=== PATIENT | female | born 1965 | race Caucasian/White ===

== ENCOUNTER → 2020-12-07 12:47 | Outpatient (CLI) | payer MEDICARE, SELFPAY ==
--- NOTE | ~2020-12-07 | MM_ITS ---
EXAMINATION: MM screening [facility] BI w keyonna HISTORY: Screening mammogram TECHNIQUE: Craniocaudal and mediolateral oblique 3-D tomosynthesis images were obtained and synthetic 2-D images were generated. CAD analysis was submitted and interpreted. COMPARISON: 08/14/2014 bilateral digital screening mammogram BREAST PARENCHYMAL COMPOSITION: There are scattered areas of fibroglandular density. FINDINGS: Occasional bilateral benign calcifications. There is no evidence of suspicious mass, calcif ication, or architectural distortion to suggest malignancy in either breast. There has been no suspic ious interval change. IMPRESSION: 1. No mammographic evidence of malignancy. 2. Recommend routine screening mammography in one year. BI-RADS Category 2: Benign finding(s). Reviewed, dictated and finalized at location A.
== END ==
PROVIDERS: PCP Nurse Practitioner Adult Health; Visit Provider Nurse Practitioner Adult Health
DX: Z12.31 Encounter for screening mammogram for malignant neoplasm of breast (principal)
CPT/HCPCS: 77063; 77067

== ENCOUNTER 2023-01-11 12:41 | Outpatient (CLI) | payer MEDICARE, SELFPAY ==
--- NOTE | ~2023-01-11 | MM_ITS ---
EXAMINATION: MM screening [facility] BI w keyonna HISTORY: Screening mammogram TECHNIQUE: Craniocaudal and mediolateral oblique 3-D tomosynthesis images were obtained and synthetic 2-D images were generated. CAD analysis was submitted and interpreted. COMPARISON: 12/07/2020, 08/14/2014 BREAST PARENCHYMAL COMPOSITION: There are scattered areas of fibroglandular density. FINDINGS: Scattered benign-appearing calcifications are present. No suspicious mass, calcification, o r architectural distortion are identified in either breast to suggest malignancy. There has been no s uspicious interval change. IMPRESSION: 1. No mammographic evidence of malignancy. 2. Recommend routine screening mammography in one year. BI-RADS Category 2: Benign finding(s). Reviewed, dictated and finalized at location A.
== END 2023-01-11 12:42 | disposition home or self-care (01) ==
LOC: CHSIMG 12:43
PROVIDERS: PCP Family Medicine; Visit Provider Family Medicine
DX: Z12.31 Encounter for screening mammogram for malignant neoplasm of breast (principal)
CPT/HCPCS: 77063; 77067

== ENCOUNTER 2023-01-29 13:19 | Outpatient (CLI) | payer MEDICARE, SELFPAY ==
--- NOTE | ~2023-01-29 | DEXA_ITS ---
Bone Density Report Name: JORDAN GARCIA Age: 57 Sex: Female Ethnicity: White Date of : 1965 Indication: postmenopausal; screening for osteoporosis; height loss; Referring Provider: DAPHNIE, DANE Nelson Study: Bone densitometry was performed. Exam Date: January 29, 2023 Accession number: [id number] Bone Density: Region BMD T-score Z-score Classification AP Spine(L1, L2, L3) 1.053 0.3 1.6 Normal Femoral Neck (Left) 0.804 -0.4 0.8 Normal Total Hip (Left) 0.882 -0.5 0.4 Normal Femoral Neck (Right) 0.786 -0.6 0.6 Normal Total Hip (Right) 0.857 -0.7 0.2 Normal Femoral Neck Mean 0.795 -0.5 0.7 Normal Total Hip Mean 0.870 -0.6 0.3 Normal World Health Organization criteria for BMD impression classify patients as: Normal (T-score at or above -1.0), Osteopenia (T-score between -1.0 and -2.5), or Osteoporosis (T-score at or below -2.5). 10-year Fracture Risk: FRAX not reported because: All T-scores for Spine Total, Hip Total, Femoral Neck at or above -1.0 Clinical Information Provided by Patient: Patient maximum height was 67 Menopause Age: 54 No regular weight bearing exercise Drinks caffeinated beverages Onset of menses at age 12 Number of children 0 Impression: The patient has normal bone mass. Discussion: BONE DENSITY IS ABOVE THE MINIMUM DESIRABLE LEVEL AT ALL SKELETAL SITES TESTED. This patient?s bone mineral density is above the minimum desirable level (T-score -1.0 or better) at all sites measured. The patient should follow a healthful lifestyle (good nutrition with adequate calcium and vitamin D, and appropriate weight-bearing exercise). Follow-Up: Consider repeating this study in 5 years or sooner if there is some new clinical indication. Reported by: Dr. Jey Fletcher on 01/29/2023 1:49:00 PM. Reviewed, dictated and finalized at location AAntony SERRANO
== END 2023-01-29 13:20 | disposition home or self-care (01) ==
LOC: CHSIMG 13:20
PROVIDERS: PCP Family Medicine; Visit Provider Family Medicine
DX: Z78.0 Asymptomatic menopausal state (principal)
CPT/HCPCS: 77080

== ENCOUNTER 2023-03-12 11:23 | Outpatient (CLI) | payer MEDICARE, SELFPAY ==
--- NOTE | 2023-03-12 11:30 | NEURO_ITS ---
Impression: # Complains of numbness and weakness. History of gastric bypass surgery. # Bilateral ulnar neuropathy around the elbows. # No Carpal Tunnel Syndrome. # Normal needle/EMG. Nerve Conduction Studies Anti Sensory Summary Table Stim Site NR Peak (ms) P-T Amp (?V) Site1 Site2 Delta-P (ms) Dist (cm) Faheem (m/s) Left Median Anti Sensory (2-3nd Digit) Wrist 4.2 26.8 Wrist 2-3nd Digit 4.2 14.0 33 Wrist 4.5 36.8 Wrist 2-3nd Digit 4.2 14.0 33 Right Median Anti Sensory (2-3nd Digit) Wrist 3.1 46.9 Wrist 2-3nd Digit 3.1 14.0 45 Wrist 3.1 47.3 Wrist 2-3nd Digit 3.1 14.0 45 Left Radial Anti Sensory (Base 1st Digit) Wrist 2.0 31.4 Wrist Base 1st Digit 2.0 0.0 Right Radial Anti Sensory (Base 1st Digit) Wrist 2.5 17.2 Wrist Base 1st Digit 2.5 0.0 Left Ulnar Anti Sensory (5th Digit) Wrist 2.8 44.7 Wrist 5th Digit 2.8 14.0 50 Right Ulnar Anti Sensory (5th Digit) Wrist 2.8 28.8 Wrist 5th Digit 2.8 14.0 50 Motor Summary Table Stim Site NR Onset (ms) O-P Amp (mV) Site1 Site2 Delta-0 (ms) Dist (cm) Faheem (m/s) Left Median Motor (Abd Poll Brev) Wrist 3.8 4.7 Elbow Wrist 5.5 29.0 53 Elbow 9.3 3.7 Right Median Motor (Abd Poll Brev) Wrist 3.7 3.2 Elbow Wrist 5.1 32.0 63 Elbow 8.8 5.8 Left Ulnar Motor (Abd Dig Minimi) Wrist 2.8 8.6 A Elbow Wrist 6.3 31.0 49 A Elbow 9.1 8.0 B Elbow Wrist 3.6 21.0 58 B Elbow 6.4 7.1 Right Ulnar Motor (Abd Dig Minimi) Wrist 2.9 4.7 A Elbow Wrist 6.3 30.0 48 A Elbow 9.2 5.4 B Elbow Wrist 4.4 21.0 48 B Elbow 7.3 2.4 F Wave Studies NR F-Lat (ms) L-R F-Lat (ms) Left Median (Mrkrs) (Abd Poll Brev) 30.26 1.27 Right Median (Mrkrs) (Abd Poll Brev) 28.99 1.27 Left Ulnar (Mrkrs) (Abd Dig Min) 28.39 1.66 Right Ulnar (Mrkrs) (Abd Dig Min) 26.73 1.66 EMG Side Muscle Nerve Root Ins Act Fibs Amp Dur Recrt Comment Right 1stDorInt Ulnar C8-T1 Nml Nml Nml Nml Nml Right Ext Indicis Radial (Post Int) C7-8 Nml Nml Nml Nml Nml Right Ext Digitorum Radial (Post Int) C7-8 Nml Nml Nml Nml Nml Right BrachioRad Radial C5-6 Nml Nml Nml Nml Nml Right PronatorTeres Median C6-7 Nml Nml Nml Nml Nml Right Abd Poll Brev Median C8-T1 Nml Nml Nml Nml Nml Left 1stDorInt Ulnar C8-T1 Nml Nml Nml Nml Nml Left Ext Indicis Radial (Post Int) C7-8 Nml Nml Nml Nml Nml Left Ext Digitorum Radial (Post Int) C7-8 Nml Nml Nml Nml Nml Left BrachioRad Radial C5-6 Nml Nml Nml Nml Nml Left PronatorTeres Median C6-7 Nml Nml Nml Nml Nml Left Abd Poll Brev Median C8-T1 Nml Nml Nml Nml Nml MTDD
== END 2023-03-12 11:24 | disposition home or self-care (01) ==
LOC: ANHNEURO 11:24
PROVIDERS: PCP Family Medicine; Visit Provider Physician Assistant Surgical
DX: G56.23 Lesion of ulnar nerve, bilateral upper limbs (principal)
CPT/HCPCS: 95886; 95911

== ENCOUNTER 2023-04-08 15:20 | Outpatient (CLI) | payer MEDICARE, SELFPAY ==
--- NOTE | ~2023-04-08 | XR_ITS ---
EXAMINATION: XR lumbar spine 2-3V DATE: 04/08/2023 15:41 INDICATION: Low back pain. TECHNIQUE: 3 views of lumbar spine were obtained. COMPARISON: Chest 2 views 09/15/2012. FINDINGS: There is 13 degrees dextroscoliosis of lumbar spine. There is a compression fracture of T12 with 1/5 loss of height. There is severely decreased disc height at L2-L3, mildly decreased disc hei ght at L3-L4, severely decreased disc height at L4-L5, and mildly decreased disc height at L5-S1. George gical clips in the right upper quadrant are likely from cholecystectomy. IMPRESSION: 1. Age-indeterminate compression fracture of T12, new from 09/15/2012. 2. Severe lumbar spondylosis. 3. Lumbar dextroscoliosis. Reviewed, dictated and finalized at location E.
--- NOTE | ~2023-04-08 | XR_ITS ---
EXAMINATION: XR thoracic spine 3V DATE: 04/08/2023 15:41 INDICATION: Thoracic back pain. TECHNIQUE: 3 views of thoracic spine were obtained. COMPARISON: Chest 2 views 09/15/2012 FINDINGS: There is 10 degrees levoscoliosis of thoracic spine. There is a compression fracture of T12 with 1/5 loss of height. There is mild chronic anterior wedging of T8-T11. There is mildly decreased disc height at multiple levels in mid and lower thoracic spine. There are endplate osteophytes at mo st levels. Surgical clips in the right upper quadrant are likely from cholecystectomy. IMPRESSION: 1. Age-indeterminate T12 compression fracture, new from 09/15/2012. 2. Mild thoracic spondylosis. 3. Thoracic levoscoliosis. Reviewed, dictated and finalized at location E.
== END 2023-04-08 15:21 | disposition home or self-care (01) ==
PROVIDERS: PCP Family Medicine; Visit Provider Family Medicine
DX: M47.894 Other spondylosis, thoracic region (principal); M47.896 Other spondylosis, lumbar region
CPT/HCPCS: 72072; 72100

== ENCOUNTER 2023-08-27 15:04 | Outpatient (CLI) | payer MEDICARE, SELFPAY ==
[2023-08-27 16:04] LABS: Hematocrit 38.7 % (37.0-47.0); Hemoglobin 12.2 g/dL (12.0-15.0)
== END 2023-08-27 15:05 | disposition home or self-care (01) ==
PROVIDERS: Anesthesiology; PCP Family Medicine; Visit Provider Plastic Surgery
DX: D64.9 Anemia, unspecified (principal); Z01.818 Encounter for other preprocedural examination
CPT/HCPCS: 36415; 85014; 85018

== ENCOUNTER 2023-08-28 03:17 | Day surgery (SDC) | payer MEDICARE, SELFPAY ==
[2023-08-21 11:32] VITALS: BMI 30.7
--- NOTE | 2023-08-21 11:41 | PC.NURSE ---
Report to the Outpatient Waiting Room, entrance under the green pavilion located off [facility], at time 8:45 on date 08/28/23. Planned Procedure Time: 10:45. Time changes happen often and if your time is changed the preop area will call you the afternoon before. - You and your visitor will be asked to self-screen and do not enter if you have any COVID symptoms. - A mask is optional within the hospital at this time. Patients may have clear liquids (water, carbonated beverages, clear teas, apple juice) until 8 hours prior to surgery with a maximum of 20 ounces. - No food from midnight until time of surgery Take the following medications with a SIP of water the morning of surgery: PAXIL, THYROID, TRAMADOL IF NEEDED DO NOT STOP ANY OF YOUR OTHER PRESCRIPTION MEDICATIONS PRIOR TO SURGERY ?EXCEPT THE FOLLOWING Medications to discontinue per physician: VITAMINS/SUPPLEMENTS Date to take last dose: 08/24/[address] COSTELLO REGARDING ASPIRIN AND CELEBREX Please no make-up, nail uzbek, hairspray, perfume, deodorant, or body powder the day of surgery. No jewelry (including any body piercings) or valuables the day of surgery, leave them at home. Please take a shower or bath the night before, or the morning of, surgery with an antibacterial soap. Wear comfortable, loose fitting clothing. - Jewelry must be removed prior to entering the operating room. Rings and piercings that are not removed may be cut off. - The hospital will not accept responsibility for valuables. - Please leave all valuables, including medications, at home the day of surgery. If you are going home after surgery, a licensed port cdl a driver must drive you home. - NO public transportation without another adult if you receive anesthesia. - We recommend that an adult stay with you for 24 hours following discharge. - We also recommend that you do not drive, make important decision, drink alcoholic beverages, or take any drugs that were not prescribed by your health care provider for at least 24 hours after your discharge time. Follow any additional instructions given to you from your surgeon. If you or anyone in your household have experienced Covid symptoms in the past week, please notify your surgeon or the nurse liaison at the phone number below for possible testing. Telephone instructions given to PT - JORDAN RADHA and asked if any additional questions and then verbalized understanding. Patient advised to call surgeon office or pre surgery nurse liaison [phone] if any additional questions.
--- NOTE | 2023-08-28 07:25 | WPDHPUPDATE1 ---
History and Physical Update Update Date/Time: 08/28/23 07:25 Patient seen and examined in pre-operative holding area. No interval change in medical history or symptoms. Patient recalls previous discussion of benefits and alternatives to procedure. Continues to desire to proceed with left cubital tunnel release. Reviewed procedure, post-op expectations and risks including but not limited to bleeding, infection, injury to tendon/nerve/vessel, decreased hand function, stiffness, RSD, no change or worsening of symptoms. I discussed the possible use of assistants and their participation in the case. Patient stated understanding and signed the consent form wishing to proceed.
--- NOTE | 2023-08-28 07:26 | P.OP_ITS ---
Procedure Note - Detailed Date of Procedure 08/28/23 Pre-op Diagnosis ulnar neuropathy at left elbow Post-op Diagnosis Same Procedure Performed left CuTR Surgeon Carly Guerrero MD [employer] Tatyana Leon PA-C Anesthesia MAC Description of Procedure INFORMED CONSENT:The patient was seen and examined and marked in the pre-op area.? The patient signed the consent form. PROCEDURE IN DETAIL: The patient taken back to OR on the stretcher in supine position. Time out performed with anesthesia, surgeon and staff agreeing on patient's name site and surgery to be performed SCDs were placed on the lower extremities and inflated A tourniquet was placed on {left} upper extremity and antibiotics given IV After anesthesia administered sedation I injected {10}cc 1%lido with epi and 0.5% marcaine plain at the operative site The?{left upper extremity}?was prepped and draped in sterile fashion the??{left upper extremity} was??exsanguinated with Esmarch bandage and tourniquet inflated to 250mmHg I next proceeded with making a longitudinal incision between two heads for flexor carpi ulnaris at end of {left} cubital tunnel with 15 blade scalpel.? Littler scissors were used to spread down to FCU fascia.? An incision was made in FCU fascia and ulnar nerve identified exiting cubital tunnel.? I proceeded with complete retrograde release of the cubital tunnel including 7cm proximal for the intermuscular septum.? The nerve appeared healthy with visible vaso nervorum.? There was no subluxation on full elbow range of motion. ? I irrigated with normal saline and closure with 4-0 monocryl for dermis and subcuticular. The incision was covered with Dermabond then 4x4s, vijaya, and a posterior elbow splint for patient safety, security and comfort and secured with dennis bandages after the tourniquet was let down noting the hand was warm and well perfused.? Patient awaken from anesthesia and transferred to recovery in stable condition Complications - none EBL- 1cc Disposition - home in stable conditions Tatyana Leon PA-C was essential for postiioning, retraction, closure and dressi ng placement [facility] Billing Surgery - Charge Forward: Surgery Billing ([id number] for tatyana)
--- NOTE | 2023-08-28 08:35 | WPDANESEPPF ---
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 Patient Data Age: 57 Gender: F Height: 1.65 m Weight: 83.9 kg Allergies Allergy/AdvReac Type Severity Reaction Status Date / Time canagliflozin [From Invokana] Allergy Mild Dizziness Verified 08/28/23 09:10 diclofenac [From Voltaren] Allergy Mild Nausea Verified 08/28/23 09:10 fosinopril [From Monopril] Allergy Mild Cough Verified 08/28/23 09:10 levofloxacin [From Levaquin] Allergy Mild Nausea Verified 08/28/23 09:10 montelukast [From Singulair] Allergy Mild Muscle Pain Verified 08/28/23 09:10 sertraline [From Zoloft] Allergy Mild Seizure Verified 08/28/23 09:10 vancomycin Allergy Mild Hives Verified 08/28/23 09:10 cortisone AdvReac Mild Other Verified 08/28/23 09:10 ketorolac AdvReac Mild SEVERE Verified 08/28/23 09:10 NAUSEA AND VOMITING turkey Allergy Mild Unknown Uncoded 08/28/23 09:10 Home Medications Medication Instructions Recorded Confirmed Type aspirin 81 mg tablet,delayed 81 mg PO DAILY 01/31/23 08/21/23 History release (Adult Low Dose Aspirin) olmesartan 5 mg tablet 5 mg PO DAILY 01/31/23 08/21/23 History omeprazole 10 mg capsule,delayed 10 mg PO DAILY 01/31/23 08/21/23 History release Bariatric vitamins 1 tablet PO DAILY 05/06/23 08/21/23 History ascorbic acid 125 mg-collagen, 1 cap PO DAILY 05/06/23 08/21/23 History hydrolyzed 740 mg capsule (Collagen Plus Vitamin C) celecoxib 200 mg capsule 200 mg PO DAILY 05/06/23 08/28/23 History cholecalciferol (vitamin D3) 125 125 mcg PO DAILY 05/06/23 08/21/23 History mcg (5,000 unit) tablet cyclobenzaprine 5 mg tablet 5 mg PO TID PRN Muscle Spasm 05/06/23 08/28/23 History docusate sodium 100 mg capsule 200 mg PO DAILY 05/06/23 08/21/23 History (Colace) fluconazole 150 mg tablet 150 mg PO DAILY PRN FUNGAL 05/06/23 08/21/23 History INFECTION ketoconazole 2 % shampoo 1 applic topical 3XW 05/06/23 08/21/23 History magnesium oxide 400 mg (241.3 mg 400 mg PO DAILY 05/06/23 08/21/23 History magnesium) tablet omega 7-wwt-jzj-fish oil 1,200 mg 1 cap PO DAILY 05/06/23 08/21/23 History (144 mg-216 mg) capsule (Fish Oil) paroxetine HCl 30 mg tablet 60 mg PO DAILY 05/06/23 08/28/23 History sennosides 8.6 mg tablet (senna) 68.8 mg PO DAILY 05/06/23 08/21/23 History tramadol 50 mg tablet 50 mg PO Q6H PRN Pain 05/06/23 08/28/23 History triamcinolone acetonide 0.147 1 spray topical DAILY 05/06/23 08/21/23 History mg/gram topical aerosol Tirosint-Mili 112 mcg/mL oral 112 mcg PO DAILY 90 days #90 mL 05/14/23 08/21/23 Rx solution (levothyroxine) ferrous sulfate 325 mg (65 mg 325 mg PO DAILY 08/21/23 08/21/23 History iron) tablet (Iron (ferrous sulfate)) Patient hx anesthesia problems: post op nausea/vomiting Family hx anesthesia problems: none Results Review: All pre-operative results and documents have been reviewed as part of the pre-operative evaluation. [facility] Past Medical History Medical History (Updated 08/28/23 @ 08:36 by Zeb Mccray DO) Chronic pain tramadol Hyperlipidemia Hypertriglyceridemia CASSIA (obstructive sleep apnea) PONV (postoperative nausea and vomiting) Type 2 diabetes mellitus Vitamin D deficiency Surgical History Surgical History (Updated 05/06/23 @ 13:43 by Alice Posadas CMA) H/O colonoscopy 2006 H/O esophagogastroduodenoscopy H/O gastric bypass 07/04/21 H/O left breast biopsy Hx of cholecystectomy Family History Family History (Updated 01/31/23 @ 14:03 by Jeanine Llamas MA) Father Alcoholism Diabetes mellitus Cancer Mother Alcoholism Hypertension Depression Thyroid disorder Cancer Sibling Alcoholism Asthma Cancer Diabetes mellitus Hypertension Depression Heart dise
[2023-08-28 09:13] VITALS: BP 101/71; PULSE 69; TEMP 36.7; O2SAT 99
[2023-08-28 09:30] LABS: Glucose Point of Care 80 mg/dl (65-105)
[2023-08-28] MEDS: LACTATED RINGERS 1,000 ML 30 ML IV CONT (09:30)
[2023-08-28] MEDS: ceFAZolin 2 GM/D5W 50 ML 2 GM/50 ML BAG IVPB (10:15)
[2023-08-28] MEDS: LIDO 1%/EPINEPHRINE 1:100,000 50 ML VIAL 10 ML INFILTRATE (10:18)
[2023-08-28 10:37] VITALS: BP 110/53; PULSE 61; RESP 16; O2SAT 99
[2023-08-28 11:00] VITALS: BP 121/56; PULSE 60; RESP 16
[2023-08-28 11:17] VITALS: BP 110/51; PULSE 57; RESP 16
== END 2023-08-28 11:19 | disposition home or self-care (01) ==
PROVIDERS: PCP Family Medicine; Visit Provider Plastic Surgery
PROC: (CPT 64718; principal; 2023-08-28 10:45)
DX: G56.22 Lesion of ulnar nerve, left upper limb (principal); E78.5 Hyperlipidemia, unspecified; E11.9 Type 2 diabetes mellitus without complications; G47.33 Obstructive sleep apnea (adult) (pediatric); G89.29 Other chronic pain; E55.9 Vitamin D deficiency, unspecified; Z79.891 Long term (current) use of opiate analgesic; Z98.84 Bariatric surgery status; E66.9 Obesity, unspecified; Z68.30 Body mass index [BMI] 30.0-30.9, adult; Z79.82 Long term (current) use of aspirin
CPT/HCPCS: 64718; 36415; 82948; 85014; 85018; J0690; J2405; J2704; J3010; J7120

== ENCOUNTER 2023-10-03 08:07 | Day surgery (SDC) | payer MEDICARE, SELFPAY ==
[2023-09-20 08:37] VITALS: BMI 30.8
--- NOTE | 2023-10-03 07:13 | WPDHPUPDATE1 ---
History and Physical Update Update Date/Time: 10/03/23 07:13 Patient seen and examined in pre-operative holding area. No interval change in medical history or symptoms. Patient recalls previous discussion of benefits and alternatives to procedure. Continues to desire to proceed with right cubital tunnel release. Reviewed procedure, post-op expectations and risks including but not limited to bleeding, infection, injury to tendon/nerve/vessel, decreased hand function, stiffness, RSD, no change or worsening of symptoms. I discussed the possible use of assistants and their participation in the case. Patient stated understanding and signed the consent form wishing to proceed.
--- NOTE | 2023-10-03 07:14 | P.OP_ITS ---
Procedure Note - Detailed Date of Procedure 10/03/23 Pre-op Diagnosis right cubital tunnel syndrome Post-op Diagnosis Same Procedure Performed right CuTR Surgeon Carly Guerrero MD Security Systems Administrator Tatyana Leon PA-C Anesthesia MAC Description of Procedure INFORMED CONSENT:The patient was seen and examined and marked in the pre-op area.? The patient signed the consent form. PROCEDURE IN DETAIL: The patient taken back to OR on the stretcher in supine position. Time out performed with anesthesia, surgeon and staff agreeing on patient's name site and surgery to be performed SCDs were placed on the lower extremities and inflated A tourniquet was placed on {right} upper extremity and antibiotics given IV After anesthesia administered sedation I injected 8cc 1%lido with epi and 0.5% marcaine plain at the operative site The?{right upper extremity}?was prepped and draped in sterile fashion the??{right upper extremity} was??exsanguinated with Esmarch bandage and tourniquet inflated to 250mmHg I next proceeded with making a longitudinal incision between two heads for flexor carpi ulnaris at end of {right} cubital tunnel with 15 blade scalpel.? Littler scissors were used to spread down to FCU fascia.? An incision was made in FCU fascia and ulnar nerve identified exiting cubital tunnel.? I proceeded with complete retrograde release of the cubital tunnel including 7cm proximal for the intermuscular septum.? The nerve appeared mildly sclerotic with scant visible vaso nervorum and no clear change after epineurolysis.? There was no subluxation on full elbow range of motion. ? I irrigated with normal saline and closure with 4-0 monocryl for dermis and subcuticular. The incision was covered with Dermabond then 4x4s, vijaya, and a posterior elbow splint for patient safety, security and comfort and secured with dennis bandages after the tourniquet was let down noting the hand was warm and well perfused.? Patient awaken from anesthesia and transferred to recovery in stable condition Complications - none EBL- 1cc Disposition - home in stable conditions Tatyana Leon PA-C was essential for positioning, retraction, closure and dressing placement [facility] Billing Surgery - Charge Forward: Surgery Billing ([id number] for tatyana )
[2023-10-03 09:33] VITALS: BP 119/76; PULSE 55; RESP 16; TEMP 37; O2SAT 100
--- NOTE | 2023-10-03 09:36 | WPDANESEPPF ---
Anes - Initial Pre Proc Eval Procedure: Operation Date: 10/03/23 10:15 Proposed Procedures p Right Cubital Tunnel Release - Carly Guerrero MD Date/Time: 10/03/23 09:36 Surgeon: Carly Guerrero MD Pre Op Diagnosis: Lesion of Ulnar Nerve Right Upper Limb Patient Data Age: 58 Gender: F Height: 1.65 m Weight: 87.25 kg Last Vital Signs Temp 37.0 C 10/03/23 09:33 Pulse 55 L 10/03/23 09:33 Resp 16 10/03/23 09:33 BP 119/76 10/03/23 09:33 Pulse Ox 100 10/03/23 09:33 O2 Del Method Room Air 10/03/23 09:33 Allergies Allergy/AdvReac Type Severity Reaction Status Date / Time canagliflozin [From Invokana] Allergy Mild Dizziness Verified 10/03/23 09:29 diclofenac [From Voltaren] Allergy Mild Nausea Verified 10/03/23 09:29 fosinopril [From Monopril] Allergy Mild Cough Verified 10/03/23 09:29 levofloxacin [From Levaquin] Allergy Mild Nausea Verified 10/03/23 09:29 montelukast [From Singulair] Allergy Mild Muscle Pain Verified 10/03/23 09:29 sertraline [From Zoloft] Allergy Mild Seizure Verified 10/03/23 09:29 vancomycin Allergy Mild Hives Verified 10/03/23 09:29 cortisone AdvReac Mild Other Verified 10/03/23 09:29 ketorolac AdvReac Mild SEVERE Verified 10/03/23 09:29 NAUSEA AND VOMITING turkey Allergy Mild Unknown Uncoded 10/03/23 09:29 Home Medications Medication Instructions Recorded Confirmed Type aspirin 81 mg tablet,delayed 81 mg PO DAILY 01/31/23 10/03/23 History release (Adult Low Dose Aspirin) olmesartan 5 mg tablet 5 mg PO DAILY 01/31/23 10/03/23 History omeprazole 10 mg capsule,delayed 10 mg PO DAILY 01/31/23 10/03/23 History release Bariatric vitamins 1 tablet PO DAILY 05/06/23 10/03/23 History ascorbic acid 125 mg-collagen, 1 cap PO DAILY 05/06/23 10/03/23 History hydrolyzed 740 mg capsule (Collagen Plus Vitamin C) celecoxib 200 mg capsule 200 mg PO DAILY 05/06/23 10/03/23 History cholecalciferol (vitamin D3) 125 125 mcg PO DAILY 05/06/23 10/03/23 History mcg (5,000 unit) tablet docusate sodium 100 mg capsule 200 mg PO DAILY 05/06/23 10/03/23 History (Colace) ketoconazole 2 % shampoo 1 applic topical 3XW 05/06/23 10/03/23 History magnesium oxide 400 mg (241.3 mg 400 mg PO DAILY 05/06/23 10/03/23 History magnesium) tablet omega 5-vpt-sfh-fish oil 1,200 mg 1 cap PO DAILY 05/06/23 10/03/23 History (144 mg-216 mg) capsule (Fish Oil) paroxetine HCl 30 mg tablet 60 mg PO DAILY 05/06/23 10/03/23 History sennosides 8.6 mg tablet (senna) 68.8 mg PO DAILY 05/06/23 10/03/23 History tramadol 50 mg tablet 50 mg PO Q6H PRN Pain 05/06/23 10/03/23 History triamcinolone acetonide 0.147 1 spray topical DAILY 05/06/23 10/03/23 History mg/gram topical aerosol Tirosint-Mili 112 mcg/mL oral 112 mcg PO DAILY 90 days #90 mL 05/14/23 10/03/23 Rx solution (levothyroxine) ferrous sulfate 325 mg (65 mg 325 mg PO DAILY 08/21/23 10/03/23 History iron) tablet (Iron (ferrous sulfate)) Patient hx anesthesia problems: post op nausea/vomiting Family hx anesthesia problems: none Results Review: All pre-operative results and documents have been reviewed as part of the pre-operative evaluation. [facility] Past Medical History Medical History Chronic pain tramadol Hyperlipidemia Hypertriglyceridemia CASSIA (obstructive sleep apnea) PONV (postoperative nausea and vomiting) Type 2 diabetes mellitus Vitamin D deficiency Surgical History Surgical History H/O colonoscopy 2006 H/O esophagogastroduodenoscopy H/O gastric bypass 07/04/21 H/O left breast biopsy Hx of cholecystectomy Family History Family History Father Alcoholism Diabetes mellitus Cancer Mother Alcoholism Hypertension Depression Thyroid disorder Cancer Sibling Alcoholism Asthma Cancer Diabetes shukri
[2023-10-03] MEDS: LACTATED RINGERS 1,000 ML 30 ML IV CONT (09:45)
[2023-10-03] MEDS: ceFAZolin SODIUM 2 GM/20 ML SW SYRINGE IV PUSH (09:48)
[2023-10-03] MEDS: LIDOCAINE HCL 1% LOCAL INJ 20 ML VIAL 4 ML INFILTRATE (09:52)
[2023-10-03] MEDS: BUPivacaine HCL 0.5% 10 ML AMP 4 ML INFILTRATE (09:52)
[2023-10-03 10:18] VITALS: BP 95/58; PULSE 60; RESP 16; O2SAT 99
--- NOTE | 2023-10-03 10:19 | WPDANESPN ---
Anes - Prog Note Post-Op Date/Time: 10/03/23 10:19 Cardiovascular status: normal Respiratory status: normal Airway patency: baseline Mental status: baseline Post-Op hydration status: normal Vital Signs: Last Vital Signs Temp 37.0 C 10/03/23 09:33 Pulse 55 L 10/03/23 09:33 Resp 16 10/03/23 09:33 BP 119/76 10/03/23 09:33 Pulse Ox 100 10/03/23 09:33 O2 Del Method Room Air 10/03/23 09:33 Pain Score (VAS): 0 Patient Feedback: Patient satisfied with anesthetic care.
[2023-10-03 10:28] VITALS: BP 105/66; PULSE 58; RESP 16; O2SAT 100
[2023-10-03 10:38] VITALS: BP 110/60; PULSE 59; RESP 14; O2SAT 100
[2023-10-03 10:48] VITALS: BP 115/55; PULSE 58; RESP 14; O2SAT 100
== END 2023-10-03 11:04 | disposition home or self-care (01) ==
PROVIDERS: PCP Family Medicine; Visit Provider Plastic Surgery
PROC: (CPT 64718; principal; 2023-10-03 10:15)
DX: G56.21 Lesion of ulnar nerve, right upper limb (principal)
CPT/HCPCS: 64718

== ENCOUNTER 2023-11-07 05:51 | Day surgery (SDC) | payer MEDICARE, SELFPAY ==
[2023-10-24 13:30] VITALS: BMI 30.4
--- NOTE | 2023-11-06 14:45 | WPDANESEPPF ---
Anes - Initial Pre Proc Eval Procedure: Operation Date: 11/07/23 07:30 Proposed Procedures p Bilateral Breast Mastopexy - Carly Guerrero MD s Torsoplasty - Carly Guerrero MD s Bilateral Brachioplasty - Carly Guerrero MD Date/Time: 11/06/23 14:45 Surgeon: Carly Guerrero MD Pre Op Diagnosis: [id number] Excessive&Redundant Skin and Sub-Q Tissue Patient Data Age: 58 Gender: F Height: 1.68 m Weight: 85.7 kg Allergies Allergy/AdvReac Type Severity Reaction Status Date / Time canagliflozin [From Invokana] Allergy Mild Dizziness Verified 11/07/23 06:21 diclofenac [From Voltaren] Allergy Mild Nausea Verified 11/07/23 06:21 fosinopril [From Monopril] Allergy Mild Cough Verified 11/07/23 06:21 levofloxacin [From Levaquin] Allergy Mild Nausea Verified 11/07/23 06:21 montelukast [From Singulair] Allergy Mild Muscle Pain Verified 11/07/23 06:21 sertraline [From Zoloft] Allergy Mild Seizure Verified 11/07/23 06:21 vancomycin Allergy Mild Hives Verified 11/07/23 06:21 cortisone AdvReac Mild Other Verified 11/07/23 06:21 ketorolac AdvReac Mild SEVERE Verified 11/07/23 06:21 NAUSEA AND VOMITING turkey Allergy Mild Unknown Uncoded 11/04/23 13:24 Home Medications Medication Instructions Recorded Confirmed Type aspirin 81 mg tablet,delayed 81 mg PO DAILY 01/31/23 11/07/23 History release (Adult Low Dose Aspirin) olmesartan 5 mg tablet 5 mg PO DAILY 01/31/23 11/07/23 History omeprazole 10 mg capsule,delayed 10 mg PO DAILY 01/31/23 11/07/23 History release Bariatric vitamins 1 tablet PO DAILY 05/06/23 11/07/23 History ascorbic acid 125 mg-collagen, 1 cap PO DAILY 05/06/23 11/07/23 History hydrolyzed 740 mg capsule (Collagen Plus Vitamin C) celecoxib 200 mg capsule 200 mg PO DAILY 05/06/23 11/07/23 History cholecalciferol (vitamin D3) 125 125 mcg PO DAILY 05/06/23 11/07/23 History mcg (5,000 unit) tablet docusate sodium 100 mg capsule 200 mg PO DAILY 05/06/23 11/07/23 History (Colace) magnesium oxide 400 mg (241.3 mg 400 mg PO DAILY 05/06/23 11/07/23 History magnesium) tablet omega 8-gpf-wtb-fish oil 1,200 mg 1 cap PO DAILY 05/06/23 11/07/23 History (144 mg-216 mg) capsule (Fish Oil) paroxetine HCl 30 mg tablet 60 mg PO DAILY 05/06/23 11/07/23 History sennosides 8.6 mg tablet (senna) 68.8 mg PO DAILY 05/06/23 11/07/23 History tramadol 50 mg tablet 50 mg PO Q6H PRN Pain 05/06/23 11/07/23 History Tirosint-Mili 112 mcg/mL oral 112 mcg PO DAILY 90 days #90 mL 05/14/23 11/07/23 Rx solution (levothyroxine) ferrous sulfate 325 mg (65 mg 325 mg PO DAILY 08/21/23 11/07/23 History iron) tablet (Iron (ferrous sulfate)) semaglutide 0.25 mg or 0.5 mg (2 0.5 mg subcut WEEKLY 10/21/23 11/07/23 History mg/3 mL) subcutaneous pen injector (Ozempic) cephalexin 500 mg capsule 500 mg PO Q12H #20 caps 11/07/23 Rx oxycodone-acetaminophen 5 mg-325 1 tablet PO Q6H PRN pain #16 tabs 11/07/23 Rx mg tablet Patient hx anesthesia problems: none Family hx anesthesia problems: none Results Review: All pre-operative results and documents have been reviewed as part of the pre-operative evaluation. [facility] Past Medical History Medical History Chronic pain tramadol History of postoperative nausea and vomiting History of stress test (~2021) Hyperlipidemia Hypertriglyceridemia CASSIA (obstructive sleep apnea) PONV (postoperative nausea and vomiting) Type 2 diabetes mellitus Vitamin D deficiency Surgical History Surgical History H/O colonoscopy 2006 H/O esophagogastroduodenoscopy H/O gastric bypass 07/04/21 H/O left breast biopsy History of tooth extraction Hx of cholecystectomy Family History Family History Father Alcoholism Diabetes mellitus Cancer Mother Alcoholism Hypertension Depression Thyroid d
[2023-11-07] VITALS (8 sets, daily range): BP systolic 106–130; BP diastolic 63–94; PULSE 65–84; RESP 12–18; TEMP 36.3–36.6; O2SAT 94–100; BMI 30.2
--- NOTE | 2023-11-07 06:57 | P.HPUP_ITS ---
History and Physical Update Update Date/Time: 11/07/23 06:57 Patient seen and examined in pre-operative holding area. No interval change in medical history or symptoms. Patient remembers previous discussion of benefits and alternatives to procedure. Continues to desire to proceed with bilateral mastopexy, torsoplasty and brachioplasty . I reviewed the risks including but not limited to bleeding ,infection, asymmetry, undesireable cosmetic appearance, partial/total skin/nipple loss, no change or worsening of symptoms, change in sensation. I discussed the possible use of assistants and their level of participation in the case. Patient stated understanding and signed the co nsent form wishing to proceed
--- NOTE | 2023-11-07 07:00 | W.PM.PROC2 ---
Procedure Note - Detailed Date of Procedure 11/07/23 Pre-op Diagnosis Excessive&Redundant Skin and Sub-Q Tissue Post-op Diagnosis Same Procedure Performed bilateral mastopexy, torsoplasty and brachioplasty Surgeon Carly Guerrero MD Comic Illustrator tatyana lazo pa-c Anesthesia General Description of Procedure Patient was seen in the preoperative holding area where the consent form was signed and breast were marked for an inferior pedicle Millan pattern reduction J-style vertical torso plasty and brachioplasty. Patient was taken back to the operating room and placed on the table in the supine position. Time-out was performed with anaesthesia surgeon and staff agreeing on patient's name, site, and surgery to be performed. The arms breasts and torso were prepped in the usual sterile fashion after general anesthesia was administered. I took my attention 1st to the right breast raised a saline moistened lap pad and Davina clamp to create a breast tourniquet. I used the 38 mm nipple Sizer to circumscribe the nipple-areolar complex. I proceeded with de epithelializing a 7 cm wide inferior pedicle. I made my other skin incisions. I elevated the superior breast flaps and Dandre's plane down to the chest wall exposing the breast tissue. Plicated the breast with 2-0 Vicryl suture. 2-0 Prolene was used to secure the T-junction after irrigation hemostasis. 3-0 Vicryl was used for dermis. The nipple was brought out 5 cm above the inframammary fold the most prominent portion of the breast the breast midline and secured with 3-0 Vicryl suture. An hour extended my inframammary fold incision superior in the anterior axillary line up to the dome of the axilla. This was then carried out laterally onto the midline of the arm just to the medial epicondyle. This was done through skin and dermis with a 10 blade scalpel. Bovie cautery was used to elevate torso and arm in the subcutaneous plane just above fascia. Penetrating towel clamps were used to help measure the area of resection which was marked with a marking pen with reasonable tension. Irrigated with normal saline hemostasis with Bovie cautery. I used a 10 blade scalpel to make my posterior arm and torso incisions. Bovie cautery was used to complete the resection of this excess skin and tissue. I irrigated with normal saline hemostasis with Bovie cautery. Initially I provisionally tacked the skin with penetrating towel clamps and torrey. Trimming as appropriate. Proceed with closure with 3-0 Vicryl for deep and dermal suture 4-0 Monocryl for subcuticular closure. I next took my attention to the left side where the similar procedure was performed. Using a saline moistened lap pad and Davina clamps to create a breast tourniquet. Use of 38 mm nipple Sizer to circumscribe the nipple areolar complex. I elevated skin flaps and compress plane to expose the breast tissue. I plicated the pedicle with 2-0 Vicryl suture. to 0 Prolene was used to secure the T-junction after irrigation and hemostasis. 3-0 Vicryl was used for dermis. The nipple was brought out 5 cm above the inframammary fold at the most prominent portion of the breast at the breast midline and secured with 3-0 Vicryl suture. 4-0 Monocryl was used for subcuticular closure. I carried my inframammary fold incision superiorly toward the dome of the axilla in the anterior axillary line and then carrying it down the midline of the arm to the medial condyle. Using Bovie cautery I elevated the skin flaps just in the subcutaneous and prefascial plane. Until I was able to achieve reasonable tissue mobility. I marked the tissue flap for resection to be similar to the right side. The incisions on the posterior aspect of the torso and arm were made with 10 blade scalpel. And this excess skin and tissue was resected with Bovie cautery. A gated with normal saline. Provisionally placed towel clamps and torrey to adjust the flap as needed. And proceede
--- NOTE | 2023-11-07 07:26 | SUR.PREOP ---
FEMALE STAFF IN ROOM WHILE DR COSTELLO MARKED PT. PT'S SISTER IN ROOM ALSO
[2023-11-07] MEDS: LACTATED RINGERS 1,000 ML 30 ML IV CONT ×2 (07:28→11:40)
[2023-11-07] MEDS: ceFAZolin SODIUM 2 GM/20 ML SW SYRINGE IV PUSH (07:35)
[2023-11-07] MEDS: SCOPOLAMINE 1 MG PATCH 1.5 PATCH TRANSDERM (07:38)
[2023-11-07] MEDS: LIDO 1%/EPINEPHRINE 1:100,000 50 ML VIAL 15 ML INFILTRATE (10:45)
--- NOTE | 2023-11-07 12:11 | SUR.PHASEI ---
LATE NOTE, 1150; HOB AT 30 DEGREES
--- NOTE | 2023-11-07 12:18 | SUR.PHASEI ---
PT AWAKE, FLACC SCORE -0. PT DENIES PAIN OR NAUSEA AT THIS TIME. STATES I'M DOING PRETTY GOOD
[2023-11-07] MEDS: ONDANSETRON INJ 4 MG/2 ML VIAL IV PUSH (12:48)
--- NOTE | 2023-11-07 12:49 | SUR.PHASEII ---
PT C/O SLIGHT NAUSEA. ZOFRAN GIVEN IV. PT ASKING WHEN SHE CAN GO HOME
--- NOTE | 2023-11-07 14:08 | WPDANESPN ---
Anes - Prog Note Post-Op Date/Time: 11/07/23 14:08 Cardiovascular status: normal Respiratory status: normal Airway patency: baseline Mental status: baseline Post-Op hydration status: normal Vital Signs: Last Vital Signs Temp 36.3 C L 11/07/23 11:40 Pulse 82 11/07/23 12:25 Resp 16 11/07/23 12:25 BP 120/70 11/07/23 12:25 Pulse Ox 94 11/07/23 12:25 O2 Del Method Room Air 11/07/23 12:25 O2 Flow Rate 6 11/07/23 11:55 Pain Score (VAS): 2 I/O: Intake & Output 11/06/23 11/07/23 11/07/23 23:59 07:59 15:59 Intake Total 100 Balance 100 Post-procedural complaints: none Patient Feedback: Patient satisfied with anesthetic care. Other Findings: Patient vital signs back to baseline. Patient denies nausea and vomiting. Patient's pain under control. Patient OK for discharge.
--- NOTE | 2023-11-07 14:25 | SUR.PHASEII ---
1320; PT HAS MODERATE AMT SEROSANG DRAINAGE TO LEFT UNDERARM SITE. SURGIBRA IS WET WHERE PT WAS LAYING ON DEPENDENT BACK. PT STATES RELIEF OF NAUSEA. STATES STARTING TO HAVE SOME MILD DISCOMFORT. PT ASKING TO GO HOME. 1325; DR ISSA AT BEDSIDE. HE AND I CHANGED THE DRESSING TO THE LEFT SIDE AREA. NEW SURGIBRA APPLIED. DR COSTELLO TOLD PT AND PT'S SISTER TO USE AN ICE PACK OFF AND ON AT HOME TO THE LEFT SIDE AREA. SISTER VERBALIZED UNDERSTANDING.
--- NOTE | 2023-11-07 14:32 | SUR.PHASEII ---
1340; PT GIVEN EXTRA DRESSING SUPPLIES TO REINFORCE DRESSINGS IF NEEDED PER DR COSTELLO.
== END 2023-11-07 13:45 | disposition home or self-care (01) ==
PROVIDERS: PCP Nurse Practitioner Family; Visit Provider Plastic Surgery
PROC: (CPT 19316; principal; 2023-11-07 07:30)
PROC: (CPT 19316; 2023-11-07 07:30)
PROC: (CPT 15836; 2023-11-07 07:30)
DX: L98.7 Excessive and redundant skin and subcutaneous tissue (principal)
CPT/HCPCS: 19316; 15836; 15839

== ENCOUNTER 2024-01-06 15:07 | Outpatient (CLI) | payer MEDICARE, SELFPAY ==
--- NOTE | ~2024-01-06 | US_ITS ---
EXAMINATION: US pelvic complete w TV DATE: 01/06/2024 15:44 INDICATION: Leiomyoma with the uterus TECHNIQUE: Multiple transabdominal and endovaginal sonographic images of the pelvis were obtained. COMPARISON: None. FINDINGS: The uterus measures 5.8 x 3.6 x 4.1 cm. The endometrial complex measures 6 mm in thickness. 2.1 x 2. 0 x 1.9 cm heterogeneously hypoechoic mass consistent with uterine fibroid at the left side of the ut erine fundus. There is a second smaller more hypoechoic likely fibroid measuring 1.3 x 1.0 x 0.9 cm a t the right side of the uterine body. The right ovary is not visualized. The left ovary measures 3.0 x 1.3 x 2.3 cm. 1.3 cm cyst/follicle in the left ovary. Vascular flow identified in the left ovary on color Doppler. There is no free fluid in the pelvis. IMPRESSION: 1. A couple uterine fibroids the largest measuring 2.1 cm. Reviewed, dictated and finalized at location A.
== END 2024-01-06 15:08 ==
DX: D25.9 Leiomyoma of uterus, unspecified (principal)
CPT/HCPCS: 76830; 76856

== ENCOUNTER 2024-02-13 05:59 | Day surgery (SDC) | payer MEDICARE, SELFPAY ==
[2024-01-29 09:00] VITALS: BMI 27.5
[2024-02-13] VITALS (11 sets, daily range): BP systolic 120–147; BP diastolic 64–83; PULSE 63–82; RESP 16–20; TEMP 36.1–37.1; O2SAT 96–100; BMI 28.1
--- NOTE | 2024-02-13 07:03 | WPDHPUPDATE1 ---
History and Physical Update Update Date/Time: 02/13/24 07:03 Patient seen and examined in pre-operative holding area. No interval change in medical history or symptoms. Patient remembers previous discussion of benefits and alternatives to procedure. Continues to desire to proceed with revision [id number] abdominoplasty and excision excess skin and tissue from hips. I reviewed the risks including but not limited to bleeding ,infection, seroma, asymmetry, undesireable cosmetic appearance, partial/total skin loss, no change or worsening of symptoms, change in sensation. I discussed the possible use of assistants and their level of participation in the case. Patient stated understanding and signed the consent form wishing to proceed
--- NOTE | 2024-02-13 07:04 | P.OP_ITS ---
Procedure Note - Detailed Date of Procedure 02/13/24 Pre-op Diagnosis Excessive and Redunant Skin and Sub-Q Tissue Post-op Diagnosis Same Procedure Performed revision [id number] abdominoplasty and excision excess skin and subq tissue fl anks/hips Surgeon Carly Guerrero MD Lagging Machine Operator Kristen Leon PA-C Anesthesia General Description of Procedure Patient was seen in the preoperative holding area where the consent form was signed. Planned incision markings were determined encompassing her previous aygez-gf-zks style incisions. she was taken back to the operating room and placed on the table in the supine position. Time-out was performed with Anesthesia, surgeon, and staff agreeing on patient's name, site, and surgery to be performed. SCDs were placed on the lower extremities and inflated. Antibiotics were given IV. After general anesthesia was administered the abdome n flanks and thighs where he was prepped in the usual sterile fashion. Using a 10 blade scalpel I proceeded with making my inferior incision just below her previous scar starting 7 cm above the vaginal introitus on upward stretch and then extending laterally and superiorly past the anterior superior iliac spines to the lateral flanks and hip area. This was done through skin and dermis. I also proceeded with making my initial expected superior incisions around her pannus horizontally and estimated resection markings vertically encompassing her vertical scar stying just below the xiphoid process with 10 blade scalpel through skin and dermis. Bovie cautery was then used to resect this tissue just above rectus fascia. [place] clamps were provisionally placed to secure the flaps. The bed was flexed to 15-20 degrees. Areas of persistent lax and redundant skin were trimmed and tailored with scalpel and bovie cautery extending well past the anterior superior iliac spines to the flanks and addressing laxity of tissue on upper lateral hips/thighs. There was reasonable symmetry between both sides and laxity of lateral thigh skin and hips appeared adequately addressed and more symmetrical in appearance. The rectus did not demonstrate diastasis or require plication. I irrigated with normal saline and hemostasis with bovie cautery. Two 10 [place] CELESTINE drains were placed and secrued with 3-0 nylon. Closure was done with zero and 2-0 vicryl for scarpal's fascia and dermis followed by 4-0 monocryl for subcuticular closure. next I injected 40 cc of 1% lidocaine with epinephrine and 0.5% Marcaine plain along the incision lines. The skin flaps appeared viable with good cap refill. the drains were hooked to bulb suction. A dressing of Mastisol, Steri-Strips, 4 x 4, ABDs and an abdominal binder were then applied. The patient was then awakened from anesthesia and transferred to the recovery room in stable condition. Complications: None estimated blood loss: 40 cc disposition: Patient tolerated the procedure well and will be going home later today Kristen Leon PA-C was essential for positioning, retraction, closure and dressing placement [facility] Billing Surgery - Charge Forward: Surgery Billing ([id number] same for kristen dupont )
[2024-02-13] MEDS: LACTATED RINGERS 1,000 ML 30 ML IV CONT ×2 (07:13→10:04)
--- NOTE | 2024-02-13 07:18 | WPDANESEPPF ---
Anes - Initial Pre Proc Eval Procedure: Operation Date: 02/13/24 07:30 Proposed Procedures p Revision Abdominoplasty - Carly Guerrero MD s Excision Excess Skin Bilateral Hip - Carly Guerrero MD Date/Time: 02/13/24 07:18 Surgeon: Carly Guerrero MD Pre Op Diagnosis: Excessive and Redunant Skin and Sub-Q Tissue Patient Data Age: 58 Gender: F Height: 1.68 m Weight: 79.2 kg Last Vital Signs Temp 36.7 C 02/13/24 07:04 Pulse 63 02/13/24 07:04 Resp 20 02/13/24 07:04 BP 127/81 02/13/24 07:04 Pulse Ox 100 02/13/24 07:04 O2 Del Method Room Air 02/13/24 07:04 Allergies Allergy/AdvReac Type Severity Reaction Status Date / Time canagliflozin [From Invokana] Allergy Mild Dizziness Verified 02/13/24 06:39 diclofenac [From Voltaren] Allergy Mild Nausea Verified 02/13/24 06:39 fosinopril [From Monopril] Allergy Mild Cough Verified 02/13/24 06:39 levofloxacin [From Levaquin] Allergy Mild Nausea Verified 02/13/24 06:39 montelukast [From Singulair] Allergy Mild Muscle Pain Verified 02/13/24 06:39 sertraline [From Zoloft] Allergy Mild Seizure Verified 02/13/24 06:39 vancomycin Allergy Mild Hives Verified 02/13/24 06:39 cephalexin AdvReac Intermediate Itching Verified 02/13/24 06:39 cortisone AdvReac Mild Other Verified 02/13/24 06:39 ketorolac AdvReac Mild SEVERE Verified 02/13/24 06:39 NAUSEA AND VOMITING turkey Allergy Mild Unknown Uncoded 02/10/24 14:27 Home Medications Medication Instructions Recorded Confirmed Type aspirin 81 mg tablet,delayed 81 mg PO DAILY 01/31/23 02/13/24 History release (Adult Low Dose Aspirin) Bariatric vitamins 1 tablet PO DAILY 05/06/23 02/13/24 History celecoxib 200 mg capsule 200 mg PO DAILY 05/06/23 02/13/24 History cholecalciferol (vitamin D3) 125 125 mcg PO DAILY 05/06/23 02/13/24 History mcg (5,000 unit) tablet docusate sodium 100 mg capsule 200 mg PO DAILY 05/06/23 02/13/24 History (Colace) magnesium oxide 400 mg (241.3 mg 400 mg PO DAILY 05/06/23 02/13/24 History magnesium) tablet omega 1-qim-had-fish oil 1,200 mg 1 cap PO DAILY 05/06/23 02/13/24 History (144 mg-216 mg) capsule (Fish Oil) paroxetine HCl 30 mg tablet 60 mg PO DAILY 05/06/23 02/13/24 History sennosides 8.6 mg tablet (senna) 68.8 mg PO DAILY 05/06/23 02/13/24 History tramadol 50 mg tablet 50 mg PO Q6H PRN Pain 05/06/23 02/13/24 History ferrous sulfate 325 mg (65 mg 325 mg PO DAILY 08/21/23 02/13/24 History iron) tablet (Iron (ferrous sulfate)) semaglutide 0.25 mg or 0.5 mg (2 0.5 mg subcut WEEKLY 10/21/23 02/13/24 History mg/3 mL) subcutaneous pen injector (Ozempic) elastic bandage 6 X 1.8 yard #1 ea 11/20/23 02/10/24 Rx non-adherent bandage 8 X 10 #1 ea 11/20/23 02/10/24 Rx (Curity Abdominal Pad) olmesartan 5 mg tablet 2.5 mg PO DAILY 12/25/23 02/13/24 History levothyroxine 125 mcg capsule 125 mcg PO DAILY 01/21/24 02/13/24 History (Tirosint) dicyclomine 10 mg capsule 10 mg PO QID 02/10/24 02/10/24 History omeprazole 40 mg capsule,delayed 40 mg PO DAILY 02/10/24 02/13/24 History release sodium,potassium,mag sulfates 17.5 See Rx Instructions PO .COMPLEX 02/12/24 02/13/24 Rx gram-3.13 gram-1.6 gram oral soln #354 mL (Suprep Bowel Prep Kit) Patient hx anesthesia problems: none Family hx anesthesia problems: none Results Review: All pre-operative results and documents have been reviewed as part of the pre-operative evaluation. [facility] Past Medical History Medical History Abdominal bloating Alternating constipation and diarrhea Chronic pain tramadol GERD (gastroesophageal reflux disease) History of postoperative nausea and vomiting History of stress test (~2021) Hyperlipidemia Hypertriglyceridemia Nausea and vomiting CASSIA (obstructive sleep apnea) PONV (postoperative nausea and vomiting) Type 2 diabetes mellitus Vitamin D deficiency Surgical History George
[2024-02-13 07:29] LABS: Glucose Point of Care 89 mg/dl (65-105)
[2024-02-13] MEDS: ceFAZolin SODIUM 2 GM/20 ML SW SYRINGE IV PUSH (07:39)
[2024-02-13] MEDS: LIDO 1%/EPINEPHRINE 1:100,000 10 ML VIAL 20 ML INFILTRATE (09:48)
[2024-02-13] MEDS: BUPivacaine HCL 0.5% 10 ML AMP 20 ML INFILTRATE (09:48)
[2024-02-13] MEDS: fentaNYL CITRATE INJ (*CRX) 100 MCG/2 ML VIAL 25 MCG IV PUSH ×4 (10:30→11:05)
--- NOTE | 2024-02-13 11:39 | WPDANESPN ---
Anes - Prog Note Post-Op Date/Time: 02/13/24 11:39 Cardiovascular status: normal Respiratory status: normal Airway patency: baseline Mental status: baseline Post-Op hydration status: normal Vital Signs: Last Vital Signs Temp 37.1 C 02/13/24 11:20 Pulse 78 02/13/24 11:20 Resp 18 02/13/24 11:20 BP 129/73 02/13/24 11:20 Pulse Ox 100 02/13/24 11:20 O2 Del Method Room Air 02/13/24 11:20 O2 Flow Rate 8 02/13/24 10:15 Pain Score (VAS): 3/10 I/O: Intake & Output 02/12/24 02/13/24 02/13/24 23:59 07:59 15:59 Intake Total 1000 Balance 1000 02/13/24 07:26 POC Capillary Glucose 89 Patient Feedback: Patient satisfied with anesthetic care.
[2024-02-13] MEDS: oxyCODONE HCL (*CRX) 5 MG TAB IR PO (11:49)
--- NOTE | 2024-02-13 12:38 | SUR.PHASEII ---
1130 Pt c/o it feeling like she had an eyelash in her right eye. Checked eye for anything in it, nothing noticed, eye flushed with saline, eye slightly red. Dr Delgado aware.
== END 2024-02-13 12:15 | disposition home or self-care (01) ==
PROVIDERS: PCP Nurse Practitioner Family; Visit Provider Plastic Surgery
PROC: (CPT 15830; principal; 2024-02-13 07:30)
PROC: (CPT 15832; 2024-02-13 07:30)
DX: L98.7 Excessive and redundant skin and subcutaneous tissue (principal)
CPT/HCPCS: 15830; 15847; 15834 ×2

== ENCOUNTER 2024-03-10 08:10 | Outpatient (CLI) | payer MEDICARE, SELFPAY ==
--- NOTE | ~2024-03-10 | XR_ITS ---
EXAMINATION: XR UGI w small bowel DATE: 03/10/2024 10:41 INDICATION: Abdominal distention (gaseous). TECHNIQUE: The patient drank thick barium, gas-producing crystals, and thin barium. Fluoroscopy of th e esophagus, stomach, and small bowel was performed. Fluoroscopy exposure time was 0.8 minutes. Radio graphs of the abdomen were obtained. The total number of images was 288. COMPARISON: None. FINDINGS: UPPER GASTROINTESTINAL SERIES: There is no mass or stricture of the esophagus. The esophagus is patulous. Esophageal motility is nor mal. There is a small sliding hiatal hernia. There was spontaneous gastroesophageal reflux. There are changes of gastric bypass procedure. SMALL BOWEL SERIES: The small bowel shows a normal folding pattern. Specifically, the terminal ileum is normal. Transit t donny to the colon was 1 hour and 30 minutes. IMPRESSION: 1. Gastric bypass procedure. 2. Small sliding hiatal hernia. 3. Spontaneous gastroesophageal reflux. 4. Normal small bowel series. Reviewed, dictated and finalized at location A.
== END 2024-03-10 08:11 | disposition home or self-care (01) ==
LOC: ANHIMG 08:13
PROVIDERS: PCP Nurse Practitioner Family; Visit Provider Nurse Practitioner Family
DX: R14.0 Abdominal distension (gaseous) (principal); Z98.84 Bariatric surgery status; K44.9 Diaphragmatic hernia without obstruction or gangrene; K21.9 Gastro-esophageal reflux disease without esophagitis
CPT/HCPCS: 74240; 74248

== ENCOUNTER 2024-04-03 00:01 | Day surgery (SDC) | payer MEDICARE, SELFPAY ==
--- NOTE | 2024-03-23 16:22 | SUR.PREOP ---
Report to the Outpatient Waiting Room, entrance under the green pavilion located off [facility], at time 0600 on date 04/03/24. Planned Procedure Time: 0730.? Time changes happen often and if your time is changed the preop area will call you the afternoon before. - You and your visitor will be asked to self-screen and do not enter if you have any COVID symptoms. Please call surgeon if you need to reschedule. - A mask is optional within the hospital at this time. Patients may have clear liquids (water, carbonated beverages, clear teas, apple juice) until 3 hours prior to surgery with a maximum of 20 ounces. - No food from midnight until time of surgery and no smoking - Infants may have breast milk until 4 hours before surgery, formula 6 hours prior to surgery. - Children will be allowed to drink immediately following surgery.? If applicable, please bring a bottle or sippy cup to assist with drinking. Juice, water, soda, and popsicles are readily available.? For infants on formula, please bring formula the day of surgery.? Pacifiers are allowed. Take only the following medications with a SIP of water on the morning of surgery: TIROSINT-ERIC, TRAMADOL, CELEBREX DO NOT STOP ANY OF YOUR OTHER PRESCRIPTION MEDICATIONS PRIOR TO SURGERY EXCEPT THE FOLLOWING Medications to discontinue per physician PATIENT STATES SHE HAS ALREADY STOPPED HER OZEMPIC 03/24/24. INSTRUCTED TO STOP VITAMINS & SUPPLEMENTS 03/31/24, INSTRUCTED TO ASK DR HOFFMAN ABOUT HOLDING OR CONTINUING ASPIRIN Date to take last dose Please no make-up, nail luxembourger, hairspray, perfume, deodorant, or body powder the day of surgery.? No jewelry (including any body piercings) or valuables the day of surgery, leave them at home.? Please take a shower or bath the night before, or the morning of, surgery with an antibacterial soap.? Wear comfortable, loose fitting clothing.? Children are encouraged to wear pajamas. - Jewelry must be removed prior to entering the operating room.? Rings and piercings that are not removed may be cut off. - The hospital will not accept responsibility for valuables.? - Please leave all valuables, including medications, at home the day of surgery. If you are going home after surgery, a licensed commercial relief driver must drive you home.? - NO public transportation without another adult if you receive anesthesia. - We recommend that an adult stay with you for 24 hours following discharge. - We also recommend that you do not drive, make important decision, drink alcoholic beverages, or take any drugs that were not prescribed by your health care provider for at least 24 hours after your discharge time. For Pediatric surgeries, we recommend two adults accompany the child home. Follow any additional instructions given to you from your surgeon. Telephone instructions given to AMY STOVER and asked if any additional questions and then verbalized understanding. Patient advised to call surgeon office or pre surgery nurse liaison [phone] if any additional questions.
[2024-03-23 16:42] VITALS: BMI 26.1
--- NOTE | 2024-04-02 16:53 | WPDANESEPP ---
Anes - Eval Pre Procedure Procedure: Operation Date: 04/03/24 07:30 Proposed Procedures p Hysteroscopy Dilation and Curettage with Possible Removal of Endometrial Lesions if Necessary - Ovidio Dove MD Date/Time: 04/02/24 16:53 Pre Op Diagnosis: post menopausal bleeding Patient Data Age: 58 Gender: F Height: 1.68 m Weight: 73.5 kg Allergies Allergy/AdvReac Type Severity Reaction Status Date / Time canagliflozin [From Invokana] Allergy Mild Dizziness Verified 03/26/24 10:34 diclofenac [From Voltaren] Allergy Mild Nausea Verified 03/26/24 10:34 fosinopril [From Monopril] Allergy Mild Cough Verified 03/26/24 10:34 levofloxacin [From Levaquin] Allergy Mild Nausea Verified 03/26/24 10:34 montelukast [From Singulair] Allergy Mild Muscle Pain Verified 03/26/24 10:34 sertraline [From Zoloft] Allergy Mild Seizure Verified 03/26/24 10:34 vancomycin Allergy Mild Hives Verified 03/26/24 10:34 cephalexin AdvReac Intermediate Itching Verified 03/26/24 10:34 cortisone AdvReac Mild Other Verified 03/26/24 10:34 ketorolac AdvReac Mild SEVERE Verified 03/26/24 10:34 NAUSEA AND VOMITING turkey Allergy Mild Unknown Uncoded 03/26/24 10:34 Home Medications Medication Instructions Recorded Confirmed Type aspirin 81 mg tablet,delayed 81 mg PO DAILY 01/31/23 03/23/24 History release (Adult Low Dose Aspirin) Bariatric vitamins 1 tablet PO DAILY 05/06/23 03/23/24 History celecoxib 200 mg capsule 200 mg PO DAILY 05/06/23 03/23/24 History cholecalciferol (vitamin D3) 125 125 mcg PO DAILY 05/06/23 03/23/24 History mcg (5,000 unit) tablet magnesium oxide 400 mg (241.3 mg 400 mg PO DAILY 05/06/23 03/23/24 History magnesium) tablet omega 1-xxc-rml-fish oil 1,200 mg 1 cap PO DAILY 05/06/23 03/23/24 History (144 mg-216 mg) capsule (Fish Oil) paroxetine HCl 30 mg tablet 60 mg PO DAILY 05/06/23 03/23/24 History tramadol 50 mg tablet 50 mg PO Q6H PRN Pain 05/06/23 03/23/24 History ferrous sulfate 325 mg (65 mg 325 mg PO DAILY 08/21/23 03/23/24 History iron) tablet (Iron (ferrous sulfate)) semaglutide 0.25 mg or 0.5 mg (2 0.5 mg subcut WEEKLY 10/21/23 03/23/24 History mg/3 mL) subcutaneous pen injector (Ozempic) elastic bandage 6 X 1.8 yard #1 ea 11/20/23 03/17/24 Rx non-adherent bandage 8 X 10 #1 ea 11/20/23 03/17/24 Rx (Curity Abdominal Pad) olmesartan 5 mg tablet 2.5 mg PO DAILY 12/25/23 03/23/24 History omeprazole 40 mg capsule,delayed 40 mg PO DAILY 02/10/24 03/23/24 History release sodium,potassium,mag sulfates 17.5 See Rx Instructions PO .COMPLEX 02/12/24 03/23/24 Rx gram-3.13 gram-1.6 gram oral soln #354 mL (Suprep Bowel Prep Kit) levothyroxine 112 mcg/mL oral 112 mcg PO DAILY 03/23/24 03/23/24 History solution (Tirosint-Mili) uzxjzb-olewhgmm-dxuycnk 2 cap PO QID 03/23/24 03/23/24 History 36,000-114,000-180,000 unit capsule,delay rel (Creon) lwvylc-vutocigj-erknoer 1 cap PO TID 03/26/24 History 36,000-114,000-180,000 unit capsule,delay rel (Creon) Patient hx anesthesia problems: none Family hx anesthesia problems: none Results Review: All pre-operative results and documents have been reviewed as part of the pre-operative evaluation. [facility] Past Medical History Medical History (Updated 04/02/24 @ 16:54 by Alex Bingham Jr., PROPERTY CLAIMS ADJUSTER) Abdominal bloating Alternating constipation and diarrhea Chronic pain tramadol Depression Diabetes GERD (gastroesophageal reflux disease) History of postoperative nausea and vomiting History of stress test (~2021) Hyperlipidemia Hypertension Hypertriglyceridemia Hypothyroidism (acquired) Nausea and vomiting CASSIA (obstructive sleep apnea) PONV (postoperative nausea and vomiting) Thyroid disorder Type 2 diabetes mellitus Vitamin D deficiency Surgical History Surgical History H/O colonoscopy 2006 H/O esophagogastroduodenoscopy H/O gastric bypass 07/04/21 H
[2024-04-03 06:30] VITALS: BP 117/74; PULSE 65; RESP 16; TEMP 36.5; O2SAT 100
--- NOTE | 2024-04-03 06:38 | WPDANESEPPF ---
Anes - Initial Pre Proc Eval Procedure: Operation Date: 04/03/24 07:30 Proposed Procedures p Hysteroscopy Dilation and Curettage with Possible Removal of Endometrial Lesions if Necessary - Ovidio Dove MD Date/Time: 04/03/24 06:38 Surgeon: Ovidio Dove MD Pre Op Diagnosis: post menopausal bleeding Patient Data Age: 58 Gender: F Height: 1.68 m Weight: 73.5 kg Allergies Allergy/AdvReac Type Severity Reaction Status Date / Time canagliflozin [From Invokana] Allergy Mild Dizziness Verified 03/26/24 10:34 diclofenac [From Voltaren] Allergy Mild Nausea Verified 03/26/24 10:34 fosinopril [From Monopril] Allergy Mild Cough Verified 03/26/24 10:34 levofloxacin [From Levaquin] Allergy Mild Nausea Verified 03/26/24 10:34 montelukast [From Singulair] Allergy Mild Muscle Pain Verified 03/26/24 10:34 sertraline [From Zoloft] Allergy Mild Seizure Verified 03/26/24 10:34 vancomycin Allergy Mild Hives Verified 03/26/24 10:34 cephalexin AdvReac Intermediate Itching Verified 03/26/24 10:34 cortisone AdvReac Mild Other Verified 03/26/24 10:34 ketorolac AdvReac Mild SEVERE Verified 03/26/24 10:34 NAUSEA AND VOMITING turkey Allergy Mild Unknown Uncoded 03/26/24 10:34 Home Medications Medication Instructions Recorded Confirmed Type aspirin 81 mg tablet,delayed 81 mg PO DAILY 01/31/23 03/23/24 History release (Adult Low Dose Aspirin) Bariatric vitamins 1 tablet PO DAILY 05/06/23 03/23/24 History celecoxib 200 mg capsule 200 mg PO DAILY 05/06/23 03/23/24 History cholecalciferol (vitamin D3) 125 125 mcg PO DAILY 05/06/23 03/23/24 History mcg (5,000 unit) tablet magnesium oxide 400 mg (241.3 mg 400 mg PO DAILY 05/06/23 03/23/24 History magnesium) tablet omega 2-lro-nlf-fish oil 1,200 mg 1 cap PO DAILY 05/06/23 03/23/24 History (144 mg-216 mg) capsule (Fish Oil) paroxetine HCl 30 mg tablet 60 mg PO DAILY 05/06/23 03/23/24 History tramadol 50 mg tablet 50 mg PO Q6H PRN Pain 05/06/23 03/23/24 History ferrous sulfate 325 mg (65 mg 325 mg PO DAILY 08/21/23 03/23/24 History iron) tablet (Iron (ferrous sulfate)) semaglutide 0.25 mg or 0.5 mg (2 0.5 mg subcut WEEKLY 10/21/23 03/23/24 History mg/3 mL) subcutaneous pen injector (Ozempic) elastic bandage 6 X 1.8 yard #1 ea 11/20/23 03/17/24 Rx non-adherent bandage 8 X 10 #1 ea 11/20/23 03/17/24 Rx (Curity Abdominal Pad) olmesartan 5 mg tablet 2.5 mg PO DAILY 12/25/23 03/23/24 History omeprazole 40 mg capsule,delayed 40 mg PO DAILY 02/10/24 03/23/24 History release sodium,potassium,mag sulfates 17.5 See Rx Instructions PO .COMPLEX 02/12/24 03/23/24 Rx gram-3.13 gram-1.6 gram oral soln #354 mL (Suprep Bowel Prep Kit) levothyroxine 112 mcg/mL oral 112 mcg PO DAILY 03/23/24 03/23/24 History solution (Tirosint-Mili) vkwxto-ixaskzwg-qwdpmbf 2 cap PO QID 03/23/24 03/23/24 History 36,000-114,000-180,000 unit capsule,delay rel (Creon) zcbpla-sjikhiyj-xyexaqd 1 cap PO TID 03/26/24 History 36,000-114,000-180,000 unit capsule,delay rel (Creon) Patient hx anesthesia problems: none Family hx anesthesia problems: none Results Review: All pre-operative results and documents have been reviewed as part of the pre-operative evaluation. [facility] Past Medical History Medical History Abdominal bloating Alternating constipation and diarrhea Chronic pain tramadol Depression Diabetes GERD (gastroesophageal reflux disease) History of postoperative nausea and vomiting History of stress test (~2021) Hyperlipidemia Hypertension Hypertriglyceridemia Hypothyroidism (acquired) Nausea and vomiting CASSIA (obstructive sleep apnea) PONV (postoperative nausea and vomiting) Thyroid disorder Type 2 diabetes mellitus Vitamin D deficiency Surgical History Surgical History H/O colonoscopy 2006 H/O esophagogastroduodenoscopy
[2024-04-03] MEDS: ACETAMINOPHEN 500 MG TABLET 1000 MG PO (06:45)
--- NOTE | 2024-04-03 07:15 | WPDHPUPDATE1 ---
History and Physical Update Update Date/Time: 04/03/24 07:15 History and Physical has been reviewed, including an updated exam of the patient. There are NO changes in the patient's condition. Risks, benefits, and alternatives have been discussed and questions answered. Patient agrees to proceed with procedure.
[2024-04-03 07:28] LABS: Glucose Point of Care 81 mg/dl (65-105)
[2024-04-03] MEDS: LACTATED RINGERS 1,000 ML 30 ML IV CONT (07:28)
[2024-04-03] MEDS: ceFAZolin 2 GM/D5W 50 ML 2 GM/50 ML BAG IVPB (07:30)
[2024-04-03] MEDS: LIDOCAINE HCL 1% LOCAL INJ 10 ML VIAL INFILTRATE (07:44)
--- NOTE | 2024-04-03 07:55 | W.PM.PROC2 ---
Procedure Note - Detailed Date of Procedure 04/03/24 Pre-op Diagnosis Endometrial polyp, abnormal ultrasound finding Post-op Diagnosis Same Procedure Performed diagnostic hysteroscopy and dilation and curettage Surgeon Ovidio Dove MD Anesthesia MAC and Local Indications thickened endometrial stripe on ultrasound and endometrial polyp on endometrial biopsy performed in the office Findings uterine cavity scarred mostly on her right side the rest of the cavity was very atrophic Description of Procedure After informed consent was obtained patient was taken to the operating room and adequate IV sedation was administered. Attention was turned to the vagina. Speculum was inserted. Single-tooth tenaculum placed on the anterior lip of the cervix. 1% lidocaine was injected at the cervical vaginal interface at the 2, 5, 8, and 10 position. The cervix was dilated to a 4Pratt dilator. The hysteroscope was inserted under hydrodilation into the cavity. The findings were scarred uterine cavity mostly on the right. The rest of the cavity was atrophic. The hysteroscope was removed. The hysteroscope was removed and a curettage was performed with minimal scant tissue obtained. The single-tooth tenaculum was removed hemostasis was noted at the tenaculum site. Sponge count correct. The patient taken to recovery in stable condition. Estimated Blood Loss 5 Drains No Packing No Pathology Yes ( Scant endometrial curettings) Complications No immediate complications Condition Stable Disposition Same day [facility] Billing Surgery - Charge Forward: Surgery Billing
[2024-04-03 07:56] VITALS: BP 121/64; PULSE 55; RESP 14; O2SAT 100
[2024-04-03 08:25] VITALS: BP 134/69; PULSE 61
[2024-04-03 08:35] VITALS: BMI 27.4
== END 2024-04-03 08:47 | disposition home or self-care (01) ==
PROVIDERS: PCP Nurse Practitioner Family; Visit Provider Obstetrics & Gynecology
PROC: 0U5B8ZZ Destruction of Endometrium, Via Natural or Artificial Opening Endoscopic (ICD-10-PCS; CPT 58563; principal; 2024-04-03 07:30)
DX: R93.89 Abnormal findings on diagnostic imaging of other specified body structures (principal); N85.8 Other specified noninflammatory disorders of uterus; I10 Essential (primary) hypertension; E78.5 Hyperlipidemia, unspecified; K21.9 Gastro-esophageal reflux disease without esophagitis; G89.29 Other chronic pain; E78.1 Pure hyperglyceridemia; G47.33 Obstructive sleep apnea (adult) (pediatric); E11.9 Type 2 diabetes mellitus without complications; E03.9 Hypothyroidism, unspecified; E07.9 Disorder of thyroid, unspecified; E55.9 Vitamin D deficiency, unspecified; F32.A Depression, unspecified; Z79.82 Long term (current) use of aspirin; Z79.891 Long term (current) use of opiate analgesic; Z79.85 Long-term (current) use of injectable non-insulin antidiabetic drugs; Z98.890 Other specified postprocedural states; Z98.84 Bariatric surgery status; Z90.49 Acquired absence of other specified parts of digestive tract; Z80.9 Family history of malignant neoplasm, unspecified; Z82.49 Family history of ischemic heart disease and other diseases of the circulatory system
CPT/HCPCS: 58555; 82948; 88305; A9270; J0690; J2003; J2250; J2590; J2704; J3010; J7030; J7120

== ENCOUNTER 2024-04-08 05:52 | Day surgery (SDC) | payer MEDICARE, SELFPAY ==
[2024-02-12 11:23] VITALS: BMI 28.0
--- NOTE | 2024-04-08 06:48 | WPDANESEPPF ---
Anes - Initial Pre Proc Eval Procedure: Operation Date: 04/08/24 07:30 Proposed Procedures p Esophagogastroduodenoscopy - Neto Velasquez MD s Diagnostic Colonoscopy - Neto Velasquez MD Date/Time: 04/08/24 06:48 Surgeon: Neto Velasquez MD Pre Op Diagnosis: ABD Distension, Nausea, Vomitting,constipation Patient Data Age: 58 Gender: F Height: 1.68 m Weight: 74.9 kg Allergies Allergy/AdvReac Type Severity Reaction Status Date / Time canagliflozin [From Invokana] Allergy Mild Dizziness Verified 04/08/24 06:29 diclofenac [From Voltaren] Allergy Mild Nausea Verified 04/08/24 06:29 fosinopril [From Monopril] Allergy Mild Cough Verified 04/08/24 06:29 levofloxacin [From Levaquin] Allergy Mild Nausea Verified 04/08/24 06:29 montelukast [From Singulair] Allergy Mild Muscle Pain Verified 04/08/24 06:29 sertraline [From Zoloft] Allergy Mild Seizure Verified 04/08/24 06:29 vancomycin Allergy Mild Hives Verified 04/08/24 06:29 cephalexin AdvReac Intermediate Itching Verified 04/08/24 06:29 cortisone AdvReac Mild Other Verified 04/08/24 06:29 ketorolac AdvReac Mild SEVERE Verified 04/08/24 06:29 NAUSEA AND VOMITING turkey Allergy Mild Unknown Uncoded 04/08/24 06:29 Home Medications Medication Instructions Recorded Confirmed Type aspirin 81 mg tablet,delayed 81 mg PO DAILY 01/31/23 03/23/24 History release (Adult Low Dose Aspirin) Bariatric vitamins 1 tablet PO DAILY 05/06/23 03/23/24 History celecoxib 200 mg capsule 200 mg PO DAILY 05/06/23 03/23/24 History cholecalciferol (vitamin D3) 125 125 mcg PO DAILY 05/06/23 03/23/24 History mcg (5,000 unit) tablet magnesium oxide 400 mg (241.3 mg 400 mg PO DAILY 05/06/23 03/23/24 History magnesium) tablet omega 5-kik-lps-fish oil 1,200 mg 1 cap PO DAILY 05/06/23 03/23/24 History (144 mg-216 mg) capsule (Fish Oil) paroxetine HCl 30 mg tablet 60 mg PO DAILY 05/06/23 03/23/24 History tramadol 50 mg tablet 50 mg PO Q6H PRN Pain 05/06/23 03/23/24 History ferrous sulfate 325 mg (65 mg 325 mg PO DAILY 08/21/23 03/23/24 History iron) tablet (Iron (ferrous sulfate)) semaglutide 0.25 mg or 0.5 mg (2 0.5 mg subcut WEEKLY 10/21/23 03/23/24 History mg/3 mL) subcutaneous pen injector (Ozempic) elastic bandage 6 X 1.8 yard #1 ea 11/20/23 03/17/24 Rx non-adherent bandage 8 X 10 #1 ea 11/20/23 03/17/24 Rx (Curity Abdominal Pad) olmesartan 5 mg tablet 2.5 mg PO DAILY 12/25/23 03/23/24 History omeprazole 40 mg capsule,delayed 40 mg PO DAILY 02/10/24 03/23/24 History release sodium,potassium,mag sulfates 17.5 See Rx Instructions PO .COMPLEX 02/12/24 03/23/24 Rx gram-3.13 gram-1.6 gram oral soln #354 mL (Suprep Bowel Prep Kit) levothyroxine 112 mcg/mL oral 112 mcg PO DAILY 03/23/24 04/08/24 History solution (Tirosint-Mili) jzghvd-ujrmogjt-rooavpj 2 cap PO QID 03/23/24 04/08/24 History 36,000-114,000-180,000 unit capsule,delay rel (Creon) yumxjh-gwzgeonu-etpgviz 1 cap PO TID 03/26/24 04/08/24 History 36,000-114,000-180,000 unit capsule,delay rel (Creon) Patient hx anesthesia problems: none Family hx anesthesia problems: none Results Review: All pre-operative results and documents have been reviewed as part of the pre-operative evaluation. [facility] Past Medical History Medical History Abdominal bloating Alternating constipation and diarrhea Chronic pain tramadol Depression Diabetes GERD (gastroesophageal reflux disease) History of postoperative nausea and vomiting History of stress test (~2021) Hyperlipidemia Hypertension Hypertriglyceridemia Hypothyroidism (acquired) Nausea and vomiting CASSIA (obstructive sleep apnea) PONV (postoperative nausea and vomiting) Thyroid disorder Type 2 diabetes mellitus Vitamin D deficiency Surgical History Surgical History H/O colonoscopy 2006 H/O esophagogastroduodenosc
[2024-04-08 06:49] LABS: Glucose Point of Care 75 mg/dl (65-105)
[2024-04-08 06:50] VITALS: BP 110/76; PULSE 56; RESP 18; TEMP 36.3; O2SAT 100
[2024-04-08] MEDS: LACTATED RINGERS 1,000 ML 150 ML IV CONT (06:51)
--- NOTE | 2024-04-08 07:18 | PM.HPGS ---
History of Present Illness History of Present Illness Consent: Risks, benefits, and alternatives have been discussed and questions answered. Patient agrees to proceed with procedure. Chief complaint: ABD Distension, Nausea, Vomitting,constipation Narrative: Hanna Melendez is a 58 year old female referred for both colonoscopy and EGD. Patient has a history of type gastric bypass surgery in 2020. She has ongoing difficulty with abdominal bloating constipation and occasional nausea with regurgitation. Patient apparently has lost over 400lb. She has had several follow-up surgeries including repair of a ventral hernia. She has had a partial colon resection subsequently as well. Recently followed by the GI office. Referred for endoscopy to evaluate ongoing symptoms. Review of Systems Review of Systems: All systems reviewed & are unremarkable except as noted in HPI and below PMFSH Past Medical History Medical History Abdominal bloating Alternating constipation and diarrhea Chronic pain tramadol Depression Diabetes GERD (gastroesophageal reflux disease) History of postoperative nausea and vomiting History of stress test (~2021) Hyperlipidemia Hypertension Hypertriglyceridemia Hypothyroidism (acquired) Nausea and vomiting CASSIA (obstructive sleep apnea) PONV (postoperative nausea and vomiting) Thyroid disorder Type 2 diabetes mellitus Vitamin D deficiency Surgical History Surgical History H/O colonoscopy 2006 H/O esophagogastroduodenoscopy H/O gastric bypass 07/04/21 H/O left breast biopsy History of tooth extraction Hx of cholecystectomy Family History Family History Father Alcoholism Diabetes mellitus Cancer Mother Alcoholism Hypertension Depression Thyroid disorder Cancer Sibling Alcoholism Asthma Cancer Diabetes mellitus Hypertension Depression Heart disease Thyroid disorder Grandparent Cancer Diabetes mellitus Grandparent Cerebrovascular accident Social History Social History Smoking status: Never smoker Second hand tobacco smoke exposure: Yes Alcohol intake: never Substance use: never Substance use type: does not use Do You Feel Safe in your Home?: Yes Lack of Transportation: No Lack of Food: Sometimes True Current Housing: I Have Housing Concerned About Future Housing: No Difficulty Paying Gas/Electric Bills: No Difficulty Paying for Meds: YES Currently Unemployed: No Education: Associate Degree Difficulty w/ Childcare or Family Care: No Living arrangements: with family 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 Gender identity (if verbalized by the patient): Female Spiritual care concerns: No Meds Home Medications and Allergies Home Medications Medication Instructions Recorded Confirmed Type aspirin 81 mg tablet,delayed 81 mg PO DAILY 01/31/23 03/23/24 History release (Adult Low Dose Aspirin) Bariatric vitamins 1 tablet PO DAILY 05/06/23 03/23/24 History celecoxib 200 mg capsule 200 mg PO DAILY 05/06/23 03/23/24 History cholecalciferol (vitamin D3) 125 125 mcg PO DAILY 05/06/23 03/23/24 History mcg (5,000 unit) tablet magnesium oxide 400 mg (241.3 mg 400 mg PO DAILY 05/06/23 03/23/24 History magnesium) tablet omega 3-bnm-lfi-fish oil 1,200 mg 1 cap PO DAILY 05/06/23 03/23/24 History (144 mg-216 mg) capsule (Fish Oil) paroxetine HCl 30 mg tablet 60 mg PO DAILY 05/06/23 03/23/24 History tramadol 50 mg tablet 50 mg PO Q6H PRN Pain 05/06/23 03/23/24 History ferrous sulfate 325 mg (65 mg 325 mg PO DAILY 08/21/23 03/23/24 History iron) tablet (Iron (ferrous sulfate)) semaglutide 0.25 mg or 0.5 mg (2 0.5 mg subcut WEEKLY 10/21/23 03/23/24 History mg/3 mL) subcutaneous pen inj
[2024-04-08] MEDS: SIMETHICONE ORAL SUSPENSION 20 MG/0.3 ML 30 ML BOTTLE 0.6 ML IRRIGATION (07:33)
[2024-04-08 07:58] VITALS: BP 100/61; PULSE 66; RESP 18; O2SAT 100
[2024-04-08 08:08] VITALS: BP 97/58; PULSE 60; RESP 18; O2SAT 100
[2024-04-08 08:18] VITALS: BP 110/68; PULSE 57; RESP 18; O2SAT 100
--- NOTE | 2024-04-08 12:00 | WPDANESPN ---
Anes - Prog Note Post-Op Date/Time: 04/08/24 12:00 Cardiovascular status: normal Respiratory status: normal Airway patency: baseline Mental status: baseline Post-Op hydration status: normal Vital Signs: Last Vital Signs Temp 36.3 C L 04/08/24 06:50 Pulse 57 L 04/08/24 08:18 Resp 18 04/08/24 08:18 BP 110/68 04/08/24 08:18 Pulse Ox 100 04/08/24 08:18 O2 Del Method Room Air 04/08/24 08:18 Pain Score (VAS): 0 I/O: Intake & Output 04/07/24 04/08/24 04/08/24 23:59 07:59 15:59 Intake Total 600 100 Balance 600 100 04/08/24 06:42 POC Capillary Glucose 75 Post-procedural complaints: none Patient Feedback: Patient satisfied with anesthetic care. Other Findings: Patient vital signs back to baseline. Patient denies nausea and vomiting. Patient's pain under control. Patient OK for discharge.
== END 2024-04-08 08:28 | disposition home or self-care (01) ==
PROVIDERS: PCP Nurse Practitioner Family; Visit Provider Internal Medicine Gastroenterology
PROC: 0DJ08ZZ Inspection of Upper Intestinal Tract, Via Natural or Artificial Opening Endoscopic (ICD-10-PCS; CPT 43235; principal; 2024-04-08 07:30)
PROC: 0DJD8ZZ Inspection of Lower Intestinal Tract, Via Natural or Artificial Opening Endoscopic (ICD-10-PCS; CPT 45378; 2024-04-08 07:30)
DX: R14.0 Abdominal distension (gaseous) (principal); R11.0 Nausea; K31.89 Other diseases of stomach and duodenum; Z12.11 Encounter for screening for malignant neoplasm of colon; K59.00 Constipation, unspecified
CPT/HCPCS: 45378; 43235

== ENCOUNTER 2024-04-29 14:29 | Outpatient (CLI) | payer MEDICARE, SELFPAY ==
--- NOTE | 2024-04-29 16:04 | ECG_ITS ---
Test Date: 2024-04-29 16:20:38 Measurements Intervals [place] Rate: 63 P: 60 VA: 198 QRS: -3 QRSD: 87 T: 24 QT: 402 QTc: 414 Interpretive Statements SINUS RHYTHM LOW QRS VOLTAGE IN PRECORDIAL LEADS CONSIDER INFERIOR INFARCT, AGE INDETERMINATE ABNORMAL ECG No previous ECG available for comparison Electronically Signed On 04-29-2024 18:26:08 DIKE SUPERVISOR by Blake Casillas D.O.
== END 2024-04-29 14:30 | disposition home or self-care (01) ==
LOC: ANHCARD 14:31
PROVIDERS: PCP Nurse Practitioner Family; Visit Provider Anesthesiology
DX: Z01.818 Encounter for other preprocedural examination (principal)
CPT/HCPCS: 93005

== ENCOUNTER 2024-05-12 05:54 | Day surgery (SDC) | payer MEDICARE, SELFPAY ==
[2024-04-28 11:31] VITALS: BMI 27.7
[2024-05-12] VITALS (12 sets, daily range): BP systolic 112–140; BP diastolic 61–93; PULSE 68–87; RESP 13–20; TEMP 36.3–36.5; O2SAT 96–100; BMI 28.6
--- NOTE | 2024-05-12 06:53 | P.PNAN_ITS ---
Anes - Initial Pre Proc Eval Procedure: Operation Date: 05/12/24 07:30 Proposed Procedures p Thighplasty - Carly Guerrero MD Date/Time: 05/12/24 06:53 Surgeon: Carly Guerrero MD Pre Op Diagnosis: Excessive and Redunant Skin and Sub-Q Tissue Patient Data Age: 58 Gender: F Height: 1.68 m Weight: 80.6 kg Last Vital Signs Temp 36.3 C L 05/12/24 06:33 Pulse 68 05/12/24 06:33 Resp 16 05/12/24 06:33 BP 113/77 05/12/24 06:33 Pulse Ox 100 05/12/24 06:33 O2 Del Method Room Air 05/12/24 06:33 Allergies Allergy/AdvReac Type Severity Reaction Status Date / Time sertraline [From Zoloft] Allergy Mild Seizure Verified 05/12/24 06:28 vancomycin Allergy Mild Hives Verified 05/12/24 06:28 ketorolac AdvReac Severe SEVERE Verified 05/12/24 06:28 NAUSEA AND VOMITING cephalexin AdvReac Intermediate Itching Verified 05/12/24 06:28 canagliflozin [From Invokana] AdvReac Mild Dizziness Verified 05/12/24 06:28 cortisone AdvReac Mild Other Verified 05/12/24 06:28 diclofenac [From Voltaren] AdvReac Mild Nausea Verified 05/12/24 06:28 fosinopril [From Monopril] AdvReac Mild Cough Verified 05/12/24 06:28 levofloxacin [From Levaquin] AdvReac Mild Nausea Verified 05/12/24 06:28 montelukast [From Singulair] AdvReac Mild Muscle Pain Verified 05/12/24 06:28 turkey Allergy Severe Swelling Uncoded 05/12/24 06:28 of Lip/Tongue/Throat Home Medications Medication Instructions Recorded Confirmed Type aspirin 81 mg tablet,delayed 81 mg PO DAILY 01/31/23 05/12/24 History release (Adult Low Dose Aspirin) Bariatric vitamins 1 tablet PO DAILY 05/06/23 05/12/24 History celecoxib 200 mg capsule 200 mg PO DAILY 05/06/23 05/12/24 History cholecalciferol (vitamin D3) 125 125 mcg PO DAILY 05/06/23 05/12/24 History mcg (5,000 unit) tablet magnesium oxide 400 mg (241.3 mg 400 mg PO DAILY 05/06/23 05/12/24 History magnesium) tablet omega 8-fdb-lqk-fish oil 1,200 mg 1 cap PO DAILY 05/06/23 05/12/24 History (144 mg-216 mg) capsule (Fish Oil) paroxetine HCl 30 mg tablet 60 mg PO DAILY 05/06/23 05/12/24 History tramadol 50 mg tablet 50 mg PO Q6H PRN Pain 05/06/23 05/12/24 History ferrous sulfate 325 mg (65 mg 325 mg PO DAILY 08/21/23 05/12/24 History iron) tablet (Iron (ferrous sulfate)) olmesartan 5 mg tablet 2.5 mg PO DAILY 12/25/23 05/12/24 History levothyroxine 112 mcg/mL oral 112 mcg PO DAILY 03/23/24 05/12/24 History solution (Tirosint-Mili) qqatxe-tykkdghm-rgjzmaj 2 cap PO QID 03/23/24 05/12/24 History 36,000-114,000-180,000 unit capsule,delay rel (Creon) lansoprazole 30 mg capsule,delayed 30 mg PO DAILY #90 caps 04/29/24 05/12/24 Rx release cnhuwg-newogkey-fnrnrsc 36,000-114,000- 180,000 unit 05/01/24 05/12/24 Sample 36,000-114,000-180,000 unit Capsule,Delayed Release(Dr/Ec)#2 capsule,delay rel (Creon) Samples tywmbi-qpobgxxr-vtttysn 2 cap PO .AC and snacks #300 caps 05/05/24 05/12/24 Rx 36,000-114,000-180,000 unit capsule,delay rel (Creon) Patient hx anesthesia problems: post op nausea/vomiting Family hx anesthesia problems: none Results Review: All pre-operative results and documents have been reviewed as part of the pre- operative evaluation. COUNTS INCLUDE 234 BEDS AT THE [facility] Past Medical History Medical History Abdominal bloating Alternating constipation and diarrhea Chronic pain tramadol Depression Diabetes GERD (gastroesophageal reflux disease) History of postoperative nausea and vomiting History of stress test (~2021) Hyperlipidemia Hypertension Hypertriglyceridemia Hypothyroidism (acquired) Nausea and vomiting CASSIA (obstructive sleep apnea) PONV (postoperative nausea and vomiting) Thyroid disorder Type 2 diabetes mellitus Vitamin D deficiency Surgical History Surgical History H/O colonoscopy 2006 H/O esophagogastroduodenoscopy H/O gastric bypass 07/04/21 H/O left breast biopsy History of tooth extraction Hx of cholecystectomy S/P dilation and curettage 04.03.24 KATHY Family History Family History Father Alcoholism Diabetes mellitus Cancer Mother Alcoholism Hypertension Depression Thyroid disorder Cancer Sibling Alcoholism Asthma Cancer Diabetes mellitus Hypertension Depression Heart disease Thyroid disorder Grandparent Cancer Diabetes mellitus Grandparent Cerebrovascular accident Social History Social History Smoking status: Never smoker Second hand tobacco smoke exposure: Yes Alcohol intake: never Substance use: never Substance use type: does not use Do You Feel Safe in your Home?: Yes Lack of Transportation: No Lack of Food: Sometimes True Current Housing: I Have Housing Concerned About Future Housing: No Difficulty Paying Gas/Electric Bills: No Difficulty Paying for Meds: YES Currently Unemployed: No Education: Associate Degree Difficulty w/ Childcare or Family Care: No Living arrangements: with family 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 Informed Consent: The patient's anesthetic plan and its attendant risks and benefits were discussed with the patient/family/POA. Questions were solicited and answers provided to the satisfaction of the patient/family/POA.
--- NOTE | 2024-05-12 06:53 | WPDHPUPDATE1 ---
History and Physical Update Update Date/Time: 05/12/24 06:53 Patient seen and examined in pre-operative holding area. No interval change in medical history or symptoms. Patient remembers previous discussion of benefits and alternatives to procedure. Continues to desire to proceed with bilateral thighplasty . I reviewed the risks including but not limited to bleeding ,infection, asymmetry, undesireable cosmetic appearance, seroma, partial/total skin loss, no change or worsening of symptoms, change in sensation, edema, lymphedema. I discussed the possible use of assistants and their level of participation in the case. Patient stated understanding and signed the consent form wishing to proceed also note patient's previous history of left inguinal lymph node dissection and medial thigh numbness existing. discussed this may limit some dissection ability given skin retraction and scarring. pt stated understanding discussed DVT prophylaxis and planned use of pre-op heparin and post-op lovenox
--- NOTE | 2024-05-12 06:54 | W.PM.PROC2 ---
Procedure Note - Detailed Date of Procedure 05/12/24 Pre-op Diagnosis Excessive and Redunant Skin and Sub-Q Tissue thighs Post-op Diagnosis Same Procedure Performed excision excess skin and subcutaneous tissue bilateral thigh and leg Surgeon Carly Guerrero MD Type Rolling Machine Operator tatyana lazo pa-c Anesthesia General Description of Procedure Patient was seen in the preoperative holding area where the consent form was signed and bilateral thighs were marked with the patient in the standing position for a J-style thighplasty. These markings extended below her knee joint to address the lax, excess skin and sagging tissue going on to her her leg. Patient was taken back to the operating room and placed on the table in the supine position. Time-out was performed with Anesthesia, surgeon, and staff agreeing on patient's name, site, and surgery to be performed. 5000 units of heparin was given subq for DVT prophylaxis as SCDs were unable to be applied because they would be in the sterilr surgical field. Antibiotics were given IV. After general anesthesia was administered the lower body was prepped and draped sterile fashion. I proceeded with injecting 30 cc of 1% lidocaine with epinephrine 0.5% Marcaine plain along the incision lines of each thigh. I took my attention 1st to the right thigh where I proceeded with making an incision from the inguinal crease extending inferiorly in the anterior line of my resection markings. This was done through skin and dermis with 10 blade scalpel. Bovie cautery was then used to elevate in the subcutaneous plane above the lesser saphenous vein to help spare lymphatics and venous structures in a posterior direction. [place] clamps were utilized to verify the extent of flap elevation and marking to ensure adequate closure and reasonable amount of resected tissue. The amount of resection was marked and then proceeded with making this incision with 10 blade scalpel through skin and dermis. Bovie cautery was then used to resect the remainder of the flap. this resulted in 990 g amount of tissue resection. Irrigated with normal saline. Hemostasis with Bovie cautery. [place] clamps were used to provisionally tack the skin there is good approximation of the tissue with improvement and vertical and horizontal laxity. Dog ears were excised as needed to improve closure. Deep and dermal 2-0 Vicryl and 3-0 Vicryl sutures were then utilized followed by 3-0 and 4-0 Monocryl for subcuticular closure. A 10 Irish CELESTINE was placed prior to closure coming out near the inguinal crease. This was sutured with 3-0 silk suture. Next I took my attention to the left lower extremity where a similar procedure was performed. I made my anterior incision with 10 blade scalpel through skin and dermis extending below the knee onto the calf. Bovie cautery was used to elevate skin flap the subcutaneous plane. It should be noted that this incision did not extend as anterior along the inguinal crease due to the patient's previous history of surgery of lymph node dissection and scar tissue. The lesser sapehnous vein was identified and appeared notably sclerotic but protected throughout the procedure and the resection was superficial to this system. After majority of the skin flap was elevated [place] clamps again were used to approximate the tissues and marked the flap for skin resection. The skin flap was excised with 10 blade scalpel Bovie cautery. I Irrigated with normal saline and hemostasis with Bovie cautery. [place] clamps were used to provisionally tack this together there appeared to be reasonable symmetry to the right thigh. Dog ears were excised as [id number] g of tissue were resected from this left thigh and leg. I proceeded with closure using 2-0 and 3-0 Vicryl for dermis followed by 3-0 and 4-0 Monocryl for subcuticular closure. A drain again was placed prior to closure and sutured with 3-0 silk suture. next I injected 10 cc of 1% lidocaine with epinephrine and 0.5% Marcaine plain along the incision line of each thigh. The drains were hooked to bulb suction. A dressing of Mastisol, Steri-Strips, 4 x 4, ABDs and Alex bandages were applied from the dorsum of the foot up to the thigh and around the waist. Patient was awakened from anesthesia and transferred to the recovery room in stable condition. Complications: None estimated blood loss: 40 cc disposition: Patient tolerated the procedure well and will be going home later today Tatyana Lazo PA-C was essential for positioning, retraction, closure and dressing placement. [facility] [place] Billing Surgery - Charge Forward: Surgery Billing ([id number] same for tatyana dupont )
[2024-05-12] MEDS: LACTATED RINGERS 1,000 ML 30 ML IV CONT ×2 (06:55→10:22)
[2024-05-12] MEDS: SCOPOLAMINE 1 MG PATCH 1 PATCH TRANSDERM (06:55)
--- NOTE | 2024-05-12 07:10 | SUR.PREOP ---
Addendum entered by Stephany Washington RN 05/12/24 07:19: ERROR. DR COSTELLO MARKING PT. Original Note: DR KUMAR MARKING PT. SISTER AT BEDSIDE.
[2024-05-12] MEDS: ceFAZolin SODIUM 2 GM/20 ML SW SYRINGE IV PUSH (07:26)
[2024-05-12] MEDS: BUPivacaine HCL 0.5% PF 30 ML VIAL 40 ML INFILTRATE (07:48)
[2024-05-12] MEDS: LIDO 1%/EPINEPHRINE 1:100,000 10 ML VIAL 40 ML INFILTRATE (07:48)
[2024-05-12] MEDS: BUPivacaine HCL 0.5% PF 30 ML VIAL INFILTRATE (10:14)
[2024-05-12] MEDS: LIDO 1%/EPINEPHRINE 1:100,000 10 ML VIAL INFILTRATE (10:14)
[2024-05-12] MEDS: fentaNYL CITRATE INJ (*CRX) 100 MCG/2 ML VIAL 25 MCG IV PUSH (10:47)
--- NOTE | 2024-05-12 11:22 | SUR.PHASEI ---
pt sleeping comfortably, no grimacing or fidgeting. When arousing pt, she states pain is an 8/10 and falls back to sleep. FLACC of 0. VSS. Will continue to monitor pt.
[2024-05-12] MEDS: oxyCODONE HCL (*CRX) 5 MG TAB IR PO (11:59)
--- NOTE | 2024-05-12 13:25 | WPDANESPN ---
Anes - Prog Note Post-Op Date/Time: 05/12/24 13:25 Cardiovascular status: normal Respiratory status: normal Airway patency: baseline Mental status: baseline Post-Op hydration status: normal Vital Signs: Last Vital Signs Temp 36.5 C 05/12/24 10:22 Pulse 87 05/12/24 12:01 Resp 14 05/12/24 12:01 BP 120/66 05/12/24 12:01 Pulse Ox 100 05/12/24 12:01 O2 Del Method Room Air 05/12/24 12:01 O2 Flow Rate 10 05/12/24 10:32 Pain Score (VAS): 3 I/O: Intake & Output 05/11/24 05/12/24 05/12/24 23:59 07:59 15:59 Intake Total 1800 Balance 1800 Post-procedural complaints: none Patient Feedback: Patient satisfied with anesthetic care. Other Findings: Patient vital signs back to baseline. Patient denies nausea and vomiting. Patient's pain under control. Patient OK for discharge.
--- NOTE | 2024-05-12 13:51 | SUR.PHASEII ---
Late note 04/1202: Pt states pain is an 8/10. FLACC score of 0. Pt calm and resting comfortably in bed. Pt given PO pain medication, see AUG. VSS, pt states she is ready for discharge.
== END 2024-05-12 12:30 | disposition home or self-care (01) ==
PROVIDERS: PCP Nurse Practitioner Family; Visit Provider Plastic Surgery
PROC: (CPT 15832; principal; 2024-05-12 07:30)
DX: L98.7 Excessive and redundant skin and subcutaneous tissue (principal)
CPT/HCPCS: 15832 ×2; 15833 ×2

== ENCOUNTER 2024-07-04 09:31 | Outpatient (CLI) | payer MEDICARE, SELFPAY ==
--- NOTE | ~2024-07-04 | US_ITS ---
EXAMINATION: US abdomen limited DATE: 07/04/2024 10:57 INDICATION: elevated LFTs. TECHNIQUE: Multiple grayscale and Doppler ultrasound images of limited portions of the abdomen were o btained. COMPARISON: CT 07/19/2011. FINDINGS: Pancreas poorly visualized. The liver is diffusely echogenic. No surface nodularity. Normal hepatopetal flow in the main portal vein. Gallbladder surgically absent. The common bile duct measur es 8 mm. IMPRESSION: Echogenic liver, most commonly due to steatosis but also can be seen with hepatitis and fibrosis. Status post cholecystectomy. 8 mm common bile duct, no definite obstructing stone or mass detected, may be secondary to cholecyste ctomy. If biliary labs are abnormal, consider MRCP for further evaluation. Reviewed, dictated and finalized at location K. LABORER IMPRESSION: Echogenic liver, most commonly due to steatosis but also can be seen with hepat itis and fibrosis. Status post cholecystectomy. 8 mm common bile duct, no definite obstructing stone or mass detected, may be s econdary to cholecystectomy. If biliary labs are abnormal, consider MRCP for fu rther evaluation.
--- OUTSIDE RECORDS SUMMARY | 2024-07-09 08:45 | XMS_ITS | Referral Summary ---
Author Organization [facility] Address [address] [place] [address] Care Team Providers Care Cosmetology Instructor Name Role Phone Emily Herrera MD Primary Care Provider + Allergies Active Allergy Reactions Criticality Noted Date Comments Canagliflozin Dizziness Low 12/30/2020 Cortisone Redness Low 12/30/2020 Diclofenac Nausea only,Nausea A nd Vomiting Low 12/30/2020 Food Extracts Anaphylaxis High 08/02/2011 Anaphylaxis when digests turkey Fosinopril Cough Low 12/30/2020 Gabapentin Dizziness,Headache Low 11/13/2022 Ketorolac Nausea And Vomiting,Vomiting Medium 08/02/2011 Levofloxacin Nausea only,Nausea A nd Vomiting Low 12/30/2020 Montelukast Nausea & Vomiting,Ot her (See comments) Low 12/30/2020 Sertraline Shortness of breath,Swelling,Seizures High 09/17/2015 [place] Anaphylaxis High 12/30/2020 Vancomycin Hives,Itching,Rash,S hortn ess of breath,Swelling,Urticaria High 08/03/2011 Medications celecoxib (CeleBREX) 200 mg capsuleIndications :Arthritis Take 1 capsule (200 mg total) by mouth every morning Active ergocalciferol (VITAMIN D) 50,000 unit capsuleIndications :Vitamin D Deficiency Take 1 capsule (50,000 Units total) by mouth once a week Takes on Mondays09/19/19 Active fluconazole (DIFLUCAN) 200 mg tabletIndications: Prophylaxis, Medical Take 1 tablet (200 mg total) by mouth once a week Takes on Mondays Active ketoconazole (NIZORAL) 2 % shampoo Apply 1 Application topically 2 (two) times a week Active magnesium oxide (MAG-OX) 400 mg (241.3 mg elemental magnesium) tabletIndications: hypomagnesemia Take 1 tablet (400 mg total) by mouth every morning Active olmesartan (BENICAR) 20 mg tabletIndications: hypertension Take 1 tablet (20 mg total) by mouth every morning Active omeprazole (PriLOSEC) 20 mg capsule Take 1 capsule (20 mg total) by mouth 2 (two) times a day Active PARoxetine (PAXIL) 30 mg tabletIndications: depression Take 2 tablets (60 mg total) by mouth every morning 09/22/19 16 Active triamcinolone (KENALOG) 0.147 mg/gram topical sprayIndications:S kin Inflammation Apply 1 Application topically every other day Active traMADoL (ULTRAM) 50 mg tabletIndications: Pain Take 1 tablet (50 mg total) by mouth 2 (two) times a day 08/13/19 23 Active simethicone (MYLICON) 125 mg chewable tabletIndications: Flatulence Take 1 tablet (125 mg total) by mouth 4 (four) times a day 08/25/19 23 Active senna (SENOKOT) 8.6 mg tabletIndications: constipation Take 3 tablets by mouth 2 (two) times a day Active bisacodyL 5 mg tabletIndications: constipation Take 5 mg by mouth 2 (two) times a day Active docusate sodium (DOK) 100 mg tabletIndications: constipation Take 3 tablets (300 mg total) by mouth 2 (two) times a day Active acetaminophen ER (TYLENOL) 650 mg 8 hr tabletIndications: Arthritic Pain Take 1 tablet (650 mg total) by mouth nightly Active whxdnodbnqqz-kos-g deysi-FA-vit K (Bariatric Multivitamins) 45 mg iron- 800 mcg-120 mcg capsuleIndications :Vitamin Deficiency Prevention Take 1 tablet by mouth every morning Active oxyCODONE (ROXICODONE) 5 mg immediate release tabletIndications: Pain Take 1 tablet (5 mg total) by mouth every 4 (four) hours as needed for pain 18 tablet 11/16/19 23 Active cyclobenzaprine (FLEXERIL) 5 mg tablet Take 1 tablet (5 mg total) by mouth 3 (three) times a day as needed for muscle spasms 30 tablet 11/16/19 23 Active senna (SENOKOT) 8.6 mg tablet Take 1 tablet by mouth daily 30 tablet 11/16/19 23 Active oxyCODONE (ROXICODONE) 5 mg immediate release tabletIndications: Pain Take 1 tablet (5 mg total) by mouth every 4 (four) hours as needed for pain for up to 10 doses 10 tablet 11/22/19 23 Active pregabalin (LYRICA) 75 mg capsule Take 1 capsule (75 mg total) by mouth 2 (two) times a day 60 capsule 5 11/22/19 23 Active magnesium hydroxide (MILK OF MAGNESIA) suspension 400 mg/5 mL Take 30 mL (2,400 mg total) by mouth daily for 10 days 300 mL 11/22/19 23 Active levothyroxine (SYNTHROID) 75 mcg tablet Take 1 tablet (75 mcg total) by mouth daily 11/27/19 23 Active enoxaparin (LOVENOX) 40 mg/0.4 mL syringe enoxaparin 40 mg/0.4 mL subcutaneous syringe Active ondansetron ODT (ZOFRAN-ODT) 4 mg disintegrating tablet Take 1 tablet (4 mg total) by mouth every 8 (eight) hours as needed for nausea or vomiting 20 tablet 12/12/19 23 Active Active Problems Problem Noted Date Diagnosed Date Excess skin of arm 01/14/2023 Obesity with body mass index greater than 30 06/2022 Osteoarthritis of both knees 10/18/2022 Paresthesia of both hands 10/01/20222022 Arthralgia of right knee 07/19/2022 Abdominal pain 07/19/2022 Acute sinusitis 07/19/2022 Anemia 07/19/2022 Anxiety state 07/19/2022 Chronic pain 07/19/2022 Deficiency of lateral collateral ligament of kne e 07/19/2022 Edema 07/19/2022 Foot callus 07/19/2022 Gastroenteritis 07/19/2022 Gastroesophageal reflux disease 07/19/2022 Hypertriglyceridemia 07/19/2022 Influenza 07/19/2022 Injury of knee 07/19/2022 Malaise and fatigue 07/19/2022 Osteoarthritis 07/19/2022 Pernicious anemia 07/19/2022 Seborrheic dermatitis 07/19/2022 Upper respiratory infection 07/19/2022 Vitamin D deficiency 07/19/2022 Wheezing 07/19/2022 Excess skin 07/18/2022 Nausea and vomiting 01/27/2022 Overview (07/19/2022): IMO 2021 Update Migraine with aura 12/06/2021 Nonalcoholic steatohepatitis 09/27/2021 H/O gastric bypass 08/30/2021 Obesity 07/03/2021 Fatigue 04/17/2021 Obstructive sleep apnea syndrome 01/09/2021 Uncontrolled type 2 diabetes mellitus 10/31/2020 Leukocytosis 09/18/2015 Severe recurrent major depre ssion without psychotic features 09/18/2015 Cellulitis 03/16/2009 Type 2 diabetes mellitus without complication (C MS/HCC) 03/14/2009 Depression 03/14/2009 Lymphedema 03/14/2009 HTN (hypertension) 03/14/2009 Thyroid dysfunction 03/14/2009 Social History Tobacco Use Types Packs/Day Years Used Date Smoking Tobacco: Never Passive Smoke Exposure: Past Smokeless Tobacco: Never AUDIT-C Answer Date Recorded Q1: How often do you have a drink containing alcohol? Never 11/15/2022 Q2: How many drinks containi ng alcohol do you have on a typical day when you are drinking? Patient does not drink Q3: How often do you have si x or more drinks on one occasion? Never 11/15/2022 Personal Safety Answer Date Recorded Have you ever been in or are you currently in a harmful physical or emotional relationship or is someone making you feel afraid or unsafe? 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 Gender Identity Not on file Sexual Orientation Not on file Last Filed Vital Signs Vital Sign Reading Time Taken Comments Blood Pressure 110/61 11/18/2022 8:06 AM CDT Pulse 61 11/18/2022 8:06 AM CDT Temperature 36.3 ??C (97.3 ??F) 11/18/2022 8:06 AM CD T Respiratory Rate 19 11/18/2022 8:06 AM CDT Oxygen Saturation 97% 11/18/2022 8:06 AM CDT Inhaled Oxygen Concentration - - Weight 93.6 kg (206 lb 5.6 oz) 11/15/2022 6:43 P M CDT Height 169 cm (5' 6.54 ) 11/15/2022 6:43 PM CDT Body Mass Index 32.77 11/15/2022 6:43 PM CDT Plan of Treatment Not on file Procedures Procedure Name Priority Date/Time Associated Diagnosis Comments EGFR Routine 11/13/2022 12:21 PM CDT Preop testing POCT HEMOGLOBIN A1C Routine 11/13/2022 1 1:16 AM CDT from Last 3 Months or Most Recently Relevant to Health Maintenance Results * (ABNORMAL) eGFR (11/13/2022 12:21 PM CDT) eGFR 63(L) 90 - 130 mL/min/1. 73 m2 [facility] Comment: Interpretive Data Reference Interval Normal ?>/= 90 mL/min/1.73m2 Mildly decreased* ? 60 - 89 mL/min/1.73m2 Mildly to moderately decreased ?45 - 59 mL/min/1.73m2 Moderately to severely decreased ??30 - 44 mL/min/1.73m2 Severely decreased ?15 - 29 mL/min/1.73m2 Kidney Failure ?< 15 ??mL/min/1.73m2 *Relative to young adult level Estimated glomerular filtration rate is determined by the 2020 CKD-EPI equation recommended by the National Kidney Foundation (A Unifying Approach to GFR Estimation: Recommendations of the NKF-ASK Task Force on Reassessing the Inclusion of Race in Diagnosing Kidney Disease, JASN 2020). The CKD-EPI equation should not be used for patients with unstable renal function and has not been validated in children and those over 70. Current interpretive data was last reviewed 2021. Blood 11/13/2022 12:2 1 PM CDT 11/13/2022 12:51 PM CDT Nithya Oconnor NP LAB BLOOD ORDERABLES Judy irina Result Performing Organization Address [facility] de Phone Number [facility] Department [place] [address] * POCT hemoglobin A1c (11/13/2022 11:16 AM CDT) Hgb A1C, POC 4.9 4.0 - 5.6 % [facility] Est Average Gluc POC 94 mg/dL [facility] Comment: The ADA recommends reporting an estimated Average Glucose (eAG) with all Hemoglobin A1c results using the equation derived from a study of 507 normal and diabetic adults. ??Minority populations were underrepresented and children were not included. ?? (Diabetes Care 31:3369-5635, 2008). ??The eAG is not equivalent to a fasting glucose. Blood 11/13/2022 11:1 6 AM CDT 11/13/2022 11:16 AM CDT us Ree Greene MD POINT OF CARE TEST OR DERABLES Final Result Performing Organization Address [facility] de Phone Number [facility] Department [place] [address] from Last 3 Months or Most Recently Relevant to Health Maintenance Insurance AETNA MEDICARE GOLD [facility] MDCR HMO REF AETNA MEDICARE GOLD AETNA MEDICARE GOLD Advance Directives For more information, please contact: [phone] * Full Code (Latest Code Status on File) Date Activated Date Inactivated Comments 11/15/2022 6:20 PM 11/18/2022 6:51 PM Care Teams Cosmetology Instructor Relationship Specialty Start Date End Date Emily Herrera MD [address] [place] [address] [place] [address] PCP - General Family Medicine 07/10/22
--- OUTSIDE RECORDS SUMMARY | 2024-07-09 08:45 | XMS_ITS | Encounter Summary ---
Author Organization [facility] Address [address] [place] [address] Care Team Providers Care Woods Rider Name Role Phone Regina Ovalles MD Primary Care Provider +1- [phone] Encounter Details Date Type Department Care Team (Late st Contact Info) Description 02/28/2004 Outpatient Historical [facility] Internal Medicine 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
--- OUTSIDE RECORDS SUMMARY | 2024-07-09 08:45 | XMS_ITS | Encounter Summary ---
Author Organization [facility] Address [address] [place] [address] Care Team Providers Care Fastener Technologist Name Role Phone Regina Ovalles MD Primary Care Provider +1- [phone] Encounter Details Date Type Department Care Team (Late st Contact Info) Description 02/01/2003 Outpatient Historical [facility] Internal Medicine 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
--- OUTSIDE RECORDS SUMMARY | 2024-07-09 08:45 | XMS_ITS | Encounter Summary ---
Author Organization [facility] Address [address] [place] [address] Care Team Providers Care Regional Vice President Surgical Sales Name Role Phone Regina Ovalles MD Primary Care Provider +1- [phone] Encounter Details Date Type Department Care Team (Late st Contact Info) Description 02/01/2003 Outpatient Historical [facility] Internal Medicine [address] [place] [address] Grady Galvez MD [address] 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
--- OUTSIDE RECORDS SUMMARY | 2024-07-09 08:45 | XMS_ITS | Encounter Summary ---
Author Organization [facility] Address [address] [place] [address] Care Team Providers Care Hose Maker Name Role Phone Regina Ovalles MD Primary Care Provider +1- [phone] Encounter Details Date Type Department Care Team (Late st Contact Info) Description 10/02/[address] [facility] Internal Medicine 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
--- OUTSIDE RECORDS SUMMARY | 2024-07-09 08:45 | XMS_ITS | Encounter Summary ---
Author Organization [facility] Address [address] [place] [address] Care Team Providers Care Project Specialist Name Role Phone Regina Ovalles MD Primary Care Provider +1- [phone] Encounter Details Date Type Department Care Team (Late st Contact Info) Description 08/03/2002 Outpatient Historical [facility] Internal Medicine 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
--- OUTSIDE RECORDS SUMMARY | 2024-07-09 08:45 | XMS_ITS | Encounter Summary ---
Author Organization [employer] Address [address] [place] [address] Care Team Providers Care Medication Reconciliation Technician Name Role Phone Regina Ovalles MD Primary Care Provider +1- [phone] Encounter Details Date Type Department Care Team (Late st Contact Info) Description 02/01/2003 Outpatient Historical [facility] Internal Medicine 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
--- OUTSIDE RECORDS SUMMARY | 2024-07-09 08:45 | XMS_ITS | Clinical Summary ---
Author Organization [facility] Address [address] [place] [address] Phone Care Team Providers Care Relationship Executive Name Role Phone Regina Ovalles MD Primary Care Provider +1- [phone] Allergies Active Allergy Reactions Criticality Noted Date Comments Food Extracts Anaphylaxis High 08/02/2011 Anaphylaxis when digests turkey Ketorolac Tromethamine Nausea and Vomiting Medium 07/18 Sertraline Seizure High 09/17/2015 Vancomycin Itching Medium 08/03/2011 Medications olmesartan (BENICAR) 20 mg Oral tabletIndicatio ns:htn Take 20 mg by mouth daily . Active metFORMIN (GLUCOPHAGE) 1,000 mg Oral tabletIndicatio ns:dm2 Take 2,000 mg by mouth 2 times daily with meals . Active aspirin (OTONIEL) 81 mg Oral TabIndications: heart health Take 81 mg by mouth 2 times daily . Active levothyroxine (SYNTHROID) 125 mcg Oral tablet Take 1 Tab by mouth daily window glass cutter off. 30 Tab 0 2 Active Additional Information Patient taking differently: 200 mcgOralDAILY, Indications: thyroid disease, Reported on 09/17/2015 meloxicam (MOBIC) 15 mg tabletIndicatio ns:inflamation Take 15 mg by mouth daily . Active ALPRAZolam (XANAX) 0.25 mg tabletIndicatio ns:anxiety Take 0.25 mg by mouth 2 times daily as needed for Anxiety . Active ergocalciferol (VITAMIN D2) 50,000 unit capsuleIndicati ons:suppliment Take 50,000 Units by mouth every 7 days. 6 Active zolpidem (AMBIEN) 5 mg tablet Take 1 Tablet (5 mg) by mouth nightly as needed for Insomnia. 30 Tablet 0 6 Active PARoxetine HCl (PAXIL) 30 mg tabletIndicatio ns:depression Take 2 Tablet (60 mg) by mouth daily. 60 Tablet 0 6 Active Active Problems Problem Noted Date Diagnosed Date Severe recurrent major depre ssion without psychotic features 09/18/2015 Leukocytosis 09/18/2015 Cellulitis 08/23/2011 DM (diabetes mellitus) HTN (hypertension) Hypothyroidism Obesity Depression Cellulitis Immunizations Immunization Administration Dates Next Due (ADACEL/BOOSTRIX)(10 YR UP) TDAP VACCINE, 0.5ML, IM 08/03/2011 Influenza Seasonal Unspecified Formulation IM Pneumococcal conjugate, unspecified formulation 03/17/2010 Family History Medical History Relation Name Comments Cancer Brother Lung Cancer Brother Cancer Father Stroke Maternal Grandmother Relation Name Status Comments Brother Father Maternal Grandmother Social History Tobacco Use Types Packs/Day Years Used Date Smoking Tobacco: Never Alcohol Use Standard Drinks/Week Comments No 0 (1 standard drink = 0.6 oz pur e alcohol) Comments No Sex and Gender Information Value Date Recorded Sex Assigned at Not on file 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 Gender Identity Not on file Sexual Orientation Not on file Last Filed Vital Signs Vital Sign Reading Time Taken Comments Blood Pressure 160/88 09/22/2015 6:48 AM CDT Pulse 64 09/21/2015 6:39 AM CDT Temperature 36.6 ??C (97.9 ??F) 09/22/2015 6:48 AM CD T Respiratory Rate 17 09/22/2015 6:48 AM CDT Oxygen Saturation 98% 09/17/2015 5:49 PM CDT Inhaled Oxygen Concentration - - Weight 173.3 kg (382 lb) 09/17/2015 6:49 PM CDT Height 167.6 cm (5' 6 ) 09/17/2015 6:49 PM CDT Body Mass Index 61.66 09/17/2015 6:49 PM CDT Plan of Treatment Health Maintenance Due Date Last Done Comments DIABETES ANNUAL FOOT EXAM 1982 DIABETES ANNUAL RETINAL EXAM 1982 DIABETES HBA1C Q 6 MONTHS 1982 DIABETES MICROALBUMIN ANNUAL SCREEN 1982 LDL CHOLESTEROL ANNUAL 1982 HEPATITIS B VACCINES (1 of 3 - 19+ 3-dose series) 09/15 CERVICAL CANCER SCREENING 1994 BREAST CANCER SCREENING 2004 COLORECTAL SCREENING 2009 Colorectal Cancer Screening 2009 FIT-DNA Q 3 years 2009 FIT/FOBT Q 1 year 2009 Flex Sig/CT Colonography Q 5 years 2009 ZOSTER VACCINE (1 of 2) 2014 DTAP/TDAP/TD VACCINES (2 - Td or Tdap) 08/03/2021 INFLUENZA VACCINE (#1) 2024 04/17/2011 Insurance * Guarantor: Hanna Melendez Account Type Relation to Patient Date of Phone Billing Address Personal/Family Self 1965 [phone] (Work) [facility] [employer] [address] [place] [address] [employer] PPO [id number] * Guarantor: Hanna Melendez Account Type Relation to Patient Date of Phone Billing Address [facility] Self 1965 [phone] (Work) [address] [place] [address] [employer] PPO [id number] * Guarantor: Hanna Melendez Account Type Relation to Patient Date of Phone Billing Address Personal/Family Self 1965 [phone] (Work) [address] [facility] [address] [place] [address] Advance Directives For more information, please contact: [phone] * Full Code (Latest Code Status on File) Date Activated Date Inactivated Comments 09/17/2015 8:59 PM 09/22/2015 3:10 PM * Full Code Date Activated Date Inactivated Comments 08/02/2011 1:14 PM 08/08/2011 2:44 PM Care Teams Relationship Executive Relationship Specialty Start Date End Date Regina Ovalles MD [address] [address] PCP - General 06/03/15
--- OUTSIDE RECORDS SUMMARY | 2024-07-09 08:45 | XMS_ITS | Clinical Summary ---
Author Organization [facility] Address [address] [place] [address]. 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 Gender Identity Not on file Sexual Orientation Not on file Plan of Treatment Health Maintenance Due Date Last Done Comments Cervical Cancer Screening Pap Smear (Age 30 to 64) Every 3 Years 1964 Colorectal Cancer Screening Colonoscopy (10 Years) 1964 Annual Physical 10/02/1967 Hepatitis C 1982 Cervical Cancer Screening Pap with HPV Testing (Age 30 to 64) Every 5 Years 1994 Cervical Cancer Screening with HPV 1994 Mammogram Screening 2004 Zoster Vaccines (1 of 2) 2014 COVID-19 Vaccine ( season) 2024 03/24/2021, 08/06/2020, 07/16/2020 Influenza Adult (#1) 2024 03/28/2022, 03/08/2021, 04/11/2020, Additional history exists DTaP, Tdap and Td Vaccines (5 - Td or Tdap) 11/05/2032 11/05/2022, 01/27/2018, 01/22/2018, Additional history exists Pneumococcal Vaccine: Pediatrics (0 to 5 Years) and At-Risk Patients (6 to 64 Years) Aged Out 03/17/2010, 06/17/2008 No longer eligibl e based on patient's age to complete this topic Meningococcal Vaccine Aged Out No abraham hemant eligible based on patient's age to complete this topic RSV Immunizations Under 20 Months Aged Out No longer eligible based on patient's age to complete this topic Insurance AETNA Care Teams Badger Distiller Operator Relationship Specialty Start Date End Date Juanita Lemons FNP [address] [place] [address] [address] [place] [id number] PCP - General NURSE PRACTITIONER 01/22/24
--- OUTSIDE RECORDS SUMMARY | 2024-07-09 08:45 | XMS_ITS | Encounter Summary ---
Author Organization [facility] Address [address] [place] [address] Care Team Providers Care Consumer Lender Name Role Phone Regina Ovalles MD Primary Care Provider [phone] Encounter Details Date Type Department Care Team (Late st Contact Info) Description 10/02/2002 Outpatient Historical [facility] Internal Medicine 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
--- OUTSIDE RECORDS SUMMARY | 2024-07-09 08:45 | XMS_ITS | Referral Summary ---
Author Organization [facility] Address [address] [facility] [place] [address] Care Team Providers Care Sewer Line Repairer Name Role Phone Denise Cope PRISCILA-APPLICATIONS SUPPORT LEAD Primary Care Provider + Source Comments [facility],non-owned Affiliates and Associated Physician Practices is amultiple site organization consisting of ambulatory clinics and hospital sitesin [place], [place], [place] and [place]. This disclosure is being madepursuant to the Care Everywhere program and may not contain all information available regarding this patient. Last updated 18.[facility] Kids Calendar Allergies Active Allergy Reactions Criticality Noted Date Comments Canagliflozin Dizziness 12/30/2020 Cephalexin Urticaria Medium 12/17/2023 Cortisone Other 12/30/2020 Diclofenac Epolamine Nausea and/or Vomiting Fosinopril Cough 12/30/2020 Ketorolac Tromethamine Nausea and/or Vomiting Medium 0 08/02/2011 Levofloxacin Nausea and/or Vomiting 12/30/2020 Montelukast Other 12/30/2020 Sertraline Other,Seizures High 09/17/2015 Ketorolac Vomiting 12/30/2020 [place] Anaphylaxis High 12/30/2020 Vancomycin Urticaria,Itching,Ra sh,Shortne ss of Breath,Swelling High 08/03/2011 Medications * Be aware that medications may not be up to date on this document. Alwaysverify current medications with the patient. Medication Sig Dispensed Refills Start Date End Date Status valACYclovir (VALTREX) 1 GM tablet Take 1 (one) tablet by mouth as needed (For herpes outbreak on chin) Active triamcinolone acetonide, top, (KENALOG) 0.147 MG/GM spray Apply 1 spray to affected area Twice Daily, Three Times a Week To scalp Active PARoxetine (PAXIL) 30 MG tablet Take 2 (two) tablets by mouth once daily Active olmesartan (BENICAR) 20 MG tablet Take 5 mg by mouth once daily Active ergocalciferol (DRISDOL) 1.25 MG (16710 UT) capsule Take 1 (one) capsule by mouth every 7 days On mondays Active ketoconazole (NIZORAL) 2 % shampoo Apply 1 Each to affected area Two times a week Active acetaminophen (TYLENOL) 160 MG/5ML solution Take 31.25 mL by mouth every 8 hours 07/04/2021 Active senna-docusate (SENOKOT-S) 8.6-50 MG tablet Take 1 (one) tablet by mouth 2 times daily as needed for Constipation 07/04/2021 Active Docusate Sodium (COLACE PO) Take by mouth as needed Active Bismuth Subgallate (DEVROM) 200 MG CAPS Take 1 capsule by mouth every 6 hours as needed 120 capsule 5 12/29/2021 Active famotidine (PEPCID) 20 MG tablet Take 1 (one) tablet by mouth at bedtime 90 tablet 3 12/29/2021 Active Additional Information Patient not taking.Reported on 08/24/2022 levothyroxine (Synthroid) 150 MCG tablet levothyroxine 150 mcg tablet TAKE 1 TABLET BY MOUTH ONCE DAILY FOR 30 DAYS Active Nystop 365895 UNIT/GM powder APPLY POWDER TOPICALLY TO AFFECTED AREA TWICE DAILY 09/06/2021 Active fluconazole (Diflucan) 150 MG tablet TAKE 1 TABLET BY MOUTH ONCE A WEEK 12/06/2021 Active OneTouch Ultra test strip USE 1 STRIP TO CHECK GLUCOSE THREE TIMES DAILY 08/10/2021 Active Accu-Chek FastClix Lancets USE 1 TO CHECK GLUCOSE THREE TIMES DAILY 08/01/2021 Active FIBER ADULT GUMMIES PO Active ondansetron, disintegrating, (Zofran ODT) 4 MG tablet Take 1 (one) tablet by mouth every 6 hours as needed for Nausea/Vomiting Allow tablet to dissolve on the tongue 20 tablet 01/24/2022 Active Additional Information Patient not taking.Reported on 08/24/2022 senna-docusate (Senokot-S) 8.6-50 MG tablet Take 1 (one) tablet by mouth 2 times daily as needed for Constipation 01/24/2022 Active cyclobenzaprine (Flexeril) 10 MG tablet Take 1 (one) tablet by mouth 3 times daily as needed for Muscle Spasms 30 tablet 01/26/2022 Active Additional Information Patient not taking.Reported on 08/24/2022 acetaminophen (Tylenol) 160 MG/5ML solution Take 15.625 mL by mouth once daily as needed 01/26/2022 Active pantoprazole EC (Protonix) 40 MG tablet Take 1 (one) tablet by mouth once daily 30 tablet 5 01/27/2022 Active Additional Information Patient not taking.Reported on 08/24/2022 senna-docusate (Senokot-S) 8.6-50 MG tablet Take 1 (one) tablet by mouth 2 times daily as needed for Constipation 01/29/2022 Active sucralfate (Carafate) 1 GM/10ML suspensionIndicatio ns:Epigastric burning sensation,Nausea and vomiting, intractability of vomiting not specified, unspecified vomiting type Take 10 mL by mouth 4 times daily 1200 mL 1 02/07/2022 Active Additional Information Patient not taking.Reported on 08/24/2022 traMADol (Ultram) 50 MG tablet Take 1 (one) tablet by mouth 4 times daily For pain. 08/13/2022 Active levothyroxine (Synthroid) 100 MCG tablet Take 1 (one) tablet by mouth once daily 08/13/2022 Active celecoxib (CeleBREX) 200 MG capsule 07/12/2022 Active Magnesium Oxide 400 (240 Mg) MG Take 1 (one) tablet by mouth once daily 07/13/2022 Active omeprazole (PriLOSEC) 20 MG capsule 2 (two) capsules Active Simethicone (Phazyme) 125 MG chew tablet Take 1 (one) tablet by mouth 4 times daily after meals 360 tablet 3 08/24/2022 Active Collagen-Vitamin C-Biotin (COLLAGEN 1500/C PO) Active EQ Gas Relief 125 MG capsule TAKE 1 SOFTGEL BY MOUTH 4 TIMES DAILY 11/13/2022 Active levothyroxine (Tirosint) 112 MCG capsule Take 1 (one) capsule by mouth daily before breakfast Active Cholecalciferol (Vitamin D) 125 MCG (5000 UT) CAPS Active ondansetron, disintegrating, (Zofran ODT) 4 MG tablet Take 1 (one) tablet by mouth every 6 hours as needed for Nausea/Vomiting Allow tablet to dissolve on the tongue 30 tablet 2 12/17/2023 Active omeprazole (PriLOSEC) 40 MG capsule Take 1 (one) capsule by mouth daily before breakfast 30 capsule 5 12/17/2023 Active Semaglutide(0.25 or 0.5MG/DOS) 2 MG/3ML Solution Pen-injector (Ozempic (0.25 or 0.5 MG/DOSE)) Inject 0.5 mg subcutaneously Active dicyclomine (Bentyl) 10 MG capsule Take 1 capsule by mouth 4 times daily 120 capsule 3 01/14/2024 Active Active Problems Problem Noted Date Diagnosed Date Nausea and vomiting, intract ability of vomiting not specified, unspecified vomiting type 01/27/2022 Overview (03/17/2022): IMO 2021 Update Morbid obesity due to excess calories 07/03/2021 Immunizations Name Administration Dates Next Due INFLUENZA VACCINE, TRIV. (AF LURIA, FLUZONE TRIVALENT; 6MO+) (IIV3) 03/22/2016,03/28/2015,03/19/2014,2011,04/17/2011 Covid [employer] primary monoval ent 12+ yr 0.3mL Purple cap 03/24/2021,08/06/2020,07/16/2020 FLU VACCINE QUAD IIV4 SPLIT 0.25 ML IM 04/11/2020 FLU VACCINE TRI IIV3 SPLIT P F IM (FLUVIRIN) 05/01/2013 HEP B VACCINE, ADULT 3 DOSE 08/26/2006, 7 INFLUENZA VACCINE, QUADR. (F LUZONE; FLULAVAL; FLUARIX; AFLURIA QUADRIVALENT; 6MO+), 0.5 ML (IIV4) 03/08/2021 PNEUMOCOCCAL PCV VACCINE 03/17/2010 PNEUMOCOCCAL PPSV23 06/17/2008 TD VACCINE 08/14/2004 TDAP (7yrs+) 01/27/2018,01/22/2018,08/03/2011 Social History Tobacco Use Types Packs/Day Years Used Date Smoking Tobacco: Never Smokeless Tobacco: Never Tobacco Cessation:Counseling Given: Not Answered Alcohol Use Standard Drinks/Week Comments Never 0 (1 standard drink = 0.6 oz pur e alcohol) AUDIT-C Answer Date Recorded Q1: How often do you have a drink containing alc ohol? Never 07/03/2021 Average Number of Drinks Not on file 022 Q3: How often do you have si x or more drinks on one occasion? Never 07/03/2021 Hunger Vital Sign Answer Date Recorded Within the past 12 months, y ou worried that your food would run out before you got the money to buy more. Never true 01/30/20 22 Within the past 12 months, t he food you bought just didn't last and you didn't have money to get more. Never true 01/29/2022 Sex and Gender Information Value Date Recorded Sex Assigned at Female 01/19/2021 8:46 AM CDT Gender Identity Female 01/19/2021 8:46 AM CDT Sexual Orientation Not on file Last Filed Vital Signs Vital Sign Reading Time Taken Comments Blood Pressure 102/70 12/17/2023 12:56 PM CDT Pulse 72 12/17/2023 12:56 PM CDT Temperature 36.4 ??C (97.6 ??F) 12/17/2023 12:56 PM C DT Respiratory Rate 20 02/16/2022 1:40 PM CDT Oxygen Saturation 98% 12/17/2023 12:56 PM CDT Inhaled Oxygen Concentration - - Weight 78.9 kg (174 lb) 12/17/2023 12:56 PM CDT Height 165.1 cm (5' 5 ) 08/24/2022 11:15 AM MEDICAL 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 No 01/24/2022 Is person blind or have serious difficulty seein g? No 01/24/2022 Does person have serious dif ficulty walking/climbing stairs? No 01/24/2022 Does person have difficulty dressing/bathing? No 01/24/2022 Does person have difficulty doing errands alone? No 01/24/2022 Cognitive Status Response Date of Assessm ent Does person have difficulty concentrating/remembering/making decisions? No 01/24/2022 Plan of Treatment Upcoming Encounters Date Type Department Care Team (Late st Contact Info) Description 11/11/2024 2:00 PM CDT Office Visit [facility] - GI [address] [facility] [place] [id number] Mary Strong MD [address] [facility] [address] [place] [address] Advance Directives * Full Code (Latest Code Status on File) Date Activated Date Inactivated Comments 01/24/2022 8:11 PM 01/26/2022 1:18 PM * Full Code Date Activated Date Inactivated Comments 07/03/2021 11:58 AM 07/04/2021 5:41 PM Care Teams Sewer Line Repairer Relationship Specialty Start Date End Date Denise Cope APRN-JUDAH [address] [place] [address] [address] [place] [address] PCP - General Nurse Practitioner 12/23/20
--- OUTSIDE RECORDS SUMMARY | 2024-07-09 08:45 | XMS_ITS | Encounter Summary ---
Author Organization [facility] Address [address] [place] [address] Care Team Providers Care Manager Freelance Name Role Phone Regina Ovalles MD Primary Care Provider [phone] Encounter Details Date Type Department Care Team (Late st Contact Info) Description 08/03/2002 Outpatient Historical [facility] Internal Medicine 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
--- OUTSIDE RECORDS SUMMARY | 2024-07-09 08:45 | XMS_ITS | Patient Health Summary ---
Author Organization [facility] Address [address] [place] [address] Care Team Providers Care Construction Rep Name Role Phone Nacholay Denise PRISCILA-PRESS OPERATOR AUTOMATIC Primary Care Provider + Note from [facility],non-owned Affiliates and Associated Physician Practices is amultiple site organization consisting of ambulatory clinics and hospital sitesin [place], [place], [place] and [place]. This disclosure is being madepursuant to the Care Everywhere program and may not contain all information available regarding this patient. Last updated 18.[facility] Allergies * Canagliflozin(Dizziness) * Cephalexin(Urticaria) -Medium Criticality * Cortisone(Other) * Diclofenac Epolamine(Nausea and/or Vomiting) * Fosinopril(Cough) * Ketorolac Tromethamine(Nausea and/or Vomiting) -Medium Criticality * Levofloxacin(Nausea and/or Vomiting) * Montelukast(Other) * Sertraline(Other,Seizures) -High Criticality * Ketorolac(Vomiting) * [place]chise(Anaphylaxis) -High Criticality * Vancomycin(Urticaria,Itching,Rash,Shortness of Breath,Swelling) -High Criticality * Food(Anaphylaxis) -High Criticality,Inactive Medications * Be aware that medications may not be up to date on this document. Alwaysverify current medications with the patient. * valACYclovir (VALTREX) 1 GM tablet Take 1 (one) tablet by mouth as needed (For herpes outbreak on chin) * triamcinolone acetonide, top, (KENALOG) 0.147 MG/GM spray Apply 1 spray to affected area Twice Daily, Three Times a Week To scalp * PARoxetine (PAXIL) 30 MG tablet Take 2 (two) tablets by mouth once daily * olmesartan (BENICAR) 20 MG tablet Take 5 mg by mouth once daily * ergocalciferol (DRISDOL) 1.25 MG (34008 UT) capsule Take 1 (one) capsule by mouth every 7 days On mondays * ketoconazole (NIZORAL) 2 % shampoo Apply 1 Each to affected area Two times a week * acetaminophen (TYLENOL) 160 MG/5ML solution(Started 07/04/2021) Take 31.25 mL by mouth every 8 hours * senna-docusate (SENOKOT-S) 8.6-50 MG tablet(Started 07/04/2021) Take 1 (one) tablet by mouth 2 times daily as needed for Constipation * Docusate Sodium (COLACE PO) Take by mouth as needed * Bismuth Subgallate (DEVROM) 200 MG CAPS(Started 12/29/2021) Take 1 capsule by mouth every 6 hours as needed 5 refills by 12/29/2022 * famotidine (PEPCID) 20 MG tablet(Started 12/29/2021) Take 1 (one) tablet by mouth at bedtime 3 refills by 12/29/2022 * levothyroxine (Synthroid) 150 MCG tablet levothyroxine 150 mcg tablet TAKE 1 TABLET BY MOUTH ONCE DAILY FOR 30 DAYS * Nystop [id number] UNIT/GM powder(Started 09/06/2021) APPLY POWDER TOPICALLY TO AFFECTED AREA TWICE DAILY * fluconazole (Diflucan) 150 MG tablet(Started 12/06/2021) TAKE 1 TABLET BY MOUTH ONCE A WEEK * OneTouch Ultra test strip(Started 08/10/2021) USE 1 STRIP TO CHECK GLUCOSE THREE TIMES DAILY * Accu-Chek FastClix Lancets(Started 08/01/2021) USE 1 TO CHECK GLUCOSE THREE TIMES DAILY * FIBER ADULT GUMMIES PO * ondansetron, disintegrating, (Zofran ODT) 4 MG tablet(Started 01/24/2022) Take 1 (one) tablet by mouth every 6 hours as needed for Nausea/Vomiting Allow tablet to dissolve on the tongue * senna-docusate (Senokot-S) 8.6-50 MG tablet(Started 01/24/2022) Take 1 (one) tablet by mouth 2 times daily as needed for Constipation * cyclobenzaprine (Flexeril) 10 MG tablet(Started 01/26/2022) Take 1 (one) tablet by mouth 3 times daily as needed for Muscle Spasms * acetaminophen (Tylenol) 160 MG/5ML solution(Started 01/26/2022) Take 15.625 mL by mouth once daily as needed * pantoprazole EC (Protonix) 40 MG tablet(Started 01/27/2022) Take 1 (one) tablet by mouth once daily 5 refills by 01/26/2023 * senna-docusate (Senokot-S) 8.6-50 MG tablet(Started 01/29/2022) Take 1 (one) tablet by mouth 2 times daily as needed for Constipation * sucralfate (Carafate) 1 GM/10ML suspension(Started 02/07/2022) Take 10 mL by mouth 4 times daily 1 refill by 02/07/2023 * traMADol (Ultram) 50 MG tablet(Started 08/13/2022) Take 1 (one) tablet by mouth 4 times daily For pain. * levothyroxine (Synthroid) 100 MCG tablet(Started 08/13/2022) Take 1 (one) tablet by mouth once daily * celecoxib (CeleBREX) 200 MG capsule(Started 07/12/2022) * Magnesium Oxide 400 (240 Mg) MG(Started 07/13/2022) Take 1 (one) tablet by mouth once daily * omeprazole (PriLOSEC) 20 MG capsule 2 (two) capsules * Simethicone (Phazyme) 125 MG chew tablet(Started 08/24/2022) Take 1 (one) tablet by mouth 4 times daily after meals 3 refills by 08/24/2023 * Collagen-Vitamin C-Biotin (COLLAGEN 1500/C PO) * EQ Gas Relief 125 MG capsule(Started 11/13/2022) TAKE 1 SOFTGEL BY MOUTH 4 TIMES DAILY * levothyroxine (Tirosint) 112 MCG capsule Take 1 (one) capsule by mouth daily before breakfast * Cholecalciferol (Vitamin D) 125 MCG (5000 UT) CAPS * ondansetron, disintegrating, (Zofran ODT) 4 MG tablet(Started 12/17/2023) Take 1 (one) tablet by mouth every 6 hours as needed for Nausea/Vomiting Allow tablet to dissolve on the tongue 2 refills by 12/16/2024 * omeprazole (PriLOSEC) 40 MG capsule(Started 12/17/2023) Take 1 (one) capsule by mouth daily before breakfast 5 refills by 12/16/2024 * Semaglutide(0.25 or 0.5MG/DOS) 2 MG/3ML Solution Pen-injector (Ozempic (0.25 or 0.5 MG/DOSE)) Inject 0.5 mg subcutaneously * dicyclomine (Bentyl) 10 MG capsule(Started 01/14/2024) Take 1 capsule by mouth 4 times daily 3 refills by 01/13/2025 Active Problems Problem Noted Date Diagnosed Date Nausea and vomiting, intract ability of vomiting not specified, unspecified vomiting type 01/27/2022 Morbid obesity due to excess calories 07/03/2021 Immunizations * INFLUENZA VACCINE, TRIV. (AFLURIA, FLUZONE TRIVALENT; 6MO+) (IIV3)(Given 03/22/2016, 03/28/2015, 03/19/2014, 03/10/2012, 04/17/2011) * Covid Circadence primary monovalent 12+ yr 0.3mL Purple cap(Given 03/24/2021, 08/06/2020, 07/16/2020) * FLU VACCINE QUAD IIV4 SPLIT 0.25 ML IM(Given 04/11/2020) * FLU VACCINE TRI IIV3 SPLIT PF IM (FLUVIRIN)(Given 05/01/2013) * HEP B VACCINE, ADULT 3 DOSE(Given 08/26/2006, 06/26/2006) * INFLUENZA VACCINE, QUADR. (FLUZONE; FLULAVAL; FLUARIX; AFLURIA QUADRIVALENT; 6MO+), 0.5 ML (IIV4)(Given 03/08/2021) * PNEUMOCOCCAL PCV VACCINE(Given 03/17/2010) * PNEUMOCOCCAL PPSV23(Given 06/17/2008) * TD VACCINE(Given 08/14/2004) * TDAP (7yrs+)(Given 01/27/2018, 01/22/2018, 08/03/2011) Social History Tobacco Use Types Packs/Day Years [...] cm (5' 5 ) 08/24/2022 11:15 AM HIGH PRESSURE CLEANER Body Mass Index 28.96 08/24/2022 11:15 AM HIGH PRESSURE CLEANER Procedures * VITAMIN E(Performed 01/28/2024) * VITAMIN A(Performed 01/28/2024) * PREALBUMIN(Performed 01/28/2024) * VITAMIN K1(Performed 01/28/2024) * ZINC BLOOD(Performed 01/28/2024) * COPPER BLOOD(Performed 01/28/2024) * VITAMIN B1(Performed 01/28/2024) * VITAMIN D 25-HYDROXY(Performed 01/28/2024) * PTH INTACT(Performed 01/28/2024) * VITAMIN B12(Performed 01/28/2024) * FOLATE RBC(Performed 01/28/2024) * FERRITIN(Performed 01/28/2024) * CBC W/O DIFFERENTIAL(Performed 01/28/2024) * COMPREHENSIVE METABOLIC PANEL(Performed 01/28/2024) * MAGNESIUM BLOOD(Performed 01/28/2024) * IRON + TIBC PANEL(Performed 01/28/2024) * CT ABDOMEN PELVIS W CONTRAST(Performed 01/01/2024) Performed for Bariatric surgery status, Epigastric burning sensation, Generalized abdominal pain * FL UGI SERIES(Performed 01/28/2022) Performed for Nausea and vomiting, intractability of vomiting not specified, unspecified vomiting type, Morbid obesity due to excess calories (HCC) * COMPREHENSIVE METABOLIC PANEL(Performed 01/27/2022) Performed for Nausea and vomiting, intractability of vomiting not specified, unspecified vomiting type * CBC W AUTO DIFFERENTIAL(Performed 01/27/2022) Performed for Nausea and vomiting, intractability of vomiting not specified, unspecified vomiting type * GLUCOSE - POINT OF CARE(Performed 01/26/2022) * CBC W AUTO DIFFERENTIAL(Performed 01/26/2022) * BASIC METABOLIC PANEL (CALCIUM TOTAL)(Performed 01/26/2022) * GLUCOSE - POINT OF CARE(Performed 01/25/2022) * GLUCOSE - POINT OF CARE(Performed 01/25/2022) * GLUCOSE - POINT OF CARE(Performed 01/25/2022) * BASIC METABOLIC PANEL (CALCIUM TOTAL)(Performed 01/25/2022) * CBC W/O DIFFERENTIAL(Performed 01/25/2022) * GLUCOSE - POINT OF CARE(Performed 01/25/2022) * FL UGI SERIES(Performed 01/25/2022) Performed for Morbid obesity due to excess calories (HCC) * GLUCOSE - POINT OF CARE(Performed 01/25/2022) * HEMOGLOBIN A1C(Performed 01/25/2022) * VITAMIN D 25-HYDROXY(Performed 01/25/2022) * CBC W AUTO DIFFERENTIAL(Performed 01/25/2022) * BASIC METABOLIC PANEL (CALCIUM TOTAL)(Performed 01/25/2022) * GLUCOSE - POINT OF CARE(Performed 01/24/2022) * ENDOTRACHEAL TUBE NOTE(Performed 01/24/2022) * TN LAP,DIAGNOSTIC ABDOMEN(Performed 01/24/2022) * EKG 12-LEAD(Performed 01/24/2022) Performed for Preop examination * ZINC WHOLE BLOOD(Performed 01/19/2022) * COPPER WHOLE BLOOD(Performed 01/19/2022) * IRON + TIBC PANEL(Performed 01/19/2022) Performed for Morbid obesity (HCC), Bariatric surgery status, Vitamin deficiency, Vitamin D deficiency, Vitamin B deficiency, Mineral deficiency, Intestinal malabsorption, unspecified type (HCC) * VITAMIN A(Performed 01/19/2022) Performed for Morbid obesity (HCC), Bariatric surgery status, Vitamin deficiency, Vitamin D deficiency, Vitamin B deficiency, Mineral deficiency, Intestinal malabsorption, unspecified type (HCC) * VITAMIN B1(Performed 01/19/2022) Performed for Morbid obesity (HCC), Bariatric surgery status, Vitamin deficiency, Vitamin D deficiency, Vitamin B deficiency, Mineral deficiency, Intestinal malabsorption, unspecified type (HCC) * VITAMIN D 25-HYDROXY(Performed 01/19/2022) Performed for Morbid obesity (HCC), Bariatric surgery status, Vitamin deficiency, Vitamin D deficiency, Vitamin B deficiency, Mineral deficiency, Intestinal malabsorption, unspecified type (HCC) * VITAMIN B12(Performed 01/19/2022) Performed for Morbid obesity (HCC), Bariatric surgery status, Vitamin deficiency, Vitamin D deficiency, Vitamin B deficiency, Mineral deficiency, Intestinal malabsorption, unspecified type (HCC) * VITAMIN E(Performed 01/19/2022) Performed for Morbid obesity (HCC), Bariatric surgery status, Vitamin deficiency, Vitamin D deficiency, Vitamin B deficiency, Mineral deficiency, Intestinal malabsorption, unspecified type (HCC) * VITAMIN K1(Performed 01/19/2022) Performed for Morbid obesity (HCC), Bariatric surgery status, Vitamin deficiency, Vitamin D deficiency, Vitamin B deficiency, Mineral deficiency, Intestinal malabsorption, unspecified type (HCC) * PTH INTACT(Performed 01/19/2022) Performed for Morbid obesity (HCC), Bariatric surgery status, Vitamin deficiency, Vitamin D deficiency, Vitamin B deficiency, Mineral deficiency, Intestinal malabsorption, unspecified type (HCC) * PREALBUMIN(Performed 01/19/2022) Performed for Morbid obesity (HCC), Bariatric surgery status, Vitamin deficiency, Vitamin D deficiency, Vitamin B deficiency, Mineral deficiency, Intestinal malabsorption, unspecified type (HCC) * MAGNESIUM BLOOD(Performed 01/19/2022) Performed for Morbid obesity (HCC), Bariatric surgery status, Vitamin deficiency, Vitamin D deficiency, Vitamin B deficiency, Mineral deficiency, Intestinal malabsorption, unspecified type (HCC) * FOLATE RBC(Performed 01/19/2022) Performed for Morbid obesity (HCC), Bariatric surgery status, Vitamin deficiency, Vitamin D deficiency, Vitamin B deficiency, Mineral deficiency, Intestinal malabsorption, unspecified type (HCC) * FERRITIN(Performed 01/19/2022) Performed for Morbid obesity (HCC), Bariatric surgery status, Vitamin deficiency, Vitamin D deficiency, Vitamin B deficiency, Mineral deficiency, Intestinal malabsorption, unspecified type (HCC) * COMPREHENSIVE METABOLIC PANEL(Performed 01/19/2022) Performed for Morbid obesity (HCC), Bariatric surgery status, Vitamin deficiency, Vitamin D deficiency, Vitamin B deficiency, Mineral deficiency, Intestinal malabsorption, unspecified type (HCC) * CBC W/O DIFFERENTIAL(Performed 01/19/2022) Performed for Morbid obesity (HCC), Bariatric surgery status, Vitamin deficiency, Vitamin D deficiency, Vitamin B deficiency, Mineral deficiency, Intestinal malabsorption, unspecified type (HCC) * FL UGI SERIES(Performed 01/18/2022) Performed for Dysphagia, unspecified type, Morbid obesity due to excess calories (HCC) * HELICOBACTER PYLORI UREASE (STL)(Performed 01/18/2022) Performed for Diagnosis deferred * TN ED EGD FLEX TRANSORAL DX(Performed 01/18/2022) * EGD(Performed 01/18/2022) * GLUCOSE - POINT OF CARE(Performed 07/04/2021) * GLUCOSE - POINT OF CARE(Performed 07/04/2021) * FL UGI SERIES(Performed 07/04/2021) Performed for Morbid obesity due to excess calories (HCC) * VITAMIN D 25-HYDROXY(Performed 07/04/2021) * CBC W AUTO DIFFERENTIAL(Performed 07/04/2021) * BASIC METABOLIC PANEL (CALCIUM TOTAL)(Performed 07/04/2021) * GLUCOSE - POINT OF CARE(Performed 07/03/2021) * GLUCOSE - POINT OF CARE(Performed 07/03/2021) * GLUCOSE - POINT OF CARE(Performed 07/03/2021) * GLUCOSE - POINT OF CARE(Performed 07/03/2021) * ENDOTRACHEAL TUBE NOTE(Performed 07/03/2021) * LAPAROSCOPIC GASTRIC BYPASS(Performed 07/03/2021) * GLUCOSE - POINT OF CARE(Performed 07/03/2021) * POTASSIUM BLOOD(Performed 07/03/2021) Performed for Preop examination * EKG 12-LEAD(Performed 06/05/2021) Performed for Preop examination * VITAMIN B12(Performed 06/05/2021) Performed for Preop examination * VITAMIN B1(Performed 06/05/2021) Performed for Preop examination * COMPREHENSIVE METABOLIC PANEL(Performed 06/05/2021) Performed for Preop examination * HEMOGLOBIN A1C(Performed 05/04/2021) * FL UGI W AIR CONTRAST(Performed 01/27/2021) Performed for Morbid obesity due to excess calories (HCC), Preop testing, BMI 50.0-59.9, adult (HCC), Gastroesophageal reflux disease without esophagitis * HCG URINE QUAL POCT NOTIFICATION(Performed 01/26/2021) Performed for Preop testing * HELICOBACTER PYLORI UREASE (STL)(Performed 01/26/2021) Performed for Diagnosis unknown * TN ED EGD FLEX TRANSORAL DX(Performed 01/26/2021) * EGD(Performed 01/26/2021) Performed for Morbid obesity due to excess calories (HCC), Preop testing, BMI 50.0-59.9, adult (HCC), Gastroesophageal reflux disease without esophagitis * HCG URINE QUALITATIVE - POCT (IP) INTERFACED(Performed 01/26/2021) * GROSS + MICRO EXAM(Performed 04/08/2002) Results * VITAMIN K1 (01/28/2024 2:00 PM CDT) Only the most recent of2 resultswithin the time period is included. Vitamin K 381 130 - 1500 pg/mL [facility] Comment: This test was developed and its analytical performance characteristics have been determined by [employer] [place], [place]. It has not been cleared or approved by the U.S. Food and Drug Administration. This assay has been validated pursuant to the CLIA regulations and is used for clinical purposes. Test Performed at: [facility]/[address] ??[phone] ALIX WISEMAN MD,PHD 01/28/2024 2:00 PM CDT 01/28/2024 2:00 PM CDT Steff Cummings SHOE STITCHER-PRESS OPERATOR AUTOMATIC LAB - [facility] ORDERABLES Performing Organization Address [facility] Co de Phone Number [facility] [address] [place] [address] * VITAMIN A (01/28/2024 2:00 PM CDT) Only the most recent of2 resultswithin the time period is included. Vitamin A 58 38 - 98 mcg/dL [facility] Comment: (Note) Clin Chem Vol. 34.No.8. [id number]. 1998 Vitamin supplementation within 24 hours prior to blood draw may affect the accuracy of results. This test was developed and its analytical performance characteristics have been determined by [employer]. It has not been cleared or approved by the FDA. This assay has been validated pursuant to the CLIA regulations and is used for clinical purposes. [facility] [address] [address],[address] [facility] [address] Trae Gonzalez MD, PhD Test Performed at: [facility] [address] [address] [address] [place], [place] ??[phone] TRAE GONZALEZ MD,PHD 01/28/2024 2:00 PM CDT 01/28/2024 2:00 PM CDT Steff Cummings SHOE STITCHER-PRESS OPERATOR AUTOMATIC LAB - [facility] ORDERABLES Performing Organization Address [facility] de Phone Number [facility] [address] [place] [address] * VITAMIN E (01/28/2024 2:00 PM CDT) Only the most recent of2 resultswithin the time period is included. Alpha-Tocopherol 15.3 5.7 - 19.9 mg/L [facility] Comment: Levels of alpha-tocopherol <5 mg/L are consistent with Vitamin E deficiency in adults. Beta-Gamma Tocopherol <1.0 <4.4 mg/L [facility] Comment: (Note) Vitamin supplementation within 24 hours prior to blood draw may affect the accuracy of results. This test was developed and its analytical performance characteristics have been determined by [employer]. It has not been cleared or approved by the FDA. This assay has been validated pursuant to the CLIA regulations and is used for clinical purposes. [facility] [address] [facility] [address] [facility] [address] Trae Gonzalez MD, PhD REPORT COMMENT: FASTING:YES Test Performed at: [facility] [address] [facility] [address] [place], [place] ??[phone] TRAE GONZALEZ MD,PHD 01/28/2024 2:00 PM CDT 01/28/2024 2:00 PM CDT Steff Vargas Zoila SHOE STITCHER-PRESS OPERATOR AUTOMATIC LAB - [facility] ORDERABLES Performing Organization Address [facility] Co de Phone Number [facility] [address] [place] [address] * PREALBUMIN (01/28/2024 2:00 PM CDT) Only the most recent of2 resultswithin the time period is included. Prealbumin 19 17 - 34 mg/dL [facility] Comment: Test Performed at: [facility] [address] [place], [place] ??[phone] VALERIE LAMAR MD 01/28/2024 2:00 PM CDT 01/28/2024 2:00 PM CDT Steff Villatoroblaire SHOE STITCHER-PRESS OPERATOR AUTOMATIC LAB - [facility] ORDERABLES Performing Organization Address [facility] Co de Phone Number [facility] [phone] [place] [address] * (ABNORMAL) ZINC BLOOD (01/28/2024 1:57 PM CDT) Zinc 59(L) 60 - 130 mcg/dL [facility] Comment: This test was developed and its analytical performance characteristics have been determined by [employer]. It has not been cleared or approved by the FDA. This assay has been validated pursuant to the CLIA regulations and is used for clinical purposes. REPORT COMMENT: FASTING:YES Test Performed at: [facility] [address] [place] [place], [place] ??[phone] DANIEL AVILA 01/28/2024 1:57 PM CDT 01/28/2024 1:57 PM CDT Steff Cummings SHOE STITCHER-PRESS OPERATOR AUTOMATIC LAB - [facility] ORDERABLES Performing Organization Address [facility] de Phone Number [facility] [address] [place] [address] * VITAMIN B1 (01/28/2024 1:57 PM CDT) Only the most recent of3 resultswithin the time period is included. Pathologist [facility] Vitamin B1 Whole Blood 180 78 - 185 nmol/L [facility] Comment: (Note) Vitamin supplementation within 24 hours prior to blood draw may affect the accuracy of the results. This test was developed and its analytical performance characteristics have been determined by [employer]. It has not been cleared or approved by FDA. This assay has been validated pursuant to the CLIA regulations and is used for clinical purposes. [facility] [address] [address],[address] [facility] [address] Trae Gonzalez MD, PhD Test Performed at: [facility] [address] [address] [address] [place], [place] ??[phone] TRAE GONZALEZ MD,PHD 01/28/2024 1:57 PM CDT 01/28/2024 1:57 PM CDT Steff Cummings SHOE STITCHER-PRESS OPERATOR AUTOMATIC [facility] ORDERABLES Performing Organization Address [facility] de Phone Number [facility] [address] [place] [address] * PTH INTACT (01/28/2024 1:57 PM CDT) Only the most recent of2 resultswithin the time period is included. PTH Intact 35 16 - 77 pg/mL [facility] Comment: Interpretive Guide ?Intact PTH ? Calcium ? ------- Normal Parathyroid ?Normal ? Normal Hypoparathyroidism ?Low or Low Normal ?Low Hyperparathyroidism ?? Primary ?Normal or High ? High ?? Secondary ?High ? Normal or Low ?? Tertiary ? High ? High Non-Parathyroid ?? Hypercalcemia ?Low or Low Normal ?High Test Performed at: [facility] [address] [place], [place] ??[phone] VALERIE LAMAR MD 01/28/2024 1:57 PM CDT 01/28/2024 1:57 PM CDT Steff Alicia Cummings SHOE STITCHER-PRESS OPERATOR AUTOMATIC LAB - [facility] ORDERABLES Performing Organization Address [facility] de Phone Number [facility] [address] [place] [address] * COPPER BLOOD (01/28/2024 1:57 PM CDT) [facility] Copper 118 70 - 175 mcg/dL [facility] Comment: This test was developed and its analytical performance characteristics have been determined by [employer]. It has not been cleared or approved by the FDA. This assay has been validated pursuant to the CLIA regulations and is used for clinical purposes. Test Performed at: [facility] [address] ??[phone] DANIEL AVILA 01/28/2024 1:57 PM CDT 01/28/2024 1:57 PM CDT Steff Aliciamayte Cummings SHOE STITCHER-PRESS OPERATOR [facility]OM[facility]IC LAB - [facility] ORDERABLES Performing Organization Address [facility] de Phone Number [facility] [address] [place] [address] * FOLATE RBC (01/28/2024 1:57 PM CDT) Only the most recent of2 resultswithin the time period is included. Pathologist [facility] Folate RBC 607 >280 ng/mL RBC [facility] Comment: Test Performed at: [facility] [place], [place] ??[phone] VALERIE LAMAR MD 01/28/2024 1:57 PM CDT 01/28/2024 1:57 PM CDT Steff Cummings SHOE STITCHER-PRESS OPERATOR AUTOMATIC LAB - [facility] ORDERABLES [facility] [address] [place] [address] * VITAMIN D 25-HYDROXY (01/28/2024 1:57 PM CDT) Only the most recent of4 resultswithin the time period is included. Pathologist [facility] Vitamin D, 25 Hydroxy 68 30 - 100 ng/mL [facility] Comment: Vitamin D Status ? 25-OH Vitamin D: Deficiency: ?<20 ng/mL Insufficiency: ? 20 - 29 ng/mL Optimal: ? > or = 30 ng/mL For 25-OH Vitamin D testing on patients on D2-supplementation and patients for whom quantitation of D2 and D3 fractions is required, the [facility]AssureD() 25-OH VIT D, (D2,D3), LC/MS/MS is recommended: order code [id number] (patients >2yrs). See Note 1 Note 1 For additional information, please refer to http://[email or web address].textmetix/faq/WHS422 (This link is being provided for informational/ educational purposes only.) Test Performed at: [facility] [place], [place] ??[address] VALERIE LAMAR MD 01/28/2024 1:57 PM CDT 01/28/2024 1:57 PM CDT Steff Namkstep SHOE STITCHER-PRESS OPERATOR AUTOMATIC LAB - [facility]ACE ORDERABLES Performing Organization Address [facility] Co de Phone Number [facility] [phone] [place] [address] * (ABNORMAL) CBC W/O DIFFERENTIAL (01/28/2024 1:57 PM CDT) Only the most recent of3 resultswithin the time period is included. White Blood Cell Count 5.0 3.8 - 10.8 Thousand/ uL [facility] RBC 4.00 3.80 - 5.10 Million/u L [facility] Hemoglobin 11.2(L) 11.7 - 15.5 g/dL [facility] Hematocrit 36.8 35.0 - 45.0 % [facility] MCV 92.0 80.0 - 100.0 fL [facility] MCH 28.0 27.0 - 33.0 pg [facility] MCHC 30.4(L) 32.0 - 36.0 g/dL [facility] RDW 12.7 11.0 - 15.0 % [facility] Platelet Count 298 140 - 400 Thousand/ uL [facility] MPV 10.3 7.5 - 12.5 fL [facility] Comment: Test Performed at: [facility] ??[phone] VALERIE LAMAR MD 01/28/2024 1:57 PM CDT 01/28/2024 1:57 PM CDT Steff Vargas Zoila SHOE STITCHER-PRESS OPERATOR AUTOMATIC LAB - HEM ATOLOGY ORDERABLES Performing Organization Address [facility] de Phone Number [address] [address] * (ABNORMAL) COMPREHENSIVE METABOLIC PANEL (01/28/2024 1:57 PM CDT) Only the most recent of4 resultswithin the time period is included. Glucose 83 65 - 99 mg/dL [facility] Comment: ? Fasting reference interval BUN 24 7 - 25 mg/dL [facility] Creatinine 0.89 0.50 - 1.03 mg/dL [facility] eGFR by Cystatin C 75 > OR = 60 mL/min/1. 73m2 [facility] BUN/Creatinine Ratio SEE NOTE: (calc) [facility] Comment: ?? Not Reported: BUN and Creatinine are within ?? reference range. ? Sodium 139 135 - 146 mmol/L [facility] Potassium 4.7 3.5 - 5.3 mmol/L [facility] Chloride 101 98 - 110 mmol/L [facility] CO2 27 20 - 32 mmol/L [facility] Calcium 9.7 8.6 - 10.4 mg/dL [facility] Protein Total 6.6 6.1 - 8.1 g/dL [facility] Albumin 3.8 3.6 - 5.1 g/dL [facility] Globulin Total 2.8 1.9 - 3.7 g/dL (calc) [facility] Albumin/Globulin Ratio 1.4 1.0 - 2.5 (calc) [facility] Bilirubin Total 0.3 0.2 - 1.2 mg/dL [facility] Alkaline Phosphatase 95 37 - 153 U/L [facility] AST 42(H) 10 - 35 U/L [facility] ALT 34(H) 6 - 29 U/L [facility] Comment: Test Performed at: [facility] ??[phone] VALERIE LAMAR MD 01/28/2024 1:57 PM CDT 01/28/2024 1:57 PM CDT Steff Cummings APRN-JUDAH LAB - [place] ORDERABLES Performing Organization Address [facility] Co de Phone Number [address] [address] * MAGNESIUM BLOOD (01/28/2024 1:57 PM CDT) Only the most recent of2 resultswithin the time period is included. Magnesium 1.8 1.5 - 2.5 mg/dL [facility] Comment: Test Performed at: [facility] ??[phone] VALERIE LAMAR MD 01/28/2024 1:57 PM CDT 01/28/2024 1:57 PM CDT Steff Cummings APRN-PRESS OPERATOR AUTOMATIC LAB - [place] ORDERABLES Performing Organization Address [facility] Co de Phone Number [address] [address] * (ABNORMAL) IRON + TIBC PANEL (01/28/2024 1:57 PM CDT) Only the most recent of2 resultswithin the time period is included. Iron 35(L) 45 - 160 mcg/dL [facility] TIBC 305 250 - 450 mcg/dL (calc) [facility] % Saturation 11(L) 16 - 45 % (calc) [facility] Comment: Test Performed at: [facility] [address] ??[phone] VALERIE LAMAR MD 01/28/2024 1:57 PM CDT 01/28/2024 1:57 PM CDT [facility] Cummings [facility] - [place] ORDERABLES Performing Organization Address [facility] Co de Phone Number [address] [address] * VITAMIN B12 (01/28/2024 1:57 PM CDT) Only the most recent of3 resultswithin the time period is included. Vitamin B12 448 200 - 1100 pg/mL [facility] Comment: Test Performed at: [facility] [address] ??[phone] VALERIE LAMAR MD 01/28/2024 1:57 PM CDT 01/28/2024 1:57 PM CDT Steff Cummings [facility] - [place] ORDERABLES Performing Organization Address [facility] [place] [address] * (ABNORMAL) FERRITIN (01/28/2024 1:57 PM CDT) Only the most recent of2 resultswithin the time period is included. Ferritin 6(L) 16 - 232 ng/mL [facility] Comment: Test Performed at: [facility] [address] ??[phone] VALERIE LAMAR MD 01/28/2024 1:57 PM CDT 01/28/2024 1:57 PM CDT Steff Cummings SHOE STITCHER-PRESS OPERATOR AUTOMATIC LAB - [place] ORDERABLES [facility] [address] [place] [address] * CT ABDOMEN AND PELVIS WITH IV CONTRAST (01/01/2024 3:05 PM CDT) Anatomical Region Laterality Modality Abdomen, Pelvis Computed Tomogra phy 01/01/2024 3:55 PM CDT Impressions 01/01/2024 4:00 PM CDT Impression: 1.Postoperative changes of the stomach. 2.Small hiatal hernia. 3.Evidence of constipation. 4.Age-indeterminate compression fracture of T12 with approximately 10% height loss. Correlation with point tenderness is recommended. 5.Presumed uterine fibroid. Further evaluation with outpatient pelvic ultrasound is recommended > Interpreting Provider: Rajesh Ruiz MD on 01/01/2024 4:00 PM Narrative 01/01/2024 4:00 PM CDT PROCEDURE: ??CT ABDOMEN PELVIS W CONTRAST, DATE/TIME OF EXAM: ??01/01/2024 3:07 PM, LOCATION ??[facility] INDICATION: Z98.84: Bariatric surgery status R10.13: Epigastric pain R10.84: Generalized abdominal pain ADDITIONAL CLINICAL INFORMATION: Ordering Provider Reason For Exam: Technologist Note: Additional: COMPARISON: None. TECHNIQUE: CT of the abdomen and pelvis was performed following the uneventful administration of 80 mL of Omnipaque 350 intravenous contrast and 50 cc Omnipaque 350 oral contrast according to standard protocol. Sagittal and coronal reformats were submitted. Dose reduction techniques were utilized. Findings: Lower Chest: Normal. Liver: Normal. Gallbladder and Bile Ducts: The gallbladder is absent. Spleen: Normal. Pancreas: Normal. Adrenals: Normal. Kidneys: Normal. Gastrointestinal: Postoperative changes of the stomach are noted. There is a small hiatal hernia. Moderate retained stool burden suggests constipation. The appendix is not seen; however, no inflammatory changes are seen in the right lower quadrant. Mesentery/Peritoneum/Retroperitoneum: Normal. Bladder: The bladder wall is diffusely thickened, likely due to decompressed state. Reproductive Organs: The uterus is present. There is a soft tissue mass within the uterine fundus which likely represents a uterine fibroid. Vasculature: No vascular abnormality is present. Bones: Age-indeterminate compression fracture of T12 with approximately 10% height loss. Correlation with point tenderness is recommended. Multilevel degenerative changes of the spine are noted. Soft tissues: Normal. Procedure Note Rajesh Ruiz MD - 01/01/2024 PROCEDURE: CT ABDOMEN PELVIS W CONTRAST, DATE/TIME OF EXAM: 01/01/2024 3:07 PM, LOCATION [facility] INDICATION: Z98.84: Bariatric surgery status R10.13: Epigastric pain R10.84: Generalized abdominal pain ADDITIONAL CLINICAL INFORMATION: Ordering Provider Reason For Exam: Technologist Note: Additional: COMPARISON: None. TECHNIQUE: CT of the abdomen and pelvis was performed following the uneventful administration of 80 mL of Omnipaque 350 intravenous contrast and 50 cc Omnipaque 350 oral contrast according to standard protocol. Sagittal and coronal reformats were submitted. Dose reduction techniques wereutilized. Findings: Lower Chest: Normal. Liver: Normal. Gallbladder and Bile Ducts: The gallbladder is absent. Spleen: Normal. Pancreas: Normal. Adrenals: Normal. Kidneys: Normal. Gastrointestinal: Postoperative changes of the stomach are noted. There is a small hiatal hernia. Moderate retained stool burden suggests constipation. The appendix is not seen; however, no inflammatory changes are seen inthe right lower quadrant. Mesentery/Peritoneum/Retroperitoneum: Normal. Bladder: The bladder wall is diffusely thickened, likely due to decompressedstate. Reproductive Organs: The uterus is present. There is a soft tissue mass within the uterine fundus which likely represents a uterine fibroid. Vasculature: No vascular abnormality is present. Bones: Age-indeterminate compression fracture of T12 with approximately 10%height loss. Correlation with point tenderness is recommended. Multilevel degenerative changes of the spine are noted. Soft tissues: Normal. Impression: 1.Postoperative changes of the stomach. 2.Small hiatal hernia. 3.Evidence of constipation. 4.Age-indeterminate compression fracture of T12 with approximately 10% height loss. Correlation with point tenderness is recommended. 5.Presumed uterine fibroid. Further evaluation with outpatient pelvic ultrasound is recommended > Interpreting Provider: Rajesh Ruiz MD on 01/01/2024 4:00 PM Steff Cummings SHOE STITCHER-PRESS OPERATOR AUTOMATIC CT ORDERA BLES * FL UGI SERIES (01/28/2022 9:08 AM CDT) Only the most recent of4 resultswithin the time period is included. Anatomical Region Laterality Modality Abdomen Radiographic Gladys ging 01/28/2022 10:1 0 AM CDT Impressions 01/28/2022 10:19 AM CDT IMPRESSION: Unremarkable exam without evidence of extravasation or stenosis. > Interpreting Provider: Pipo Romero MD on 01/28/2022 10:19 AM Narrative 01/28/2022 10:19 AM CDT PROCEDURE: ??FL UGI SERIES, DATE/TIME OF EXAM: ??01/28/2022 9:14 AM, LOCATION [facility] INDICATION: R11.2: Nausea with vomiting, unspecified E66.01: Morbid (severe) obesity due to excess calories Nausea and vomiting. Abdominal pain. COMPARISON: January 25, 2022 TECHNIQUE: Fluoroscopic spot and cine images were obtained during the procedure. Patient drank 50 cc Isovue-300. FINDINGS: Normal deglutition is demonstrated. There is no obstruction of flow contrast through the esophagus and into the small bowel loop. There is no focal obstruction or extravasation. No significant reflux is demonstrated. FLUOROSCOPY DOSE: ??5458.4 mGy Reference air kerma (ka,r). FLUOROSCOPY TIME: ??.52 minutes; Number of images: ??228 Procedure Note Pipo Romero MD - 01/28/2022 PROCEDURE: FL UGI SERIES, DATE/TIME OF EXAM: 01/28/2022 9:14 AM, LOCATION [facility] INDICATION: R11.2: Nausea with vomiting, unspecified E66.01: Morbid (severe) obesity due to excess calories Nausea and vomiting. Abdominal pain. COMPARISON: January 25, 2022 TECHNIQUE: Fluoroscopic spot and cine images were obtained during the procedure. Patient drank 50 cc Isovue-300. FINDINGS: Normal deglutition is demonstrated. There is no obstruction of flow contrast through the esophagus and into the small bowel loop. There isno focal obstruction or extravasation. No significant reflux isdemonstrated. FLUOROSCOPY DOSE: 5458.4 mGy Reference air kerma (ka,r). FLUOROSCOPY TIME: .52 minutes; Number of images: 228 IMPRESSION: Unremarkable exam without evidence of extravasation or stenosis. > Interpreting Provider: Pipo Romero MD on 01/28/2022 10:19 AM Teto Christopher MD FLUOROSCOPY ORDERABL ES * (ABNORMAL) CBC W AUTO DIFFERENTIAL (01/27/2022 10:33 PM CDT) Only the most recent of4 resultswithin the time period is included. WBC 7.2 4.4 - 10.7 x10E9/L 01/27/2022 11:15 PM CDT [facility] WBC Corrected 01/27/2022 11:15 PM CDT [facility] RBC 3.83 3.80 - 5.20 x10E12/L 01/27/2022 11:15 PM CDT [facility] Hemoglobin 11.7(L) 12.0 - 15.6 gm/dL 01/27/2022 11:15 PM CDT [facility] Hematocrit 35.2(L) 35.9 - 45.5 % 01/27/2022 11:15 PM CDT [facility] MCV 91.9 80.7 - 98.3 fl 01/27/2022 11:15 PM CDT [facility] MCH 30.5 26.7 - 34.0 pg 01/27/2022 11:15 PM CDT [facility] MCHC 33.2 30.8 - 35.9 gm/dL 01/27/2022 11:15 PM CDT [facility] Platelet Count 221 153 - 416 x10E9/L 01/27/2022 11:15 PM CDT [facility] RDW-CV 12.9 12.1 - 14.9 % 01/27/2022 11:15 PM CDT [facility] MPV 10.9 9.4 - 12.9 fl 01/27/2022 11:15 PM CDT [facility] Neutrophils % 47.4 44.0 - 73.0 % 01/27/2022 11:15 PM CDT [facility] Lymphocytes % 40.2 20.0 - 43.0 % 01/27/2022 11:15 PM CDT [facility] Monocytes % 9.3 5.0 - 13.0 % 01/27/2022 11:15 PM CDT [facility] Eosinophils % 2.1 0.0 - 6.0 % 01/27/2022 11:15 PM CDT [facility] Basophils % 0.6 0.0 - 2.0 % 01/27/2022 11:15 PM CDT [facility] Immature Granulocytes 0.4 0 - 1 % 01/27/2022 11:15 PM CDT [facility] Neutrophil Absolute 3.44 2.01 - 7.14 x10E9/L 01/27/2022 11:15 PM CDT [facility] Lymphocytes Absolute 2.91 1.07 - 3.94 x10E9/L 01/27/2022 11:15 PM CDT [facility] Monocytes Absolute 0.67 0.26 - 1.07 x10E9/L 01/27/2022 11:15 PM CDT [facility] Eosinophils Absolute 0.15 0 - 0.47 x10E9/L 01/27/2022 11:15 PM CDT [facility] Basophils Absolute 0.04 0 - 0.08 x10E9/L 01/27/2022 11:15 PM CDT [facility] Immature Granulocytes Absolute 0.03 0.00 - 0.06 x10E9/L 01/27/2022 11:15 PM CDT [facility] nRBC Auto 0 /100 WBC 01/27/2022 11:15 PM CDT [facility] Blood BLOOD SPECIMEN / Unknown Venipuncture / Unknown 01/27/2022 10:33 PM CDT 01/27/2022 11:12 PM CDT Teto Christopher MD LAB - HEMATOLOGY ORD ERABLES [facility] [address] [place] [address] * GLUCOSE - POINT OF CARE (01/26/2022 8:04 AM CDT) Only the most recent of14 resultswithin the time period is included. [facility] Glucose WB/POC 79 70 - 106 mg/dL 01/26/2022 8:08 AM CDT [facility] Specimen Type Cap Fingerstick 2021 8:08 AM CDT [facility] Blood BLOOD SPECIMEN / Unknown 01/26/2022 8:04 AM CDT 01/26/2022 8:08 AM CDT Inocencio Brown MD LAB - POINT OF CARE ORDERABLES [facility] [address] [place] [address] * (ABNORMAL) BASIC METABOLIC PANEL (CALCIUM TOTAL) (01/26/2022 2:19 AM CDT) Only the most recent of4 resultswithin the time period is included. [facility] Glucose 92 70 - 105 mg/dL 01/26/2022 2:50 AM CDT [facility] Sodium 138 136 - 145 mmol/L 01/26/2022 2:50 AM T [facility] Potassium 4.2 3.5 - 5.1 mmol/L 01/26/2022 2:50 AM T [facility] Comment:No hemolysis seen Chloride 107 98 - 107 mmol/L 01/26/2022 2:50 AM CDT [facility] CO2 23 23 - 31 mmol/L 01/26/2022 2:50 AM CDT [facility] Calcium 8.9 8.4 - 10.4 mg/dL 01/26/2022 2:50 AM T [facility] Anion Gap 8 8 - 18 mmol/L 01/26/2022 2:50 AM CDT [facility] BUN 15 9.8 - 20.1 mg/dL 01/26/2022 2:50 AM CDT [facility] Creatinine 1.01 0.57 - 1.11 mg/dL 01/26/2022 2:50 AM T [facility] eGFR by CKD-EPI 65(L) >=90 mL/min/1.7 3 m2 01/26/2022 2:50 AM T [facility] Blood BLOOD SPECIMEN / Unknown Venipuncture / Unknown 01/26/2022 2:19 AM CDT 01/26/2022 2:26 AM CDT Inocencio Brown MD LAB - CHEMISTRY EARL BEJARANO Performing Organization Address [facility] Co de Phone Number [facility] [address] [place] [address] * HEMOGLOBIN A1C (01/25/2022 2:51 AM CDT) Only the most recent of2 resultswithin the time period is included. Hemoglobin A1c 5.0 <5.7 % 01/25/2022 3:29 AM CDT [facility] Estimated Average Glucose 97 mg/dL 01/25/2022 3:29 AM CDT [facility] Blood BLOOD SPECIMEN / Unknown Venipuncture / Unknown 01/25/2022 2:51 AM CDT 01/25/2022 2:55 AM CDT Narrative [facility] - 01/25/2022 3:29 AM CDT HbA1c Interpretation: Normal: < 5.7% Pre-diabetes: 5.7-6.4% Diabetes: Equal to or greater than 6.5% Test results diagnostic of diabetes should be repeated for confirmation. Treatment target values recommended by ADA and other clinical organizations should be used to evaluate metabolic control in patients. This test should not replace glucose testing for patients with Type 1 diabetes, pediatric patients, or women. ??Falsely low HbA1c results may be observed in patients with clinical conditions that shorten erythrocyte life span or decrease mean erythrocyte age such as the presence of unstable hemoglobin variants, elevated hemoglobin F level or other causes of hemolytic anemia. ??HbA1c may not accurately reflect glycemic control when clinical conditions that affect erythrocyte survival are present. ??Severe Iron deficiency anemia may yield falsely high results. ??Hemoglobin A1c assay should not be used to diagnose or monitor diabetes in patients with malignancy, recent blood transfusion, chronic kidney or liver disease. ?? This method may yield falsely low results when hemoglobin (HbF) exceeds 5% in the specimen. The [employer] Winder assay for the measurement of HbA1c is a National Glycohemoglobin Standardization Program (NGSP) certified method. Karin Fitzgerald MD LAB - CHEMISTRY EARL BEJARANO Performing Organization Address [facility]/ZIP Co de Phone Number [facility] [address] [place] [address] * ETT LINE PERFORMABLE (01/24/2022 3:14 PM CDT) Narrative Citlalli De La Torre APRN-CRNA - 01/24/2022 3:14 PM CDT Citlalli De La Torre APRN-CRNA ? 01/24/2022 ??3:15 PM Endotracheal Tube Placement: ? Patient Location: OR. Intubation Event Date/Time: ??01/24/2022 2:47 PM Procedure: intubation ([id number]). Procedure Section: ?? Sedation: under general anesthesia. Indications for Airway Management: ??anesthesia Induction: standard IV Patient Position: ??supine Mask Ventilation: easy with oral airway. Blade Type: Gracia Blade Size: 2 Laryngoscopy View: grade 1 (full cords) Intubation Adjuncts: stylet Tube: endotracheal tube Tube type: cuff - inflated Tube Size (MM): 7 Depth of Insertion (CM): 22 Measured From: gums Cuff volume (mL): ??10 Cuff Inflated With: air Number of Attempts: 1. Placement Verified By: direct visualization, bilateral breath sounds, chest auscultation and CO2 monitor Tube secured with: ??adhesive tape. Dentition unchanged? ??Yes (Edentulous uppers) Difficult Airway? ??No. Procedure Start Time: 01/24/2022 2:47 PM. Staff Section ? Anesthesia Provider: Citlalli De La Torre APRN-CRNA, Performed the procedure Analy Monson MD GENERAL ANESTHESIA O RDERABLES * EKG 12-LEAD (01/24/2022 11:29 AM CDT) Only the most recent of2 resultswithin the time period is included. Ventricular Rate 65 BPM [facility] Atrial Rate 65 BPM [facility] P-R Interval 198 ms [facility] QRS Duration ms 86 ms [facility] Q-T Interval ms 420 ms [facility] QTC Calculation (Bezet) 436 ms [facility] Calculated P [place] 65 degrees [facility] Calculated R [place] 37 degrees [facility] Calculated T [place] 41 degrees [facility] Interpretation EKG Normal sinus rhythm Cannot rule out Anterior infarct , age undetermined Abnormal ECG When compared with ECG of 05-JUN-2021 08:11, No significant change was found Confirmed by KELSEY TORREZ, LEXI ([id number]) on 01/24/2022 3:08:26 PM [facility] 01/24/2022 11:2 9 AM CDT 01/24/2022 3:08 PM CDT Kathleen Ren DO ECG ORDERABLES Performing Organization Address City/[facility]/ZIP Co de Phone Number [facility] * COPPER WHOLE BLOOD (01/19/2022 12:59 PM CDT) Copper Whole Blood 0.99 0.50 - 1.50 ug/mL [facility] INSURANCE BILL Comment: Analysis performed by Inductively-Coupled Plasma/Mass Spectrometry (ICP/MS). This test was developed and its performance characteristics determined by [facility]. It has not been cleared or approved by the Food and Drug Administration. FASTING 01/19/2022 12:5 9 PM CDT 01/19/2022 Narrative Resulting Agency Comment Lab Testing performed at: [facility] [address] [place] [address] ??[facility] [phone] Steff Cummings APRN-PRESS OPERATOR AUTOMATIC LAB - ADOLFO WALLACE ORDERABLES Performing Organization Address [facility] Co de Phone Number [facility] INSURANCE BILL [address] [place] [address] * ZINC WHOLE BLOOD (01/19/2022 12:59 PM CDT) Zinc Whole Blood 545 440 - 860 ug/dL [facility] INSURANCE BILL Comment:FASTING 01/19/2022 12:5 9 PM CDT 01/19/2022 Narrative [facility] INSURANCE BILL - 01/25/2022 7:07 PM CDT Test(s) [id number], Whole Blood was developed and its performance characteristics determined by [facility]. It has not been cleared or approved by the Food and Drug Administration. Resulting Agency Comment Lab Testing performed at: [facility] ??[facility] [phone] Steff Cummings SHOE STITCHER-PRESS OPERATOR AUTOMATIC LAB - ADOLFO WALLACE ORDERABLES Performing Organization Address [facility] Co de Phone Number [facility] INSURANCE BILL [address] [place] [address] * HELICOBACTER PYLORI UREASE (STL) (01/18/2022 10:29 AM CDT) Only the most recent of2 resultswithin the time period is included. Helicobacter pylori Urease Initial Negative Negative 01/19/2022 10:42 AM CDT [facility] Helicobacter pylori Urease Final Negative Negative 01/19/2022 10:42 AM CDT [facility] Comment:This is an appended report. These results have been appended to a previously preliminary verified report. Microbiology GASTRIC ANTRAL BIOPSY SPECIMEN / Unknown 01/18/2022 10:29 AM CDT 01/18/2022 12:32 PM CDT Inocencio Brown MD LAB - MICROBIOLOGY O RDERABLES Performing Organization Address [facility] Co de Phone Number [facility] [address] [place] [address] * EGD (01/18/2022 9:43 AM CDT) Report Endoscopy POC _ Patient Name: Hanna Melendez ?Procedure Date: 01/18/2022 9:43 AM ? Date of : 1965 ?Admit Type: Outpatient Age: 56 ? Gender: Female Attending MD: Inocencio Brown MD ?? _ Procedure: ? Upper GI endoscopy Indications: ? Dysphagia Providers: ? Inocencio Brown MD (Doctor) Referring MD: ?Denise Cope NP (Referring MD) Medicines: ? Monitored Anesthesia Care Complications: ? No immediate complications. _ Estimated Blood Loss: ? Estimated blood loss: none. Procedure: ? Pre-Anesthesia Assessment: ? - Prior to the procedure, a History and Physical was ? performed, and patient medications and allergies were ? reviewed. The patient's tolerance of previous ? anesthesia was also reviewed. The risks and benefits ? of the procedure and the sedation options and risks ? were discussed with the patient. All questions were ? answered, and informed consent was obtained. Prior ? Anticoagulants: The patient has taken no previous ? anticoagulant or antiplatelet agents. ASA Grade ? Assessment: III - A patient with severe systemic ? disease. After reviewing the risks and benefits, the ? patient was deemed in satisfactory condition to ? undergo the procedure. ? After obtaining informed consent, the endoscope was ? passed under direct vision. Throughout the procedure, ? the patient's blood pressure, pulse, and oxygen ? saturations were monitored continuously. The Endoscope ? was introduced through the mouth, and advanced to the ? proximal jejunum. The upper GI endoscopy was ? accomplished without difficulty. The patient tolerated ? the procedure well. ? Findings: ? The lower third of the esophagus was normal. ? The Z-line was regular and was found 36 cm from the incisors. ? Evidence of a gastric bypass was found. A gastric pouch with a 4.5 cm ? length from the GE junction to the gastrojejunal anastomosis was found. ? The staple line appeared intact. The gastrojejunal anastomosis was ? characterized by healthy appearing mucosa. This was traversed. Estimated ? blood loss: none. ? Minimal inflammation was found in the gastric body. Biopsies were taken ? with a cold forceps for Helicobacter pylori testing using CLOtest. ? The examined jejunum was normal. _ ? Impression: ?- Normal lower third of esophagus. ? - Z-line regular, 36 cm from the incisors. ? - Gastric bypass with a pouch 4.5 cm in length and ? intact staple line. Gastrojejunal anastomosis ? characterized by healthy appearing mucosa. ? - Gastritis. Biopsied. ? - Normal examined jejunum. Recommendation: ?- Await pathology results. ? Procedure Code(s): ? --- Professional --- ? 89037, Esophagogastroduo denoscopy, flexible, transoral; with biopsy, ? single or multiple ? --- Technical --- ? 41403, Esophagogastroduo denoscopy, flexible, transoral; with biopsy, ? single or multiple Diagnosis Code(s): ? --- Professional --- ? Z98.84, Bariatric surgery status ? R13.10, Dysphagia, unspecified ? K29.70, Gastritis, unspecified, without bleeding ? --- Technical --- ? Z98.84, Bariatric surgery status ? R13.10, Dysphagia, unspecified ? K29.70, Gastritis, unspecified, without bleeding CPT copyright 2019 [employer]. All rights reserved. The codes documented in this report are preliminary and upon fruit shipper review may be revised to meet current compliance requirements. Inocencio Brown ___ Inocencio Brown MD 01/18/2022 10:31:00 AM This report has been signed electronically. Number of Addenda: 0 Note Initiated On: 01/18/2022 9:43 AM [facility] 01/18/2022 9:43 AM CDT Narrative Procedure Note Inocencio Brown MD - 01/18/2022 10:31 AM CDT EGD completed. Normal bypass. Mild gastritis. Biopsies pending. A full PDF copy of the report with photos is in the results and/or mediatab for your review. Please refer to this for full details of theprocedure. UGI ordered Pt to follow up after UGI Inocencio Brown MD Inocencio Brown MD GI PROCEDURE ORDERAB LES [facility] [place] [address] * ETT LINE PERFORMABLE (07/03/2021 8:04 AM HIGH PRESSURE CLEANER) Narrative Leona Bettencourt APRN-CRNA - 07/03/2021 8:04 AM HIGH PRESSURE CLEANER Leona Bettencourt APRN-CRNA ? 07/03/2021 ??8:05 AM Endotracheal Tube Placement: ? Intubation Event Date/Time: ??07/03/2021 7:51 AM Procedure: intubation (51264). Procedure Section: ?? Sedation: under general anesthesia. Indications for Airway Management: ??anesthesia Induction: standard IV Patient Position: ??sniffing Mask Ventilation: easy with oral airway. Blade Type: Maulik Blade Size: 3 Laryngoscopy View: grade 1 (full cords) Intubation Adjuncts: stylet Tube: endotracheal tube Placement: oral Tube type: cuff - inflated Tube Size (MM): 7 Depth of Insertion (CM): 22 Measured From: teeth Cuff volume (mL): ??9 Cuff Inflated With: air Number of Attempts: 1. Placement Verified By: direct visualization, bilateral breath sounds, chest auscultation and CO2 monitor Tube secured with: ??adhesive tape. Dentition unchanged? ??Yes Difficult Airway? ??No. Procedure Start Time: 07/03/2021 7:51 AM. Staff Section ? Anesthesia Provider: Leona Bettencourt APRN-CRNA, Performed the procedure Ebonie Green MD GENERAL ANESTHESI A ORDERABLES * POTASSIUM BLOOD (07/03/2021 6:18 AM HIGH PRESSURE CLEANER) Potassium 4.3 3.5 - 5.1 mmol/L 07/03/2021 7:04 AM HIGH PRESSURE CLEANER [facility] Blood BLOOD SPECIMEN / Unknown Venipuncture / Unknown 07/03/2021 6:18 AM HIGH PRESSURE CLEANER 07/03/2021 6:54 AM HIGH PRESSURE CLEANER Darryl Hagen DO LAB - CHEMISTRY EARL BEJARANO [facility] [address] [place] [address] * FL UGI W AIR CONTRAST (01/27/2021 8:41 AM CDT) Anatomical Region Laterality Modality Abdomen Radiographic Gladys ging 01/27/2021 9:15 AM CDT Impressions 01/27/2021 9:17 AM CDT Normal upper gastrointestinal examination. *Reading Radiologist: Steve Grubbs on 01/27/2021 at 9:17 AM Narrative 01/27/2021 9:17 AM CDT Fluoroscopy upper GI air-contrast HISTORY: Preoperative, morbid obesity Best images obtainable. Patient had difficulty standing. Fluoroscopy time 94 seconds. The esophagus drains readily into the stomach. The stomach drained readily into the duodenal sweep. Post cholecystectomy clips. Normal peristaltic activity within the jejunum. The duodenal bulb distend readily. Small diverticulum off the third portion the duodenum. Multiple unsuccessful attempts were made in order to elicit reflux. No hiatal hernia was identified during drinking Valsalva. No spontaneous gastroesophageal reflux noted. Procedure Note Steve Grubbs MD - 01/27/2021 Fluoroscopy upper GI air-contrast HISTORY: Preoperative, morbid obesity Best images obtainable. Patient had difficulty standing. Fluoroscopy time 94 seconds. The esophagus drains readily into the stomach. The stomach drained readily into the duodenal sweep. Post cholecystectomy clips. Normal peristaltic activity within the jejunum. The duodenal bulb distend readily. Small diverticulum off the third portion the duodenum. Multiple unsuccessful attempts were made in order to elicit reflux. No hiatal hernia was identified during drinking Valsalva. No spontaneous gastroesophageal reflux noted. IMPRESSION Normal upper gastrointestinal examination. *Reading Radiologist: Steve Grubbs on 01/27/2021 at 9:17 AM Inocencio Brown MD FLUOROSCOPY ORDERABL ES * HCG URINE QUAL POCT NOTIFICATION (01/26/2021 9:30 AM CDT) Comment Notification Label Only - See Separate Report 01/26/2021 9:30 AM CDT [facility] Urine URINE / Unknown 8:17 AM CDT Inocencio Brown MD LAB - URINALYSIS ORD ERABLES [facility] [address] [place] [address] * EGD (01/26/2021 8:21 AM CDT) Report Endoscopy POC _ Patient Name: Hanna Melendez ?Procedure Date: 01/26/2021 8:21 AM ? Date of : 1965 ?Admit Type: Outpatient Age: 55 ? Gender: Female Attending MD: Inocencio Brown , ? _ Procedure: ? Upper GI endoscopy Indications: ? Preoperative assessment for bariatric surgery to treat ? morbid obesity Providers: ? Inocencio Brown (Doctor) Referring MD: ?Denise Cope (Referring MD) Medicines: ? Monitored Anesthesia Care Complications: ? No immediate complications. _ Procedure: ? Pre-Anesthesia Assessment: ? - Prior to the procedure, a History and Physical was ? performed, and patient medications and allergies were ? reviewed. The patient's tolerance of previous ? anesthesia was also reviewed. The risks and benefits ? of the procedure and the sedation options and risks ? were discussed with the patient. All questions were ? answered, and informed consent was obtained. Prior ? Anticoagulants: The patient has taken no previous ? anticoagulant or antiplatelet agents except for ? aspirin. ASA Grade Assessment: III - A patient with ? severe systemic disease. After reviewing the risks and ? benefits, the patient was deemed in satisfactory ? condition to undergo the procedure. ? After obtaining informed consent, the endoscope was ? passed under direct vision. Throughout the procedure, ? the patient's blood pressure, pulse, and oxygen ? saturations were monitored continuously. The Endoscope ? was introduced through the mouth, and advanced to the ? second part of duodenum. The upper GI endoscopy was ? accomplished without difficulty. The patient tolerated ? the procedure well. ? Findings: ? The lower third of the esophagus was normal. ? The Z-line was regular and was found 36 cm from the incisors. ? Localized minimal inflammation characterized by erythema and friability ? was found in the prepyloric region of the stomach. Biopsies were taken ? with a cold forceps for Helicobacter pylori testing using CLOtest. ? Estimated blood loss: none. ? The first portion of the duodenum and second portion of the duodenum ? were normal. _ ? Impression: ?- Normal lower third of esophagus. ? - Z-line regular, 36 cm from the incisors. ? - Gastritis. Biopsied. ? - Normal first portion of the duodenum and second ? portion of the duodenum. Recommendation: ?- Discharge patient to home. ? - Resume previous diet. ? - Continue present medications. ? - Await pathology results. ? Procedure Code(s): ? --- Professional --- ? 12796, Esophagogastroduo denoscopy, flexible, transoral; with biopsy, ? single or multiple ? --- Technical --- ? 17394, Esophagogastroduo denoscopy, flexible, transoral; with biopsy, ? single or multiple Diagnosis Code(s): ? --- Professional --- ? K29.70, Gastritis, unspecified, without bleeding ? Z01.818, Encounter for other preprocedural examination ? E66.01, Morbid (severe) obesity due to excess calories ? --- Technical --- ? K29.70, Gastritis, unspecified, without bleeding ? Z01.818, Encounter for other preprocedural examination ? E66.01, Morbid (severe) obesity due to excess calories CPT copyright 2019 [employer]. All rights reserved. The codes documented in this report are preliminary and upon fruit shipper review may be revised to meet current compliance requirements. Inocencio Brown _ Inocencio Brown, 01/26/2021 9:11:24 AM This report has been signed electronically. Number of Addenda: 0 Note Initiated On: 01/26/2021 8:21 AM [facility] 01/26/2021 8:21 AM CDT Narrative Procedure Note Inocencio Brown MD - 01/26/2021 9:11 AM CDT EGD completed. Gastritis. Biopsies pending. A full PDF copy of the report with photos is in the results and/or mediatab for your review. Please refer to this for full details of theprocedure. UGI pending Follow up once studies complete Inocencio Brown MD Inocencio Brown MD GI PROCEDURE ORDERAB LES Performing Organization Address City/[facility]/ZIP Co de Phone Number [facility] [place] [place] [address] * HCG URINE QUALITATIVE - POCT (IP) INTERFACED (01/26/2021 8:20 AM CDT) HCG Qual Urine Negative Negative 01/26/2021 8:25 AM CDT [facility] Urine URINE / Unknown 01/26/2021 8 :20 AM CDT 01/26/2021 8:25 AM CDT Inocencio Brown MD LAB - POINT OF CARE ORDERABLES Performing Organization Address [facility] Co de Phone Number [facility] [address] [place] [address] * GROSS + MICRO EXAM (04/08/2002 11:44 AM CDT) Result CASE NUMBER [id number] Comment: ORDERING PHYSICIAN ??RICHIE ROJAS SPECIMEN TYPE ?Liver Needle Biopsy-liver Date ? 04/08/2002 Physician ?Tani Rojas Gross Description ? The specimen is received in a single formalin-filled container labeled with the patient's name and identified as liver biopsy . ??The specimen consists of a few elongated fragments of soft whitish tissue ranging in size from 0.1 x 0.1 x 0.1 cm. to 0.5 x 0.1 x 0.1 cm. ??The entire specimen is submitted in a single cassette. TK/bk Microscopic Exam ? Microscopic examination reveals multiple fragments of skeletal muscle and fibroadipose tissue, liver tissue is not present. ??GM/ Diagnosis ?I. ?Specimen labeled `liver, needle biopsy' ?A. ??No liver tissue identified. ?B. ??Skeletal muscle and fibroadipose tissue identified GM/ Supervisor Shuttle Fitting ? [facility] Pathologist ?Dania Vasquez M.D. Sn[place]. ?04/09/2002 0951 <1> CPT code ? 14202 MISCELLANEOUS SAMPLES / Unknown 04/08/2002 11:44 AM CDT 04/08/2002 11:44 AM CDT Historical Provider LAB - PATHOLOGY/C YTOLOGY ORDERABLES Care Teams Construction Rep Relationship Specialty Start Date End Date Denise Cope APRN-PRESS OPERATOR AUTOMATIC [facility] [place] [address] PCP - General Nurse Practitioner 12/23/20
--- OUTSIDE RECORDS SUMMARY | 2024-07-09 08:45 | XMS_ITS | Continuity of Care Document ---
Author Organization [facility] Address [address] [place] [address] [place] [address] Phone Care Team Providers Care Hose Suspender Cutter Name Role Phone Harshad Davies DO Unavailable Unavailable Advance Directives Directive Yes / No Effective Date File Name No Information Encounters Encounter Description Practice Location Reason(s) For Visit Diagnoses Date Provider Providers Copied on Encounter [facility], [address], [place], [place], [id number], [place] tel:[phone] [facility] No Information Samson Roach. [address] [facility], [place], [address], [place]. tel:[phone] Family History Family Member Type Diagnosis Age At Onset No Information Payers Payer name Insurance type Covered democrat ID Authoriza tion(s) No Information Social History [...]
--- OUTSIDE RECORDS SUMMARY | 2024-07-09 08:45 | XMS_ITS | Encounter Summary ---
Author Organization [employer] Address [address] [place] [address] Care Team Providers Care Beach Patrol Lieutenant Name Role Phone Regina Ovalles MD Primary Care Provider [phone]- [phone] Encounter Details Date Type Department Care Team (Late st Contact Info) Description 05/31/2003 Outpatient Historical [facility] Internal Medicine 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
--- OUTSIDE RECORDS SUMMARY | 2024-07-09 08:45 | XMS_ITS | Encounter Summary ---
Author Organization [employer] Address [address] [place] [address] Care Team Providers Care Soldering Machine Feeder Name Role Phone Regina Ovalles MD Primary Care Provider [phone]- [phone] Encounter Details Date Type Department Care Team (Late st Contact Info) Description 06/24/2002 Outpatient Historical [facility] Internal Medicine 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
--- OUTSIDE RECORDS SUMMARY | 2024-07-09 08:45 | XMS_ITS | Encounter Summary ---
Author Organization [facility] Address [address] [place] [address] Care Team Providers Care Program Consultant Name Role Phone Regina Ovalles MD Primary Care Provider +1- [phone] Encounter Details Date Type Department Care Team (Latest Contact Info) Description 05/31/2003 Outpatient Historical [facility] Grady Mg MD [address] [place] [address] HYPERLIPIDEMIA NEC/NOS (Primary Dx) Social History Tobacco Use Types Packs/Day Years Used Date Smoking Tobacco: Never Assessed Comments Unknown Sex and Gender Information Value Date Recorded Sex Assigned at Not on file Legal Sex Female 3:39 AM SWITCHMAN SUPERVISOR Gender Identity Not on file Sexual Orientation Not on file documented as of this encounter Plan of Treatment Not on file documented as of this encounter Visit Diagnoses Diagnosis Other and unspecified hyperlipidemia- Primary documented in this encounter Care Teams Program Consultant Relationship Specialty Start Date End Date Regina Ovalles MD [address] [place] [address] PCP - General 06/03/15 documented as of this encounter
--- OUTSIDE RECORDS SUMMARY | 2024-07-09 08:45 | XMS_ITS | Clinical Summary ---
Author Organization [facility] Care Team Providers Care Silver Brazer Name Role Phone Unavailable Primary Care Provider Unavailabl e Social History Tobacco Use Types Packs/Day Years Used Date Smoking Tobacco: Never Assessed Comments Unknown Sex and Gender Information Value Date Recorded Sex Assigned at Not on file Legal Sex Female 11:59 PM CDT Gender Identity Not on file Sexual Orientation Not on file Plan of Treatment Health Maintenance Due Date Last Done Comments Hepatitis C Virus (HCV) Screening 1965 Pap Smear 1985 Cervical Cancer Screening (CCS) 1994 HPV/Cotest 1994 Hepatitis B Immunization (3 of 3 - 19+ 3-dose series) 12/24/2006 08/26/2006, 06/26/2006 Colonoscopy 2009 Colorectal Cancer Screening 2009 Cologuard 2014 Immunochemical Fecal Occult Blood 2014 Mammogram 2014 Pneumococcal Immunization (5 0+ years) (2 of 2 - PCV) 2014 06/17/2008 Zoster Immunization (1 of 2) 2014 Influenza Immunization (#1) 2024 10/0 01/2020, 03/31/2019, 05/01/2013 SARS-COV-2 Immunization (2023- season) 2024 03/24/2021, 08/06/2020, 07/16/2020 Respiratory Syncytial Virus (RSV) Immunization (Adult) (1 - 1-dose 75+ series) 10/02/2039 Pneumococcal Immunization Combined Discontinued 06/17/2008 DTaP/Tdap/Td Immunization Discontinued 2017, 01/22/2018, 08/14/2004 TdaP Immunization Completed 01/27/2018, 01/22/2018 Meningococcal Immunization (ACWY) Aged Out No longer eligible based on patient's age to complete this topic Rotavirus Immunization Aged Out No lo nger eligible based on patient's age to complete this topic
--- OUTSIDE RECORDS SUMMARY | 2024-07-09 08:45 | XMS_ITS | Encounter Summary ---
Author Organization [employer] Address [address] [place] [address] Care Team Providers Care Decorating Inspector Name Role Phone Regina Ovalles MD Primary Care Provider +1- [phone] Encounter Details Date Type Department Care Team (Late st Contact Info) Description 01/29/2003 Outpatient Historical [facility] Internal Medicine [address] [place] [phone] Grady Galvez MD [address] [facility] [address] [place] [address] Social History Tobacco Use Types Packs/Day Years Used Date Smoking Tobacco: Never Assessed Comments Unknown Sex and Gender Information Value Date Recorded Sex Assigned at Not on file Legal Sex Female 3:39 AM BAND SAW OPERATOR Gender Identity Not on file Sexual Orientation Not on file documented as of this encounter Plan of Treatment Not on file documented as of this encounter Visit Diagnoses Not on filedocumented in this encounter Care Teams Decorating Inspector Relationship Specialty Start Date End Date Regina Ovalles MD [address] [place] [phone] PCP - General 06/03/15 documented as of this encounter
--- OUTSIDE RECORDS SUMMARY | 2024-07-09 08:45 | XMS_ITS | Encounter Summary ---
Author Organization [employer] Address [address] [place] [address] Care Team Providers Care Stock Puller Name Role Phone Regina Ovalles MD Primary Care Provider +1- [phone] Encounter Details Date Type Department Care Team (Late st Contact Info) Description 05/31/2003 Outpatient Historical [facility] Internal Medicine 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
--- OUTSIDE RECORDS SUMMARY | 2024-07-09 08:45 | XMS_ITS | Encounter Summary ---
Author Organization [employer] Address [address] [place] [address] Care Team Providers Care Fish Checker Name Role Phone Regina Ovalles MD Primary Care Provider +1- [phone] Encounter Details Date Type Department Care Team (Late st Contact Info) Description 02/01/2003 Outpatient Historical [facility] Internal Medicine [address] [place] [phone] Grady Galvez MD [address] [facility] [address] [place] [address] Social History Tobacco Use Types Packs/Day Years Used Date Smoking Tobacco: Never Assessed Comments Unknown Sex and Gender Information Value Date Recorded Sex Assigned at Not on file Legal Sex Female 3:39 AM CAREGIVER ASSISTED LIVING Gender Identity Not on file Sexual Orientation Not on file documented as of this encounter Plan of Treatment Not on file documented as of this encounter Visit Diagnoses Not on filedocumented in this encounter Care Teams Fish Checker Relationship Specialty Start Date End Date Regina Ovalles MD [address] [place] [address] PCP - General 06/03/15 documented as of this encounter
--- OUTSIDE RECORDS SUMMARY | 2024-07-09 08:45 | XMS_ITS | Clinical Summary ---
Author Organization [facility] Address [address] [place] [address] Care Team Providers Care Mechanic And Welder Name Role Phone Denise Cope PRISCILA-PULP MAKER Primary Care Provider + Source Comments [facility],non-owned Affiliates and Associated Physician Practices is amultiple site organization consisting of ambulatory clinics and hospital sitesin [place], [place], [place] and [place]. This disclosure is being madepursuant to the Care Everywhere program and may not contain all information available regarding this patient. Last updated 18.[facility] Allergies Active Allergy Reactions Criticality Noted Date Comments Canagliflozin Dizziness 12/30/2020 Cephalexin Urticaria Medium 12/17/2023 Cortisone Other 12/30/2020 Diclofenac Epolamine Nausea and/or Vomiting Fosinopril Cough 12/30/2020 Ketorolac Tromethamine Nausea and/or Vomiting Medium 0 08/02/2011 Levofloxacin Nausea and/or Vomiting 12/30/2020 Montelukast Other 12/30/2020 Sertraline Other,Seizures High 09/17/2015 Ketorolac Vomiting 12/30/2020 [place] Anaphylaxis High 12/30/2020 Vancomycin Urticaria,Itching,Ra sh,Shortne ss [...] once daily Active ergocalciferol (DRISDOL) 1.25 MG (68148 UT) capsule Take 1 (one) capsule by [...] ONCE DAILY FOR 30 DAYS Active Nystop 737609 UNIT/GM powder APPLY POWDER TOPICALLY TO AFFECTED [...] LURIA, FLUZONE TRIVALENT; 6MO+) (IIV3) 03/22/2016,03/28/2015,03/19/2014,2011,04/17/2011 Covid Ludia primary monoval ent 12+ yr 0.3mL Purple cap 03/24/2021,08/06/2020,07/16/2020 FLU VACCINE QUAD IIV4 SPLIT 0.25 ML IM 04/11/2020 FLU VACCINE TRI IIV3 SPLIT P F IM (FLUVIRIN) 05/01/2013 HEP B VACCINE, ADULT 3 DOSE 08/26/2006, 7 INFLUENZA VACCINE, QUADR. (F LUZONE; FLULAVAL; FLUARIX; AFLURIA QUADRIVALENT; 6MO+), 0.5 ML (IIV4) 03/08/2021 PNEUMOCOCCAL PCV VACCINE 03/17/2010 PNEUMOCOCCAL PPSV23 06/17/2008 TD VACCINE 08/14/2004 TDAP (7yrs+) 01/27/2018,01/22/2018,08/03/2011 Family History Medical History Relation Name Comments Diabetes - Type 2 Brother Hypertension Brother Cancer - Other Father angiosarcoma Diabetes - Type 2 Father COPD - Chronic Obstructive Pulmonary Disease Mother Hypertension Mother Diabetes - Type 2 Sister Hypertension Sister Relation Name Status Comments Brother Father Mother Sister Social History Tobacco Use Types Packs/Day Years [...] cm (5' 5 ) 08/24/2022 11:15 AM VIDEO CONFERENCE SPECIALIST Body Mass Index 28.96 08/24/2022 11:15 AM VIDEO CONFERENCE SPECIALIST Plan of Treatment Upcoming Encounters Date Type Department Care Team (Late st Contact Info) Description 11/11/2024 2:00 PM CDT Office Visit [facility] - [address] [facility] [place] [address] Mary Strong MD [address] [place] [address] Health Maintenance Due Date Last Done Comments COLOGUARD (AGES 45-75) - COLON CA SCREENING 1964 COLON MONITORING 1964 COLONOSCOPY - COLON CA SCREENING 1964 CT COLONOGRAPHY - COLON CA SCREENING 1964 Colorectal Cancer Screening 1964 FIT - COLON CA SCREENING 1964 FLEX SIG - COLON CA SCREENING 1964 LIPID TESTING 1964 MAMMOGRAM 1964 PAP SMEAR 1964 HIV SCREENING 10/02/1979 HEPATITIS C SCREENING 09/27/1982 HEPATITIS B VACCINE (3 of 3 - 19+ 3-dose series) 12/24/2006 08/26/2006, 06/26/2006 ZOSTER VACCINE (1 of 2) 2014 PNEUMOCOCCAL VACCINE 50+ (3 of 3 - PCV20 or PCV21) 03/17/2015 03/17/2010, 06/17/2008 COVID-19 VACCINE (5 - 2023- season) 2024 11/06/2021, 03/24/2021, 08/06/2020, Additional history exists INFLUENZA VACCINE (#1) 2024 2, 03/08/2021, 04/11/2020, Additional history exists DEPRESSION SCREENING 06/17/2024 DTAP/TDAP/TD VACCINES (5 - Td or Tdap) 01/28/2028 01/27/2018, 01/22/2018, 08/03/2011, Additional history exists PNEUMOCOCCAL VACCINE Aged Out 03/17/2010, 06/17/19 09 No longer eligible based on patient's age to complete this topic HIB VACCINE Aged Out No longer eligi ble based on patient's age to complete this topic HPV VACCINE Aged Out No longer eligi ble based on patient's age to complete this topic MENINGOCOCCAL (Group B) VACCINE Aged Out No longer eligible based on patient's age to complete this topic MENINGOCOCCAL VACCINE Aged Out No abraham hemant eligible based on patient's age to complete this topic Advance Directives * Full Code (Latest Code Status on File) Date Activated Date Inactivated Comments 01/24/2022 8:11 PM 01/26/2022 1:18 PM * Full Code Date Activated Date Inactivated Comments 07/03/2021 11:58 AM 07/04/2021 5:41 PM Care Teams Mechanic And Welder Relationship Specialty Start Date End Date Denise Cope APRN-PULP MAKER [address] [place] [address] [address] [place] [id number] PCP - General Nurse Practitioner 12/23/20
--- OUTSIDE RECORDS SUMMARY | 2024-07-09 08:45 | XMS_ITS | Encounter Summary ---
Author Organization [facility] Address [address] [place] [address] Care Team Providers Care Peoplesoft Financials Name Role Phone Reigna Ovalles MD Primary Care Provider +1- [phone] Encounter Details Date Type Department Care Team (Late st Contact Info) Description 10/02/2002 Outpatient Historical [facility] Internal Medicine 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
--- OUTSIDE RECORDS SUMMARY | 2024-07-09 08:45 | XMS_ITS | Continuity of Care Document ---
Author Organization [facility] Address [address] [place] [address] Phone Care Team Providers Care Blade Operator Name Role Phone Roosevelt Dumont MD Unavailable [...] Copied on Encounter OFFICE/OUTPA TIENT VISIT EST [facility], [address], [place], [address], [place] tel:[phone] [facility] Arthritis of left foot Sep- 8 Tim Albert. [address], [place], [place], [address] . tel: [phone] OFFICE/OUTPA TIENT VISIT EST [facility], [address], [address], [place] [phone] [facility] Essential (primary) hypertensionBod y mass index (BMI) 60.0-69.9, adultArthritis of left foot Sep- 8 Tim Albert. [address], [place], [place], [address] . tel: [phone] OFFICE/OUTPA TIENT VISIT [facility], [address] [place] [address], [place], [address], [place] tel:[phone] [facility] Primary osteoarthritis of first carpometacarpal joint of left hand 6 Malik Gutierrez. [address], [place], [place], [address] . tel: [phone] [facility], [address] [place] [address], [address], [place] tel:[phone] [facility] Primary osteoarthritis of right kneePrimary osteoarthritis of left knee 6 Aubuchon Alfred. [address], [place], [place], [address] . tel: [phone] [facility], [address] [place] [address], [address], [place] tel:[phone] [facility] Primary osteoarthritis of left kneePrimary osteoarthritis of right knee 6 Aubuchon Alfred. [address], [place], [place], [address] . tel: [phone] OFFICE/OUTPA TIENT VISIT EST [facility], [address], [address], [place] [phone] [facility] Primary osteoarthritis of right kneePrimary osteoarthritis of left knee 0 9- 6 Aubuchon Alfred. [address], [place], [place], [address] . tel: [phone] [facility], [address], [place], [address], [place] tel:[phone] [facility] Primary osteoarthritis of right knee 0 2- 6 Aubuchon Alfred. [address], [place], [place], [address] . tel: [phone] OFFICE/OUTPA TIENT VISIT [facility], [address], [place], [address], [place] [phone] [facility] Primary osteoarthritis of right knee 6 Aubuchon Alfred. [address], [place], [place], [address] . tel: [phone] OFFICE/OUTPA TIENT VISIT [facility], [address], [place], [address], [place] tel:[phone] [facility] Pain in joint, lower leg 5 Indiana Summers. [address], [place], [place], [address] . tel: [phone] OFFICE/OUTPA TIENT VISIT [facility], [address], [place], [address], [place] [phone] [facility] Follow Up of lbp (chief complaint) LumbagoPain in limb 4 Mitesh Andrews. [address], [place], [place], [address] . tel: [phone] OFFICE/OUTPA TIENT VISIT [facility], [address], [place], [address], [place] tel:[phone] [facility] Follow Up of lbp (chief complaint) LumbagoPain in limb 4 Mitesh Andrews. [address] [place], [place], [address] . tel: [phone] OFFICE/OUTPA TIENT VISIT EST [facility], [address], [address], tel:[phone] [facility] R 5TH TOE INJURY (chief complaint) Nail avulsion 4 Amy Simon. [address], [place], [place], [address] . tel: [phone] OFFICE/OUTPA TIENT VISIT EST [facility], [address], [address], tel:[phone] [facility] Primary localized osteoarthrosis, ankle and footMetatarsalg ia 4 Auashleyangel Alfred. [address], [place], [place], [address] . tel: [phone] Family History Family Member Type Diagnosis Age At Onset Sister Problem (finding) Alive and well Payers Payer name Insurance type Covered republican ID Mahendra milton(s) UMR [id number] [id number] Social History Type Description Quantity Date Captured [...]
--- OUTSIDE RECORDS SUMMARY | 2024-07-09 08:45 | XMS_ITS | Encounter Summary ---
Author Organization [facility] Address [address] [place] [address] Care Team Providers Care Bench Press Operator Name Role Phone Regina Ovalles MD Primary Care Provider +1- [phone] Encounter Details Date Type Department Care Team (Late st Contact Info) Description 12/30/2002 Outpatient Historical [facility] Internal Medicine 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
--- OUTSIDE RECORDS SUMMARY | 2024-07-09 08:45 | XMS_ITS | Encounter Summary ---
Author Organization [facility] Address [address] [place] [address] Care Team Providers Care Metal Fence Erector Name Role Phone Regina Ovalles MD Primary Care Provider +1- [phone] Encounter Details Date Type Department Care Team (Late st Contact Info) Description 06/24/2002 Outpatient Historical [facility] Internal Medicine 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
--- OUTSIDE RECORDS SUMMARY | 2024-07-09 08:45 | XMS_ITS | Clinical Summary ---
Author Organization [facility] Address [address] [place] [address] Care Team Providers Care Shell Grader Name Role Phone Emily Herrera MD Primary [...] 12/30/2020 Sertraline Shortness of breath,Swelling,Seizures High 09/17/2015 [place] Anaphylaxis High 12/30/2020 Vancomycin Hives,Itching,Rash,S hortn ess [...] (650 mg total) by mouth nightly Active wurbrvhzeakv-kfv-n deysi-FA-vit K (Bariatric Multivitamins) 45 mg iron- [...] 03/14/2009 HTN (hypertension) 03/14/2009 Thyroid dysfunction 03/14/2009 Surgical History Surgery Date Site/Laterality Comments GROIN DISSECTION 06/17/1984 - 06/16/[address] Dissection for Melanoma level 5 CHOLECYSTECTOMY 06/17/1987 - 06/16/1988 N/A open BARIATRIC SURGERY 07/03/2021 Laparoscopic Francisco Javier-en-Y Gastric Bypass w/ adhesiolysis, EGD DIAGNOSTIC LAPAROSCOPY 01/15/2022 - 02/14/2022 w/ adhesiolysis, small bowel resection, anterior cruroplasty ESOPHAGOSCOPY / EGD COLONOSCOPY Medical History Medical History Date Comments Malignant melanoma of skin o f trunk (HCC) Malignant Melanoma Of The Gr oin - (Added by TW Conv) Sleep apnea PONV (postoperative nausea a nd vomiting) reports following 1984 groin dissection had N/V for 8 days; improved w/ newer antiemetics Motion sickness Family History Medical History Relation Name Comments Liver cancer Brother 1 Lung cancer Brother 1 PONV Brother 1 COPD Brother 2 Heart attack Brother 2 s/p CABG Heart disease Brother 2 PONV Brother 2 PONV Brother 3 Cancer Father PONV Father COPD Mother PONV Mother Liver cancer Sister 1 Lung cancer Sister 1 PONV Sister 1 COPD Sister 2 PONV Sister 2 Relation Name Status Comments Brother 1 Brother 2 Alive Brother 3 Alive Father Mother Sister 1 Sister 2 Alive Social History Tobacco Use Types Packs/Day Years [...] on file Legal Sex Female 1:[address] RAILWAY Gender Identity Not on file Sexual Orientation Not on file Obstetrics History Last Filed Vital Signs Vital Sign Reading [...] 11/15/2022 6:43 PM CDT Plan of Treatment Health Maintenance Due Date Last Done Comments Albumin Creatinine Ratio, Urine 1964 Breast Cancer Screening-Mammogram 1964 Cervical Cancer Screening 1964 Colon Cancer Screening-Colonoscopy 1964 Depression Screening 1964 Hepatitis C Screening 1964 Dilated Eye Exam 1964 Foot Exam 1964 Lipid Panel 1964 Regular Well Visit/Exam 18-64 1982 Zoster Vaccine (1 of 2) 2014 Hemoglobin A1C 05/16/2023 11/13/2022 eGFR 11/14/2023 11/13/2022 Covid-19 Vaccine (2023-2 5 season) 2024 03/09/2022, 11/06/2021, 03/24/2021, Additional history exists Influenza Vaccine (#1) 2024 2, 03/09/2022, 03/08/2021, Additional history exists DTaP/Tdap/Td Vaccine (5 - Td or Tdap) 11/05/2032 11/05/2022, 01/27/2018, 01/22/2018, Additional history exists Pneumococcal vaccine <65 Completed 022, 03/17/2010, 06/17/2008 Procedures Procedure Name Priority Date/Time Associated Diagnosis Comments EGFR Routine 11/13/2022 12:21 PM CDT Preop testing POCT HEMOGLOBIN A1C Routine 11/13/2022 1 1:16 AM CDT from Last 3 Months or Most Recently Relevant to Health Maintenance Results * (ABNORMAL) eGFR (11/13/2022 12:21 PM CDT) eGFR 63(L) 90 - 130 mL/min/1. 73 m2 [facility] Comment: Interpretive Data Reference Interval Normal ?>/= [...] Nithya Oconnor NP LAB BLOOD ORDERABLES Judy l Result Performing Organization Address [facility] de Phone Number [facility] Department [place] [address] * POCT hemoglobin A1c (11/13/2022 11:16 AM CDT) Hgb A1C, POC 4.9 4.0 - 5.6 % [facility] Est Average Gluc POC 94 mg/dL [facility] Comment: The ADA recommends reporting an estimated Average Glucose (eAG) with all Hemoglobin A1c results using the equation derived from a study of 507 normal and diabetic adults. ??Minority populations were underrepresented and children were not included. ?? (Diabetes Care 31:7758-9798, 2008). ??The eAG is not equivalent to a fasting glucose. Blood 11/13/2022 11:1 6 AM CDT 11/13/2022 11:16 AM CDT Ree Greene MD POINT OF CARE TEST OR DERABLES Final Result Performing Organization Address [facility] de Phone Number [facility] Department [place] [address] from Last 3 Months or Most Recently Relevant to Health Maintenance Insurance [employer] MEDICARE GOLD [facility] MDCR HMO REF A[employer] MEDICARE GOLD [employer] MEDICARE GOLD Advance Directives For more information, please contact: [phone] * Full Code (Latest Code Status on File) Date Activated Date Inactivated Comments 11/15/2022 6:20 PM 11/18/2022 6:51 PM Care Teams Shell Grader Relationship Specialty Start Date End Date Emily Herrera MD [address] [place] [address] DR LINDSEY [address] [place] [address] PCP - General Family Medicine 07/10/22
--- OUTSIDE RECORDS SUMMARY | 2024-07-09 08:45 | XMS_ITS | Encounter Summary ---
Author Organization [facility] Address [address] [place] [address] Care Team Providers Care Residential Support Specialist Name Role Phone Regina Ovalles MD Primary Care Provider +1- [phone] Encounter Details Date Type Department Care Team (Late st Contact Info) Description 08/03/2002 Outpatient Historical [facility] Internal Medicine 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
--- OUTSIDE RECORDS SUMMARY | 2024-07-09 08:46 | XMS_ITS | Data Portability ---
Author Organization [facility], Main Office Address [address] [place] [address] Assessment Encounter Date Assessment Date Assessment LastModified by Organization Details LastModified Time 07/29/2023 07/29/2023 Assessment: Mild OSAHS, AHI = 11 Rhinitis Plan: The following were reviewed and explained to the patient: [facility] home sleep study 01/02/21 AHI = 19 [facility] titration sleep study 02/03/21 ResMed small AirFit F30 full face mask @ 11 cmH2O [facility] home sleep study 03/25/23 AHI = 11, supine AHI = 12 [facility] titration sleep study 07/23/23 ResMed small AirFit F30 full face mask @ 10 cmH2O PAP compliance downloaded and interpreted x 20 minutes. Data reviewed and explained to the patient. Average apnea/hypopnea index (AHI) is 2.7. Patient used PAP > 4 hours 18% of the time. PAP is set at 6-13 cmH2O. PAP will be reset at 7-11 cmH2O instead of 10 cmH2O per patient choice. Oxygen supplementation: none Patient is benefiting from PAP therapy. Encouraged patient to maintain PAP use more than 70% of the time. Statement of PAP use and benefits will be sent to the home care store. Educated the patient on problems and solutions associated with positive airway pressure (PAP) use. Difficulty tolerating pressure, mask leaks, intolerance of interface, nasal congestion, claustrophobic response, dry mouth, and unintentional mask removal during sleep were covered. Patient has some difficulty tolerating pressure. Patient is advised to practice wearing PAP daily while awake, lower pressure with or without sleeping on sides, activate PAP ramp feature, have blower checked to make sure pressure is set as prescribed and return to sleep center for consideration of auto-adjusting PAP therapy. Patient has intolerance to interface. Patient will loosen mask slightly, ensure mask is situated properly, inspect and replace interface if worn out, use barrier such as moleskin or bandage for irritation at bridge of nose, have a temporary holiday from PAP, resize mask or obtain an oral interface. Patient experiences nasal congestion. Patient will use nasal saline spray before starting PAP, use heated PAP humidifier, clean/air dry humidifier reservoir daily, use nasal steroid spray, use ipratropium bromide nasal spray if rhinitis/rhinorrhe a is present or obtain an oronasal/oral interface. Patient experiences claustrophobic response. Patient will practice wearing PAP mask daily while awake and undergo PAP desensitization. We will check fit of patient's mask and provide a sleeker alternative as necessary. Dry mouth is a normal occurrence for people who just start out on PAP therapy because they are not used to air blowing in to the throat to hold open. Dry mouth is exacerbated for people who wear nasal PAP mask and whose jaw drops open during sleep. Not only does this create a much less efficient therapy because of leakage, it also causes dry mouth. There are a couple solutions to help prevent this type of problem. A simple solution would be to wear a chinstrap which essentially holds the jaw in place. A second solution would be a switch to a full face mask which covers both the nose and mouth. Although this is another easy solution, using a full face mask for some could seem claustrophobic or confining. There is no silver bullet solution as no single mask is right for everybody. Sometimes it takes a bit of experimentation to find a PAP mask which best meets the patient's needs as well as fits comfortably. Another tactic is to use a humidifier on your PAP machine. Most new PAP machines have integrated humidifiers. Humidification is mcgarry when dealing with symptoms of dry mouth because the humidifier can supply both warm and room temperate air. Even a small amount of humidity in the airflow will help nasal passages to stay hydrated. If a person is using both a full face mask and a PAP machine with a heated humidifier and is still experiencing dry mouth, an ill-fitted PAP mask might be causing the problem. Leakage can be caused by a mask that is to large or small, the wrong style mask, the cushion is degraded or simply because the mask's straps aren't adjusted correctly. If leakage occurs, dry air from the room can leak in while humidification escapes. The result is reduced humidification within the circuit and resulting in dry throat and mouth. Finally, beyond factors involving the PAP machine and mask, dry mouth can also be caused or worsened by dehydration. The general recommendation to during eight 8 oz. glasses of water a day might be too little for many people. When people drink large amounts of coffee or other caffeine beverages, or sweat a lot during the day, making sure to rehydrate is an important part of PAP therapy. Provided the patient with a list of local home care stores where positive airway pressure (PAP) units, accoutrement, and services are available. Home care store selection is based on patient's insurance carrier. Patient will setup an appointment with [facility] for supplies and pressure adjustments. A major predictor of success with use of PAP is follow-up with both the respiratory supplier and the treating physician. The download results can show the treating physician information about adherence to treatment, residual AHI while on treatment and presence of large mask leakage. This information is especially helpful if the patient has residual sleepiness despite treatment. General information on sleep disordered breathing, evaluation of sleep disordered breathing, treatment with PAP therapy, and living with PAP therapy were covered. PSG is medically necessary to determine the management of sleep apnea. We discussed with the patient the impact of weight on: Sleep disordered breathing Mixed hyperlipidemia Hypertension DM KAREEM Nonalcoholic steatohepatitis Thoracic compression fracture Thoracic levoscoliosis Thoracolumbar spondylosis Lumbar dextroscoliosis Bilateral knee OA We discussed with the patient the benefit of PAP therapy on: Sleep disordered breathing Anxiety/Depression Headaches Hypertension DM KAREEM Educated the patient on sleep hygiene measures. Relaxing rituals to rest easy, understanding foods with positive and negative impact on sleep, creating a peaceful sleep environment, timing of exercise, using herbal sleep aids, and practicing sleep-friendly meditation were covered. To determine how much sleep is needed, the patient will assess where she falls on the spectrum, examine what lifestyle factors such as work schedules and stress are affecting the quality and quantity of sleep. In general, adults need 7-9 hours of sleep. Educated the patient regarding foods that promote sleep. These include but are not limited to cherries, bananas, toast, oatmeal, and warm milk. Educated the patient regarding foods and drinks to avoid before bedtime. These include but are not limited to aged cheese, chocolate, spicy foods, tomato-based sauces, soy, ginseng tea and processed meat. Advocated influenza vaccination annually and pneumonia vaccination MARIA M. Advocated weight loss through diet and exercise. Patient's ideal body weight according to height and gender is up to 140 lbs. Encouraged patient to adjust caloric intake to maintain/achieve ideal body weight, emphasizing on fruits, vegetables, whole grains, and fat-free or low-fat products. These include lean meats, poultry, fish, beans, eggs, and nuts and foods that are low in saturated fats, trans-fats, cholesterol, salt (sodium), and glycemic index. Stressed the importance of regular exercise up to the patient's capacity limits. In this case, we recommend 20 min daily walking, 2 days a week of resistance training. Patient to monitor BP daily and bring records to PCP for further management. Follow-up: 1 year, July 2025 [email or web address] Not available 07/29/2023 09:32:40 Plan of Treatment Reminders Order Date Submit Date Provider Last Modified By Organization Details Last Modified Time Details Appointments Establish ed Patient 2024 02:30P Ramana Garcia MD Not available Not available Not available Follow Up 2024 02:00P Ramana Lemons NP Not available Not available Not available Lab HbA1c (hemoglob in A1c), blood 2023 [facility], [address], [place], [address], 03/28/2024 03:16:29 CMP, serum or plasma 2023 [facility], [address], [place], [address], 03/28/2024 03:16:25 hepatic function panel, serum 2023 [facility], [address], [place], [address], 03/28/2024 03:16:26 CBC w/ auto diff 2023 [facility], [address], [place], [address], 03/28/2024 03:16:27 lipid panel, serum 2023 024 [facility], [address], [place], [address], 03/28/2024 03:16:22 TSH, serum or plasma 2023 024 [facility], [address], [place], [address], 03/28/2024 03:16:28 Referral orthopedi c surgeon referral - Please call patient to schedule an appointme nt. Thank you. 2023 024 [email or web address] Giuseppe Patel MD, [address], [address], [place], [address], 10/18/2023 08:48:42 neurologi zahida surgeon referral - Please call patient to schedule an appointme nt. Thank you. 2023 024 [email or web address] Neurosurgery [facility], [address] [facility], [address], [place], [address], 01/31/2024 08:32:[address] referral - Please call patient to schedule an appointme nt. Thank you. 2024 025 [facility], [address] [facility], [address], [place], [address], 06/24/2024 12:30:53 hematolog ist referral - Please call patient to schedule an appointme nt. Thank you. 2024 025 [facility] Malcolm Shay, [address], [place], [address], 06/24/2024 12:55:18 Procedures None recorded. Surgeries None recorded. Imaging US, pelvis, transabdo daya + transvagi nal - *Please call pt to schedule* 2023 024 [facility], [address], [address], [place], [address], 01/08/2024 07:35:57 Medication Orders Gas Relief (simethic one) 250 mg capsule 2023 024 [email or web address] [facility] [address], [address], [place], [address], 07/05/2024 16:36:40 alpha-d-g alactosid ase 400 unit tablet 2023 024 77 [facility] [address], [address], [place], [address], 03/19/2024 14:35:48 tramadol 50 mg tablet 2023 024 [facility] [address], [address], [place], [address], 09/19/2023 14:54:35 omeprazol e 40 mg capsule,d elayed release 2023 024 [facility] [address], [address], [place], [address], 09/19/2023 14:54:20 Flonase Allergy Relief 50 mcg/actua tion nasal spray,lilly pension 2023 024 [facility] [address], [address], [place], [address], 01/02/2024 10:50:56 Ozempic 1 mg/dose (4 mg/3 mL) subcutane ous pen injector 2023 024 [email or web address], [address] [place], [address], 01/02/2024 10:55:21 tramadol 50 mg tablet 2023 024 [facility] [address], [address], [place], [address], 03/20/2024 13:01:32 Flonase Allergy Relief 50 mcg/actua tion nasal spray,lilly pension 2023 024 [facility] [address], [address], [place], [address], 03/20/2024 13:01:25 magnesium oxide 400 mg (241.3 mg magnesium ) tablet 2023 024 [facility] [address], [address], [place], [address], 03/20/2024 13:01:25 paroxetin e 30 mg tablet 2023 024 [facility] [address], [address], [place], [address], 03/20/2024 13:01:26 olmesarta n 5 mg tablet 2023 024 [email or web address] [facility] [address], [address], [place], [address], 03/20/2024 13:05:30 celecoxib 200 mg capsule 2023 024 [facility] [address], [address], [place], [address], 03/20/2024 13:01:27 tramadol 50 mg tablet 2024 025 [facility] [address], [address], [place], [address], 06/23/2024 14:41:42 Ozempic 1 mg/dose (4 mg/3 mL) subcutane ous pen injector 2024 025 [email or web address], [address] [place], [address], 06/23/2024 14:45:24 bupropion HCl 75 mg tablet 2024 025 JOHAN [facility], [address] [place] [address], [place] [address], [place], [place], [id number], 06/23/2024 14:41:36 Patient TargetsNo targets recorded. Patient Instructions Encounter Date Encounter Id Patient Instructions Last Modified By Organization Details Last Modified Time 03/19/2024 [id number] dementia rating scale-2* Not available 03/20/2024 13:01:16 multi-dimensiona l health assessment questionnaire* [email or web address] Not available 03/20/2024 13:01:16 care plan* [email or web address] Not available 09/2023 13:01:16 advance directiv es: care instructions [email or web address] Not available 03/20/2024 13:01:16 advance care planning: care instructions [email or web address] Not available 03/20/2024 13:01:16 [place] Advance Directives [email or web address] Not available 03/20/2024 13:01:16 [facility] lth Plan and Screening Recommendations Advance Directives - Do you have one? Advance Directives - Do we have your advance directive on file in your health record? Primary Prevention/Interven tion (prevents or decreases the chance of common diseases from occurring) Smoking Risk: Alcohol Misuse Screening: Weight: Physical activity: Nutrition: Fall Risk (screened today): Vaccines Pneumococcal: Influenza: Chronic Disease Risks Stroke: I have no recommendations Active diagnosis, Continue current treatment plan Heart Attack: I have no recommendations Act ronald diagnosis, Continue current treatment plan Clogging of the Arteries: I have no recommendations Act ronald diagnosis, Continue current treatment plan Diabetes: Secondary Prevention/Interven tion (detects treatable diseases before they may cause symptoms, disability, or ) Breast Cancer Screening with mammogram: Cervical/Uterine/Ov jarrod Cancer Screening: Osteoporosis Screening: Date Screening Last Performed: Colon Cancer Screening: Date Screening Last Performed: Eye Disease Screening: Dementia Risk: Depression Screening: [email or web address] Not available 03/19/2024 14:33:37 Reason for Referral Orthopedic Surgeon Referral for Pain of bilateral knee joints Please call patient to schedule an appointment. Thank you. Referring Physician: Emily Herrera, Family Medicine, Encounter Date: 09/19/2023 Neurological Surgeon Referra l for Compression fracture of thoracic vertebra Please call patient to schedule an appointment. Thank you. Referring Physician: Juanita Lemons [facility], Encounter Date: 01/02/2024 Please call patient to sched ule an appointment. Thank you. Referring Physician: Juanita Lemons [facility], Encounter Date: 06/23/2024 Neurologist Referral for Mem ory impairment Please call patient to schedule an appointment. Thank you. Referring Physician: Juanita Lemons [facility], Encounter Date: 06/23/2024 Results Created Date Observation Date Name Description Value Unit Range Abnormal Flag Note LastModifiedBy Organization Detail LastModifiedTime 07/29/19 24 07/29/2023 CBC/C OMPLE TE BLD COUNT W/DIF F white blood cells 7.1 x10'3 /uL 4.2-10 .8 Not Available [facility] (Lab) [address] [place], [address], 07/29/2023 19:36:37 07/29/19 24 07/29/2023 CBC/C OMPLE TE BLD COUNT W/DIF F red blood cells 4.13 x10'6 /uL 3.80-5 .20 Not Available [facility] (Lab) [address] [place], [address], 07/29/2023 19:36:37 07/29/19 24 07/29/2023 CBC/C OMPLE TE BLD COUNT W/DIF F hemoglobin 12.6 g/dL 12.0-1 5.6 Not Available [facility] (Lab) [address] [place], [address], 07/29/2023 19:36:37 07/29/19 24 07/29/2023 CBC/C OMPLE TE BLD COUNT W/DIF F hematocrit 38.9 % 35.7-4 5.7 Not Available [facility] (Lab) [address] [place], [address], 07/29/2023 19:36:37 07/29/19 24 07/29/2023 CBC/C OMPLE TE BLD COUNT W/DIF F mean red cell volume 94.2 fL 82.0-9 9.0 Not Available [facility] (Lab) [address] [place], [address], 07/29/2023 19:36:37 07/29/19 24 07/29/2023 CBC/C OMPLE TE BLD COUNT W/DIF F mean red cell hemoglobin 30.5 pg 27.0-3 3.0 Not Available [facility] (Lab) [address] [place], [address], 07/29/2023 19:36:37 07/29/19 24 07/29/2023 CBC/C OMPLE TE BLD COUNT W/DIF F mean RBC HGB concentratio n 32.4 g/dL 31.0-3 6.0 Not Available [facility] (Lab) [address] [place], [address], 07/29/2023 19:36:37 07/29/19 24 07/29/2023 CBC/C OMPLE TE BLD COUNT W/DIF F red cell distribution width 12.6 % 11.8-1 5.5 Not Available [facility] (Lab) [address] [place], [address], 07/29/2023 19:36:37 07/29/19 24 07/29/2023 CBC/C OMPLE TE BLD COUNT W/DIF F platelets 295 x10'3 /uL 150-40 0 Not Available [facility] (Lab) [address] [place], [address], 07/29/2023 19:36:37 07/29/19 24 07/29/2023 CBC/C OMPLE TE BLD COUNT W/DIF F mean platelet volume 10.4 fL 9.0-12 .4 Not Available [facility] (Lab) [address] [place], [address], 07/29/2023 19:36:37 07/29/19 24 07/29/2023 CBC/C OMPLE TE BLD COUNT W/DIF F neutrophils 50.6 % 39.0-7 2.0 Not Available [facility] (Lab) [address] [place], [address], 07/29/2023 19:36:37 07/29/19 24 07/29/2023 CBC/C OMPLE TE BLD COUNT W/DIF F lymphocytes 40.9 % 16.0-4 7.0 Not Available [facility] (Lab) [address] [place], [address], 07/29/2023 19:36:37 07/29/19 24 07/29/2023 CBC/C OMPLE TE BLD COUNT W/DIF F monocytes 6.1 % 5.0-12 .0 Not Available [facility] (Lab) [address] [place], [address], 07/29/2023 19:36:37 07/29/19 24 07/29/2023 CBC/C OMPLE TE BLD COUNT W/DIF F eosinophils 1.3 % 1.0-7. 0 Not Available [facility] (Lab) [address] [place], [address], 07/29/2023 19:36:37 07/29/19 24 07/29/2023 CBC/C OMPLE TE BLD COUNT W/DIF F basophils 1.0 % 0.0-2. 0 Not Available [facility] (Lab) [address] [place], [address], 07/29/2023 19:36:37 07/29/19 24 07/29/2023 CBC/C OMPLE TE BLD COUNT W/DIF F immature granulocytes 0.1 % 0.00-0 .50 Not Available [facility] (Lab) [address] [place], [address], 07/29/2023 19:36:37 07/29/19 24 07/29/2023 CBC/C OMPLE TE BLD COUNT W/DIF F neutrophils, absolute count 3.57 x10'3 /uL 1.5-8. 0 Not Available [facility] (Lab) [address] [place], [address], 07/29/2023 19:36:37 07/29/19 24 07/29/2023 CBC/C OMPLE TE BLD COUNT W/DIF F lymphocytes, absolute count 2.89 x10'3 /uL 1.07-3 .43 Not Available [facility] (Lab) [address] [place], [address], 07/29/2023 19:36:37 07/29/19 24 07/29/2023 CBC/C OMPLE TE BLD COUNT W/DIF F monocytes, absolute count 0.43 x10'3 /uL 0.29-0 .99 Not Available [facility] (Lab) [address] [place], [address], 07/29/2023 19:36:37 07/29/19 24 07/29/2023 CBC/C OMPLE TE BLD COUNT W/DIF F eosinophils, absolute count 0.09 x10'3 /uL 0.02-0 .53 Not Available [facility] (Lab) [address] [place], [address], 07/29/2023 19:36:37 07/29/19 24 07/29/2023 CBC/C OMPLE TE BLD COUNT W/DIF F basophils, absolute count 0.07 x10'3 /uL 0.01-0 .08 Not Available [facility] (Lab) [address] [place], [address], 07/29/2023 19:36:37 07/29/19 24 07/29/2023 CBC/C OMPLE TE BLD COUNT W/DIF F immature granulocytes ,absolute 0.01 x10'3 /uL 0.00-0 .05 Not Available [facility] (Lab) [address] [place], [address], 07/29/2023 19:36:37 07/29/19 24 07/29/2023 CBC/C OMPLE TE BLD COUNT W/DIF F nucleated red blood cells 0.0 % -0 Not Available [facility] (Lab) [address] [place], [address], 07/29/2023 19:36:37 07/29/19 24 07/29/2023 CBC/C OMPLE TE BLD COUNT W/DIF F NRBC# 0.00 x10'3 /uL Not Available [facility] (Lab) [address] [place], [address], 07/29/2023 19:36:37 07/29/19 24 07/29/2023 IRON/ TIBC PANEL total iron binding capacity 286 mcg/d L 265-47 5 Not Available [facility] (Lab) [address] [place], [address], 07/29/2023 19:42:51 07/29/19 24 07/29/2023 IRON/ TIBC PANEL % transferrin saturation 34 % 20-55 Not Available [facility] (Lab) [address] [place], [address], 07/29/2023 19:42:51 07/29/19 24 07/29/2023 IRON/ TIBC PANEL unsaturated iron bind capacity 190 mcg/d L 126-38 2 Not Available [facility] (Lab) [address] [place], [address], 07/29/2023 19:42:51 07/29/19 24 07/29/2023 IRON/ TIBC PANEL iron 96 mcg/d L 42-175 Not Available [facility] (Lab) [address] [place], [address], 07/29/2023 19:42:51 07/29/19 24 07/29/2023 MAGNE SIUM magnesium 1.8 mg/dL 1.6-2. 3 Not Available [facility] (Lab) [address] [place], [address], 07/29/2023 19:42:00 07/29/19 24 07/29/2023 LIPID PANEL cholesterol 200 mg/dL 140-19 9 high NIH MARIE NSUS RECOM MENDA TION FOR REECE STERO L: ADULT CHILD LOW RISK: <200 <170 BORDE RLINE : <200- 239 ----- HIGH RISK: >240 >200 Not Available [facility] (Lab) [address] [place], [address], 07/29/2023 19:42:06 07/29/19 24 07/29/2023 LIPID PANEL triglyceride s 160 mg/dL 0-150 high NIH MARIE NSUS REPOR T RECOM MENDA TION FOR TRIGL YCERI ARSALAN: ADULT CHILD LOW RISK: <150 ----- BODER LINE: 150-1 99 ----- HIGH RISK: >200 ----- Not Available [facility] (Lab) [address] [place], [address], 07/29/2023 19:42:06 07/29/19 24 07/29/2023 LIPID PANEL HDL cholesterol 73 mg/dL 40- Not Available [facility] (Lab) [address] [place], [address], 07/29/2023 19:42:06 07/29/19 24 07/29/2023 LIPID PANEL LDL cholesterol, calculated 95 mg/dL 0-130 NIH MARIE NSUS REPOR T RECOM MENDA TIONS FOR LDL: ADULT CHILD LOW RISK <130 <110 (OPTI MAL LDL) <100 ----- BORDE RLINE : 130-1 59 ----- HIGH RISK: >160 >130 A TRIGL YCERI DE RESUL T >400 INVAL IDATE S THE CALCU LATIO N FOR LDL FRACT IONAT ION - THE LDL RESUL T WILL NOT BE REPOR JEMMA. Not Available [facility] (Lab) [address] [place], [address], 07/29/2023 19:42:06 07/29/19 24 07/29/2023 COMPR EHENS RONALD METAB OLIC PANEL sodium 137 mmol/ L 137-14 5 Not Available [facility] (Lab) [address] [place], [address], 07/29/2023 19:42:11 07/29/19 24 07/29/2023 COMPR EHENS RONALD METAB OLIC PANEL potassium 4.4 mmol/ L 3.5-5. 1 Not Available [facility] (Lab) [address] [place], [address], 07/29/2023 19:42:11 07/29/19 24 07/29/2023 COMPR EHENS RONALD METAB OLIC PANEL chloride 106 mmol/ L 98-107 Not Available [facility] (Lab) [address] [place], [address], 07/29/2023 19:42:11 07/29/19 24 07/29/2023 COMPR EHENS RONALD METAB OLIC PANEL carbon dioxide 21 mmol/ L 22-30 low Not Available [facility] (Lab) [address] [place], [address], 07/29/2023 19:42:11 07/29/19 24 07/29/2023 COMPR EHENS RONALD METAB OLIC PANEL anion gap 14.4 mmol/ L 14-22 Not Available [facility] (Lab) [address] [place], [address], 07/29/2023 19:42:11 07/29/19 24 07/29/2023 COMPR EHENS RONALD METAB OLIC PANEL glucose 77 mg/dL 70-99 Not Available [facility] (Lab) [address] [place], [address], 07/29/2023 19:42:11 07/29/19 24 07/29/2023 COMPR EHENS RONALD METAB OLIC PANEL BUN 33 mg/dL 8-19 high Not Available [facility] (Lab) [address] [place], [address], 07/29/2023 19:42:11 07/29/19 24 07/29/2023 COMPR EHENS RONALD METAB OLIC PANEL creatinine 0.97 mg/dL 0.66-1 .25 Not Available [facility] (Lab) [address] [place], [address], 07/29/2023 19:42:11 07/29/19 24 07/29/2023 COMPR EHENS RONALD METAB OLIC PANEL GFR 59 Refer ence Range : [place] [facility] GFR Healt hy Adult : >60 mL/mi n/1.7 3 m2 Chron ic Kidne y Disea se: 15-60 mL/mi n/1.7 3 m2 Kidne y Failu re: <15/m L/min /1.73 m2 www.n iddk. nih.g ov The MDRD study equat ion has not been valid ated in child stephanie <18 years of age; pregn ant women ; the elder ly >85 years of age; or in some racia l or ethni c subgr oups, such as [facility] nics. Outsi de the valid ated sumanth eters , estim ated GFR is less accur ate, requi ring clini zahida judgm ent on a case- by-ca se basis . Clini zahida inter preta tion for other races and ages must be made by the clini monica. The MDRD study equat ion has not been valid ated for the evalu ation of serum creat inine relat ed to nutri taz l statu s or medic ation usage . For perso ns <18 years of age, a pedia tric GFR calcu lator is avail able on the [facility] websi te: https ://ranulfo w.bar khan.o rg/pr ofess ional s/kdo qi/gf r_cal culat or Not Available [facility] (Lab) [address] [place], [address], 07/29/2023 19:42:11 07/29/19 24 07/29/2023 COMPR EHENS RONALD METAB OLIC PANEL alkaline phosphatase 90 U/L 38-126 Not Available [facility] (Lab) [address] [place], [address], 07/29/2023 19:42:11 07/29/19 24 07/29/2023 COMPR EHENS RONALD METAB OLIC PANEL alanine aminotransfe rase 26 U/L 0-35 Not Available [facility] (Lab) [address] [place], [address], 07/29/2023 19:42:11 07/29/19 24 07/29/2023 COMPR EHENS RONALD METAB OLIC PANEL aspartate aminotransfe rase 46 U/L 15-37 high Not Available [facility] (Lab) [address] [place], [address], 07/29/2023 19:42:11 07/29/19 24 07/29/2023 COMPR EHENS RONALD METAB OLIC PANEL bilirubin, total 0.40 mg/dL 0.20-1 .30 Not Available [facility] (Lab) [address] [place], [address], 07/29/2023 19:42:11 07/29/19 24 07/29/2023 COMPR EHENS RONALD METAB OLIC PANEL calcium 10.1 mg/dL 8.4-10 .2 Not Available [facility] (Lab) [address] [place], [address], 07/29/2023 19:42:11 07/29/19 24 07/29/2023 COMPR EHENS RONALD METAB OLIC PANEL total protein 7.5 g/dL 6.3-8. 2 Not Available [facility] (Lab) [address] [place], [address], 07/29/2023 19:42:11 07/29/19 24 07/29/2023 COMPR EHENS RONALD METAB OLIC PANEL albumin 4.4 g/dL 3.4-5. 0 Not Available [facility] (Lab) [address] [place], [address], 07/29/2023 19:42:11 07/29/19 24 07/29/2023 COMPR EHENS RONALD METAB OLIC PANEL globulin 3.1 g/dL 2.6-4. 2 Not Available [facility] (Lab) [address] [place], [address], 07/29/2023 19:42:11 07/29/19 24 07/29/2023 COMPR EHENS RONALD METAB OLIC PANEL A/G ratio 1.4 ratio 1.0-2. 0 Not Available [facility] (Lab) [address] [place], [address], 07/29/2023 19:42:11 07/29/19 24 07/29/2023 VITAM IN D 25-HY DROXY vd25oh 58.4 NG/mL 30-100 Vitam in D Statu s: Defic ient: <20 ng/mL Insuf ficie nt: 20-29 ng/mL Suffi cient : 30-10 0 ng/mL Not Available [facility] (Lab) [address] [place], [address], 07/29/2023 19:44:13 07/29/19 24 07/29/2023 T4 FREE free T4 1.19 NG/dL 0.78-2 .19 Not Available [facility] (Lab) [address] [place], [address], 07/29/2023 20:10:21 07/29/19 24 07/29/2023 TSH thyroid-stim ulating hormone 0.821 uIU/m L 0.465- 4.680 Not Available [facility] (Lab) [address] [place], [address], 07/29/2023 20:10:51 07/29/19 24 07/29/2023 AUDREY TIN ferritin 11 NG/mL 11.1-2 64 low Not Available [facility] (Lab) [address] [place], [address], 07/29/2023 20:11:18 07/29/19 24 07/29/2023 VITAM IN B12 (LEONARD ESTHER ) vb12 997 pg/mL 239-93 1 high Not Available [facility] (Lab) [address] [place], [address], 07/29/2023 20:34:36 07/29/19 24 07/29/2023 FOLAT E, SERUM /PLAS MA folate >20.0 NG/mL 2.76-2 0.0 Not Available [facility] (Lab) [address] [place], [address], 07/29/2023 20:34:41 07/29/19 24 07/29/2023 HEMOG LOBIN A1C HA1C 5.0 % 4.0-6. 0 Diabe faye Scree ruthie Crite lilo: <5.7% Consi stent with absen ce of diabe faye 5.7-6 .4% Consi stent with incre ased risk for diabe faye (pred iabet es) >OR=6 .5% Consi stent with diabe faye REFER ENCE: Diabe faye Care 2016, 39(Naranjo ppl.1 ):s13 -s22 Not Available [facility] (Lab) [address] [place], [address], 07/29/2023 20:48:31 11/20/19 24 11/20/2023 COLOG UARD cologuard result reportable NEGATI VE negati ve normal NEGAT RONALD TEST RESUL T. A negat ronald Colog uard resul t indic ates a low likel ihood that a color ectal cance r (CRC) or advan valeri adeno ma (kalin omato us polyp s with more advan valeri pre-m align ant featu res) is prese nt. The [facility] e that a perso n with a negat ronald Colog uard test has a color ectal cance r is less than 1 in 1500 (nega tive predi ctive value >99.9 %) or has an advan valeri adeno ma is less than 5.3% (nega tive predi ctive value 94.7% ). These data are based on a prosp ectiv e cross -sect ional study of ,00 0 indiv idual s at [place] risk for color ectal cance r who were scree brianna with both Colog uard and colon oscop y. (Moses Olvera et al, N Engl J Med 2014; 370(1 4):12 86-12 97) The dereck l value (refe rence range ) for this assay is negat ronald. COLOG UARD RE-SC REETHAD NG RECOM MENDA TION: Perio dic color ectal cance r scree ruthie is an impor tant part of preve ntive healt hcare for asymp tomat ic indiv idual s at [place] risk for color ectal cance r. Follo wing a negat ronald Colog uard resul t, the Ameri can Cance r Socie ty and U.S. Multi -Soci ety Task Force scree ruthie guide lines recom mend a Colog uard re-sc reethad landa inter nirali of 3 years . Refer ences : Ameri can Cance r Socie ty Guide line for Color ectal Cance r Scree ruthie: https ://ww w.can cer.o rg/ca ncer/ colon -rect al-ca ncer/ detec tion- diagn osis- stagi ng/ac s-rec ommen datio ns.ht ml.; Timothy LATIF, Kelly CUMMINGS, Go SUT[place], Color ectal Cance r Scree ruthie: Recom menda tions for Physi cians and Patie nts from the U.S. Multi -Soci ety Task Force on Color ectal Cance r Scree ruthie , Am J Charlie oente rolog y 2017; 112:1 016-1 030. TEST DESCR IPTIO N: [place] site algor ithmi c lianne sis of stool DNA-b denisse courtney with hemog lobin immun oassa y. Quant itati ve value s of indiv idual bioma rkers are not repor table and are not assoc iated with indiv idual bioma rker resul t refer ence range s. Colog uard is inten ded for color ectal cance r scree ruthie of adult s of eithe r sex, 45 years or older , who are at [facility] for color ectal cance r (CRC) . Colog uard has been appro andrea for use by the U.S. FDA. The perfo rmanc e of Colog uard was estab lishe d in a cross secti onal study of [facility] adult s aged 50-84 . Colog uard perfo rmanc e in patie nts ages 45 to 49 years was estim ated by sub-g roup lianne sis of near- age group s. Colon oscop ies perfo rmed for a posit ronald resul t may find as the most clini navdeep signi fican t lesio n: color ectal cance r [4.0% ], advan valeri adeno ma (incl uding sessi le oriana jemma polyp s great er than or equal to 1cm diame ter) [20%] or non- advan valeri adeno ma [31%] ; or no color ectal neopl adriana [45%] . These estim ates are deriv ed from a prosp ectiv e cross -sect ional scree ruthie study of 10,00 0 indiv idual s at [facility] risk for color ectal cance r who were scree brianna with both Colog uard and colon oscop y. (Moses Olvera et al, N Engl J Med 2014; 370(1 4):12 86-12 97.) Colog uard may produ ce a false negat ronald or false posit ronald resul t (no color ectal cance r or preca ncero us polyp prese nt at colon oscop y follo w up). A negat ronald Colog uard test resul t does not guara ntee the absen ce of CRC or advan valeri adeno ma (pre- cance r). The curre nt Colog uard scree ruthie inter nirali is every 3 years . (Amcynthia ican Cance r Socie ty and U.S. Multi -Soci ety Task Force ). Colog uard perfo rmanc e data in a 10,00 0 patie nt pivot al study using colon oscop y as the refer ence metho d can be acces sed at the follo wing locat ion: www.e xactl abs.c om/re sulalyson . Addit ional descr iptio n of the Colog uard test proce ss, warni ngs and preca ution s can be found at www.c ologu niyah.c om. Not Available [employer] (Cologuard Orders Only) [address], [place], [address], 12/02/2023 18:32:05 03/27/20 24 03/28/2024 LIPID PANEL , STAND NIYAH cholesterol, total 160 mg/dL <200 normal Not Available [facility] [address] [place], [address], 03/28/2024 03:16:22 03/27/20 24 03/28/2024 LIPID PANEL , STAND NIYAH HDL cholesterol 61 mg/dL > or = 50 normal Not Available [facility] [address] [place], [address], 03/28/2024 03:16:22 03/27/2003/28/2024 LIPID PANEL , STAND NIYAH triglyceride s 81 mg/dL <150 normal Not Available [facility] [address] [place], [address], 03/28/2024 03:16:22 03/27/20 24 03/28/2024 LIPID PANEL , STAND NIYAH LDL-choleste rol 83 mg/dL _(zahida c) normal Refer ence range : <100 Maricarmen able range <100 mg/dL for prima ry preve ntion ; <70 mg/dL for patie nts with CHD or diabe tic patie nts with > or = 2 CHD risk facto rs. LDL-C is now calcu lated using the [facility] kins gilberto ortiz, which is a valid ated novel bhavana norris accur acy than the Fried caterina equat ion in the estim ation of LDL-C . Kasandra ortiz SS et al. LAYLA. 2013; 310(1 9): 2061- 2068 (http ://ed ucati on.Qu estDi My eStore [employer]. com/f aq/FA Q164) Not Available [address], [address], 03/28/2024 03:16:22 03/27/2003/28/2024 LIPID PANEL , STAND NIYAH chol/HDLC ratio 2.6 (calc ) <5.0 normal Not Available [address], [address], 03/28/2024 03:16:22 03/27/20 24 03/28/2024 LIPID PANEL , STAND NIYAH non HDL cholesterol 99 mg/dL _(zahida c) <130 normal For patie nts with diabe faye plus 1 major ASCVD risk facto r, treat ing to a non-H DL-C goal of <100 mg/dL (LDL- C of <70 mg/dL ) is consi bertha a odette woodsono n. Not Available [address] [address] [place], [address], 03/28/2024 03:16:22 03/27/20 24 03/28/2024 COMPR EHENS RONALD METAB OLIC PANEL glucose 83 mg/dL 65-99 normal Fasti ng refer ence inter nirali Not Available [employer] [address] [address] [place], [address], 03/28/2024 03:16:25 03/27/20 24 03/28/2024 COMPR EHENS RONALD METAB OLIC PANEL urea nitrogen (BUN) 21 mg/dL 7-25 normal Not Available [address] [address] [place], [address], 03/28/2024 03:16:25 03/27/20 24 03/28/2024 COMPR EHENS RONALD METAB OLIC PANEL creatinine 0.84 mg/dL 0.50-1 .03 normal Not Available [address] [place], [address], 03/28/2024 03:16:25 03/27/20 24 03/28/2024 COMPR EHENS RONALD METAB OLIC PANEL eGFR 80 mL/mi n/1.7 3m2 > or = 60 normal Not Available [address], [address], 03/28/2024 03:16:25 03/27/20 24 03/28/2024 COMPR EHENS RONALD METAB OLIC PANEL BUN/creatini ne ratio SEE NOTE: (calc ) 6-22 Not Repor jemma: BUN and Creat inine are withi n refer ence range . Not Available [address], [address], 03/28/2024 03:16:25 03/27/20 24 03/28/2024 COMPR EHENS RONALD METAB OLIC PANEL sodium 139 mmol/ L 135-14 6 normal Not Available [address] [address] [place], [address], 03/28/2024 03:16:25 03/27/20 24 03/28/2024 COMPR EHENS RONALD METAB OLIC PANEL potassium 4.5 mmol/ L 3.5-5. 3 normal Not Available [address], [address], 03/28/2024 03:16:25 03/27/20 24 03/28/2024 COMPR EHENS RONALD METAB OLIC PANEL chloride 105 mmol/ L 98-110 normal Not Available [address], [address], 03/28/2024 03:16:25 03/27/20 24 03/28/2024 COMPR EHENS RONALD METAB OLIC PANEL carbon dioxide 28 mmol/ L 20-32 normal Not Available [address], [address], 03/28/2024 03:16:25 03/27/20 24 03/28/2024 COMPR EHENS RONALD METAB OLIC PANEL calcium 9.6 mg/dL 8.6-10 .4 normal Not Available [address], [address], 03/28/2024 03:16:25 03/27/20 24 03/28/2024 COMPR EHENS RONALD METAB OLIC PANEL protein, total 6.5 g/dL 6.1-8. 1 normal Not Available [address], [address], 03/28/2024 03:16:25 03/27/20 24 03/28/2024 COMPR EHENS RONALD METAB OLIC PANEL albumin 3.9 g/dL 3.6-5. 1 normal Not Available [address], [address], 03/28/2024 03:16:25 03/27/20 24 03/28/2024 COMPR EHENS RONALD METAB OLIC PANEL globulin 2.6 g/dL_ (calc ) 1.9-3. 7 normal Not Available [address], [address], 03/28/2024 03:16:25 03/27/20 24 03/28/2024 COMPR EHENS RONALD METAB OLIC PANEL albumin/glob ulin ratio 1.5 (calc ) 1.0-2. 5 normal Not Available [address], [address], 03/28/2024 03:16:25 03/27/20 24 03/28/2024 COMPR EHENS RONALD METAB OLIC PANEL bilirubin, total 0.4 mg/dL 0.2-1. 2 normal Not Available [address], [address], 03/28/2024 03:16:25 03/27/20 24 03/28/2024 COMPR EHENS RONALD METAB OLIC PANEL alkaline phosphatase 149 U/L 37-153 normal Not Available [facility] [employer] [address] [address] [place], [address], 03/28/2024 03:16:25 03/27/20 24 03/28/2024 COMPR EHENS RONALD METAB OLIC PANEL AST 127 U/L 10-35 high Not Available [address], [address], 03/28/2024 03:16:25 03/27/20 24 03/28/2024 COMPR EHENS RONALD METAB OLIC PANEL ALT 126 U/L 6-29 high Not Available [address], [address], 03/28/2024 03:16:25 03/27/20 24 03/28/2024 HEPAT IC FUNCT ION PANEL protein, total 6.5 g/dL 6.1-8. 1 normal Not Available [address], [address], 03/28/2024 03:16:26 03/27/20 24 03/28/2024 HEPAT IC FUNCT ION PANEL albumin 3.9 g/dL 3.6-5. 1 normal Not Available [address], [address], 03/28/2024 03:16:26 03/27/20 24 03/28/2024 HEPAT IC FUNCT ION PANEL globulin 2.6 g/dL_ (calc ) 1.9-3. 7 normal Not Available [employer] [address], [address], 03/28/2024 03:16:26 03/27/20 24 03/28/2024 HEPAT IC FUNCT ION PANEL albumin/glob ulin ratio 1.5 (calc ) 1.0-2. 5 normal Not Available [address], [address], 03/28/2024 03:16:26 03/27/20 24 03/28/2024 HEPAT IC FUNCT ION PANEL bilirubin, total 0.4 mg/dL 0.2-1. 2 normal Not Available [address], [address], 03/28/2024 03:16:26 03/27/20 24 03/28/2024 HEPAT IC FUNCT ION PANEL bilirubin, direct 0.1 mg/dL < or = 0.2 normal Not Available [address], [address], 03/28/2024 03:16:26 03/27/20 24 03/28/2024 HEPAT IC FUNCT ION PANEL bilirubin, indirect 0.3 mg/dL _(zahida c) 0.2-1. 2 normal Not Available [address], [address], 03/28/2024 03:16:26 03/27/20 24 03/28/2024 HEPAT IC FUNCT ION PANEL alkaline phosphatase 149 U/L 37-153 normal Not Available [address] [address] [place], [address], 03/28/2024 03:16:26 03/27/20 24 03/28/2024 HEPAT IC FUNCT ION PANEL AST 127 U/L 10-35 high Not Available [address], [address], 03/28/2024 03:16:26 03/27/20 24 03/28/2024 HEPAT IC FUNCT ION PANEL ALT 126 U/L 6-29 high Not Available [address], [address], 03/28/2024 03:16:26 03/27/20 24 03/28/2024 CBC (INCL UDES DIFF/ PLT) white blood cell count 4.9 thous and/u L 3.8-10 .8 normal Not Available [address], [address], 03/28/2024 03:16:27 03/27/20 24 03/28/2024 CBC (INCL UDES DIFF/ PLT) red blood cell count 3.99 shahida on/uL 3.80-5 .10 normal Not Available [address], [address], 03/28/2024 03:16:27 03/27/20 24 03/28/2024 CBC (INCL UDES DIFF/ PLT) hemoglobin 10.8 g/dL 11.7-1 5.5 low Not Available [address], [address], 03/28/2024 03:16:27 03/27/20 24 03/28/2024 CBC (INCL UDES DIFF/ PLT) hematocrit 35.5 % 35.0-4 5.0 normal Not Available [address], [address], 03/28/2024 03:16:27 03/27/20 24 03/28/2024 CBC (INCL UDES DIFF/ PLT) MCV 89.0 fL 80.0-1 00.0 normal Not Available [address], [address], 03/28/2024 03:16:27 03/27/20 24 03/28/2024 CBC (INCL UDES DIFF/ PLT) MCH 27.1 pg 27.0-3 3.0 normal Not Available [address], [address], 03/28/2024 03:16:27 03/27/20 24 03/28/2024 CBC (INCL UDES DIFF/ PLT) MCHC 30.4 g/dL 32.0-3 6.0 low For adult s, a sligh t decre ase in the calcu lated MCHC value (in the range of 30 to 32 g/dL) is most likel y not clini navdeep signi ficmina t; dilan er, it shoul d be inter prete d with cauti on in [facility] n with other red cell sumanth eters and the patie nt's clini zahida condi tion. Not Available [facility] [address], [address], 03/28/2024 03:16:27 03/27/20 24 03/28/2024 CBC (INCL UDES DIFF/ PLT) RDW 13.2 % 11.0-1 5.0 normal Not Available [address], [address], 03/28/2024 03:16:27 03/27/2003/28/2024 CBC (INCL UDES DIFF/ PLT) platelet count 306 thous and/u L 140-40 0 normal Not Available [facility] [address], [address], 03/28/2024 03:16:27 03/27/2003/28/2024 CBC (INCL UDES DIFF/ PLT) MPV 10.1 fL 7.5-12 .5 normal Not Available [facility] [address], [address], 03/28/2024 03:16:27 03/27/2003/28/2024 CBC (INCL UDES DIFF/ PLT) absolute neutrophils 2288 cells /uL 1500-7 800 normal Not Available [facility] [address], [address], 03/28/2024 03:16:27 03/27/20 24 03/28/2024 CBC (INCL UDES DIFF/ PLT) absolute lymphocytes 2038 cells /uL 850-39 00 normal Not Available [address], [address], 03/28/2024 03:16:27 03/27/2003/28/2024 CBC (INCL UDES DIFF/ PLT) absolute monocytes 343 cells /uL 200-95 0 normal Not Available [address] [address] [place], [address], 03/28/2024 03:16:27 03/27/2003/28/2024 CBC (INCL UDES DIFF/ PLT) absolute eosinophils 172 cells /uL 15-500 normal Not Available [address], [address], 03/28/2024 03:16:27 03/27/2003/28/2024 CBC (INCL UDES DIFF/ PLT) absolute basophils 59 cells /uL 0-200 normal Not Available [address] [place], [address], 03/28/2024 03:16:27 03/27/20 24 03/28/2024 CBC (INCL UDES DIFF/ PLT) neutrophils 46.7 % normal Not Available [address], [address], 03/28/2024 03:16:27 03/27/2003/28/2024 CBC (INCL UDES DIFF/ PLT) lymphocytes 41.6 % normal Not Available [address], [address], 03/28/2024 03:16:27 03/27/2003/28/2024 CBC (INCL UDES DIFF/ PLT) monocytes 7.0 % normal Not Available [address] [place], [address], 03/28/2024 03:16:27 03/27/20 24 03/28/2024 CBC (INCL UDES DIFF/ PLT) eosinophils 3.5 % normal Not Available [facility] [address] [address] [place], [address], 03/28/2024 03:16:27 03/27/20 24 03/28/2024 CBC (INCL UDES DIFF/ PLT) basophils 1.2 % normal Not Available [facility] [address] [address] [place], [address], 03/28/2024 03:16:27 03/27/20 24 03/28/2024 TSH TSH 2.78 mIU/L 0.40-4 .50 normal Not Available [facility] [address] [address] [place], [address], 03/28/2024 03:16:28 03/27/20 24 03/28/2024 HEMOG LOBIN A1C hemoglobin A1C 5.3 %_of_ total _HGB <5.7 normal For the purpo se of scree ruthie for the prese nce of diabe faye: <5.7% Consi stent with the absen ce of diabe faye 5.7-6 .4% Consi stent with incre ased risk for diabe faye (pred iabet es) > or =6.5% Consi stent with diabe faye This assay resul t is consi stent with a decre ased risk of diabe faye. Curre ntly, no conse nsus exist s zane phipps use of hemog lobin A1c for diagn osis of diabe faye in child stephanie. Accor ding to Ameri can Diabe faye Assoc iatio n (ADA) guide lines , hemog lobin A1c <7.0% repre sents optim al contr ol in non-p regna nt diabe tic patie nts. Diffe rent metri cs may apply to speci fic patie nt popul ation s. Stand ards of Medic al Care in Diabe faye(A DA). Not Available [facility] [address] [address] [place], [address], 03/28/2024 03:16:29 07/25/19 24 07/23/2023 polys omnog low, titra tion study No observ ation record ed. [facility] [place] [address] [facility] [facility], [place], [address], 07/25/2023 10:04:59 10/23/19 24 10/21/2023 XR, knee No observ ation record ed. [email or web address] [facility] [address], [place], [address], 11/02/2023 20:04:58 01/08/20 24 01/06/2024 US, pelvi s, trans abdom inal + trans vagin al No observ ation record ed. [email or web address] [facility] [address], [place], [address], 01/08/2024 09:25:12 03/10/20 24 03/10/2024 XR, upper gastr ointe deni l serie s No observ ation record ed. [email or web address] [facility] [address], [place], [address], 03/10/2024 17:14:04 04/30/20 24 04/29/2024 elect leslie taylorgr am No observ ation record ed. [email or web address] [facility] (Pulmonary) [address] [facility], [place], [address], 05/06/2024 22:13:08 Result Notes None recorded. Problems Name Problem SNOMED Code Status Onset Date Resolution Date Notes Provider Name and Address Organization Details Recorded Time Injury of knee 525526216 Completed Not Available [facility] 3 08:48:35 Acute sinusiti s 98333798 Completed Not Available [facility] 3 08:48:35 Anxiety state 296291772 Active Not Available [facility] 3 08:48:35 Abdomina l pain 65348960 Completed Not Available [facility] 3 08:48:35 Gastroes ophageal reflux disease 176998976 Active Not Available [facility] 3 08:48:36 Gastroen teritis 26245501 Completed Not Available [facility] 3 08:48:36 Edema 731839639 Completed Not Available [facility] 3 08:48:36 Anemia 623440279 Completed Obdulio Garcia MD [address] [facility] [address] [facility] [address], [place], [address] , [facility] [employer] 5 16:38:44 Malaise and fatigue 376078733 Completed Not Available [facility] 3 08:48:36 Hypertri glycerid emia 910560290 Active Not Available [facility] 3 08:48:36 Vitamin D deficien cy 90533313 Active Not Available [facility] 3 08:48:37 Depressi ve disorder 57568312 Active Not Available [facility] 3 08:48:37 Sinusiti s 78899245 Completed Not Available [facility] 3 08:48:37 Body mass index 40+ - severely obese 574701615 Active 2020 Not Available [facility] 3 08:48:37 Hypothyr oidism 58096788 Active Not Available [facility] 3 08:48:37 Type 2 diabetes mellitus 15317952 Completed Emily Herrera MD [address] [facility] [address] [facility] [facility] [address], [place], [address] , [facility] [employer] Tykli 4 13:47:57 Nonalcoh olic steatohe patitis 218879688 Active 2021 Not Available [facility] 3 08:48:38 Migraine with aura 6576845 Active 2021 Not Available [facility] 3 08:48:38 Upper respirat ory infectio n 01887251 Completed Not Available [facility] 3 08:48:38 Wheezing 21259499 Completed Not Available [facility] 3 08:48:39 Essentia l hyperten juanito 30941399 Active Not Available [facility] 3 08:48:39 History of bariatri c surgical procedur e 294620436 Active 2021 Not Available [facility] 3 08:48:39 Influenz a 7542562 Completed Not Available [facility] 3 08:48:39 Diabetes mellitus [id number] Completed Not Available [facility] 3 08:48:39 Obstruct ronald sleep apnea syndrome 00034390 Active 2020 No longer needs cpap due to weight loss Not Available [facility] 3 08:48:40 Bilatera l osteoart hritis of knees [id number] 9107 Active 2022 SHAY Colin [address], [address], [place], [address] , [employer] 3 13:24:34 Compress ion fracture of thoracic vertebra [id number] 04 Active 2022 Emily Herrera MD [address], [address], [place], [address] , [employer] 3 18:31:05 Type 2 diabetes mellitus 57413534 Active 2023 Emily Herrera MD [address], [address], [place], [address] , [employer] 4 13:47:57 Uterine fibroid polyp 555059730 Active 2023 JYOTSNA Jacobs [address], [address], [place], [address] , [employer] 4 10:31:59 Allergic rhinitis 16643909 Active 2023 JYOTSNA Jacobs [address], [address], [place], [address] , [employer] 4 10:49:33 Iron deficien cy anemia 62599381 Active 2023 JYOTSNA Jacobs [address], [place], [address] , [email or web address] [facility] 4 13:47:01 Notes:Medical History: Delay ed sleep phase syndrome Anxiety/Depression Migraine headaches Rhinitis with postnasal drip Obesity with mild OSAHS, AHI = 11, 03/25/23, on autoCPAP c/o IVRC Hypothyroidism Mixed hyperlipidemia Hypertension T2DM KAREEM Nonalcoholic steatohepatitis Uterine fibroid Iron deficiency anemia Vit D deficiency T12 compression fracture Thoracic levoscoliosis Thoracolumbar spondylosis Lumbar dextroscoliosis Bilateral knee OA Bilateral ulnar neuropathy Procedure History: Melanoma excision 1984 Cholecystectomy 1987 Left breast benign lumpectomy 1995 Gastric bypass surgery 2021 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 Procedures Surgical History Date Name Laterality Status Provider Name and Address Organization Details Recorded Time 04/08/20 colonoscopy completed Jody Yoo RN [employer] 04/27/2024 14:22:51 03/19/20 Medicare Wellness CPT Code, subsequent completed Jody Yoo RN [employer] 03/19/2024 14:33:38 01/25/20 Medicare Wellness CPT Code, subsequent completed Emily Herrera MD [address] [facility], [address], [address], [employer] 01/24/2023 15:32:45 07/04/19 Gastric Bypass completed Not Available [facility] 08/15/2022 08:43:42 other completed Not Available [facility] 08/15/2022 08:43:42 other completed Not Available [facility] 08/15/2022 08:43:42 Colonoscopy completed Not Available [facility] 08/15/2022 08:43:42 EGD completed Not Available [facility] 08/15/2022 08:43:42 Cholecystectomy completed Not Available [facility] 08/15/2022 08:43:42 Breast Biopsy completed Not Available [facility] 08/15/2022 08:43:42 Imaging Results Imaging Date Name Status LastModified by Organization Details LastModified Time 07/23/2023 polysomnogram, titration study completed [facility] [address] [place], [address], 07/25/2023 10:04:59 10/21/2023 XR, knee completed [address], [address], 11/02/2023 20:04:58 01/06/2024 US, pelvis, transabdominal + transvaginal completed [id number] [address], [place], [address], 01/08/2024 09:25:12 03/10/2024 XR, upper gastrointestinal series completed [address] [facility] [address], [place], [address], 03/10/2024 17:14:04 04/29/2024 electrocardiogram completed [address] ([facility]) [address] [place] [address] [address], [place], [address], 05/06/2024 22:13:08 Procedure Notes None recorded. Medical Equipment None Reported. Allergies Allergen ID Allergen Name Allergen Category Reaction Reaction Severity Criticality Documentation Date Start Date Code Code System Note Provider Name and Address Organization Details Recorded Time 19807 Zoloft medicatio n other Not available Not available 08/15/2022 74492 RxNorm SEIZU RE Not Available [facility] 3 08:52:40 23351 Voltaren medicatio n nausea Not available Not available 08/15/2022 51948 6 RxNorm Not Available [facility] 3 08:52:40 53149 vancomyci n medicatio n hives Not available Not available 08/15/2022 16262 RxNorm Not Available [facility] 3 08:52:40 39470 Toradol medicatio n vomiting Not available Not available 08/15/2022 28807 RxNorm Not Available [facility] 3 08:52:40 15994 Singulair medicatio n myalgias (muscle pain) Not available Not available 08/15/2022 58570 9 RxNorm muscl e weakn ess Not Available [facility] 3 08:52:40 77454 Monopril medicatio n cough Not available Not available 08/15/2022 65158 0 RxNorm Not Available [facility] 3 08:52:40 65868 Levaquin medicatio n nausea Not available Not available 08/15/2022 55886 2 RxNorm Not Available [facility] 3 08:52:40 62146 Invokana medicatio n dizziness Not available Not available 08/15/2022 98874 64 RxNorm Not Available [facility] 3 08:52:40 32192 cortisone medicatio n other Not available Not available 08/15/2022 2878 RxNorm SUNBU RN Not Available [facility] 3 08:52:41 06757 turkey allergeni c extract food Not available Not available Not available 10/18/2022 73948 9 RxNorm JASMEET Yun [place] [facility] [employer] 3 11:13:30 Medications Name Sig Start Date Stop Date Status Note LastModified by Organization Details LastModified Time eq gas relief cap TAKE 1 SOFTGEL BY MOUTH 4 TIMES DAILY 03/26 completed Not Available Not Available Not Available celecoxib 200 mg capsule Take 1 capsule every day by oral route for 90 days. active Not Available Not Available No t Available cyclobenz aprine 10 mg tablet TAKE 1 TABLET BY MOUTH THREE TIMES DAILY NEEDED FOR MUSCLE SPASM 06/27 completed Not Available Not Available Not Available potassium bicarbona te and chloride 25 mEq effervesc ent tablet Take 1 tablet every day by oral route. 07/06 completed Not Available Not Available Not Available metformin 500 mg tablet Take 2 tablet(s ) twice a day by oral route for 90 days. 01/26 completed Not Available Not Available Not Available Augmentin 875 mg-125 mg tablet Take 1 tablet every 12 hours by oral route for 7 days. active Not Available Not Available No t Available levothyro xine 175 mcg tablet TAKE 1 TABLET BY MOUTH ONCE DAILY 08/30 completed Not Available Not Available Not Available prednison e 10 mg tablet 03/26 completed Not Available Not Available Not Available doxycycli ne hyclate 100 mg capsule TAKE 1 CAPSULE BY MOUTH TWICE DAILY FOR 10 DAYS 03/26 completed Not Available Not Available Not Available ketoconaz ole 2 % shampoo APPLY TO SCALP THREE TIMES A WEEK 03/26 completed Not Available Not Available Not Available clindamyc in HCl 300 mg capsule TAKE 1 CAPSULE BY MOUTH EVERY 8 HOURS 07/05 completed Not Available Not Available Not Available Stool Softener 100 mg capsule TAKE 1 CAPSULE BY MOUTH ONCE DAILY 07/05 completed Not Available Not Available Not Available Maxalt-ML T 10 mg disintegr ating tablet Take 1 po at onset of headache , may repeat in 2 hours if headache remains, no more than 2 per day 10/31 completed Not Available Not Available Not Available azithromy yahaira 250 mg tablet Take 2 TABLET EVERY DAY by oral route for 1 day and then one tablet daily for 4 more days 07/06 completed Not Available Not Available Not Available tizanidin e 4 mg tablet TAKE 1 TABLET BY MOUTH THREE TIMES DAILY NEEDED 07/18 completed Not Available Not Available Not Available fluconazo le 150 mg tablet TAKE 1 TABLET BY MOUTH ONCE DAILY FOR 3 DAYS 03/26 completed Not Available Not Available Not Available liothyron ine 25 mcg tablet active Not Available Not Available Not Available valacyclo vir 1 gram tablet TAKE 2 TABLETS BY MOUTH TWICE DAILY FOR 1 DAY AT ONSET OF OUTBREAK 06/27 completed Not Available Not Available Not Available hydrocodo ne 5 mg-acetam inophen 325 mg tablet Take 1 tablet every 6 hours by oral route as needed. 07/29 completed PRN Not Available Not Available Not Available Nystop 100,000 unit/gram topical powder APPLY TO THE AFFECTED AREA(S) BY TOPICAL ROUTE 2 TIMES PER DAY 06/27 completed Not Available Not Available Not Available sucralfat e 100 mg/mL oral suspensio n TAKE 10 ML BY MOUTH 4 TIMES DAILY 06/27 completed Not Available Not Available Not Available Claritin 10 mg tablet Take 1 tablet every day by oral route in the morning for 30 days. 03/05 completed pt. stopped Not Available Not Available Not Available fluconazo le 200 mg tablet active Not Available Not Available Not Available meloxicam 15 mg tablet TAKE 1 TABLET BY MOUTH ONCE DAILY WITH FOOD 07/13 completed Not Available Not Available Not Available doxycycli ne hyclate 50 mg capsule TAKE 1 CAPSULE BY MOUTH EVERY 12 HOURS 07/05 completed Not Available Not Available Not Available clobetaso l 0.05 % topical cream APPLY A THIN LAYER TO THE AFFECTED AREA(S) 2 TIMES PER DAY 12/06 completed Not Available Not Available Not Available oxycodone 5 mg/5 mL oral solution 12/06 completed Not Available Not Available Not Available topiramat e 25 mg tablet active Not Available Not Available Not Available sulfameth oxazole 800 mg-trimet hoprim 160 mg tablet Take 1 tablet every 12 hours by oral route for 10 days. 03/13 completed Not Available Not Available Not Available omeprazol e 40 mg capsule,d elayed release TAKE 1 CAPSULE BY MOUTH ONCE DAILY active Not Available Not Available No t Available liothyron ine 5 mcg tablet TAKE 1 TABLET BY MOUTH ONCE DAILY 07/18 completed Not Available Not Available Not Available doxycycli ne monohydra te 100 mg tablet Take 1 tablet twice a day by oral route for 10 days. active Not Available Not Available No t Available tramadol 50 mg tablet Take 1 tablet by mouth four times daily as needed for pain active Not Available Not Available No t Available triamtere ne 37.5 mg-hydroc hlorothia zide 25 mg capsule active Not Available Not Available Not Available glimepiri de 2 mg tablet TAKE ONE TABLET BY MOUTH ONCE DAILY active Not Available Not Available No t Available levothyro xine 75 mcg tablet TAKE 1 TABLET BY MOUTH ONCE DAILY 03/26 completed Not Available Not Available Not Available prednison e 10 mg tablets in a dose pack Take 1 tab by mouth, 3 times a day for 3 daysTake 1 tab by mouth 2 times a day for 2 daysTake 1 tab by mouth once a day for 1 day 03/26 completed Not Available Not Available Not Available K-Efferve scent 25 mEq tablet 07/08 completed prn Not Available Not Available Not Available levothyro xine 100 mcg tablet Take 1 tablet every day by oral route. 09/25 completed Reduced to 50mcg d/t tsh <0.015 Not Available Not Available Not Available oxycodone -acetamin ophen 5 mg-325 mg tablet TAKE 1 TABLET BY MOUTH EVERY 6 HOURS NEEDED FOR PAIN active Not Available Not Available No t Available amoxicill in 875 mg tablet Take 1 tablet every 12 hours by oral route with meals for 7 days active Not Available Not Available No t Available alprazola m 0.25 mg tablet Take 1 tablet by mouth three times daily as needed active Not Available Not Available No t Available famotidin e 20 mg tablet TAKE 1 TABLET BY MOUTH AT BEDTIME 06/27 completed Not Available Not Available Not Available magnesium oxide 400 mg (241.3 mg magnesium ) tablet Take 1 tablet by mouth once daily 2023 active Not Available Not Available Not Avai lable metoclopr amide 5 mg tablet Take 1 tablet 4 times a day by oral route before meals. 07/14 completed taking 2 x's daily Not Available Not Available Not Available OneTouch Ultra Test strips USE 1 STRIP TO CHECK GLUCOSE THREE TIMES DAILY 10/18 completed Not Available Not Available Not Available Kenalog 10 mg/mL suspensio n for injection Take 20 mg by injectio n route. 03/26 completed [facility]: [phone] - Not Available Not Available Not Available levothyro xine 50 mcg tablet Take 1 tablet every day by oral route for 90 days. 11/26 completed Not Available Not Available Not Available cephalexi n 500 mg capsule TAKE 1 CAPSULE BY MOUTH EVERY 12 HOURS 07/05 completed Not Available Not Available Not Available paroxetin e 30 mg tablet TAKE TWO TABLETS BY MOUTH ONCE DAILY active Not Available Not Available No t Available paroxetin e 20 mg tablet 09/30 completed Not Available Not Available Not Available pantopraz ole 40 mg tablet,de layed release TAKE 1 TABLET BY MOUTH ONCE DAILY 06/27 completed Not Available Not Available Not Available Euthyrox 88 mcg tablet TAKE 1 TABLET BY MOUTH ONCE DAILY FOR 90 DAYS 07/18 completed Not Available Not Available Not Available cyanocoba esther (vit B-12) 1,000 mcg/mL injection solution INJECT 1CC WEEKLY X 4 THEN MONTHLY 10/31 completed Taking 1 po bid - oral suppleme nt Not Available Not Available Not Available levothyro xine 125 mcg tablet Take 2 tablets every day by oral route as directed for 90 days. active TO MUCH Not Available Not Available No t Available lansopraz ole 30 mg capsule,d elayed release TAKE 1 CAPSULE BY MOUTH ONCE DAILY active Not Available Not Available No t Available levothyro xine 150 mcg tablet Take 1 tablet every day by oral route for 30 days. 08/13 completed Not Available Not Available Not Available bupropion HCl 75 mg tablet Take 1 tablet twice a day by oral route. active Not Available Not Available No t Available Gas Relief Extra Strength 125 mg capsule TAKE 1 CAPSULE BY MOUTH 4 TIMES DAILY AFTER MEALS 07/14 completed Not Available Not Available Not Available gabapenti n 300 mg capsule TAKE 1 CAPSULE BY MOUTH THREE TIMES DAILY 10/18 completed Not Available Not Available Not Available omeprazol e 20 mg capsule,d elayed release TAKE 1 CAPSULE BY MOUTH TWICE DAILY 09/18 completed Not Available Not Available Not Available aspirin 81 mg chewable tablet Chew 2 tablets every day by oral route for 90 days. 12/06 completed Not Available Not Available Not Available monteluka st 10 mg tablet Take 1 tablet every day by oral route in the evening for 30 days. active Not Available Not Available No t Available levothyro xine 200 mcg tablet TAKE 1 TABLET BY MOUTH ONCE DAILY 01/30 completed Not Available Not Available Not Available furosemid e 20 mg tablet Take 1 tablet every day by oral route as needed. active Not Available Not Available No t Available gabapenti n 100 mg capsule TAKE 1 CAPSULE BY MOUTH TWICE DAILY active Not Available Not Available No t Available ergocalci ferol (vitamin D2) 1,250 mcg (50,000 unit) capsule TAKE 1 CAPSULE BY MOUTH ONCE A WEEK 07/29 completed Not Available Not Available Not Available levofloxa yahaira 500 mg tablet active Not Available Not Available No t Available methylpre dnisolone 4 mg tablets in a dose pack TAKE BY MOUTH DIRECTED ON INSIDE OF PACKAGE 02/01 completed Not Available Not Available Not Available paroxetin e 40 mg tablet TAKE ONE TABLET BY MOUTH ONCE DAILY 09/24 completed 60 mg Not Available Not Available Not Available One-A-Day Essential tablet Take 1 tablet every day by oral route. 03/26 completed Not Available Not Available Not Available clobetaso l 0.05 % scalp solution APPLY 2-3 DROPS TO RASH AREAS ON SCALP/RETANA IR LINE TWICE DAILY FOR 4 WEEKS (NO NOT APPLY TO FACE; MUST TAKE A 2 WEEK BREAK BEFORE RESTARTI NG) 07/05 completed Not Available Not Available Not Available ondansetr on 4 mg disintegr ating tablet DISSOLVE 1 TABLET IN MOUTH EVERY 6 HOURS NEEDED FOR NAUSEA AND VOMITING ALLOW TO DISSOLVE ON THE TONGUE 07/05 completed Not Available Not Available Not Available metformin ER 500 mg tablet,ex tended release 24 hr TAKE 2 TABLETS BY MOUTH IN THE MORNING AND 2 IN THE EVENING 12/06 completed Not Available Not Available Not Available doxycycli ne hyclate 100 mg tablet Take 1 tablet twice a day by oral route for 10 days. active Not Available Not Available No t Available dicyclomi ne 10 mg capsule TAKE 1 CAPSULE BY MOUTH 4 TIMES DAILY 03/19 completed Not Available Not Available Not Available levothyro xine 112 mcg tablet Take 2 tablets every day by oral route for 90 days. active Not Available Not Available No t Available amoxicill in 500 mg-potass ium clavulana te 125 mg tablet 06/11 completed Not Available Not Available Not Available Ventolin HFA 90 mcg/actua tion aerosol inhaler Inhale 2 puffs every 4 hours by inhalati on route as needed. active Not Available Not Available No t Available buspirone 15 mg tablet TAKE ONE TABLET BY MOUTH TWICE DAILY 07/29 completed Not Available Not Available Not Available oxycodone 5 mg tablet TAKE 1 TABLET BY MOUTH EVERY 4 HOURS NEEDED FOR PAIN UP TO 10 DOSES 12/31 completed Not Available Not Available Not Available olmesarta n 5 mg tablet Take 1 tablet by mouth once daily 2023 active Not Available Not Available Not Avai lable olmesarta n 20 mg tablet TAKE 1 TABLET BY MOUTH ONCE DAILY DIRECTED 12/31 completed Not Available Not Available Not Available enoxapari n 40 mg/0.4 mL subcutane ous syringe INJECT 40 MG (0.4 ML) SUBCUTAN EOUSLY ONCE DAILY active Not Available Not Available No t Available Lexapro 10 mg tablet Take 1 tablet every day by oral route for 30 days. active Not Available Not Available No t Available Lexapro 20 mg tablet Take 1 tablet every day by oral route for 30 days. active Not Available Not Available No t Available Abilify 15 mg tablet Take 0.5 tablets every day by oral route as directed for 90 days. 10/01 completed Not Available Not Available Not Available cyclobenz aprine 5 mg tablet 07/29 completed Not Available Not Available Not Available Abilify 5 mg tablet Take 1 tablet every day by oral route at bedtime. active Not Available Not Available No t Available topiramat e 50 mg tablet active Not Available Not Available Not Available [place] Milk of Magnesia 400 mg/5 mL oral suspensio n TAKE 30 ML BY MOUTH DAILY FOR 10 DAYS 03/26 completed Not Available Not Available Not Available nitrofura ntoin monohydra te/macroc rystals 100 mg capsule Take 1 capsule every 12 hours by oral route for 5 days. 12/06 completed Not Available Not Available Not Available pregabali n 75 mg capsule TAKE 1 CAPSULE BY MOUTH TWICE DAILY 07/18 completed Not Available Not Available Not Available chlorhexi dine gluconate 0.12 % mouthwash SWISH 1 CAPFUL IN MOUTH FOR ONE MINUTE THEN SPIT TWICE DAILY AFTER BRUSHING AND FLOSSING 02/01 completed Not Available Not Available Not Available multivita min 1 tab daily 04/05 completed Not Available Not Available Not Available Januvia 100 mg tablet Take 1 tablet every day by oral route. 02/01 completed Not Available Not Available Not Available triamcino lone acetonide 0.147 mg/gram topical aerosol APPLY TOPICALL Y TO SCALP THREE TIMES DAILY 03/26 completed Not Available Not Available Not Available peg 3350-elec trolytes 236 gram-22.7 4 gram-6.74 gram-5.86 gram solution TAKE DIRECTED PER WRITTEN INSTRUCT IONS MAILED FROM OFFICE 07/05 completed Not Available Not Available Not Available Synvisc-O ne 48 mg/6 mL intra-art icular syringe Take 6 mL by intraart icular route. 07/29 completed Not Available Not Available Not Available levothyro xine 25 mcg capsule Take 2 capsules every day by oral route for 90 days. 03/03 completed Not Available Not Available Not Available Vitamin D3 125 mcg (5,000 unit) tablet Take by oral route. active Not Available Not Available No t Available sodium,po tassium,m ag sulfates 17.5 gram-3.13 gram-1.6 gram oral soln 07/05 completed Not Available Not Available Not Available [facility] 1.5 billion cell capsule Take 1 capsule every day by oral route in the morning for 30 days. 12/06 completed Not Available Not Available Not Available ropivacai ne (PF) 5 mg/mL (0.5 %) injection solution Take 20 mg by injectio n route. 03/26 completed [facility] [id number] 09-15 Not Available Not Available Not Available Accu-Chek FastClix Lancing Device kit USE DIRECTED 10/18 completed Not Available Not Available Not Available Taclonex 0.005 %-0.064 % topical suspensio n active Not Available Not Available Not Available Invokana 100 mg tablet Take 1 tablet every day by oral route. 07/06 completed Not Available Not Available Not Available Creon 36,000 unit-114, 000 unit-180, 000 unit capsule,d elayed release ADMINIST ER 2 CAPSULES BY MOUTH WITH MEALS AND 1 CAPSULE WITH SNACKS active Not Available Not Available No t Available tavaborol e 5 % topical solution with applicato r APPLY TO AFFECTED NAILS DAILY FOR 48 WEEKS 07/05 completed Not Available Not Available Not Available Belsomra 10 mg tablet Take 1 tablet every day by oral route at bedtime. 04/23 completed Not Available Not Available Not Available Flonase Allergy Relief 50 mcg/actua tion nasal spray,lilly pension Inhale 2 sprays every day by intranas al route. 2023 active Not Available Not Available Not Avai lable naloxone 4 mg/actuat ion nasal spray active Not Available Not Available Not Available Accu-Chek Fastclix Lancet Drum USE 1 TO CHECK GLUCOSE THREE TIMES DAILY 10/18 completed Not Available Not Available Not Available Tirosint- Mili 112 mcg/mL oral solution TAKE 1 ML BY MOUTH DAILY active Not Available Not Available No t Available Accu-Chek Guide Me Glucose Meter USE DIRECTED 10/18 completed Not Available Not Available Not Available Rybelsus 3 mg tablet Take 1 tablet every day by oral route. 11/10 completed Not Available Not Available Not Available Gas Relief (simethic one) 250 mg capsule 1 po q6 hours prn 07/05 completed Not Available Not Available Not Available Fluzone Quad (PF) 60 mcg (15 mcg x 4)/0.5 mL IM syringe PHARMACI ST ADMINIST ERED IMMUNIZA TION ADMINIST ERED AT TIME OF DISPENSI NG 04/11 completed Not Available Not Available Not Available Ozempic 1 mg/dose (4 mg/3 mL) subcutane ous pen injector Inject 1 mg every week by subcutan eous route. 2024 active Not Available Not Available Not Avai lable alpha-d-g alactosid ase 400 unit tablet Take 2 tablets 4 times a day by oral route for 90 days. 03/19 completed Not Available Not Available Not Available Ozempic 0.25 mg or 0.5 mg (2 mg/3 mL) subcutane ous pen injector 0.25 mg sc qweek 06/23 completed Not Available Not Available Not Available Vitals Date Recorded Body height Body mass index (BMI) Body weight Body temperature Heart rate Oxygen saturation Oxygen saturation in Arterial blood by Pulse oximetry Systolic blood pressure Diastolic blood pressure Provider Name and Address Organization Details Last Updated DateTime 4 167.64 cm 31.7 kg/m2 99693.8 2 g 98.2 [degF] 66 /min 98 % 98 % 106 mm[Hg] 62 mm[Hg] Karine Gutierrez MA [facility] [employer] [facility] 4 09:17:47 Date Recorded Heart rate Respiratory rate Provider N genaro and Address Organization Details Last Updated DateTime 07/29/2023 66 /min 15 /min Obdulio Garcia MD [address] [facility], [facility] [address], [place], [address], [facility] [employer] 07/29/2023 09:36:21 Date Recorded Body height Body mass index (BMI) Body weight Body temperature Heart rate Oxygen saturation Oxygen saturation in Arterial blood by Pulse oximetry Systolic blood pressure Diastolic blood pressure Provider Name and Address Organization Details Last Updated DateTime 4 167.64 cm 31.6 kg/m2 42269.1 g 97.2 [degF] 70 /min 98 % 98 % 142 mm[Hg] 80 mm[Hg] Jody Yoo RN [facility] [employer] [facility] 14:22:14 Date Recorded Body height Body mass index (BMI) Body weight Oxygen saturation Oxygen saturation in Arterial blood by Pulse oximetry Heart rate Systolic blood pressure Diastolic blood pressure Provider Name and Address Organization Details Last Updated DateTime 4 167.64 cm 31.5 kg/m2 62602.5 1 g 95 % 95 % 71 /min 120 mm[Hg] 74 mm[Hg] Jody Yoo RN [facility] [employer] [facility] 4 14:12:23 Date Recorded Body temperature Provider Name a nd Address Organization Details Last Updated DateTime 09/19/2023 97.8 [degF] Emily Herrera MD [address] [address], [place], [address], [facility] [employer] 09/19/2023 14:33:10 Date Recorded Body height Body mass index (BMI) Body weight Body temperature Heart rate Oxygen saturation Oxygen saturation in Arterial blood by Pulse oximetry Systolic blood pressure Diastolic blood pressure Provider Name and Address Organization Details Last Updated DateTime 4 167.64 cm 28.6 kg/m2 31342.8 5 g 98 [degF] 76 /min 98 % 98 % 130 mm[Hg] 76 mm[Hg] Jody Yoo RN [facility] [employer] [facility] 4 10:22:36 Date Recorded Body height Body mass index (BMI) Body weight Body temperature Heart rate Oxygen saturation Oxygen saturation in Arterial blood by Pulse oximetry Systolic blood pressure Diastolic blood pressure Provider Name and Address Organization Details Last Updated DateTime 4 167.64 cm 28.4 kg/m2 70995.2 6 g 98 [degF] 74 /min 98 % 98 % 126 mm[Hg] 74 mm[Hg] Jody Yoo RN [facility] [employer] [facility] 4 14:37:23 Date Recorded Body height Body mass index (BMI) Body weight Body temperature Heart rate Oxygen saturation Oxygen saturation in Arterial blood by Pulse oximetry Systolic blood pressure Diastolic blood pressure Provider Name and Address Organization Details Last Updated DateTime 5 167.64 cm 30.3 kg/m2 31092.3 7 g 97.5 [degF] 61 /min 98 % 98 % 134 mm[Hg] 70 mm[Hg] Jody Yoo RN [facility] 5 14:03:52 Social History Question Answer Notes LastModified by Organizat ion Details LastModified Time Tobacco Smoking Status Never Smoker CAYLA Arriaga, BA - [place] [employer] 07/18/2023 15:43:53 What Is Your Level Of Alcohol Consumption? None [id number] Information not available 08/15/2022 What Is Your Level Of Caffeine Consumption? Occasional [id number] Information not available 08/15/2022 In The 14 Days Before Symptom Onset, Have You Had Close Contact With A Laboratory-confir med COVID-19 While That Case Was Ill? No Information not available 07/18/2023 In The 14 Days Before Symptom Onset, Have You Had Close Contact With A Person Who Is Under Investigation For COVID-19 While That Person Was Ill? No Information not available 07/18/2023 Are You Currently Employed? No Information not available 07/29/2023 What Type Of Diet Are You Following? REGULAR Information not available 07/29/2023 Which Illicit Or Recreational Drugs Have You Used? None [email or web address] Information not available 07/18/2023 Do You Have An Electrostatic Air Filter? No Information not available 07/18/2023 Do You Have A Humidifier? No Has But Doeos Not Use Information not available 07/29/2023 Do You Have Moisture Problems In Your Home? No Information not available 07/18/2023 What Was The Date Of Your Most Recent Tobacco Screening? 06/27/2022 [email or web address] Information not available 07/18/2023 Do You Have Any Pets? Yes Dog Lives Inside The Home [email or web address] Information not available 07/18/2023 Do You Use Your Seat Belt Or Car Seat Routinely? Yes Information not available 07/18/2023 Do You Have Smoke And Carbon Monoxide Detectors In Your Home? Yes Information not available 07/18/2023 Are You Passively Exposed To Smoke? No Information no t available 07/18/2023 Do You Feel Stressed (tense, Restless, Nervous, Or Anxious, Or Unable To Sleep At Night)? [id number] Information not available 07/18/2023 Do You Use Any Illicit Or Recreational Drugs? No [email or web address] Information not available 07/18/2023 Do You Use Sunscreen Routinely? Yes [employer] Information not available 07/18/2023 Has Tobacco Cessation Counseling Been Provided? No [email or web address] Information not available 07/18/2023 Have You Recently Traveled Abroad? Yes [employer] Information not available 07/18/2023 Do You Have Any Dietary Restrictions? No [employer] Information not available 07/29/2023 Do You Or Have You Ever Used Any Other Forms Of Tobacco Or Nicotine? No [email or web address] Information not available 07/18/2023 Sex: Unknown Functional Status Question Answer Note LastModified by Organizat ion Details LastModified Time What is your exercise level? None [id number] Information not available 08/15/2022 Mental Status None recorded. Family History Relationship Description Onset Age of this Age Resolved Age Notes LastModified by Organization Details LastModified Time Mother Hypertensive disorder [id number] Not available 08/15/2022 08:43:44 Maternal Grandmother Diabetes mellitus [id number] Not available 08/15/2022 08:43:44 Paternal Grandfather Cerebrovascu lar accident [email or web address] Not available 0 07/18/2023 15:43:53 Father Angiosarcoma [email or web address] Not av ailable 07/18/2023 15:43:53 Father Leiomyosarco ma [email or web address] Not available 2023 16:23:31 Mother Complication of anesthesia [email or web address] Not available 06/2023 15:43:53 Sister Heart disease [email or web address] Not available 2023 16:22:28 Sister Malignant tumor of lung [email or web address] Not available 2023 16:23:11 Brother Obstructive sleep apnea syndrome [email or web address] Not available 2023 16:22:14 Brother Primary squamous cell carcinoma of tonsillar fossa [email or web address] Not available 2023 16:23:01 Brother Malignant neoplasm of liver [email or web address] Not available 2023 16:23:20 Medical History Condition Response ARTHRITIS Y THYROID DISEASE Y ULCERS Y HEADACHES/MIGRAINES Y SEIZURES/EPILEPSY Y DIABETES, TYPE Y HEARTBURN / REFLUX Y HYPERTENSION Y CANCER: SPECIFY Y ANEMIA/BLOOD DISORDER Y PNEUMONIA Y HEPATITIS / LIVER DISEASE Y BRONCHITIS Y BACK / NECK PROBLEMS Y SLEEP DISORDER Y FEMALE PROBLEMS / INFECTIONS Y DEPRESSION (INCLUDING POST ) Y Gynecological HistoryNo gynecological history recorded. Obstetrics History GPAL:G 0 P 0 0 0 0 Immunizations Vaccine Type Date Status Note Provider Nam e and Address Organization Details Recorded Time Tdap 3 completed Jody Yoo RN null, [place] - [place] [employer] 11/05/2022 14:33:46 Influenza, split virus, trivalent, PF 3 completed Not Available [facility] 08/15/2022 08:52:34 COVID-19, mRNA, LNP-S, PF, 30 mcg/0.3 mL dose 1 completed Not Available [facility] 08/15/2022 08:52:34 Influenza, split virus, quadrivalent, preservative 2 completed Not Available [facility] 08/15/2022 08:52:34 COVID-19, mRNA, LNP-S, PF, 30 mcg/0.3 mL dose 1 completed Not Available [facility] 08/15/2022 08:52:35 Influenza, split virus, quadrivalent, preservative 0 completed Not Available [facility] 08/15/2022 08:52:35 Tdap 8 completed Not Available [facility] 08/15/2022 08:52:35 Influenza, split virus, trivalent, preservative 6 completed Not Available [facility] 08/15/2022 08:52:35 Influenza, split virus, trivalent, preservative 5 completed Not Available [facility] 08/15/2022 08:52:35 Influenza, split virus, trivalent, preservative 4 completed Not Available [facility] 08/15/2022 08:52:35 Influenza, split virus, trivalent, preservative 2 completed Not Available [facility] 08/15/2022 08:52:35 pneumococcal polysaccharide PPV23 9 completed Not Available [facility] 08/15/2022 08:52:35 Hep B, adult 7 completed Not Available [facility] 08/15/2022 08:52:35 Hep B, adult 7 completed Not Available [facility] 08/15/2022 08:52:35 Td (adult) 5 completed Not Available [facility] 08/15/2022 08:52:36 Tdap 8 completed Not Available [facility] 08/15/2022 08:52:36 Influenza, split virus, quadrivalent, PF 1 completed Not Available [facility] 08/15/2022 08:52:36 Past Encounters Encounter ID Performer Location Encounter Start Date Encounter Closed Date Diagnosis/Indication Diagnosis SNOMED-CT Code Diagnosis ICD10 Code Diagnosis Note [id number] [facility] Dileep lldre [address] [place] [address] 10/31/2020 00:00:00 10/31/2020 15:49:24 [id number] [facility] D[place]ep [place] [address] 11/30/2020 00:00:00 11/30/2020 16:52:16 [id number] [facility] [place] [address] 02/01/2021 00:00:00 02/01/2021 10:55:45 [id number] [facility] Dileep lldre [facility] [place] [address] 03/08/2021 00:00:00 03/08/2021 13:56:33 [id number] [facility] [place] [address] [place] [address] 04/17/2021 00:00:00 04/17/2021 16:13:06 [id number] [facility] [place] [address] [place] [address] 07/26/2021 00:00:00 07/26/2021 16:33:13 [id number] [facility] [place] [address] [place] [address] 08/30/2021 00:00:00 08/30/2021 09:57:16 [id number] [facility] [place] [address] [place] [address] 09/25/2021 00:00:00 09/28/2021 09:29:04 [id number] [facility] [place] [address] [place] [address] 09/27/2021 00:00:00 09/27/2021 15:46:57 [id number] [facility] [place] [address] [place] [address] 10/05/2021 00:00:00 10/05/2021 11:08:56 [id number] [facility] [place] [address] [place] [address] 12/06/2021 00:00:00 12/06/2021 13:49:13 [id number] [facility] [place] [address] [place] [address] 12/06/2021 00:00:00 12/06/2021 16:22:33 [id number] [facility] [place] [address] [place] [address] 02/15/2022 00:00:00 02/15/2022 17:15:11 [id number] [facility] [place] [address] [place] [address] 04/23/2022 00:00:00 04/23/2022 11:23:32 [id number] [facility] [place] [address] [facility] [address] [place] [address] 06/27/2022 00:00:00 07/11/2022 12:22:51 [id number] [facility] [place] [address] [facility] [address] [place] [address] 08/09/2022 00:00:00 08/12/2022 15:36:05 [id number] [facility] [place] [facility] [address] [facility] [address] [place] [address] 08/13/2022 00:00:00 08/13/2022 16:10:10 [id number] Emily Herrera MD [facility] Primary Care [facility] [address] [facility] [address] [place] [address] 09/20/2022 16:50:08 09/20/2022 17:28:53 [id number] SHAY Krause [facility] [address] [facility] [address] [place] [address] 2022 10:17:16 2022 10:59:03 Hypothyroidism 12632864 E03.9 TSH <0.015 (09/20/22). Levothyrox ine reduced to 50mcg.Repe at 4 weeks. History of bariatric surgical procedure 146587154 Z98.84 She is seeing plastic surgeon (Dr. Ree ortiz ([facility]) Fax: [phone] /Phone: ) for excess skin removal, has tentative date for surgery scheduled for 12/11/22. She states she has been very uncomforta ble due to the excess skin. States it is also causing paresthesi a. Paresthesi a of bilateral hands [id number] R20.2 Ring and pinky fingers bilaterall y.Will evaluate further after plastic surgery if symptoms still not improved with NCS. [id number] SHAY Colin [facility] [place] [address] [place] [address] 10/18/2022 11:02:17 10/18/2022 12:18:22 Pain of right knee joint 9242891192 53914 M25.561 Pain of le ft knee joint 1219805283 19856 M25.562 Bilateral osteoarthritis of knees 6257488568 36789 M17.0 [id number] Emily Herrera MD [facility] Primary [facility] [place] [address] [facility] [address] [place] [address] 11/05/2022 14:01:18 11/05/2022 14:31:08 Active or passive immunization 493287361 Z23 [id number] SHAY Colin [facility] [place] [address] [place] [address] 12/20/2022 14:33:53 12/20/2022 15:05:38 Bilateral osteoarthritis of knees 3525742563 40021 M17.0 Pain in right knee 57733 03730 14781 M25.561 Pain of le ft knee joint 6379228369 53502 M25.562 [id number] Emily Herrera MD [facility] Primary [facility] [place] [address] [place] [address] [address] [place] [address] 12/31/2022 15:18:12 12/31/2022 16:08:53 Hypothyroidism 11453351 E03.9 currently on levothyrox ine 75 mcg dailyreche ck labs at next apptadd cytomel 5 mcg daily (she felt good on this in the past) Candidal intertrigo 2661 74694 B37.2 needs further skin removal surgery Cellulitis 822861937 L03 .90 has healing wound from surgery on buttocks Essential hypertension 50048673 I10 has been decreased since her surgery Screening mammography 24 145975 Z12.31 [id number] Emily Herrera MD [facility] Primary [facility] [place] [address] [place] [address] [address] [place] [address] 01/21/2023 12:54:12 01/22/2023 08:49:58 [id number] Emily Herrera MD [facility] Primary [facility] [place] [address] [facility] [address] [place] [address] 01/24/2023 15:04:23 01/24/2023 15:55:43 Adult health examination 081182163 Z00.00 Mammogram normal 3DEXA orderedHas completed shingrix vaccine seriesHas received prevnar 20Pneumova x 23 at age 64Flu vaccine yearlyCovi d booster this fallCologu niyah normal 10/2020 repeat 2023 Excessive skin and subcutaneous tissue 210681716 L98.7 Postmenopausal state 764 04546 Z78.0 [id number] ASHANTI LarkinC [facility] Primary Care [place] [address] [place] [address] 03/04/2023 11:06:46 03/15/2023 04:07:17 [id number] ASHANTI LarkinC [facility] [place] [address] [place] [address] 03/18/2023 14:10:28 03/18/2023 14:27:58 [id number] YOLIS [facility] [place] [address] [place] [address] 04/29/2023 13:59:58 04/29/2023 15:08:00 Obstructive sleep apnea syndrome 75394638 G47.33 Home study 01/02/21 with AHI 19.In lab titration in January with no PLMS and best pressure 11 cm [id number] set up 03/03/21Re peat home study 03/2023 positive with AHI 11Order today for all new supplies and mask fitSetting s to APAP 5-15, changed in ResmedShe should follow up in [address] Walt de la rosa 100% compliance with all sleepFollo w with PCM for labsAdvise d good sleep habits and patterns:- Set a goal for at least 7 to 8 hours of sleep time per day.-Use the bed mainly for sleep and to go to bed only when tired. If unable to fall asleep after 30 minutes, patient should get out of bed but should not engage in any activity that requires sustained mental alertness. -Maintain a regular bedtime and wake-up time even on weekends or days off of work.-Avoi d excessive naps during the daytime. If a nap is necessary, limit it to no more than 30minutes. -Minimize environmen derrick noise, bright lights, and extremes in bedroom temperatur e.-Avoid alcohol, caffeinate d beverages, and nicotine products for at least 6 hours prior to bedtime.-A void strenuous exercise and large meals for at least 4 hours prior to bedtime. [id number] Emily Herrera MD [facility] Primary Care [address] [address] 07/03/2023 12:39:51 07/03/2023 17:51:03 [id number] Obdulio Garcia MD [address] [address] 07/18/2023 15:41:13 07/19/2023 15:37:21 Obstructive sleep apnea syndrome 56738100 G47.33 [id number] Obdulio Garcia MD [address] [address] 07/29/2023 09:07:27 07/30/2023 08:51:35 Obstructive sleep apnea syndrome 32597540 G47.33 [id number] Emily Herrera MD [facility] [address] [address] 07/29/2023 14:15:29 07/29/2023 15:02:58 Hypothyroidism 70034018 E03.9 currently on levothyrox ine 75 mcg dailyreche ck labs at next apptadd cytomel 5 mcg daily (she felt good on this in the past) update 07/29/23: repeat labs Renewal of prescription 525439072 Z76.0 Essential hypertension 78963362 I10 History of bariatric surgical procedure 022716808 Z98.84 Vitamin D deficiency 347 65796 E55.9 Screening for malignant neoplasm of colon 874339230 Z12.11 Hyperglycemia 98474677 R 73.9 Hyperlipid emia screening 602637449 Z13.701 [id number] Emily Herrera MD [facility] Primary Care [address] [address] 09/19/2023 14:06:26 09/19/2023 14:57:40 Pain of bilateral knee joints 2927979821 70339 M25.561 M25.562 Abdominal bloating 78394 9008 R14.0 Needs refill, stable Osteoarthritis 870553869 M19.90 stablerefi ll givenf/u in 6 months Gastroesop hageal reflux disease without esophagitis 613101034 K21.9 stable refill given [id number] JYOTSNA Jacobs [facility] Primary Care [facility] [address] [facility] [address] [place] [address] 01/02/2024 10:16:03 01/02/2024 11:19:10 Uterine fibroid polyp 786804698 D25.9 Compressio n fracture of thoracic vertebra 3815260564 104 M48.54XA Type 2 angelo betes mellitus 21766597 E11.9 Allergic rhinitis 593767 04 J30.9 [id number] JYTOSNA Jacobs [facility] Primary Care [address] [place] [address] 03/19/2024 14:27:51 03/19/2024 15:25:22 Adult health examination 214983911 Z00.00 Discussed medication compliance and routine follow up.Discuss ed healthy diet and routine exercise.Blanche rayawed vaccine records and made recommenda tions as needed.Enc ouraged annual eye and dental exams, as well as twice yearly dental cleanings. Will check screening labs as listed below. Screening for disorder 493582881 Z13.9 Essential hypertension 93596904 I10 Gastroesop hageal reflux disease 038446953 K21.9 Hypothyroidism 63295516 E03.9 Type 2 angelo betes mellitus 21771548 E11.9 Osteoarthritis 347176688 M19.[address] refill 01/29/24UDS will be collected at next appt. Multiple joint pain 3567 8005 M25.50 Allergic rhinitis 022931 04 J30.9 Hypomagnesemia 832667165 E83.42 Mixed anxi ety and depressive disorder 849377852 F41.8 [id number] JYOTSNA Jacobs [facility] Primary Care [facility] [address] [facility] [address] [place] [address] 06/23/2024 13:55:36 06/23/2024 14:48:19 Osteoarthritis 550593808 M19.90 Anemia 329526102 D64.9 Mixed anxi ety and depressive disorder 097552682 F41.8 Type 2 angelo betes mellitus 46994762 E11.9 Memory impairment 926211 006 R41.3 Health Concerns Section Related Observation LastModified by Organization Detai ls LastModified Time None Recorded Concern Status LastModified by Organization Details LastModified Time None Recorded Advance Directives Directive None Recorded Payers Encounter Date Sequence Insurance Name Policy Number Policy Oneal Covered Member ID Oneal Member ID Guarantor Name 07/29/2023 1 [employer] (MEDICARE REPLACEMENT HMO) [id number] Hanna L Nora [id number] Hanna L Nora 09/19/2023 1 [employer] (MEDICARE REPLACEMENT HMO) [id number] Hanna L Nora [id number] Hanna L Nora 01/02/2024 1 [employer] (MEDICARE REPLACEMENT HMO) [id number] Hanna L Nora [id number] Hanna L Nora 03/19/2024 1 [employer] (MEDICARE REPLACEMENT HMO) [id number] Hanna L [place] [id number] Hanna L Nora 06/23/2024 1 [facility] (MEDICARE REPLACEMENT/AD VANTAGE - HMO) [id number] Hanna L [place] [id number] Hanna L Nora Notes Date Note Type Note Provider Name and Address Organization Details Recorded Time 07/29/2023 text/html doesn't feel wel l, can't sleep due to paintakes tramadol bid, needs an additional dose Emily Herrera MD [address] [place] [address], [id number], [facility] [employer] [facility] 08/15/2023 17:49:39 07/29/2023 text/html Primary care/Ref erring provider: Emily Herrera MD [phone] During the [facility] home sleep study on 01/02/21, AHI = 19. During the [facility] titration sleep study on 02/03/21, a [employer] small AirFit F30 full face mask @ 11 cmH2O was applied. During the [facility] home sleep study on 03/25/23, AHI = 11, supine AHI = 12. During the [facility] titration sleep study on 07/23/23, the patient uses a [employer] AirSense 11 autoset unit with heated humidification. The patient does not need the ramp to start low and go up slowly on the pressure anymore. There is some xerostomia in a.m. There is no hose/mask condensation with water.The patient wears a [employer] small AirFit F30 full face mask @ 10 cmH2O without chin strap. There is no claustrophobia, no nostril/nose bridge irritation, no facial rash, no facial numbness, no nosebleeding. The patient feels more refreshed upon waking and daytime alertness is improved. Energy levels are sustained until late afternoon, around 5 pm. At home, the patient sleeps from 6 am to 12 pm and wakes up without an alarm. Snoring: moderate, since 1980s.Snorting: noChoking: yesCoughing: yesGasping: noGagging: noSighing: noWitnessed apnea: yesTwitching or jerking of leg(s), arm(s), body, head: noTeeth grinding: noTeeth clenching: noSleeptalking: noSleepwalking: noSleep crying: yesBedwetting: noTongue/lip/gum/cheek biting: noSleeping with open mouth: yesSleep paralysis: noHypnagogic hallucinations: noHypnopompic hallucinations: noVivid dreams: yesDifficulty with sleep onset: yesDifficulty with sleep maintenance: yesSleep interruptions: bodily achesPatient wakes up with: fatigue, xerostomia, sore throat, hoarse voice, headaches, cognitive impairment, mobility impairmentDaytime cataplexy: noMorning hypersomnolence: yesAfternoon hypersomnolence: yesCaffeine sources in diet: coffee 1/2 cup per day, tea 1/2 gallon per day Associated medical and psychiatric conditions:Congestive heart failure: noCoronary artery disease: noMyocardial infarction: noHypertension: yesStroke: noBronchial asthma: noChronic obstructive pulmonary disease: noDepression: yesBipolar disorder: noAnxiety: yesPanic disorder: noPosttraumatic stress disorder: noAttention deficit and hyperactivity disorder: noObsessive Compulsive disorder: noSchizophrenia: noSchizoaffective disorder: noPersonality disorder: noChronic analgesic use: yes tramadolChronic sedative/hypnotic use: no EPWORTH SLEEPINESS SCALE (ESS) CHANCE OF DOZING SCORE0 = would never doze1 = slight chance of dozing2 = moderate chance of dozing3 = high chance of dozing SITUATION AND CHANCE OF DOZINGSitting and reading - 1Watching television - 0Sitting inactive in a public place (e.g. a theater or meeting) - 0As a passenger in a car for an hour without a break - 2Lying down to rest in the afternoon when circumstances permit - 0Sitting and talking to someone - 0Sitting quietly after lunch without alcohol - 0In a car, while stopped for a few minutes in the traffic - 0TOTAL SCORE 3Subjectively, patient has a slight chance of dozing. Obdulio Garcia MD [address] [place] [address], [place], [address], [employer] 07/29/2023 09:39:29 09/19/2023 text/html doesn't feel wel l, can't sleep due to paintakes tramadol bid, needs an additional dose 09/19/23: took a bite of yogurt on Saturday of this week, it did not taste right so she spit most of it out. Within a few hours, she had vomiting and diarrhea. Yesterday she was able to drink gatorade and chicken broth. She has several upcoming surgeries after massive weight loss for breast lift and skin removal on arms and torso and in January will have skin removal in hips and abdomen and May skin removal in legs. She Emily Herrera MD [address], [facility] [address], [place], [address], [employer] 10/06/2023 20:03:42 01/02/2024 text/html Patient is a 58 year old female that presents to the office for a follow up. Patient reports she had a CT scan done yesterday that shows a hiatal hernia, fracture to T-spine and uterine fibroids. Patient reports she is already established with GI and will be contacting them regarding the hiatal hernia. Patient needs a referral to neurosurgery. Patient also needs US ordered for uterine fibroids as recommended by CT scan. Patient also complains of sinus pain and bleeding. 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 Patient denies chest pain and shortness of breath. JYOTSNA Jacobs [address], [address], [place], [address], [employer] 01/02/2024 11:06:48 03/19/2024 text/html Patient is a 58 year old female that presents to the office for Medicare wellness. Patient reports she is doing well considering everything she has been through over the last four years. Patient's biggest concern at this time is the amount of gas that she is producing that is causing her to be unable to eat normal amounts of food. Patient is working with [facility] on this issue, recently had a barium swallow completed that made her extremely sick. She is scheduled for an Endoscopy and Colonoscopy on April 08. Patient is scheduled for D&C on April 03 due to Fibroids, if this does not help then she will have a hysterectomy later this year. Patient recently had surgery to remove excess skin in her abdominal area, is scheduled to have excess skin of legs removed in May. Patient is requesting a letter of medical necessity to continue having procedures at [facility]. Letter needs to be faxed to Dr. Calero's office. Patient reports due to medical history, the anesthesiologist does not think it is safe for her to have surgeries there however her Diabetes, hypothyroidism and hypertension have been well managed since her weight loss. Patient wants to continue with [facility] rather than the hospital because it is $150 cheaper for each surgery and she is financially struggling with everything. labs-orderedmammogram- UTDcolonoscopy-schedul ed in [id number]-[id number]-[id number] -[id number] Aguilera [address], [address], [place], [address], [employer] 03/20/2024 13:08:05 06/23/2024 text/html Patient is a 58 year old female that presents to the office for follow-up. 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 Patient requesting referral to [facility] in [place] due to noticing mild short term memory issues and dementia runs in her family. Patient is unsure if the short term memory loss is related to dementia or if it is related to her worsening depression. Patient requesting depression medication to be adjusted due to increased depression with current health state. Patient states I thought losing weight would help me be healthy but it has not, it is problem after problem and I tired of it . Patient reports GI specialist stopped her Ozempic due to being on Creon and decreasing the effectiveness by 10%, patient is requesting to restart Ozempic because she is hungry all the time and has gained about 20 pounds. Patient states she felt better overall while taking Ozempic. Sees plastic surgeon tomorrow, was given Gabapentin but is not tolerating it well. Depression is not well controlled on current dose of Paroxetine. Denies SI/HI. Juanita Lemons, PEDIATRIC NURSE PRACTITIONER-C [address] [facility], [facility] [address], [place], [address], [place] [facility] [employer] [facility] 06/23/2024 22:37:23 OBGyn Episode No OBEpisode recorded.
== END 2024-07-04 09:32 | disposition home or self-care (01) ==
PROVIDERS: Visit Provider Nurse Practitioner
DX: R94.5 Abnormal results of liver function studies (principal); Z90.49 Acquired absence of other specified parts of digestive tract
CPT/HCPCS: 76705

== ENCOUNTER 2024-09-22 15:37 | Outpatient (CLI) | payer MEDICARE, SELFPAY ==
[2024-09-22 15:55] LABS: Basophils Percent Auto 0.5 % (0.2-1.2); Eosinophils Absolute Auto 0.1 K/mm3 (0-0.3); Eosinophils Percent Auto 1.5 % (0-4.4); Hematocrit 32.1 % (37.0-47.0); Immature Granulocyte Absolute 0.02 K/mm3 (0.00-0.031); Immature Granulocyte Percent A 0.3 % (0-0.5); Lymphocytes Absolute Auto 2.99 K/mm3 (0.9-3.2); Lymphocytes Percent Auto 38.5 % (18.3-44.2); Mean Corpuscular HGB Conc 31.2 g/dl (32-36); Mean Corpuscular Hemoglobin 24.6 pg (26-34); Mean Corpuscular Volume 79.1 fl (80-100); Monocytes Absolute Auto 0.7 K/mm3 (0.1-0.6); Monocytes Percent Auto 8.4 % (2.6-8.5); Neutrophils Percent Auto 50.8 % (45.5-73.1); Platelet Count Result 284 k/mm3 (150-375); Red Blood Count 4.06 M/mm3 (4.2-5.4); Red Cell Distribution Width 14.8 % (11.5-14.5); White Blood Count 7.8 K/mm3 (4.5-10.0)
--- OUTSIDE RECORDS SUMMARY | 2024-09-22 16:51 | XMS_ITS | Referral Summary ---
Author Organization [facility] Address [address] [place] [address] Care Team Providers Care Fur Dry Cleaner Name Role Phone Juanita Lemons NP Primary Care Provider Encounters Date Type Department Care Team Description 08/26/2024 2:00 PM CDT Office Visit [facility] [address] [facility] [address] [place] [address] [place] [address] Rhianna Campbell MD PhD Memory loss from Last 3 Months Allergies Active Allergy Reactions Criticality Noted Date Comments Canagliflozin Dizziness Low 12/30/2020 Cephalexin Urticaria Medium 12/17/2023 Cortisone Redness Low 12/30/2020 Diclofenac Nausea only,Nausea A nd Vomiting Low 12/30/2020 Food Extracts Anaphylaxis High 08/02/2011 Anaphylaxis when digests turkey Fosinopril Cough Low 12/30/2020 Gabapentin Dizziness,Headache Low 11/13/2022 Ketorolac Nausea And Vomiting,Vomiting Medium 08/02/2011 Levofloxacin Nausea only,Nausea A nd Vomiting Low 12/30/2020 Montelukast Nausea & Vomiting,Ot her (See comments) Low 12/30/2020 Sertraline Shortness of breath,Swelling,Seizures High 09/17/2015 [place] Anaphylaxis High 12/30/2020 [place] Other (See comments) 08/26/2024 Vancomycin Hives,Itching,Rash,S hortn ess of breath,Swelling,Urticaria High 08/03/2011 Medications celecoxib (CeleBREX) 200 mg capsuleIndication s:Arthritis Take 1 capsule (200 mg total) by mouth every morning Active ergocalciferol (VITAMIN D) 50,000 unit capsuleIndication s:Vitamin D Deficiency Take 1 capsule (50,000 Units total) by mouth once a week Takes on Mondays 016 Active fluconazole (DIFLUCAN) 200 mg tabletIndications :Prophylaxis, Medical Take 1 tablet (200 mg total) by mouth once a week Takes on Mondays Active ketoconazole (NIZORAL) 2 % shampoo Apply 1 Application topically 2 (two) times a week Active magnesium oxide (MAG-OX) 400 mg (241.3 mg elemental magnesium) tabletIndications :hypomagnesemia Take 1 tablet (400 mg total) by mouth every morning Active olmesartan (BENICAR) 20 mg tabletIndications :hypertension Take 1 tablet (20 mg total) by mouth every morning Active omeprazole (PriLOSEC) 20 mg capsule Take 1 capsule (20 mg total) by mouth 2 (two) times a day Active PARoxetine (PAXIL) 30 mg tabletIndications :depression Take 2 tablets (60 mg total) by mouth every morning 016 Active triamcinolone (KENALOG) 0.147 mg/gram topical sprayIndications: Skin Inflammation Apply 1 Application topically every other day Active traMADoL (ULTRAM) 50 mg tabletIndications :Pain Take 1 tablet (50 mg total) by mouth 2 (two) times a day 023 Active simethicone (MYLICON) 125 mg chewable tabletIndications :Flatulence Take 1 tablet (125 mg total) by mouth 4 (four) times a day 023 Active senna (SENOKOT) 8.6 mg tabletIndications :constipation Take 3 tablets by mouth 2 (two) times a day Active bisacodyL 5 mg tabletIndications :constipation Take 5 mg by mouth 2 (two) times a day Active docusate sodium (DOK) 100 mg tabletIndications :constipation Take 3 tablets (300 mg total) by mouth 2 (two) times a day Active acetaminophen ER (TYLENOL) 650 mg 8 hr tabletIndications :Arthritic Pain Take 1 tablet (650 mg total) by mouth nightly Active multivitamin-min- iron-FA-vit K (Bariatric Multivitamins) 45 mg iron- 800 mcg-120 mcg capsuleIndication s:Vitamin Deficiency Prevention Take 1 tablet by mouth every morning Active oxyCODONE (ROXICODONE) 5 mg immediate release tabletIndications :Pain Take 1 tablet (5 mg total) by mouth every 4 (four) hours as needed for pain 18 tablet 023 Active senna (SENOKOT) 8.6 mg tablet Take 1 tablet by mouth daily 30 tablet 023 Active oxyCODONE (ROXICODONE) 5 mg immediate release tabletIndications :Pain Take 1 tablet (5 mg total) by mouth every 4 (four) hours as needed for pain for up to 10 doses 10 tablet 023 Active magnesium hydroxide (MILK OF MAGNESIA) suspension 400 mg/5 mL Take 30 mL (2,400 mg total) by mouth daily for 10 days 300 mL 023 Active levothyroxine (SYNTHROID) 75 mcg tablet Take 1 tablet (75 mcg total) by mouth daily 023 Active enoxaparin (LOVENOX) 40 mg/0.4 mL syringe enoxaparin 40 mg/0.4 mL subcutaneous syringe Active ondansetron ODT (ZOFRAN-ODT) 4 mg disintegrating tablet Take 1 tablet (4 mg total) by mouth every 8 (eight) hours as needed for nausea or vomiting 20 tablet 023 Active cholecalciferol (VITAMIN D-3) 5,000 unit tablet Take by oral route. Active buPROPion XL (WELLBUTRIN XL) 150 mg 24 hr tablet 025 Active gabapentin (NEURONTIN) 100 mg capsule Take 1 capsule (100 mg total) by mouth 2 (two) times a day Active lansoprazole (PREVACID) 30 mg capsule Take 1 capsule (30 mg total) by mouth daily Active levoFLOXacin (LEVAQUIN) 500 mg tablet Active pancrelipase (Creon) 36,000 units of lipase capsule ADMINISTER 2 CAPSULES BY MOUTH WITH MEALS AND 1 CAPSULE WITH SNACKS Active semaglutide (Ozempic) 1 mg/dose (4 mg/3 mL) pen injector injection Inject 1 mg every week by subcutaneous route. 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 Gender Identity Not on file Sexual Orientation Not on file Last Filed Vital Signs Vital Sign Reading Time Taken Comments Blood Pressure 146/84 08/26/2024 1:39 PM CDT Pulse 86 08/26/2024 1:39 PM CDT Temperature 36.3 C (97.3 F) 11/18/2022 8:06 AM CDT Respiratory Rate 19 11/18/2022 8:06 AM CDT Oxygen Saturation 97% 11/18/2022 8:06 AM CDT Inhaled Oxygen Concentration - - Weight 81.6 kg (180 lb) 08/26/2024 1:39 PM CDT Height 167.6 cm (5' 6 ) 08/26/2024 1:39 PM CDT Body Mass Index 29.05 08/26/2024 1:39 PM CDT Plan of Treatment Not on file Procedures Procedure Name Priority Date/Time Associated Diagnosis Comments EGFR Routine 11/13/2022 12:21 PM CDT Preop testing POCT HEMOGLOBIN A1C Routine 11/13/2022 1 1:16 AM CDT from Last 3 Months or Most Recently Relevant to Health Maintenance Results * (ABNORMAL) eGFR (11/13/2022 12:21 PM CDT) eGFR 63(L) 90 - 130 mL/min/1. 73 m2 [facility] Comment: Interpretive Data Reference Interval Normal >/= 90 mL/min/1.73m2 Mildly decreased* 60 - 89 mL/min/1.73m2 Mildly to moderately decreased 45 - 59 mL/min/1.73m2 Moderately to severely decreased 30 - 44 mL/min/1.73m2 Severely decreased 15 - 29 mL/min/1.73m2 Kidney Failure < 15 mL/min/1.73m2 *Relative to young adult level Estimated glomerular [...] 1 PM CDT 11/13/2022 12:51 PM CDT us Nithya Oconnor NP LAB BLOOD ORDERABLES Judy l Result Performing Organization Address [facility] de Phone Number [facility] [place] [address] * POCT hemoglobin A1c (11/13/2022 11:16 AM CDT) Hgb A1C, POC 4.9 4.0 - 5.6 % [facility] Est Average Gluc POC 94 mg/dL [facility] Comment: The ADA recommends reporting an estimated Average Glucose (eAG) with all Hemoglobin A1c results using the equation derived from a study of 507 normal and diabetic adults. Minority populations were underrepresented and children were not included. (Diabetes Care 31:2051-0622, 2008). The eAG is not equivalent to a fasting glucose. Blood 11/13/2022 11:1 6 AM CDT 11/13/2022 11:16 AM CDT us Ree Greene MD POINT OF CARE TEST OR DERABLES Final Result Performing Organization Address [facility] Co de Phone Number [facility] [place] [address] from Last 3 Months or Most Recently Relevant to Health Maintenance Insurance UHC MEDICARE ADVANTAGE AETNA MEDICARE GOLD AETNA MEDICARE GOLD Advance Directives For more information, please contact: [phone] * Full Code (Latest Code Status on File) Date Activated Date Inactivated Comments 11/15/2022 6:20 PM 11/18/2022 6:51 PM Care Teams Fur Dry Cleaner Relationship Specialty Start Date End Date Juanita Lemons NP [address] [place] [address] [place] [address] PCP - General Family Medicine 07/15/24
--- OUTSIDE RECORDS SUMMARY | 2024-09-22 16:52 | XMS_ITS | Encounter Summary ---
Author Organization [facility] Address [address] [place] [address] Care Team Providers Care Coater Slate Name Role Phone Regina Ovalles MD Primary Care Provider +1- [phone] Encounter Details Date Type Department Care Team (Late Contact Info) Description 02/01/2003 Outpatient Historical [facility] Internal Medicine [address] 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 Gender Identity Not on file Sexual Orientation Not on file documented as of this encounter Plan of Treatment Upcoming Encounters Date Type Department Care Team (Late Contact Info) Description 09/30/2024 4:15 PM CDT Telephone Check Up [facility] Oncology and Hematology - [place] [address] [facility] [address] [place] [address] Malcolm Shay MD [address] [facility] [address] [place] [address] documented as of this encounter Visit Diagnoses Not on filedocumented in this encounter Care Teams Coater Slate Relationship Specialty Start Date End Date Regina Ovalles MD [address] [place] [address] PCP - General 06/03/15 documented as of this encounter
--- OUTSIDE RECORDS SUMMARY | 2024-09-22 16:52 | XMS_ITS | Encounter Summary ---
Author Organization [facility] Address [address] [place] [address] Care Team Providers Care After School Program Assistant Name Role Phone Regina Ovalles MD Primary Care Provider +1- [phone] Encounter Details Date Type Department Care Team (Late Contact Info) Description 02/01/2003 Outpatient Historical [facility] Internal Medicine [address] 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 Gender Identity Not on file Sexual Orientation Not on file documented as of this encounter Plan of Treatment Upcoming Encounters Date Type Department Care Team (Late Contact Info) Description 09/30/2024 4:15 PM CDT Telephone Check Up [facility] Oncology and Hematology - [place] [address] [facility] [address] [place] [address] Malcolm Shay MD [address] [facility] [address] [place] [address] documented as of this encounter Visit Diagnoses Not on filedocumented in this encounter Care Teams After School Program Assistant Relationship Specialty Start Date End Date Regina Ovalles MD [address] [place] [address] PCP - General 06/03/15 documented as of this encounter
--- OUTSIDE RECORDS SUMMARY | 2024-09-22 16:52 | XMS_ITS | Encounter Summary ---
Author Organization [facility] Address [address] [place] [address] Care Team Providers Care Back End Developer Name Role Phone Regina Ovalles MD Primary Care Provider +1- [phone] Encounter Details Date Type Department Care Team (Late Contact Info) Description 02/01/2003 Outpatient Historical [facility] Internal Medicine [address] 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 [address] [place] [address] documented as of this encounter Visit Diagnoses Not on filedocumented in this encounter Care Teams Back End Developer Relationship Specialty Start Date End Date Regina Ovalles MD [address] [place] [address] PCP - General 06/03/15 documented as of this encounter
--- OUTSIDE RECORDS SUMMARY | 2024-09-22 16:52 | XMS_ITS | Encounter Summary ---
Author Organization [facility] Address [address] [place] [address] Care Team Providers Care Pharmacy Sales Representative Name Role Phone Regina Ovalles MD Primary Care Provider [phone]- [phone] Encounter Details Date Type Department Care Team (Late Contact Info) Description 10/02/2002 Outpatient Historical [facility] Internal Medicine [address] 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 Gender Identity Not on file Sexual Orientation Not on file documented as of this encounter Plan of Treatment Upcoming Encounters Date Type Department Care Team (Late Contact Info) Description 09/30/2024 4:15 PM CDT Telephone Check Up [facility] Oncology and Hematology - [place] [address] [facility] [address] [place] [address] Malcolm Shay MD [address] [facility] [address] [place] [address] documented as of this encounter Visit Diagnoses Not on filedocumented in this encounter Care Teams Pharmacy Sales Representative Relationship Specialty Start Date End Date Regina Ovalles MD [address] [place] [address] PCP - General 06/03/15 documented as of this encounter
--- OUTSIDE RECORDS SUMMARY | 2024-09-22 16:52 | XMS_ITS | Encounter Summary ---
Author Organization [facility] Address [address] [place] [address] Care Team Providers Care Translational Specialist Name Role Phone Regina Ovalles MD Primary Care Provider +1- [phone] Encounter Details Date Type Department Care Team (Late Contact Info) Description 08/03/2002 Outpatient Historical [facility] Internal Medicine [address] 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 Gender Identity Not on file Sexual Orientation Not on file documented as of this encounter Plan of Treatment Upcoming Encounters Date Type Department Care Team (Late Contact Info) Description 09/30/2024 4:15 PM CDT Telephone Check Up [facility] Oncology and Hematology - [place] [address] [facility] [address] [place] [address] Malcolm Shay MD [address] [facility] [address] [place] [address] documented as of this encounter Visit Diagnoses Not on filedocumented in this encounter Care Teams Translational Specialist Relationship Specialty Start Date End Date Regina Ovalles MD [address] [place] [address] PCP - General 06/03/15 documented as of this encounter
--- OUTSIDE RECORDS SUMMARY | 2024-09-22 16:52 | XMS_ITS | Clinical Summary ---
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 Gender Identity Not on file Sexual [...] Vaccine ( season) 2024 03/24/2021, 08/06/2020, 07/16/2020 DTaP, Tdap and Td Vaccines (5 - Td or Tdap) 11/05/2032 11/05/2022, 01/27/2018, 01/22/2018, Additional history exists Pneumococcal Vaccine: Pediatrics (0 to 5 Years) and At-Risk Patients (6 to 64 Years) Aged Out 03/17/2010, 06/17/2008 No longer eligibl e based on patient's age to complete this topic Meningococcal B Vaccine Aged Out No l onger eligible based on patient's age to complete this topic Meningococcal Vaccine Aged Out No abraham hemant eligible based on patient's age to complete this topic RSV Immunizations Under 20 Months Aged Out No longer eligible based on patient's age to complete this topic Insurance AETNA Care Teams Rewinder Operator Relationship Specialty Start Date End Date Juanita Lemons FNP [address] [place] [address] [address] [place] [address] PCP - General NURSE PRACTITIONER 01/22/24
--- OUTSIDE RECORDS SUMMARY | 2024-09-22 16:52 | XMS_ITS | Encounter Summary ---
Author Organization [facility] Address [address] [place] [address] Care Team Providers Care Sales Support Engineer Name Role Phone Regina Ovalles MD Primary Care Provider [phone]- [phone] Encounter Details Date Type Department Care Team (Late Contact Info) Description 06/24/2002 Outpatient Historical [facility] Internal Medicine [address] 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 Gender Identity Not on file Sexual Orientation Not on file documented as of this encounter Plan of Treatment Upcoming Encounters Date Type Department Care Team (Late Contact Info) Description 09/30/2024 4:15 PM CDT Telephone Check Up [facility] Oncology and Hematology - [place] [address] [facility] [address] [place] [address] Malcolm Shay MD [address] [facility] [address] [place] [address] documented as of this encounter Visit Diagnoses Not on filedocumented in this encounter Care Teams Sales Support Engineer Relationship Specialty Start Date End Date Regina Ovalles MD [address] [place] [address] PCP - General 06/03/15 documented as of this encounter
--- OUTSIDE RECORDS SUMMARY | 2024-09-22 16:52 | XMS_ITS | Encounter Summary ---
Author Organization [facility] Address [address] [place] [address] Care Team Providers Care Cna Hha Name Role Phone Regina Ovalles MD Primary Care Provider [phone]- [phone] Encounter Details Date Type Department Care Team (Late Contact Info) Description 05/31/2003 Outpatient Historical [facility] Internal Medicine [address] 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 Gender Identity Not on file Sexual Orientation Not on file documented as of this encounter Plan of Treatment Upcoming Encounters Date Type Department Care Team (Late Contact Info) Description 09/30/2024 4:15 PM CDT Telephone Check Up [facility] Oncology and Hematology - [place] [address] [facility] [address] [place] [address] Malcolm Shay MD [address] [facility] [address] [place] [address] documented as of this encounter Visit Diagnoses Not on filedocumented in this encounter Care Teams Cna Hha Relationship Specialty Start Date End Date Regina Ovalles MD [address] [place] [address] PCP - General 06/03/15 documented as of this encounter
--- OUTSIDE RECORDS SUMMARY | 2024-09-22 16:52 | XMS_ITS | Clinical Summary ---
Author Organization [facility] Address [address] [place] [address] Care Team Providers Care Geriatric Nurse Practitioner Name Role Phone Denise Cope PRISCILA-BRIDGE MAINTAINER Primary Care Provider + Source Comments [facility],non-owned Affiliates and Associated Physician Practices is amultiple site organization consisting of ambulatory clinics and hospital sitesin [place], [place], [place] and [place]. This disclosure is being madepursuant to the Care Everywhere program and may not contain all information available regarding this patient. Last updated 18.[facility] Allergies Active Allergy Reactions Criticality Noted Date Comments Canagliflozin Dizziness 12/30/2020 Cephalexin Urticaria Medium 12/17/2023 Cortisone Other 12/30/2020 Diclofenac Epolamine Nausea and/or Vomiting Fosinopril Cough 12/30/2020 Ketorolac Tromethamine Nausea and/or Vomiting Medium 0 08/02/2011 Levofloxacin Nausea and/or Vomiting 12/30/2020 Montelukast Other 12/30/2020 Sertraline Other,Seizures High 09/17/2015 Ketorolac Vomiting 12/30/2020 [place] Anaphylaxis High 12/30/2020 Vancomycin Urticaria,Itching,Ra sh,Shortne ss [...] once daily Active ergocalciferol (DRISDOL) 1.25 MG (40217 UT) capsule Take 1 (one) capsule by [...] ONCE DAILY FOR 30 DAYS Active Nystop 002226 UNIT/GM powder APPLY POWDER TOPICALLY TO AFFECTED [...] LURIA, FLUZONE TRIVALENT; 6MO+) (IIV3) 03/22/2016,03/28/2015,03/19/2014,2011,04/17/2011 [employer] primary monoval ent 12+ yr 0.3mL Purple [...] 72 12/17/2023 12:56 PM CDT Temperature 36.4 C (97.6 F) 12/17/2023 12:56 PM CDT Respiratory Rate 20 02/16/2022 1:40 PM CDT Oxygen Saturation 98% 12/17/2023 12:56 PM CDT Inhaled Oxygen Concentration - - Weight 78.9 kg (174 lb) 12/17/2023 12:56 PM CDT Height 165.1 cm (5' 5 ) 08/24/2022 11:15 AM 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 Body Mass Index 28.96 08/24/2022 11:15 AM 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 Plan of Treatment Upcoming Encounters Date Type Department Care Team (Late st Contact Info) Description 11/11/2024 2:00 PM CDT Office Visit [facility] [address] [place] [address] Mary Strong MD [address] [place] [address] [address] [place] [address] Health Maintenance Due Date Last Done Comments COLON MONITORING 1964 COLONOSCOPY - COLON CA SCREENING 1964 CT COLONOGRAPHY - COLON CA SCREENING 1964 FIT - COLON CA SCREENING 1964 FLEX SIG - COLON CA SCREENING 1964 LIPID TESTING 1964 MAMMOGRAM 1964 PAP SMEAR 1964 HIV SCREENING 10/02/1979 HEPATITIS C SCREENING 09/27/1982 HEPATITIS B VACCINE (3 of 3 - 19+ 3-dose series) 12/24/2006 08/26/2006, 06/26/2006 ZOSTER VACCINE (1 of 2) 2014 PNEUMOCOCCAL VACCINE 50+ (3 of 3 - PCV20 or PCV21) 03/17/2015 03/17/2010, 06/17/2008 COVID-19 VACCINE ( season) 2024 11/06/2021, 03/24/2021, 08/06/2020, Additional history exists DEPRESSION SCREENING 06/17/2024 INFLUENZA VACCINE (Season Ended) 2025 03/28/2022, 03/08/2021, 04/11/2020, Additional history exists COLOGUARD (AGES 45-75) - COLON CA SCREENING 11/19/2026 11/20/2023 Colorectal Cancer Screening 11/19/2026 DTAP/TDAP/TD VACCINES (5 - Td or Tdap) 01/28/2028 01/27/2018, 01/22/2018, 08/03/2011, Additional history exists HIB VACCINE Aged Out No longer eligi ble based on patient's age to complete this topic HPV VACCINE Aged Out No longer eligi ble based on patient's age to complete this topic MENINGOCOCCAL (Group B) VACCINE SHARED DECISION-MAKING Aged Out No longer eligible based on patient's age to complete this topic MENINGOCOCCAL GROUPS A/C/Y/W VACCINE Aged Out No longer eligible based on patient's age to complete this topic Advance Directives * Full Code (Latest Code Status on File) Date Activated Date Inactivated Comments 01/24/2022 8:11 PM 01/26/2022 1:18 PM * Full Code Date Activated Date Inactivated Comments 07/03/2021 11:58 AM 07/04/2021 5:41 PM Care Teams Geriatric Nurse Practitioner Relationship Specialty Start Date End Date Denise Cope APRN-BRIDGE MAINTAINER [address] [place] [address] [address] [place] [address] PCP - General Nurse Practitioner 12/23/20
--- OUTSIDE RECORDS SUMMARY | 2024-09-22 16:52 | XMS_ITS | Continuity of Care Document ---
Author Organization [facility] Address [address] [place] [address] [place] [address] Phone Care Team Providers Care [employer] Technology Teacher Name Role Phone Harshad Davies DO Unavailable Unavailable Advance Directives Directive Yes / No Effective Date File Name No Information Encounters Encounter Description Practice Location Reason(s) For Visit Diagnoses Date Provider Providers Copied on Encounter [facility], [address], [place], [place], [id number], [place] tel:[phone] [facility] No Information Samson Roach. [address] [facility], [place], [address], [place]. tel:[phone] Family History Family Member Type Diagnosis Age At Onset No Information Payers Payer name Insurance type Covered libertarian ID Authoriza tion(s) No Information Social History [...]
--- OUTSIDE RECORDS SUMMARY | 2024-09-22 16:52 | XMS_ITS | Data Portability ---
Author Organization [place] - [facility] [place], Main Office Address [address] [place] [address] Assessment No assessment recorded. Plan of Treatment Reminders Order Date Submit Date Provider Last Modified By Organization Details Last Modified Time Details Appointments Follow Up 30 2024 02:00P Ramana Lemons NP Not available Not available Not available Lab HbA1c (hemoglob in A1c), blood 2023 [facility], [address], [place], [address], 03/28/2024 03:16:29 CMP, serum or plasma 2023 [facility], [address], [place], [address], 03/28/2024 03:16:25 hepatic function panel, serum 2023 [facility], [address], [place], [address], 03/28/2024 03:16:26 CBC w/ auto diff 2023 [facility], [address], [place], [address], 03/28/2024 03:16:27 lipid panel, serum 2023 [facility], [address], [place], [address], 03/28/2024 03:16:22 TSH, serum or plasma 2023 [facility], [address], [place], [address], 03/28/2024 03:16:[address] referral - Please call patient to schedule an appointme nt. Thank you. 2024 025 [email or web address] [facility], [address], [address], [place], [address], 07/22/2024 08:50:05 hematolog ist referral - Please call patient to schedule an appointme nt. Thank you. 2024 025 [email or web address] Malcolm Shay MD, [address], [place], [address], 07/22/2024 08:49:33 neurologi zahida surgeon referral - Please call patient to schedule an appointme nt. Thank you. 2023 024 [email or web address] Neurosurgery [facility], [address], [address], [place], [address], 01/31/2024 08:32:46 orthopedi c surgeon referral - Please call patient to schedule an appointme nt. Thank you. 2023 024 [email or web address] Giuseppe Patel MD, [address], [address], [place], [address], 10/18/2023 08:48:42 Procedures None recorded. Surgeries None recorded. Imaging US, pelvis, transabdo daya + transvagi nal - *Please call pt to schedule* 2023 024 JOH[facility], [address], [address], [place], [address], 01/08/2024 07:35:57 Medication Orders Ozempic 1 mg/dose (4 mg/3 mL) subcutane ous pen injector 2024 025 [facility]X [facility], [address] [place], [address], 08/18/2024 15:35:22 bupropion HCl XL 150 mg 24 hr tablet, extended release 2024 [facility], [address] , [place], [address], 08/18/2024 15:05:57 tramadol 50 mg tablet 2024 025 [facility], [address], [place], [address], 06/23/2024 14:41:42 Ozempic 1 mg/dose (4 mg/3 mL) subcutane ous pen injector 2024 [facility], [address] [place], [address], 06/23/2024 14:45:24 bupropion HCl 75 mg tablet 2024 025 CRESTED BUTTE [facility], [address], [address], [id number], 06/23/2024 14:41:36 tramadol 50 mg tablet 2023 024 [facility], [address], [place], [address], 03/20/2024 13:01:32 Flonase Allergy Relief 50 mcg/actua tion nasal spray,lilly pension 2023 024 [facility], [address], [place], [address], 03/20/2024 13:01:25 magnesium oxide 400 mg (241.3 mg magnesium ) tablet 2023 024 [facility], [address], [place], [address], 03/20/2024 13:01:25 paroxetin e 30 mg tablet 2023 024 [facility], [address], [place], [address], 03/20/2024 13:01:26 olmesarta n 5 mg tablet 2023 024 [email or web address] [facility]25, [address], [place], [address], 03/20/2024 13:05:30 celecoxib 200 mg capsule 2023 024 [facility], [address], [place], [address], 03/20/2024 13:01:27 Flonase Allergy Relief 50 mcg/actua tion nasal spray,lilly pension 2023 024 [facility], [address], [place], [address], 01/02/2024 10:50:56 Ozempic 1 mg/dose (4 mg/3 mL) subcutane ous pen injector 2023 024 ATHENAFAX [facility], [address] [place], [address], 01/02/2024 10:55:21 Gas Relief (simethic one) 250 mg capsule 2023 024 [email or web address] [facility], [address], [place], [address], 07/05/2024 16:36:40 alpha-d-g alactosid ase 400 unit tablet 2023 024 [email or web address] 77 [facility], [address] , [place], [address], 03/19/2024 14:35:48 tramadol 50 mg tablet 2023 024 JOHAN [facility] [address], [address], [place], [address], 09/19/2023 14:54:35 omeprazol e 40 mg capsule,d elayed release 2023 [facility]ANKWAKU [facility], [address], [place], [address], 09/19/2023 14:54:20 Patient TargetsNo targets recorded. Patient Instructions Encounter Date Encounter Id Patient Instructions Last Modified By Organization Details Last Modified Time 03/19/2024 [id number] dementia rating scale-2* [email or web address] Not available 03/20/2024 13:01:16 multi-dimensiona l health assessment questionnaire* [email or web address] Not available 03/20/2024 13:01:16 care plan* [email or web address] Not available 09/2023 13:01:16 advance directiv es: care instructions [email or web address] Not available 03/20/2024 13:01:16 advance care planning: care instructions [email or web address] Not available 03/20/2024 13:01:16 [place] Advance Directives [email or web address] Not available 03/20/2024 13:01:[address] [facility] Plan and Screening Recommendations Advance Directives - [...] ronald diagnosis, Continue current treatment plan Diabetes: Active diagnosis, Continue current treatment plan Secondary Prevention/Interven tion (detects treatable diseases before they may cause symptoms, disability, or ) Breast Cancer Screening with mammogram: Cervical/Uterine/Ov jarrod Cancer Screening: Osteoporosis Screening: Date Screening Last Performed: Colon Cancer Screening: Date Screening Last Performed: Eye Disease Screening: Dementia Risk: Depression Screening: Active diagnosis, Continue current treatment plan [email or web address] Not available 03/19/2024 14:33:37 Reason for Referral Orthopedic Surgeon Referral for Pain of bilateral knee joints Please call patient to schedule an appointment. Thank you. Referring Physician: Emily Herrera, [facility], Encounter Date: 09/19/2023 Neurological Surgeon Referra l for Compression fracture of thoracic vertebra Please call patient to schedule an appointment. Thank you. Referring Physician: Juanita Lemons [facility], Encounter Date: 01/02/2024 Please call patient to sched ule an appointment. Thank you. Referring Physician: Juanita Lemons [facility], Encounter Date: 06/23/2024 Neurologist Referral for Mem ory impairment Please call patient to schedule an appointment. Thank you. Referring Physician: Juanita Lemons [facility], Encounter Date: 06/23/2024 Results Created Date Observation Date Name Description Value Unit Range Abnormal Flag Note LastModifiedBy Organization Detail LastModifiedTime 11/20/19 24 11/20/2023 COLOG UARD cologuard result reportable NEGATI VE negati ve normal NEGAT RONALD TEST RESUL T. A negat ronald Colog uard resul t indic ates a low likel ihood that a color ectal cance r (CRC) or advan valeri adeno ma (kalin omato us polyp s with more advan valeri pre-m align ant featu res) is prese nt. The chanc e that a perso n with a negat ronald Colog uard test has a color ectal cance r is less than 1 in 1500 (nega tive predi ctive value >99.9 %) or has an advan valeri adeno ma is less than 5.3% (nega tive predi ctive value 94.7% ). These data are based on a prosp ectiv e cross -sect ional study of 10,00 0 indiv idual s at [place] [facility] risk for color ectal cance r who were scree brianna with both Colog uard and colon oscop y. (Moses Olvera et al, N Engl J Med 2014; 370(1 4):12 86-12 97) The dereck l value (refe rence range ) for this assay is negat ronald. COLOG UARD RE-SC KARLA LANDA RECOM MENDA TION: Perio dic color ectal cance r scree ruthie is an impor tant part of preve ntive healt hcare for asymp tomat ic indiv idual s at [facility] risk for color ectal cance r. Follo wing a negat ronald Colog uard resul t, the Ameri can Cance r Socie ty and U.S. Multi -Soci ety Task Force scree ruthie guide lines recom mend a Colog uard re-sc karla landa inter nirali of 3 years . Refer ences : Ameri can Cance r Socie ty Guide line for Color ectal Cance r Scree ruthie: https ://ranulfo w.can cer.o rg/ca ncer/ colon -rect al-ca ncer/ detec tion- diagn osis- stagi ng/ac s-rec ommen datio ns.ht ml.; Timothy DK, Kelly wheatley CR, Go parada JK, Color ectal Cance r Scree ruthie: Recom menda tions for Physi cians and Patie nts from the U.S. Multi -Soci ety Task Force on Color ectal Cance r Scree ruthie , Am Donald blankenship y 2017; 112:1 016-1 030. TEST DESCR IPTIO N: Harcourt site algor ithmi c lianne sis of stool DNA-b iogonzalo courtney with hemog lobin immun oassa y. [...] years or older , who are at [facility] for color ectal cance r (CRC) . Colog uard has been appro andrea for use by the U.S. FDA. The perfo rmanc e of Colog uard was estab lishe d in a cross secti onal study of [facility] adult s aged 50-84 . Colog uard perfo rmanc e in patie nts ages 45 to 49 years was estim ated by mirela-darcy bill lianne sis of near- age group s. [...] cross -sect ional scree ruthie study of 0 indiv idual s at [facility] risk for color ectal cance r who [...] inter nirali is every 3 years . (Amer ican Cance r Socie ty and U.S. Multi -Soci ety Task Force ). Colog uard perfo rmanc e data in a 0 patie nt pivot al study using colon oscop y as the refer ence metho d can [facility] locat ion: www.e xactl abs.c om/re sulalyson . Addit ional descr iptio n of the Colog uard test proce ss, warni ngs and preca ution s can be found at www.c derrick hernandezd.c om. Not Available [employer] (Cologuard Orders Only) [address], [place], [address], 12/02/2023 18:32:05 03/27/2003/28/2024 LIPID PANEL , STAND NIYAH cholesterol, total 160 mg/dL <200 normal Not Available [facility] [address] [place], [address], 03/28/2024 03:16:22 03/27/2003/28/2024 LIPID PANEL , STAND NIYAH HDL cholesterol 61 mg/dL > or = 50 normal Not Available [facility] [address] [place], [address], 03/28/2024 03:16:22 03/27/2003/28/2024 LIPID PANEL , STAND NIYAH triglyceride s 81 mg/dL <150 normal Not Available [facility] [address], [place], [address], 03/28/2024 03:16:22 03/27/2003/28/2024 LIPID PANEL , STAND NIYAH LDL-choleste rol 83 mg/dL _(zahida c) normal Refer ence range : <100 Maricarmen able range <100 mg/dL for prima ry preve ntion ; <70 mg/dL for patie nts with CHD or diabe tic patie nts with > or = 2 CHD risk facto rs. LDL-C is now calcu lated using the Kasandra n-Hop kins yenyu eze n, which is a valid ated novel metho d radhai desire norris accur acy than the Fried caterina equat ion in the estim ation of LDL-C . Kasandra ortiz SS et al. LAYLA. 2013; 310(1 9): 2061- 2068 (http ://ed ucati on.Qu Aba balbuena tics. com/f aq/FA Q164) Not Available [facility] [address], [place], [address], 03/28/2024 03:16:22 03/27/2003/28/2024 LIPID PANEL , STAND NIYAH chol/HDLC ratio 2.6 (calc ) <5.0 normal Not Available [address], [address], 03/28/2024 03:16:22 03/27/20 24 03/28/2024 LIPID PANEL , STAND NIYAH non HDL cholesterol 99 mg/dL _(zahida c) <130 normal For patie nts with diabe faye plus 1 major ASCVD risk facto r, treat ing to a non-H DL-C goal of <100 mg/dL (LDL- C of <70 mg/dL ) is consi selinad a thera peshine c optio n. Not Available [address], [address], 03/28/2024 03:16:22 03/27/20 24 03/28/2024 COMPR EHENS RONALD METAB OLIC PANEL glucose 83 mg/dL 65-99 normal Fasti ng refer ence inter nirali Not Available [address] [place], [address], 03/28/2024 03:16:25 03/27/20 24 03/28/2024 COMPR EHENS RONALD METAB OLIC PANEL urea nitrogen (BUN) 21 mg/dL 7-25 normal Not Available [address], [address], 03/28/2024 03:16:25 03/27/20 24 03/28/2024 COMPR EHENS RONALD METAB OLIC PANEL creatinine 0.84 mg/dL 0.50-1 .03 normal Not Available [address], [address], 03/28/2024 03:16:25 03/27/20 24 03/28/2024 COMPR EHENS RONALD METAB OLIC PANEL eGFR 80 mL/mi n/1.7 3m2 > or = 60 normal Not Available [address] [place], [address], 03/28/2024 03:16:25 03/27/20 24 03/28/2024 COMPR EHENS RONALD METAB OLIC PANEL BUN/creatini ne ratio SEE NOTE: (calc ) 6-22 Not Repor jemma: BUN and Creat inine are withi n refer ence range . Not Available [address], [address], 03/28/2024 03:16:25 03/27/20 24 03/28/2024 COMPR EHENS RONALD METAB OLIC PANEL sodium 139 mmol/ L 135-14 6 normal Not Available [address], [address], 03/28/2024 03:16:25 03/27/20 24 03/28/2024 COMPR EHENS RONALD METAB OLIC PANEL potassium 4.5 mmol/ L 3.5-5. 3 normal Not Available [address], [address], 03/28/2024 03:16:25 03/27/20 24 03/28/2024 COMPR EHENS RONALD METAB OLIC PANEL chloride 105 mmol/ L 98-110 normal Not Available [address], [address], 03/28/2024 03:16:25 03/27/20 24 03/28/2024 COMPR EHENS RONALD METAB OLIC PANEL carbon dioxide 28 mmol/ L 20-32 normal Not Available [address], [address], 03/28/2024 03:16:25 03/27/20 24 03/28/2024 COMPR EHENS RONALD METAB OLIC PANEL calcium 9.6 mg/dL 8.6-10 .4 normal Not Available [address], [address], 03/28/2024 03:16:25 03/27/20 24 03/28/2024 COMPR EHENS RONALD METAB OLIC PANEL protein, total 6.5 g/dL 6.1-8. 1 normal Not Available [address], [address], 03/28/2024 03:16:25 03/27/20 24 03/28/2024 COMPR EHENS RONALD METAB OLIC PANEL albumin 3.9 g/dL 3.6-5. 1 normal Not Available [address], [address], 03/28/2024 03:16:25 03/27/20 24 03/28/2024 COMPR EHENS RONALD METAB OLIC PANEL globulin 2.6 g/dL_ (calc ) 1.9-3. 7 normal Not Available [address], [address], 03/28/2024 03:16:25 03/27/20 24 03/28/2024 COMPR EHENS RONALD METAB OLIC PANEL albumin/glob ulin ratio 1.5 (calc ) 1.0-2. 5 normal Not Available [address], [address], 03/28/2024 03:16:25 03/27/20 24 03/28/2024 COMPR EHENS RONALD METAB OLIC PANEL bilirubin, total 0.4 mg/dL 0.2-1. 2 normal Not Available [address], [address], 03/28/2024 03:16:25 03/27/20 24 03/28/2024 COMPR EHENS RONALD METAB OLIC PANEL alkaline phosphatase 149 U/L 37-153 normal Not Available [facility] [address], [address], 03/28/2024 03:16:25 03/27/20 24 03/28/2024 COMPR EHENS RONALD METAB OLIC PANEL AST 127 U/L 10-35 high Not Available [address], [address], 03/28/2024 03:16:25 03/27/20 24 03/28/2024 COMPR EHENS RONALD METAB OLIC PANEL ALT 126 U/L 6-29 high Not Available [address], [address], 03/28/2024 03:16:25 03/27/20 24 03/28/2024 HEPAT IC FUNCT ION PANEL protein, total 6.5 g/dL 6.1-8. 1 normal Not Available [address], [address], 03/28/2024 03:16:26 03/27/20 24 03/28/2024 HEPAT IC FUNCT ION PANEL albumin 3.9 g/dL 3.6-5. 1 normal Not Available [address], [address], 03/28/2024 03:16:26 03/27/20 24 03/28/2024 HEPAT IC FUNCT ION PANEL globulin 2.6 g/dL_ (calc ) 1.9-3. 7 normal Not Available [address], [address], 03/28/2024 03:16:26 03/27/20 24 03/28/2024 HEPAT IC FUNCT ION PANEL albumin/glob ulin ratio 1.5 (calc ) 1.0-2. 5 normal Not Available [address], [address], 03/28/2024 03:16:26 03/27/20 24 03/28/2024 HEPAT IC FUNCT ION PANEL bilirubin, total 0.4 mg/dL 0.2-1. 2 normal Not Available [address], [address], 03/28/2024 03:16:26 03/27/20 24 03/28/2024 HEPAT IC FUNCT ION PANEL bilirubin, direct 0.1 mg/dL < or = 0.2 normal Not Available [address], [address], 03/28/2024 03:16:26 03/27/20 24 03/28/2024 HEPAT IC FUNCT ION PANEL bilirubin, indirect 0.3 mg/dL _(zahida c) 0.2-1. 2 normal Not Available [address], [address], 03/28/2024 03:16:26 03/27/2003/28/2024 HEPAT IC FUNCT ION PANEL alkaline phosphatase 149 U/L 37-153 normal Not Available [facility] [address], [address], 03/28/2024 03:16:26 03/27/20 24 03/28/2024 HEPAT IC FUNCT ION PANEL AST 127 U/L 10-35 high Not Available [address], [address], 03/28/2024 03:16:26 03/27/20 24 03/28/2024 HEPAT IC FUNCT ION PANEL ALT 126 U/L 6-29 high Not Available [address], [address], 03/28/2024 03:16:26 03/27/20 24 03/28/2024 CBC (INCL UDES DIFF/ PLT) white blood cell count 4.9 thous and/u L 3.8-10 .8 normal Not Available [address], [address], 03/28/2024 03:16:27 03/27/20 24 03/28/2024 CBC (INCL UDES DIFF/ PLT) red blood cell count 3.99 shahida on/uL 3.80-5 .10 normal Not Available [address] [place], [address], 03/28/2024 03:16:27 03/27/20 24 03/28/2024 CBC (INCL UDES DIFF/ PLT) hemoglobin 10.8 g/dL 11.7-1 5.5 low Not Available [address], [address], 03/28/2024 03:16:27 03/27/2003/28/2024 CBC (INCL UDES DIFF/ PLT) hematocrit 35.5 % 35.0-4 5.0 normal Not Available [facility] [address], [address], 03/28/2024 03:16:27 03/27/20 24 03/28/2024 CBC (INCL UDES DIFF/ PLT) MCV 89.0 fL 80.0-1 00.0 normal Not Available [address], [address], 03/28/2024 03:16:27 03/27/20 24 03/28/2024 CBC (INCL UDES DIFF/ PLT) MCH 27.1 pg 27.0-3 3.0 normal Not Available [address], [address], 03/28/2024 03:16:27 03/27/20 24 03/28/2024 CBC (INCL UDES DIFF/ PLT) MCHC 30.4 g/dL 32.0-3 6.0 low For adult s, a sligh t decre ase in the calcu lated MCHC value (in the range of 30 to 32 g/dL) is most likel y not clini navdeep vuongi bjorn t; dilan er, it shoul d be inter prete d with cauti on in [facility] n with other red cell sumanth eters and the patie nt's clini zahida condi tion. Not Available [facility] [address], [address], 03/28/2024 03:16:27 03/27/20 24 03/28/2024 CBC (INCL UDES DIFF/ PLT) RDW 13.2 % 11.0-1 5.0 normal Not Available [address], [address], 03/28/2024 03:16:27 03/27/2003/28/2024 CBC (INCL UDES DIFF/ PLT) platelet count 306 thous and/u L 140-40 0 normal Not Available [address], [address], 03/28/2024 03:16:27 03/27/2003/28/2024 CBC (INCL UDES DIFF/ PLT) MPV 10.1 fL 7.5-12 .5 normal Not Available [address], [address], 03/28/2024 03:16:27 03/27/2003/28/2024 CBC (INCL UDES DIFF/ PLT) absolute neutrophils 2288 cells /uL 1500-7 800 normal Not Available [address], [address], 03/28/2024 03:16:27 03/27/20 24 03/28/2024 CBC (INCL UDES DIFF/ PLT) absolute lymphocytes 2038 cells /uL 850-39 00 normal Not Available [address], [address], 03/28/2024 03:16:27 03/27/2003/28/2024 CBC (INCL UDES DIFF/ PLT) absolute monocytes 343 cells /uL 200-95 0 normal Not Available [address], [address], 03/28/2024 03:16:27 03/27/20 24 03/28/2024 CBC (INCL UDES DIFF/ PLT) absolute eosinophils 172 cells /uL 15-500 normal Not Available [address], [address], 03/28/2024 03:16:27 03/27/2003/28/2024 CBC (INCL UDES DIFF/ PLT) absolute basophils 59 cells /uL 0-200 normal Not Available [address], [address], 03/28/2024 03:16:27 03/27/20 24 03/28/2024 CBC (INCL UDES DIFF/ PLT) neutrophils 46.7 % normal Not Available [address], [address], 03/28/2024 03:16:27 03/27/2003/28/2024 CBC (INCL UDES DIFF/ PLT) lymphocytes 41.6 % normal Not Available [address], [address], 03/28/2024 03:16:27 03/27/20 24 03/28/2024 CBC (INCL UDES DIFF/ PLT) monocytes 7.0 % normal Not Available [address], [address], 03/28/2024 03:16:27 03/27/20 24 03/28/2024 CBC (INCL UDES DIFF/ PLT) eosinophils 3.5 % normal Not Available [address], [address], 03/28/2024 03:16:27 03/27/20 24 03/28/2024 CBC (INCL UDES DIFF/ PLT) basophils 1.2 % normal Not Available [address], [address], 03/28/2024 03:16:27 03/27/20 24 03/28/2024 TSH TSH 2.78 mIU/L 0.40-4 .50 normal Not Available [address], [address], 03/28/2024 03:16:28 03/27/20 24 03/28/2024 HEMOG LOBIN A1C hemoglobin A1C 5.3 %_of_ total _HGB <5.7 normal For the purpo se of eleanor hendricks for the prese nce of diabe faye: <5.7% Consi stent with the absen ce of diabe faye 5.7-6 .4% Consi stent with incre ased risk for diabe faye (pred iabet es) > or =6.5% Consi stent with diabe faye This assay resul t is consi stent with a decre ased risk of diabe faye. Curre ntly, no conse nsus exist s zane phpips use of hemog lobin A1c for diagn [...] Care in Diabe faye(A DA). Not Available [address] [address] , [place], [address], 03/28/2024 03:16:29 10/23/19 24 10/21/2023 XR, knee No observ ation record ed. [email or web address] [facility] [address], [place], [address], 11/02/2023 20:04:58 01/08/20 24 01/06/2024 US, pelvi s, trans abdom inal + trans vagin al No observ ation record ed. [email or web address] [facility] [address], [place], [address], 01/08/2024 09:25:12 03/10/20 24 03/10/2024 XR, upper gastr ointe deni l serie s No observ ation record ed. [email or web address] [facility] [address], [place], [address], 03/10/2024 17:14:04 04/30/20 24 04/29/2024 yesi dalton am No observ ation record ed. [email or web address] [facility] (Pulmonary) [address], [place], [address], 05/06/2024 22:13:08 Result Notes None recorded. Problems Name Problem SNOMED Code Status Onset Date Resolution Date Notes Provider Name and Address Organization Details Recorded Time Injury of knee 630042071 Completed Not Available [facility] 3 08:48:35 Acute sinusiti s [id number] Completed Not Available [facility] 3 08:48:35 Anxiety state 598726599 Active Not Available [facility] 3 08:48:35 Abdomina l pain 20888944 Completed Not Available [facility] 3 08:48:35 Gastroes ophageal reflux disease 739008917 Active Not Available [facility] 3 08:48:36 Gastroen teritis 66848355 Completed Not Available [facility] 3 08:48:36 Edema 538266480 Completed Not Available [facility] 3 08:48:36 Anemia 380774795 Completed Obdulio Garcia MD [address] [place] [address], [id number] , [facility] 5 16:38:44 Malaise and fatigue 324607784 Completed Not Available [facility] 3 08:48:36 Hypertri glycerid emia 652982672 Active Not Available [facility] 3 08:48:36 Vitamin D deficien cy 87805891 Active Not Available [facility] 3 08:48:37 Depressi ve disorder 09603770 Active Not Available [facility] 3 08:48:37 Sinusiti s 40147240 Completed Not Available [facility] 3 08:48:37 Body mass index 40+ - severely obese 382425192 Active 2020 Not Available [facility] 3 08:48:37 Hypothyr oidism 95140248 Active Not Available [facility] 3 08:48:37 Type 2 diabetes mellitus 15946793 Completed Emily Herrera MD [address], [address], [place], [address] , [facility] [employer] [facility] 4 13:47:57 Nonalcoh olic steatohe patitis 487666467 Active 2021 Not Available [facility] 3 08:48:38 Migraine with aura 4938228 Active 2021 Not Available [facility] 3 08:48:38 Upper respirat ory infectio n 77785537 Completed Not Available [facility] 3 08:48:38 Wheezing 95455191 Completed Not Available [facility] 3 08:48:39 Essentia l hyperten juanito 58234076 Active Not Available [facility] 3 08:48:39 History of bariatri c surgical procedur e 981451378 Active 2021 Not Available [facility] 3 08:48:39 Influenz a 1071944 Completed Not Available [facility] 3 08:48:39 Diabetes mellitus 98042330 Completed Not Available [facility] 3 08:48:39 Obstruct ronald sleep apnea syndrome 18829728 Active 2020 No longer needs cpap due to weight loss Not Available [facility] 3 08:48:40 Bilatera l osteoart hritis of knees 98344623068 9107 Active 2022 SHAY Colin [address], [address], [place], [address] , [facility] [employer] [facility] [place] 3 13:24:34 Compress ion fracture of thoracic vertebra 70658485135 04 Active 2022 Emily Herrera MD [address], [address], [place], [address] , [facility] [employer] [facility] 3 18:31:05 Type 2 diabetes mellitus 99504930 Active 2023 Emily Herrera MD [address], [place], [address] , Dress Code 4 13:47:57 Uterine fibroid polyp 745010574 Active 2023 YOLIS Jacobs-C [address], [address], [place], [address] , Dress Code 4 10:31:59 Allergic rhinitis 23359726 Active 2023 JYOTSNA Jacobs [address], [address], [place], [address] , Dress Code 4 10:49:33 Iron deficien cy anemia 06367466 Active 2023 ASHANTI JacobsC [address], [address], [place], [address] , Dress Code 4 13:47:01 Mixed anxiety and depressi ve disorder 287479386 Active 2024 JYOTSNA Jacobs [address], [address], [place], [address] , Dress Code 5 09:22:34 Notes:Medical History: Delay ed sleep phase syndrome Anxiety/Depression Migraine headaches Rhinitis with postnasal drip Obesity with mild OSAHS, AHI = 11, 03/25/23, on autoCPAP c/o IVRC Hypothyroidism Mixed hyperlipidemia Hypertension T2DM KAREEM Nonalcoholic steatohepatitis Uterine fibroid Iron deficiency anemia Vit D deficiency T12 compression fracture Thoracic levoscoliosis Thoracolumbar spondylosis Lumbar dextroscoliosis Bilateral knee OA Bilateral ulnar neuropathy Procedure History: Melanoma excision 1985 Cholecystectomy 1987 Left breast benign lumpectomy 1995 Gastric bypass surgery 2021 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 Procedures Surgical History Date Name Laterality Status Provider Name and Address Organization Details Recorded Time 04/08/20 colonoscopy completed EN [facility] 04/27/2024 14:22:51 03/19/20 Medicare Wellness CPT Code, subsequent completed EN Hinton [facility] 03/19/2024 14:33:38 01/25/20 23 Medicare Wellness CPT Code, subsequent completed Emily Herrera MD [address], [facility] [address], [place], [address], [employer] 01/24/2023 15:32:45 07/04/19 Gastric Bypass completed Not Available [facility] 08/15/2022 08:43:42 other completed Not Available [facility] 08/15/2022 08:43:42 other completed Not Available [facility] 08/15/2022 08:43:42 Colonoscopy completed Not Available [facility] 08/15/2022 08:43:42 EGD completed Not Available [facility] 08/15/2022 08:43:42 Cholecystectomy completed Not Available [facility] 08/15/2022 08:43:42 Breast Biopsy completed Not Available [facility] 08/15/2022 08:43:42 Imaging Results Imaging Date Name Status LastModified by Organization Details LastModified Time 10/21/2023 XR, knee completed [address], [address], 11/02/2023 20:04:58 01/06/2024 US, pelvis, transabdominal + transvaginal completed [address] [facility] [address], [place], [address], 01/08/2024 09:25:12 03/10/2024 XR, upper gastrointestinal series completed [address], [address], 03/10/2024 17:14:04 04/29/2024 electrocardiogram completed [address] (Pulmonary) [address] [place] [address], [address], 05/06/2024 22:13:08 Procedure Notes None recorded. Medical Equipment None Reported. Allergies Allergen ID Allergen Name Allergen Category Reaction Reaction Severity Criticality Documentation Date Start Date Code Code System Note Provider Name and Address Organization Details Recorded Time 04685 Zoloft medicatio n other Not available Not available 08/15/2022 23995 RxNorm SEIZU RE Not Available [facility] 3 08:52:40 39337 Voltaren medicatio n nausea Not available Not available 08/15/2022 34543 6 RxNorm Not Available [facility] 3 08:52:40 37446 vancomyci n medicatio n hives Not available Not available 08/15/2022 78158 RxNorm Not Available [facility] 3 08:52:40 76625 Toradol medicatio n vomiting Not available Not available 08/15/2022 78871 RxNorm Not Available [facility] 3 08:52:40 49217 Singulair medicatio n myalgias (muscle pain) Not available Not available 08/15/2022 03446 9 RxNorm muscl e weakn ess Not Available [facility] 3 08:52:40 94859 Monopril medicatio n cough Not available Not available 08/15/2022 62692 0 RxNorm Not Available [facility] 3 08:52:40 24647 Levaquin medicatio n nausea Not available Not available 08/15/2022 22834 2 RxNorm Not Available [facility] 3 08:52:40 54807 Invokana medicatio n dizziness Not available Not available 08/15/2022 23962 64 RxNorm Not Available [facility] 3 08:52:40 46491 cortisone medicatio n other Not available Not available 08/15/2022 2878 RxNorm SUNBU RN Not Available [facility] 3 08:52:41 09030 turkey allergeni c extract food Not available Not available Not available 10/18/2022 12825 9 RxNorm JASMEET Yun [place] [facility] [place] [employer] [facility] 3 11:13:30 Medications Name Sig Start Date [...] mg by injectio n route. 03/26 completed [facility]: [phone] Not Available Not Available Not Available levothyro [...] Not Available Not Available No t Available bupropion HCl XL 150 mg 24 hr tablet, extended release Take 1 tablet every day by oral route in the morning. active Not Available Not Available No t Available topiramat e 50 mg tablet active Not Available Not Available Not Available [place] Milk of Magnesia 400 mg/5 mL oral [...] completed Not Available Not Available Not Available [employer] 1.5 billion cell capsule Take 1 capsule every day by oral route in the morning for 30 days. 12/06 completed Not Available Not Available Not Available ropivacai ne (PF) 5 mg/mL (0.5 %) injection solution Take 20 mg by injectio n route. 03/26 completed [facility] 93652-72 4-01 Not Available Not Available Not Available Accu-Chek [...] Available Not Available Not Available Fluzone Quad 3805-0213 (PF) 60 mcg (15 mcg x 4)/0.5 [...] Updated DateTime 4 167.64 cm 31.5 kg/m2 79440.5 1 g 95 % 95 % 71 /min 120 mm[Hg] 74 mm[Hg] Jody Yoo RN [facility] [employer] [facility] 4 14:12:23 Date Recorded Body temperature Provider Name a nd Address Organization Details Last Updated DateTime 09/19/2023 97.8 [degF] Emily Herrera MD [address] [place] [address], [place], [address], [facility] Hello Curry 09/19/2023 14:33:10 Date Recorded Body height Body mass index (BMI) Body weight Body temperature Heart rate Oxygen saturation Oxygen saturation in Arterial blood by Pulse oximetry Systolic blood pressure Diastolic blood pressure Provider Name and Address Organization Details Last Updated DateTime 4 167.64 cm 28.6 kg/m2 96279.8 5 g 98 [degF] 76 /min 98 % 98 % 130 mm[Hg] 76 mm[Hg] Jody Yoo RN [facility] [employer] [facility] 4 10:22:36 Date Recorded Body height Body mass index (BMI) Body weight Body temperature Heart rate Oxygen saturation Oxygen saturation in Arterial blood by Pulse oximetry Systolic blood pressure Diastolic blood pressure Provider Name and Address Organization Details Last Updated DateTime 4 167.64 cm 28.4 kg/m2 45388.2 6 g 98 [degF] 74 /min 98 % 98 % 126 mm[Hg] 74 mm[Hg] Jody Yoo RN [facility] [employer] [facility] 4 14:37:23 Date Recorded Body height Body mass index (BMI) Body weight Body temperature Heart rate Oxygen saturation Oxygen saturation in Arterial blood by Pulse oximetry Systolic blood pressure Diastolic blood pressure Provider Name and Address Organization Details Last Updated DateTime 5 167.64 cm 30.3 kg/m2 50771.3 7 g 97.5 [degF] 61 /min 98 % 98 % 134 mm[Hg] 70 mm[Hg] Jody Yoo RN [facility] [employer] [facility] 5 14:03:52 Date Recorded Body height Body mass index (BMI) Body weight Body temperature Heart rate Oxygen saturation Oxygen saturation in Arterial blood by Pulse oximetry Systolic blood pressure Diastolic blood pressure Provider Name and Address Organization Details Last Updated DateTime 167.64 cm 28.7 kg/m2 88487.4 4 g 97.5 [degF] 57 /min 99 % 99 % 126 mm[Hg] 80 mm[Hg] Jody Yoo RN [employer] 14:56:14 Social History Question Answer Notes LastModified by Organizat ion Details LastModified Time Tobacco Smoking Status Never Smoker CAYLA Arriaga, [employer] 07/18/2023 15:43:53 What Is Your Level Of Alcohol Consumption? None [id number] Information not available 08/15/2022 What Is Your Level Of Caffeine Consumption? Occasional [id number] Information not available 08/15/2022 In The 14 [...] Or Recreational Drugs Have You Used? None [email or web address] Information not available 07/18/2023 Do You Have An Electrostatic Air Filter? No Information not available 07/18/2023 Do You Have A Humidifier? No Has But Doeos Not Use Information not available 07/29/2023 Do You Have Moisture Problems In Your Home? No Information not available 07/18/2023 What Was The Date Of Your Most Recent Tobacco Screening? 06/27/2022 Information not available 07/18/2023 Do You Have Any Pets? Yes Dog Lives Inside The Home [email or web address] Information not available 07/18/2023 Do You Use Your Seat Belt Or Car Seat Routinely? Yes Information not available 07/18/2023 Do You Have Smoke And Carbon Monoxide Detectors In Your Home? Yes Information not available 07/18/2023 Are You Passively Exposed To Smoke? No Information no t available 07/18/2023 Do You Feel Stressed (tense, Restless, Nervous, Or Anxious, Or Unable To Sleep At Night)? [id number] Information not available 07/18/2023 Do You Use Any Illicit Or Recreational Drugs? No [email or web address] Information not available 07/18/2023 Do You Use Sunscreen Routinely? Yes Information not available 07/18/2023 Has Tobacco Cessation Counseling Been Provided? No [email or web address] Information not available 07/18/2023 Have You Recently Traveled Abroad? Yes Information not available 07/18/2023 Do You Have Any Dietary Restrictions? No Information not available 07/29/2023 Do You Or Have You Ever Used Any Other Forms Of Tobacco Or Nicotine? No [email or web address] Information not available 07/18/2023 Sex: Unknown Functional Status Question Answer Note LastModified by Organizat ion Details LastModified Time What is your exercise level? None [id number] Information not available 08/15/2022 Mental Status None recorded. Family History Relationship Description Onset Age of this Age Resolved Age Notes LastModified by Organization Details LastModified Time Mother Hypertensive disorder [id number] Not available 08/15/2022 08:43:44 Maternal Grandmother Diabetes mellitus [id number] Not available 08/15/2022 08:43:44 Paternal Grandfather Cerebrovascu lar accident [email or web address] Not available 0 07/18/2023 15:43:53 Father Angiosarcoma [email or web address] Not av ailable 07/18/2023 15:43:53 Father Leiomyosarco ma [email or web address] Not available 2023 16:23:31 Mother Complication of anesthesia [email or web address] Not available 06/2023 15:43:53 Sister Heart disease [email or web address] Not available 2023 16:22:28 Sister Malignant tumor of lung [email or web address] Not available 2023 16:23:11 Brother Obstructive sleep apnea syndrome [email or web address] Not available 2023 16:22:14 Brother Primary squamous cell carcinoma of tonsillar fossa [email or web address] Not available 2023 16:23:01 Brother Malignant neoplasm of liver [email or web address] Not available 2023 16:23:20 Medical History Condition Response BACK / NECK PROBLEMS Y FEMALE PROBLEMS / INFECTIONS Y DEPRESSION (INCLUDING POST ) Y THYROID DISEASE Y ULCERS Y ARTHRITIS Y DIABETES, TYPE Y HEARTBURN / REFLUX Y HEPATITIS / LIVER DISEASE Y SLEEP DISORDER Y HEADACHES/MIGRAINES Y SEIZURES/EPILEPSY Y HYPERTENSION Y CANCER: SPECIFY Y ANEMIA/BLOOD DISORDER Y PNEUMONIA Y BRONCHITIS Y Gynecological HistoryNo gynecological history recorded. Obstetrics History GPAL:G 0 P 0 0 0 0 Immunizations Vaccine Type Date Status Note Provider Nam e and Address Organization Details Recorded Time Tdap 3 completed Jody Yoo RN [facility], [place] [facility] 11/05/2022 14:33:46 Influenza, split virus, trivalent, PF 3 completed Not Available [facility] 08/15/2022 08:52:34 COVID-19, mRNA, LNP-S, PF, 30 mcg/0.3 mL dose 1 completed Not Available [facility] 08/15/2022 08:52:34 Influenza, split virus, quadrivalent, preservative 2 completed Not Available [facility] 08/15/2022 08:52:34 COVID-19, mRNA, LNP-S, PF, 30 mcg/0.3 mL dose 1 completed Not Available [facility] 08/15/2022 08:52:35 Influenza, split virus, quadrivalent, preservative 0 completed Not Available [facility] 08/15/2022 08:52:35 Tdap 8 completed Not Available [facility] 08/15/2022 08:52:35 Influenza, split virus, trivalent, preservative 6 completed Not Available [facility] 08/15/2022 08:52:35 Influenza, split virus, trivalent, preservative 5 completed Not Available [facility] 08/15/2022 08:52:35 Influenza, split virus, trivalent, preservative 4 completed Not Available [facility] 08/15/2022 08:52:35 Influenza, split virus, trivalent, preservative 2 completed Not Available [facility] 08/15/2022 08:52:35 pneumococcal polysaccharide PPV23 9 completed Not Available [facility] 08/15/2022 08:52:35 Hep B, adult 7 completed Not Available [facility] 08/15/2022 08:52:35 Hep B, adult 7 completed Not Available [facility] 08/15/2022 08:52:35 Td (adult) 5 completed Not Available [facility] 08/15/2022 08:52:36 Tdap 8 completed Not Available [facility] 08/15/2022 08:52:36 Influenza, split virus, quadrivalent, PF 1 completed Not Available [facility] 08/15/2022 08:52:36 Past Encounters Encounter ID Performer Location Encounter Start Date Encounter Closed Date Diagnosis/Indication Diagnosis SNOMED-CT Code Diagnosis ICD10 Code Diagnosis Note [id number] [facility] [place] [address] [place] [address] 10/31/2020 00:00:00 10/31/2020 15:49:24 [id number] [facility] [place] [address] [place] [address] 11/30/2020 00:00:00 11/30/2020 16:52:16 [id number] [facility] [place] [address] 02/01/2021 00:00:00 02/01/2021 10:55:45 [id number] [facility] [address] [place] [address] 03/08/2021 00:00:00 03/08/2021 13:56:33 [id number] [facility] [place] [facility] [place] [address] [place] [address] 04/17/2021 00:00:00 04/17/2021 16:13:06 [id number] [facility] [place] [address] [place] [address] 07/26/2021 00:00:00 07/26/2021 16:33:13 [id number] [facility] [place] [address] [place] [address] 08/30/2021 00:00:00 08/30/2021 09:57:16 [id number] [facility] [place] [address] [place] [address] 09/25/2021 00:00:00 09/28/2021 09:29:04 [id number] [facility] [place] [address] [place] [address] 09/27/2021 00:00:00 09/27/2021 15:46:57 [id number] [facility] [place] [address] [place] [address] 10/05/2021 00:00:00 10/05/2021 11:08:56 [id number] [facility] [place] [address] [place] [address] 12/06/2021 00:00:00 12/06/2021 13:49:13 [id number] [facility] [place] [address] [place] [address] 12/06/2021 00:00:00 12/06/2021 16:22:33 [id number] [facility] [place] [address] [place] [address] 02/15/2022 00:00:00 02/15/2022 17:15:11 [id number] [facility] [place] [address] [place] [address] 04/23/2022 00:00:00 04/23/2022 11:23:32 [id number] [facility] Primary Care [place] [address] [facility] [address] [place] [address] 06/27/2022 00:00:00 07/11/2022 12:22:51 [id number] [facility] Primary Care [place] [address] [facility] [address] [place] [address] 08/09/2022 00:00:00 08/12/2022 15:36:05 [id number] [facility] Primary Care [place] [address] [facility] [address] [place] [address] 08/13/2022 00:00:00 08/13/2022 16:10:10 [id number] Emily Herrera MD [facility] Primary Care [place] [address] [facility] [address] [place] [address] 09/20/2022 16:50:08 09/20/2022 17:28:53 [id number] SHAY Krause [facility] Primary Care [place] [address] [facility] [address] [place] [address] 2022 10:17:16 2022 10:59:03 Hypothyroidism 84593216 E03.9 TSH <0.015 (09/20/22). Levothyrox ine reduced to 50mcg.Repe at 4 weeks. History of bariatric surgical procedure 129710037 Z98.84 She is seeing plastic surgeon (Dr. Ree ortiz ([facility]) Fax: /Phone: ) for excess skin removal, has tentative date for surgery scheduled for 12/11/22. She states she has been very uncomforta ble due to the excess skin. States it is also causing paresthesi a. Paresthesi a of bilateral hands 301913299 R20.2 Ring and pinky fingers bilaterall y.Will evaluate further after plastic surgery if symptoms still not improved with NCS. [id number] SHAY Colin [facility] Orth[facility] [place] [address] [place] [address] 10/18/2022 11:02:17 10/18/2022 12:18:22 Pain of right knee joint 9940787360 95372 M25.561 Pain of le ft knee joint 5074961420 65520 M25.562 Bilateral osteoarthritis of knees 4385273212 62507 M17.0 [id number] Emily Herrera MD [facility] Primary Care [address] [place] [address] 11/05/2022 14:01:18 11/05/2022 14:31:08 Active or passive immunization 099922973 Z23 [id number] SHAY Colin [facility] [place] [address] [place] [address] 12/20/2022 14:33:53 12/20/2022 15:05:38 Bilateral osteoarthritis of knees 7234707271 64025 M17.0 Pain in right knee 54795 58846 76525 M25.561 Pain of le ft knee joint 1353737455 94047 M25.562 [id number] Emily Herrera MD [address] [place] [address] 12/31/2022 15:18:12 12/31/2022 16:08:53 Hypothyroidism 09661724 E03.9 currently on levothyrox ine 75 mcg dailyreche ck labs at next apptadd cytomel 5 mcg daily (she felt good on this in the past) Candidal intertrigo 2661 47141 B37.2 needs further skin removal surgery Cellulitis 080041612 L03 .90 has healing wound from surgery on buttocks Essential hypertension 41051810 I10 has been decreased since her surgery Screening mammography 24 728018 Z12.31 [id number] Emiyl Herrera MD [facility] Primary [address] [place] [address] 01/21/2023 12:54:12 01/22/2023 08:49:58 [id number] Emily Herrera MD [facility] [address] [place] [address] 01/24/2023 15:04:23 01/24/2023 15:55:43 Adult health examination 237313354 Z00.00 Mammogram normal 3DEXA orderedHas completed shingrix vaccine seriesHas received prevnar 20Pneumova x 23 at age 64Flu vaccine yearlyCovi d booster this fallCologu niyah normal 10/2020 repeat 2023 Excessive skin and subcutaneous tissue 623037588 L98.7 Postmenopausal state 764 38162 Z78.0 [id number] YOLIS Larkin-C [facility] Primary Care [facility] [address] [place] [address] 03/04/2023 11:06:46 03/15/2023 04:07:17 [id number] YOLIS Larkin-Mazin [facility] Primary Care [facility] [address] [facility] [address] [place] [address] 03/18/2023 14:10:28 03/18/2023 14:27:58 [id number] YOLIS Hardin-[facility] Pulmonolo gy [place] [address] [place] [address] 04/29/2023 13:59:58 04/29/2023 15:08:00 Obstructive sleep apnea syndrome 86508739 G47.33 Home study 01/02/21 with AHI 19.In lab titration in January with no PLMS and best pressure 11 cm [id number] set up 03/03/21Re peat home study 03/2023 positive with AHI 11Order today for all new supplies and mask fitSetting s to APAP 5-15, changed in ResmedShe should follow up in [address] Walt de al rosa 100% compliance with all sleepFollo w [...] at least 4 hours prior to bedtime. [id number] Emily Herrera MD [facility] Primary Care [address] [place] [address] 07/03/2023 12:39:51 07/03/2023 17:51:03 [id number] Obdulio Garcia MD [address] [address] 07/18/2023 15:41:13 07/19/2023 15:37:21 Obstructive sleep apnea syndrome 30849432 G47.33 [id number] Obdulio Garcia MD [address] [address] 07/29/2023 09:07:27 07/30/2023 08:51:35 Obstructive sleep apnea syndrome 94758211 G47.33 [id number] Emily Herrera MD [facility] Primary Care [address] [place] [address] 07/29/2023 14:15:29 07/29/2023 15:02:58 Hypothyroidism 97763306 E03.9 currently on levothyrox ine 75 mcg dailyreche ck labs at next apptadd cytomel 5 mcg daily (she felt good on this in the past) update 07/29/23: repeat labs Renewal of prescription 413302834 Z76.0 Essential hypertension 24500938 I10 History of bariatric surgical procedure 799833746 Z98.84 Vitamin D deficiency 347 48313 E55.9 Screening for malignant neoplasm of colon 470091939 Z12.11 Hyperglycemia 26343369 R 73.9 Hyperlipid emia screening 540505597 Z13.969 [id number] Emily Herrera MD [facility] Primary Care [facility] [address] [facility] [address] [place] [address] 09/19/2023 14:06:26 09/19/2023 14:57:40 Pain of bilateral knee joints 2717287507 75097 M25.561 M25.562 Abdominal bloating 11109 9008 R14.0 Needs refill, stable Osteoarthritis 843289121 M19.90 stablerefi ll givenf/u in 6 months Gastroesop hageal reflux disease without esophagitis 571668837 K21.9 stable refill given [id number] JYOTSNA Jacobs [facility] Primary Care [facility] 101 [facility] [address] [place] [address] 01/02/2024 10:16:03 01/02/2024 11:19:10 Uterine fibroid polyp 407237197 D25.9 Compressio n fracture of thoracic vertebra 2706131544 104 M48.54XA Type 2 angelo betes mellitus 83307598 E11.9 Allergic rhinitis 454608 04 J30.9 [id number] JYOTSNA Jacobs [facility] Primary Care [facility] 101 [facility] [address] [place] [address] 03/19/2024 14:27:51 03/19/2024 15:25:22 Adult health examination 547492371 Z00.00 Discussed medication compliance and routine follow up.Discuss ed healthy diet and routine exercise.Blanche rayawed vaccine records and made recommenda tions as needed.Enc ouraged annual eye and dental exams, as well as twice yearly dental cleanings. Will check screening labs as listed below. Screening for disorder 886404766 Z13.9 Essential hypertension 03633142 I10 Gastroesop hageal reflux disease 330853528 K21.9 Hypothyroidism 17177010 E03.9 Type 2 angelo betes mellitus 76795401 E11.9 Osteoarthritis [id number] M19.[address] refill 01/29/24UDS will be collected at next appt. Multiple joint pain 3567 8005 M25.50 Allergic rhinitis 955143 04 J30.9 Hypomagnesemia 637867610 E83.42 Mixed anxi ety and depressive disorder 283741196 F41.8 [id number] JYOTSNA Jacobs [facility] Primary Care [facility] [address] [facility] [address] [place] [address] 06/23/2024 13:55:36 06/23/2024 14:48:19 Osteoarthritis 397926500 M19.90 Anemia 179055297 D64.9 Mixed anxi ety and depressive disorder 177476360 F41.8 Type 2 angelo betes mellitus 03546263 E11.9 Memory impairment 483180 006 R41.3 [id number] JYOTSNA Jacobs [facility] Primary Care [facility] [address] [facility] [address] [place] [address] 08/18/2024 14:51:09 08/18/2024 15:18:57 Mixed anxiety and depressive disorder 285011754 F41.8 Type 2 angelo betes mellitus 96823715 E11.9 Health Concerns Section Related Observation LastModified by Organization Detai ls LastModified Time None Recorded Concern Status LastModified by Organization Details LastModified Time None Recorded Advance Directives Directive None Recorded Payers Encounter Date Sequence Insurance Name Policy Number Policy Oneal Covered Member ID Oneal Member ID Guarantor Name 09/19/2023 1 [employer] (MEDICARE REPLACEMENT HMO) [id number] Hanna L [place] [id number] Hanna L Nora 01/02/2024 1 [employer] (MEDICARE REPLACEMENT HMO) [id number] Hanna L [place] [id number] Hanna L [place] 03/19/2024 1 [employer] (MEDICARE REPLACEMENT HMO) [id number] Hanna L Nora [id number] Hanna L [place] 06/23/2024 1 [facility] (MEDICARE REPLACEMENT/AD VANTAGE - HMO) [id number] Hanna L Nora [id number] Hanna L Nora 08/18/2024 1 [facility] (MEDICARE REPLACEMENT/AD VANTAGE - HMO) [id number] Hanna L Nora [id number] Hanna L [place] Notes Date Note Type Note Provider Name and Address Organization Details Recorded Time 09/19/2023 text/html doesn't feel wel l, can't [...] She Emily Herrera MD [address], [facility] [address], [place], [address], [employer] 10/06/2023 20:03:42 01/02/2024 text/html Patient is a [...] bleeding. Patient denies treatment of these symptoms DIGITAL LIBRARIAN. Patient denies chest pain and shortness of breath. JYOTSNA Jacobs [address], [address], [place], [address], [employer] 01/02/2024 11:06:48 03/19/2024 text/html Patient is a [...] amounts of food. Patient is working with GI on this issue, recently had a barium [...] medical necessity to continue having procedures at [facility]. Letter needs to be faxed to Dr. Calero's office. Patient reports due to medical history, the anesthesiologist does not think it is safe for her to have surgeries there however her Diabetes, hypothyroidism and hypertension have been well managed since her weight loss. Patient wants to continue with [facility] rather than the hospital because it is $150 cheaper for each surgery and she is financially struggling with everything. labs-orderedmammogram- UTDcolonoscopy-schedul ed in HbiICU-UASHez-CGREhqma -XIIMrsf-SDDAecagmat-h JYOTSNA Maria [address] [employer], [address], [place], [address], Dress Code 03/20/2024 13:08:05 06/23/2024 text/html Patient is a 58 year old female that presents to the office for follow-up. Patient reports she followed up with automatic centrifugal station operator and thyroid levels are still low.Patient is chronically anemic despite taking two bariatric vitamins with 45mg of iron plus liquid iron daily...patient requesting referral to professor sculpture. Patient requesting referral to [facility] [place] due to noticing mild short term memory [...] on current dose of Paroxetine. Denies SI/HI. JYOTSNA Jacobs [address] [employer], [address], [place], [address], Dress Code 06/23/2024 22:37:23 08/18/2024 text/html Patient is a 58 year old female that presents to the office for follow up. Patient reports her thyroid levels are very low again so her automatic centrifugal station operator is increasing her Tirosint Solution. She is still struggling with her iron being too low despite supplements, she is going to see hematology in October. Patient is working with Podiatry and Orthopedics for bilateral foot and knee surgery, thinks that process should be starting soon. Patient reports her depression has improved slightly but thinks she would benefit from a dose increase. Patient reports she has been taking both of the 75mg tablets in the morning. Juanita Lemons, COMMERCIAL MAKEUP ARTIST-C [address] [facility], [facility] [address], [place], [address], [facility] [employer] 08/18/2024 15:37:00 OBGyn Episode No OBEpisode recorded.
--- OUTSIDE RECORDS SUMMARY | 2024-09-22 16:52 | XMS_ITS | Encounter Summary ---
Author Organization [facility] Address [address] [place] [address] Care Team Providers Care Rim Fire Priming Operator Name Role Phone Regina Ovalles MD Primary Care Provider +1- [phone] Encounter Details Date Type Department Care Team (Late Contact Info) Description 02/01/2003 Outpatient Historical [facility] Internal Medicine [address] 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 Gender Identity Not on file Sexual Orientation Not on file documented as of this encounter Plan of Treatment Upcoming Encounters Date Type Department Care Team (Late Contact Info) Description 09/30/2024 4:15 PM CDT Telephone Check Up [facility] Oncology and Hematology - Graeme [address] [facility] [address] [place] [address] Malcolm Shay MD [address] [facility] [address] [place] [address] documented as of this encounter Visit Diagnoses Not on filedocumented in this encounter Care Teams Rim Fire Priming Operator Relationship Specialty Start Date End Date Regina Ovalles MD [address] [place] [address] PCP - General 06/03/15 documented as of this encounter
--- OUTSIDE RECORDS SUMMARY | 2024-09-22 16:52 | XMS_ITS | Encounter Summary ---
Author Organization [facility] Address [address] [place] [address] Care Team Providers Care Oven Tender Name Role Phone Regina Ovalles MD Primary Care Provider +1- [phone] Encounter Details Date Type Department Care Team (Late Contact Info) Description 12/30/2002 Outpatient Historical [facility] Internal Medicine [address] 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 Gender Identity Not on file Sexual Orientation Not on file documented as of this encounter Plan of Treatment Upcoming Encounters Date Type Department Care Team (Late Contact Info) Description 09/30/2024 4:15 PM CDT Telephone Check Up [facility] Oncology and Hematology - Graeme [address] [facility] [address] [place] [address] Malcolm Shay MD [address] [facility] [address] [place] [address] documented as of this encounter Visit Diagnoses Not on filedocumented in this encounter Care Teams Oven Tender Relationship Specialty Start Date End Date Regina Ovalles MD [address] [place] [address] PCP - General 06/03/15 documented as of this encounter
--- OUTSIDE RECORDS SUMMARY | 2024-09-22 16:52 | XMS_ITS | Encounter Summary ---
Author Organization [facility] Address [address] [place] [address] Care Team Providers Care Lab Intern Name Role Phone Regina Ovalles MD Primary Care Provider +1- [phone] Encounter Details Date Type Department Care Team (Late Contact Info) Description 06/24/2002 Outpatient Historical [facility] Internal Medicine [address] 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 Gender Identity Not on file Sexual Orientation Not on file documented as of this encounter Plan of Treatment Upcoming Encounters Date Type Department Care Team (Late Contact Info) Description 09/30/2024 4:15 PM CDT Telephone Check Up [facility] Oncology and Hematology - Graeme [address] [facility] [address] [place] [address] Malcolm Shay MD [address] [facility] [address] [place] [address] documented as of this encounter Visit Diagnoses Not on filedocumented in this encounter Care Teams Lab Intern Relationship Specialty Start Date End Date Regina Ovalles MD [address] [place] [address] PCP - General 06/03/15 documented as of this encounter
--- OUTSIDE RECORDS SUMMARY | 2024-09-22 16:52 | XMS_ITS | Encounter Summary ---
Author Organization [facility] Address [address] [place] [address] Care Team Providers Care Retail Account Representative Name Role Phone Regina Ovalles MD Primary Care Provider +1- [phone] Encounter Details Date Type Department Care Team (Late Contact Info) Description 02/28/2004 Outpatient Historical [facility] Internal Medicine [address] 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 [address] [place] [address] Malcolm Shay MD [address] [facility] [address] [place] [address] documented as of this encounter Visit Diagnoses Not on filedocumented in this encounter Care Teams Retail Account Representative Relationship Specialty Start Date End Date Regina Ovalles MD [address] [place] [address] PCP - General 06/03/15 documented as of this encounter
--- OUTSIDE RECORDS SUMMARY | 2024-09-22 16:52 | XMS_ITS | Encounter Summary ---
Author Organization [facility] Address [address] [place] [address] Care Team Providers Care Manager Environmental Health Name Role Phone Regina Ovalles MD Primary Care Provider +1- [phone] Encounter Details Date Type Department Care Team (Late Contact Info) Description 08/03/2002 Outpatient Historical [facility] Internal Medicine [address] 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 Gender Identity Not on file Sexual Orientation Not on file documented as of this encounter Plan of Treatment Upcoming Encounters Date Type Department Care Team (Late Contact Info) Description 09/30/2024 4:15 PM CDT Telephone Check Up [facility] Oncology and Hematology - Graeme [address] [facility] 200 [place] [address] Malcolm Shay MD [address] [facility] [address] [place] [address] documented as of this encounter Visit Diagnoses Not on filedocumented in this encounter Care Teams Manager Environmental Health Relationship Specialty Start Date End Date Regina Ovalles MD [address] [place] [address] PCP - General 06/03/15 documented as of this encounter
--- OUTSIDE RECORDS SUMMARY | 2024-09-22 16:52 | XMS_ITS | Continuity of Care Document ---
Author Organization [facility] Address [address] [facility] [address] [place] [address] Phone Care Team Providers Care Environmental Project Manager Name Role Phone Roosevelt Dumont MD Unavailable [...] Copied on Encounter OFFICE/OUTPA TIENT VISIT EST [facility], [address] [facility] [address], [place], [address], [place] tel:[phone] [facility] Arthritis of left foot Sep- 8 Tim Albert. [address], [place], [place], [address] . tel: [phone] OFFICE/OUTPA TIENT VISIT EST [facility], [address], [address], [place] [phone] [facility] Essential (primary) hypertensionBod y mass index (BMI) 60.0-69.9, adultArthritis of left foot Sep- 8 Tim Albert. [address], [place], [place], [address] . tel: [phone] OFFICE/OUTPA TIENT VISIT [facility], [address] [place] [address], [place], [address], [place] tel:[phone] [facility] Primary osteoarthritis of first carpometacarpal joint of left hand 6 Malik Gutierrez. [address] [facility], [place], [place], [address] . tel: [phone] [facility], [address] [place] [address], [address], [place] tel:[phone] [facility] Primary osteoarthritis of right kneePrimary osteoarthritis of left knee 6 Aubuchon Alfred. [address], [place], [place], [address] . tel: [phone] [facility], [address] [place] [address], [address], [place] tel:[phone] [facility] Primary osteoarthritis of left kneePrimary osteoarthritis of right knee 6 Aubuchon Alfred. [address], [place], [place], [address] . tel: [phone] OFFICE/OUTPA TIENT VISIT EST [facility], [address], [address], [place] [phone] [facility] Primary osteoarthritis of right kneePrimary osteoarthritis of left knee 0 9- 6 Aubuchon Alfred. [address], [place], [place], [address] . tel: [phone] [facility], [address] [facility] [address], [place], [address], [place] tel:[phone] [facility] Primary osteoarthritis of right knee 0 2- 6 Aubuchon Alfred. [address], [place], [place], [address] . tel: [phone] OFFICE/OUTPA TIENT VISIT [facility], [address] [address], [place], [address], [place] [phone] [facility] Primary osteoarthritis of right knee 6 Aubuchon Alfred. [address], [place], [place], [address] . tel: [phone] OFFICE/OUTPA TIENT VISIT [facility], [address] [address], [place], [address], [place] tel:[phone] [facility] Pain in joint, lower leg 5 Indiana Summers. [address], [place], [place], [address] . tel: [phone] OFFICE/OUTPA TIENT VISIT [facility], [address] [address], [place], [address], [place] [phone] [facility] Follow Up of lbp (chief complaint) LumbagoPain in limb 4 Mitesh Andrews. [address] [facility], [place], [place], [address] . tel: [phone] OFFICE/OUTPA TIENT VISIT [facility], [address] [facility] [address], [place], [address], [place] tel:[phone] [facility] Follow Up of lbp (chief complaint) LumbagoPain in limb 4 Mitesh Andrews. [address] [place], [place], [address] . tel: [phone] OFFICE/OUTPA TIENT VISIT EST [facility], [address], [address], tel:[phone] [facility] R 5TH TOE INJURY (chief complaint) Nail avulsion 4 Amy Simon. [address], [place], [place], [address] . tel: [phone] OFFICE/OUTPA TIENT VISIT EST [facility], [address], [address], tel:[phone] [facility] Primary localized osteoarthrosis, ankle and footMetatarsalg ia 4 Auashleyangel Alfred. [address], [place], [place], [address] . tel: [phone] Family History Family Member Type Diagnosis Age At Onset Sister Problem (finding) Alive and well Payers Payer name Insurance type Covered constitution party ID Mahendra milton(s) UMR E2 [id number] Social History Type Description Quantity Date Captured [...] Information Instructions Date Instruction Additional Infor mation Apply ice as instructed. Related to Arthritis of left foot Activity as tolerated. Related t o Arthritis of left foot Apply ice as instructed. Related to Arthritis of left foot Activity as tolerated. Related t o Arthritis of left foot Hypertension education Related t o Essential (primary) hypertension Giving encouragement to exercise Related to Body mass index (BMI) 60.0-69.9, adult Splint as directed. Related to P rimary osteoarthritis of first carpometacarpal joint of left hand Ice as directed. Related to Prim amelia osteoarthritis of first carpometacarpal joint of left hand Assessments Type Assessment Date assessment Arthritis of left foot 17 Patient Care Teams Name Effective Dates (start - stop) Status Members No Information
--- OUTSIDE RECORDS SUMMARY | 2024-09-22 16:52 | XMS_ITS | Encounter Summary ---
Author Organization [facility] Address [address] [place] [address] Care Team Providers Care Viticulturist Name Role Phone Regina Ovalles MD Primary Care Provider +1- [phone] Encounter Details Date Type Department Care Team (Late Contact Info) Description 10/02/[address]patient [address] [facility] Internal Medicine [address] 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 Gender Identity Not on file Sexual Orientation Not on file documented as of this encounter Plan of Treatment Upcoming Encounters Date Type Department Care Team (Late Contact Info) Description 09/30/2024 4:15 PM CDT Telephone Check Up [facility] Oncology and Hematology - Graeme [address] [facility] [address] [place] [address] Malcolm Shay MD [address] [facility] [address] [place] [address] documented as of this encounter Visit Diagnoses Not on filedocumented in this encounter Care Teams Viticulturist Relationship Specialty Start Date End Date Regina Ovalles MD [address] [place] [address] PCP - General 06/03/15 documented as of this encounter
--- OUTSIDE RECORDS SUMMARY | 2024-09-22 16:52 | XMS_ITS | Encounter Summary ---
Author Organization [facility] Address [address] [place] [address] Care Team Providers Care Bridge Operator Slip Name Role Phone Reigna Ovalles MD Primary Care Provider +1- [phone] Encounter Details Date Type Department Care Team (Late Contact Info) Description 08/03/2002 Outpatient Historical [facility] Internal Medicine [address] 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 Gender Identity Not on file Sexual Orientation Not on file documented as of this encounter Plan of Treatment Upcoming Encounters Date Type Department Care Team (Late Contact Info) Description 09/30/2024 4:15 PM CDT Telephone Check Up [facility] Oncology and Hematology - Graeme [address] [facility] 200 [place] [address] Malcolm Shay MD [address] [facility] [address] [place] [address] documented as of this encounter Visit Diagnoses Not on filedocumented in this encounter Care Teams Bridge Operator Slip Relationship Specialty Start Date End Date Regina Ovalles MD [address] [place] [address] PCP - General 06/03/15 documented as of this encounter
--- OUTSIDE RECORDS SUMMARY | 2024-09-22 16:52 | XMS_ITS | Clinical Summary ---
Author Organization [facility] Address [address] [place] [address] Phone Care Team Providers Care Hosiery Mender Name Role Phone Regina Ovalles MD Primary Care Provider [phone] Allergies Active Allergy Reactions Criticality Noted Date Comments Canagliflozin Dizziness Low 12/30/2020 Cephalexin Hives High 12/17/2023 Cortisone Other (See Comments) Low 12/30/2020 Food Extracts Anaphylaxis High 08/02/2011 Anaphylaxis when digests turkey Fosinopril Cough Low 12/30/2020 Ketorolac Tromethamine Nausea and Vomiting Medium 07/18 Levofloxacin Nausea and Vomiting Low 12/30/2020 Montelukast Nausea and Vomiting,Other (See Comments) Low 12/30/2020 Sertraline Seizure High 09/17/2015 [place] Anaphylaxis,Shortnes s of Breath/Wheezing High 12/30/2020 Vancomycin Itching Medium 08/03/2011 Medications levothyroxine (SYNTHROID) 125 mcg Oral tablet Take 1 Tab by mouth daily business development assistant. 30 Tab 0 2 Active Additional Information Patient taking differently: 200 mcgOralDAILY, Indications: thyroid disease, Reported on 09/17/2015 PARoxetine HCl (PAXIL) 30 mg tabletIndicatio ns:depression Take 2 Tablet (60 mg) by mouth daily. 60 Tablet 0 6 Active celecoxib (CeleBREX) 200 mg capsule Take 200 mg by mouth daily. 3 Active cholecalciferol , vitamin D3, 5,000 unit Take 5,000 Units by mouth daily. Active gabapentin (NEURONTIN) 100 mg capsule Take 100 mg by mouth 2 times daily. Active lansoprazole (PREVACID) 30 mg Capsule, Delayed Release(E.C.) Take 30 mg by mouth daily. Active lipase-protease -amylase DR (Creon) 36,000-114,000- 180,000 unit capsule ADMINISTER 2 CAPSULES BY MOUTH WITH MEALS AND 1 CAPSULE WITH SNACKS Active magnesium HYDROXIDE (MILK OF MAGNESIA) 400 mg/5 mL suspension Take 2,400 mg by mouth daily. 3 Active olmesartan (BENICAR) 20 mg tablet Take 5 mg by mouth daily. Active traMADol (ULTRAM) 50 mg tablet Take 50 mg by mouth. 3 Active Fish Oil-[place]-3 Fatty Acids 360-1,200 mg Capsule Take 1 Capsule by mouth. Active ferrous sulfate 325 mg (65 mg iron) tablet Take 325 mg by mouth daily. Active clindamycin HCL (CLEOCIN) 300 mg Capsule Take 300 mg by mouth 4 times daily. Active Active Problems Problem Noted Date Diagnosed Date Severe recurrent major depre ssion without psychotic features 09/18/2015 Leukocytosis 09/18/2015 Cellulitis 08/23/2011 DM (diabetes mellitus) HTN (hypertension) Hypothyroidism Obesity Depression Cellulitis Malignant neoplasm Encounters Date Type Department Care Team Description 09/22/2024 3:00 PM CDT Office Visit [facility] On[facility] and Hematology [facility] [address] [address] Malcolm Shay MD Malignant neoplasm (CMS/HCC) (Primary Dx); Chronic anemia from Last 3 Months Immunizations Immunization Administration Dates Next Due (ADACEL/BOOSTRIX)(10 YR UP) TDAP VACCINE, 0.5ML, IM 08/03/2011 Influenza Seasonal Unspecified Formulation IM Pneumococcal conjugate, unspecified formulation 03/17/2010 Family History Medical History Relation Name Comments Lung Cancer Brother 1 Diabetes Brother 2 Heart Disease Brother 2 Throat Cancer Brother 2 Cancer - Other Father Diabetes Father Hypertension Mother Diabetes Sister 1 Lung Cancer Sister 1 mets to liver Heart Disease Sister 2 Relation Name Status Comments Brother 1 Brother 2 Alive Father Mother Sister 1 Sister 2 Alive Social History Tobacco Use Types Packs/Day Years Used Date Smoking Tobacco: Never Smokeless Tobacco: Never Tobacco Cessation:Counseling Given: Not Answered Alcohol Use Standard Drinks/Week Comments No 0 (1 standard drink = 0.6 oz pur e alcohol) Comments No Sex and Gender Information Value Date Recorded Sex Assigned at Not on file 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 Gender Identity Not on file Sexual Orientation Not on file Last Filed Vital Signs Vital Sign Reading Time Taken Comments Blood Pressure 90/58 09/22/2024 3:01 PM CDT Pulse 82 09/22/2024 3:01 PM CDT Temperature 36.3 C (97.4 F) 09/22/2024 3:01 PM CDT Respiratory Rate 15 09/22/2024 3:01 PM CDT Oxygen Saturation 98% 09/22/2024 3:01 PM CDT Inhaled Oxygen Concentration - - Weight 80.1 kg (176 lb 9.6 oz) 09/22/2024 3:01 P M CDT Height 167.6 cm (5' 6 ) 09/22/2024 3:01 PM CDT Body Mass Index 28.5 09/22/2024 3:01 PM CDT Plan of Treatment Upcoming Encounters Date Type Department Care Team (Late st Contact Info) Description 09/30/2024 4:15 PM CDT Telephone Check Up [facility] Oncology and Hematology - [place] [address] [facility] [address] [place] [address] Malcolm Shay MD [address] [facility] [address] [place] [address] Health Maintenance Due Date Last Done Comments DIABETES ANNUAL FOOT EXAM 1982 DIABETES ANNUAL RETINAL EXAM 1982 DIABETES MICROALBUMIN ANNUAL SCREEN 1982 LDL CHOLESTEROL ANNUAL 1982 HEPATITIS B VACCINES (1 of 3 - 19+ 3-dose series) 10/02/1983 08/26/2006, 06/26/2006 HPV/Cotest (21-29) 1985 CERVICAL CANCER SCREENING 1994 HPV/Cotest (30-65) 1994 PAP SMEAR 1994 BREAST CANCER SCREENING 2004 COLORECTAL SCREENING 2009 Colorectal Cancer Screening 2009 FIT-DNA Q 3 years 2009 FIT/FOBT Q 1 year 2009 Flex Sig/CT Colonography Q 5 years 2009 ZOSTER VACCINE (1 of 2) 2014 DIABETES HBA1C Q 6 MONTHS 05/16/2023 11/13/2022 INFLUENZA VACCINE (#1) 2024 , 04/11/2020, 03/22/2016, Additional history exists COVID-19 Vaccine (2023-2 5 season) 2024 03/24/2021, 08/06/2020, 07/16/2020 [place]) Preventative Visit/Annual Wellness Visit 06/17/2024 DTAP/TDAP/TD VACCINES (4 - T d or Tdap) 01/28/2028 01/27/2018, 01/22/2018, 08/03/2011, Additional history exists Insurance [place] [id number] [facility] Address: [address] [address] [place] [address] [facility] OPTIONS PPO [id number] Advance Directives For more information, please contact: [phone] * Full Code (Latest Code Status on File) Date Activated Date Inactivated Comments 09/17/2015 8:59 PM 09/22/2015 3:10 PM * Full Code Date Activated Date Inactivated Comments 08/02/2011 1:14 PM 08/08/2011 2:44 PM Care Teams Hosiery Mender Relationship Specialty Start Date End Date Regina Ovalles MD [address] [address] PCP - General 06/03/15
--- OUTSIDE RECORDS SUMMARY | 2024-09-22 16:52 | XMS_ITS | Clinical Summary ---
Author Organization [facility] Care Team Providers Care Wood Crew Supervisor Name Role Phone Unavailable Primary Care Provider [...] Occult Blood 2014 Mammogram 2014 Pneumococcal Immunization (50+ years) (2 of 2 - PCV) 2014 06/17/2008 Zoster Immunization (1 of 2) 2014 Influenza Immunization (#1) 2024 10/0 01/2020, 03/31/2019, 03/22/2016, Additional history exists SARS-COV-2 Immunization ( season) 2024 03/24/2021, 08/06/2020, 07/16/2020 Respiratory Syncytial [...]
--- OUTSIDE RECORDS SUMMARY | 2024-09-22 16:52 | XMS_ITS | Encounter Summary ---
Author Organization [facility] Address [address] [place] [address] Care Team Providers Care Flute Grinder Name Role Phone Regina Ovalles MD Primary Care Provider [phone]- [phone] Encounter Details Date Type Department Care Team (Late Contact Info) Description 10/02/[address] [facility] [address] [facility] [address] [place] [address] Grady Galvez MD [address] [facility] [address] [place] [address] Social History Tobacco Use Types Packs/Day Years Used Date Smoking Tobacco: Never Assessed Comments Unknown Sex and Gender Information Value Date Recorded Sex Assigned at Not on file Legal Sex Female 3:39 AM IN[employer]CTOR [employer] Gender Identity Not on file Sexual Orientation Not on file documented as of this encounter Plan of Treatment Upcoming Encounters Date Type Department Care Team (Late Contact Info) Description 09/30/2024 4:15 PM CDT Telephone Check Up [facility] Oncology and Hematology - [place] [address] [facility] [address] [place] [address] Malcolm Shay MD [address] [facility] [address] [place] [address] documented as of this encounter Visit Diagnoses Not on filedocumented in this encounter Care Teams Flute Grinder Relationship Specialty Start Date End Date Regina Ovalles MD [address] [place] [address] PCP - General 06/03/15 documented as of this encounter
--- OUTSIDE RECORDS SUMMARY | 2024-09-22 16:52 | XMS_ITS | Clinical Summary ---
Author Organization [facility] Address [address] [place] [address] Care Team Providers Care Vacuum Pan Tender Name Role Phone Juanita Lemons NP Primary Care Provider [phone] Allergies Active Allergy Reactions Criticality Noted Date [...] 12/30/2020 Sertraline Shortness of breath,Swelling,Seizures High 09/17/2015 [place] Anaphylaxis High 12/30/2020 [place] Other (See comments) 08/26/2024 Vancomycin Hives,Itching,Rash,S hortn [...] 03/14/2009 HTN (hypertension) 03/14/2009 Thyroid dysfunction 03/14/2009 Encounters Date Type Department Care Team Description 08/26/2024 2:00 PM CDT Office Visit 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 Gender Identity Not on file Sexual [...] 08/26/2024 1:39 PM CDT Plan of Treatment Health Maintenance Due Date Last Done Comments Albumin Creatinine Ratio, Urine 1964 Breast Cancer Screening-Mammogram 1964 Cervical Cancer Screening 1964 Colon Cancer Screening-Colonoscopy 1964 Depression Screening 1964 Hepatitis C Screening 1964 Dilated Eye Exam 1964 Foot Exam 1964 Lipid Panel 1964 Regular Well Visit/Exam 18-64 1982 Zoster Vaccine (1 of 2) 2014 Hemoglobin A1C 05/16/2023 11/13/2022, 01/25/2022 eGFR 11/14/2023 11/13/2022 Covid-19 Vaccine (2023-2 5 season) 2024 03/09/2022, 11/06/2021, 03/24/2021, Additional history exists Influenza Vaccine (#1) 2024 , 03/09/2022, 03/08/2021, Additional history exists DTaP/Tdap/Td Vaccine [...] 63(L) 90 - 130 mL/min/1. 73 m2 [facility] Comment: Interpretive Data Reference Interval Normal >/= [...] Nithya Oconnor NP LAB BLOOD ORDERABLES Judy arevalo Result [facility] [place] [address] * POCT hemoglobin A1c (11/13/2022 11:16 AM CDT) Hgb A1C, POC 4.9 4.0 - 5.6 % [facility] Est Average Gluc POC 94 mg/dL [facility] Comment: The ADA recommends reporting an estimated Average Glucose (eAG) with all Hemoglobin A1c results using the equation derived from a study of 507 normal and diabetic adults. Minority populations were underrepresented and children were not included. (Diabetes Care 31:2996-0668, 2008). The eAG is not equivalent to a fasting glucose. Blood 11/13/2022 11:1 6 AM CDT 11/13/2022 11:16 AM CDT us Ree Greene MD POINT OF CARE TEST OR DERABLES Final Result [facility] [place] [address] from Last 3 Months or Most Recently Relevant to Health Maintenance Insurance [facility] MEDICARE [facility] Address: [address] [address] [place] [address] [employer] MEDICARE [facility] Address: [address] [place] [address] [employer] MEDICARE [place] Advance Directives For more information, please contact: [phone] * Full Code (Latest Code Status on File) Date Activated Date Inactivated Comments 11/15/2022 6:20 PM 11/18/2022 6:51 PM Care Teams Vacuum Pan Tender Relationship Specialty Start Date End Date Juanita Lemons NP [address] [place] [address] PCP - General Family Medicine 07/15/24
--- OUTSIDE RECORDS SUMMARY | 2024-09-22 16:52 | XMS_ITS | Encounter Summary ---
Author Organization [facility] Address 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 Gender Identity Not on file Sexual Orientation Not on file documented as of this encounter Plan of Treatment Upcoming Encounters Date Type Department Care Team (Late st Contact Info) Description 09/30/2024 4:15 PM CDT Telephone Check Up [facility] Oncology and Hematology - [place] [address] [facility] [address] [place] [address] Malcolm Shay MD [address] [facility] [address] [place] [address] documented as of this encounter Visit Diagnoses Diagnosis Other and unspecified hyperlipidemia- Primary documented in this encounter Care Teams Braider Setter Relationship Specialty Start Date End Date Regina Ovalles MD [address] [place] [address] PCP - General 06/03/15 documented as of this encounter
--- OUTSIDE RECORDS SUMMARY | 2024-09-22 16:52 | XMS_ITS | Encounter Summary ---
Author Organization [facility] Address [address] [place] [address] Care Team Providers Care Data Software Engineer Name Role Phone Regina Ovalles MD Primary Care Provider [phone]- [phone] Reason for Visit * Reason Comments Establish Care Encounter Details Date Type Department Care Team (Late st Contact Info) Description 09/22/2024 3:00 PM CDT Office Visit [facility] Oncology and Hematology - [place] [address] [facility] [address] [place] [address] Malcolm Shay MD [address] [facility] [address] [place] [address] Malignant neoplasm (CMS/HCC) (Primary Dx); Chronic anemia Social History Tobacco Use Types Packs/Day Years Used Date Smoking Tobacco: Never Smokeless Tobacco: Never Tobacco Cessation:Counseling Given: Not Answered Alcohol Use Standard Drinks/Week Comments No 0 (1 standard drink = 0.6 oz pur e alcohol) Comments No Sex and Gender Information Value Date Recorded Sex Assigned at Not on file 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 Gender Identity Not on file Sexual Orientation Not on file documented as of this encounter Last Filed Vital Signs Vital Sign Reading [...] Mass Index 28.5 09/22/2024 3:01 PM CDT documented in this encounter Progress Notes * Malcolm Shay MD - 09/22/2024 3:29 PM CDT Hematology-oncology consult Note Requesting Physician Regina Ovalles MD Primary Care Physician Regina Ovalles MD Problem list Patient Active Problem List Diagnosis Code DM (diabetes mellitus) (CMS/HCC) E11.9 HTN (hypertension) I10 Hypothyroidism E03.9 Obesity E66.9 Depression F32.A Cellulitis L03.90 Cellulitis L03.90 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 Measurable Disease ? Reason for Visit Hanna Melendez is a 58 y.o. female who was referred for consultation for chronic anemia. History of present illness This is a 58-year-old female with history of morbid obesity status post gastric bypass surgery in June 2020 with more than 400 pound weight loss along with history of diabetes, hypothyroidism and melanoma. Her melanoma was diagnosed at age of 19 and had surgery done at that time. After her gastric bypass surgery 6 months later she developed significant nausea vomiting and had further surgeries involving removal of the part of the colon was performed. She is taking bariatric multivitamin withiron 45 mg twice a day along with 2 tablespoon of liquid iron. She denies any bleeding including melena and hematochezia. Denies being a vegetarian. Her weight lately remained stable. Her labs from April 2024 showed hemoglobin of 10.8 patient had last colonoscopy and EGD done in March 2024 that showed internal hemorrhoids and changes of previous gastric bypass surgery. Denies any other complaints. Past Medical History Past Medical History: Diagnosis Date Cellulitis Depression DM (diabetes mellitus) (CMS/HCC) Hepatitis HTN (hypertension) Hypothyroidism Malignant neoplasm (CMS/HCC) patient reported Obesity Surgical History Past Surgical History: Procedure Laterality Date HX CHOLECYSTECTOMY HX CYST REMOVAL from the left hip HX GASTRIC BYPASS MAMMO LT LUMPECTOMY Medications Current Outpatient Medications Medication Sig Dispense Refill celecoxib (CeleBREX) 200 mg capsule Take 200 mg by mouth daily. magnesium HYDROXIDE (MILK OF MAGNESIA) 400 mg/5 mL suspension Take 2,400 mg by mouth daily. traMADol (ULTRAM) 50 mg tablet Take 50 mg by mouth. Fish Oil-[place]-3 Fatty Acids 360-1,200 mg Capsule Take 1 Capsule by mouth. ferrous sulfate 325 mg (65 mg iron) tablet Take 325 mg by mouth daily. clindamycin HCL (CLEOCIN) 300 mg Capsule Take 300 mg by mouth 4 times daily. cholecalciferol, vitamin D3, 5,000 unit Take 5,000 Units by mouth daily. gabapentin (NEURONTIN) 100 mg capsule Take 100 mg by mouth 2 times daily. lansoprazole (PREVACID) 30 mg Capsule, Delayed Release(E.C.) Take 30 mg by mouth daily. omivut-qrdpgbsq-trghlfk DR ([place]on) 36,000-114,000-180,000 unit capsule ADMINISTER 2 CAPSULES BY MOUTH WITH MEALS AND 1 CAPSULE WITH SNACKS olmesartan (BENICAR) 20 mg tablet Take 5 mg by mouth daily. PARoxetine HCl (PAXIL) 30 mg tablet Take 2 Tablet (60 mg) by mouth daily. 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 (Patient taking differently: Take 200 mcg by mouth daily . ) 30 Tab 0 No current facility-administered medications for this visit. Allergies Allergies Allergen Reactions Cephalexin Hives Food Extracts Anaphylaxis Anaphylaxis when digests turkey Sertraline Seizure [place] Anaphylaxis and Shortness of Breath/Wheezing Ketorolac Tromethamine Nausea and Vomiting Vancomycin Itching Canagliflozin Dizziness Cortisone Other (See Comments) Fosinopril Cough Levofloxacin Nausea and Vomiting Montelukast Nausea and Vomiting and Other (See Comments) Immunizations: Immunization History Administered Date(s) Administered (ADACEL/BOOSTRIX)(10 YR UP) TDAP VACCINE, 0.5ML, IM 08/03/2011 (PFIZER)(12 YR UP) COVID-19 VACCINE - EMERGENCY USE AUTHORIZATION, MRNA, [id number](PF) 30 MCG/0.3 MLIM SUSP 07/16/2020, 08/06/2020 Influenza Seasonal Unspecified Formulation IM 04/17/2011 Pneumococcal conjugate, unspecified formulation 03/17/2010 Family History Family History Problem Relation Name Age of Onset Cancer - Other Father Diabetes Father Hypertension Mother Lung Cancer Brother Heart Disease Brother Diabetes Brother Throat Cancer Brother Lung Cancer Sister mets to liver Diabetes Sister Heart Disease Sister Social History Social History Tobacco Use Smoking status: Never Smokeless tobacco: Never Substance Use Topics Alcohol use: No Review of Systems Constitutional: Patient did not mention fever; no night sweats; no anorexia; no weight loss; complain of tiredness and fatigue NEENT: Patient did not mention headache; no change in vision; no change in hearing; no sore throat;no dysphagia Respiratory: Patient did not mention shortness of breath; no pleuritic chest pain; no cough; no hemoptysis Cardiac: Patient did not mention cardiac-like chest pain; no palpitations; no orthopnea; no PND; noDOE Breasts: Patient did not mention tenderness; no masses GI: Patient did not mention abdominal pain; no nausea; no vomiting; no diarrhea; no hematochezia; no melena : Patient did not mention dysuria; no frequency; no hesitancy; no hematuria ROLLER HAND: Musculosketetal: Patient did not mention bone pain; no arthralgia; no joint swelling; no myalgia; Skin: Patient did not mention pruritis; no rash; no petechiae; no ecchymoses Endocrine: Patient did not mention polydipsia; no polyuria; no unusual weight gain Neuro: Patient did not mention headache; no change in vision; no sensory changes; no muscle weakness; no confusion; no seizures Psych: Patient did not mention anxiety; no depression; Physical Exam Vitals: As per nursing note Constitutional: Well developed, well nourished, no acute distress, non-toxic appearance Teeth and gum. No signs of infection or swelling. Eyes: PERRL, conjunctiva normal HEENT: Atraumatic, external ears normal, nose normal, oropharynx moist, no pharyngeal exudates. no sinus tenderness Neck- normal range of motion, no tenderness, supple Respiratory: No respiratory distress, normal breath sounds, no rales, no wheezing Cardiovascular: Normal rate, normal rhythm, no murmurs, no gallops, no rubs GI: Soft, nondistended, normal bowel sounds, nontender, no splenomegaly, no hepatomegaly, no mass, no rebound, no guarding : No costovertebral angle tenderness Musculoskeletal: No edema, no tenderness, no deformities. Back- no tenderness Integument: Well hydrated, no rash, Digits and nails inspection normal Lymphatic: No lymphadenopathy noted Neurologic: Alert & oriented x 3, CN 2-12 normal, normal motor function, normal sensory function, no focal deficits noted Psychiatric: Speech and behavior appropriate ? labs No results found for this or any previous visit (from the past 24 hours). Labs from April 2024 showed WBC 4.9 hemoglobin 10.8 MCV 89 platelet 284,000 Pathology ? Imaging & Other Studies Performance Status? Assessment / Plan: ? Chronic anemia. Patient is a 58-year-old female with history of morbid obesity and gastric bypass surgery in June 2020 with more than 400 pound weight loss. Patient also has a history of melanoma,type 2 diabetes and hypothyroidism. She denies any bleeding including melena and hematochezia. He is taking bariatric multivitamin with iron 45 mg twice a day. She is quite symptomatic with tiredness and fatigue. I have reviewed the labs that showed chronic normocytic anemia. Likely her anemia secondary to iron and vitamin B12 deficiency due to malabsorption. Patient had EGD and colonoscopy donein March 2024 that showed internal hemorrhoids with no signs of bleeding. I will check iron studies, soluble transferrin receptor, vitamin B12 level, methylmalonic acid level and CBC with CMP. She will continue oral iron supplement. My plan will be to start her on IV iron infusion hopefully next week. I have answered all the questions the patient and the sister satisfaction. Phone visit with ying 1 week. Type 2 diabetes. Patient is on Ozempic. Hypothyroidism. Patient is on levothyroxine. History of melanoma. She was diagnosed at age of 19. He used to follow with Dr. Hill. She is in remission and follow-up with the primary care physician. Thank you very much for allowing me to participate in Hanna Melendez's evaluation and management. Please feel free to contact if I can be of any further assistance in your patient???s care requiring hematology or oncology evaluation. Sincerely, ? ? Malcolm Shay M.D. cell TOBACCO COUNSELING She is not a tobacco/nicotine user. Malcolm Shay MD ,09/22/2024 3:32 PM ? Total time spent 60 minutes, two third of the total time spent counseling patient [id number]. CC:?Regina Ovalles MD documented in this encounter Plan of Treatment Upcoming Encounters Date Type Department Care Team (Late st Contact Info) Description 09/30/2024 4:15 PM CDT Telephone Check Up [facility] Oncology and Hematology [facility] [address] [facility] [address] [place] [id number] Malcolm Shay MD [address] [facility] [address] [place] [address] Scheduled Orders Name Type Priority Associated Diagnoses Orde r Schedule CBC WITH DIFFERENTIAL Lab Stat Chronic anemia Expected: 09/22/2024, Expires: 09/22/2025 COMPREHENSIVE METABOLIC PANEL Lab Stat Chronic anemia Expected: 09/22/2024, Expires: 09/22/2025 FERRITIN Lab Routine Chronic anemia Expected: 09/22/2024, Expires: 09/22/2025 IRON, TIBC, AND PERCENT SATURATION Lab Routine Chronic anemia Expected: 09/22/2024, Expires: 09/22/2025 METHYLMALONIC ACID Lab Routine Chronic anemia Expected: 09/22/2024, Expires: 09/22/2025 TRANSFERRIN RECEPTOR TFR SOLUBLE Lab Routine Chronic anemia Expected: 09/22/2024, Expires: 09/22/2025 VITAMIN B12 AND FOLATE Lab Routine Chronic anemia Expected: 09/22/2024, Expires: 09/22/2025 documented as of this encounter Visit Diagnoses Diagnosis Malignant neoplasm (CMS/HCC)- Primary Other malignant neoplasm without specification of site Chronic anemia Anemia, unspecified documented in this encounter Care Teams Data Software Engineer Relationship Specialty Start Date End Date Regina Ovalles MD [address] [address] PCP - General 06/03/15 documented as of this encounter
--- OUTSIDE RECORDS SUMMARY | 2024-09-22 16:52 | XMS_ITS | Encounter Summary ---
Author Organization [facility] Address [address] [place] [address] Care Team Providers Care Splitter Head Name Role Phone Regina Ovalles MD Primary Care Provider [phone]- [phone] Encounter Details Date Type Department Care Team (Late Contact Info) Description 05/31/2003 Outpatient Historical [facility] Internal Medicine [address] 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 [address] [place] [address] Malcolm Sahy MD [address] [facility] [address] [place] [address] documented as of this encounter Visit Diagnoses Not on filedocumented in this encounter Care Teams Splitter Head Relationship Specialty Start Date End Date Regina Ovalles MD [address] [place] [address] PCP - General 06/03/15 documented as of this encounter
--- OUTSIDE RECORDS SUMMARY | 2024-09-22 16:52 | XMS_ITS | Encounter Summary ---
Author Organization [facility] Address [address] [place] [address] Care Team Providers Care Glass Inspector Name Role Phone Regina Ovalles MD Primary Care Provider +1- [phone] Encounter Details Date Type Department Care Team (Late Contact Info) Description 01/29/2003 Outpatient Historical [facility] Internal Medicine [address] 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 Gender Identity Not on file Sexual Orientation Not on file documented as of this encounter Plan of Treatment Upcoming Encounters Date Type Department Care Team (Late Contact Info) Description 09/30/2024 4:15 PM CDT Telephone Check Up [facility] Oncology and Hematology - [place] [address] [facility] [address] [place] [address] Malcolm Shay MD [address] [facility] [address] [place] [address] documented as of this encounter Visit Diagnoses Not on filedocumented in this encounter Care Teams Glass Inspector Relationship Specialty Start Date End Date Regina Ovalles MD [address] [place] [address] PCP - General 06/03/15 documented as of this encounter
[2024-09-22 16:55] LABS: Alanine Aminotransferase 68 U/L (6-35); Albumin Level 4.4 g/dL (3.5-5.1); Alkaline Phosphatase 139 U/L (38-126); Anion Gap 10 mmol/L (4-12); Aspartate Amino Transferase 81 U/L (14-36); Bilirubin,Total 0.5 mg/dL (0.2-1.3); Blood Urea Nitrogen 35 mg/dL (7-17); Calcium 9.5 mg/dL (8.4-10.2); Carbon Dioxide 25 mmol/L (22-30); Chloride 103 mmol/L (98-107); Estimated Glomerular Filt Rate 60; Glucose 93 mg/dL (65-110); Potassium 4.2 mmol/L (3.4-5.0); Sodium 138 mmol/L (137-145)
[2024-09-22 16:58] LABS: Iron 99 ug/dL (37-170)
[2024-09-22 17:07] LABS: Percent Iron Saturation 26 % (20-50)
[2024-09-22 17:30] LABS: Ferritin 6.67 ng/mL (11.1-264)
[2024-09-22 23:03] LABS: Folic Acid > 20.0 ng/mL (2.76->20)
[2024-09-25 15:53] LABS: Soluble Transferrin Receptor 1.97 mg/L (0.76-1.76)
[2024-09-26 01:04] LABS: Methylmalonic Acid 340 nmol/L (55-335)
== END 2024-09-22 15:38 | disposition home or self-care (01) ==
LOC: ANHLAB 15:43
PROVIDERS: PCP Internal Medicine; Visit Provider Internal Medicine Hematology & Oncology
DX: D64.9 Anemia, unspecified (principal)
CPT/HCPCS: 36415; 80053; 82607; 82728; 82746; 83540; 83550; 83921; 84238; 85025

== ENCOUNTER 2025-01-06 09:28 | Outpatient (CLI) | payer MEDICARE, SELFPAY ==
--- NOTE | ~2025-01-06 | XR_ITS ---
XR lumbar spine min 4V 01/06/2025 10:14 Indication: Back pain Procedure: 5 views lumbar spine Comparison: 04/08/2023 Findings: There is disc narrowing at all lumbar levels. There is dextroscoliosis centered at the thor acolumbar junction. There is multilevel facet hypertrophy at L2-3 through L5-S1. There is subtle spon dylolisthesis at L4-5. No acute fracture or traumatic malalignment. Impression: 1: Severe lumbar spondylosis with dextrocurvature at the thoracolumbar junction. Reviewed, dictated and finalized at location A. Impression: 1: Severe lumbar spondylosis with dextrocurvature at the thoracolumbar junction .
--- NOTE | ~2025-01-06 | XR_ITS ---
EXAM/ PROCEDURE: XR hand RT 2V - 01/06/2025 10:03 CDT HISTORY: 59 years old Female with raised antibody titer COMPARISON: None available TECHNIQUE: Two view(s) FINDINGS/ IMPRESSION: There are no fractures or dislocations.Joint spaces are within normal limits. Reviewed, dictated and finalized at location A.
--- NOTE | ~2025-01-06 | XR_ITS ---
EXAM/ PROCEDURE: XR hand LT 2V - 01/06/2025 10:03 CDT HISTORY: 59 years old Female with raised antibody titer COMPARISON: None available TECHNIQUE: Two view(s) FINDINGS/ IMPRESSION: There are no fractures or dislocations.Joint spaces are within normal limits. Reviewed, dictated and finalized at location A.
--- NOTE | ~2025-01-06 | XR_ITS ---
XR sacroiliac joints min 3V 01/06/2025 10:14 Indication: Raised antibody titers Procedure: 3 views sacroiliac joints Comparison: No prior studies for comparison. Findings: There is mild asymmetric degenerative change of the right sacroiliac joint. No evidence for ankylosis. Sacral foramen are symmetric. There is extensive surgical changes of the lower abdomen. P elvic rings intact. No focal lytic or blastic lesions. There is lower lumbar spondylosis. Impression: 1: Mild asymmetric degenerative change of the right sacroiliac joint. Reviewed, dictated and finalized at location A. Impression: 1: Mild asymmetric degenerative change of the right sacroiliac joint.
--- OUTSIDE RECORDS SUMMARY | 2025-01-06 09:44 | XMS_ITS | Patient Health Record ---
Author Organization [facility] Spontaneously Address [address] [place] [address] Care Team Providers Care Shipping Packer Name Role Phone Juanita Aguilera Primary Care Provider Ann-Marie Way Unavailable [phone] Allergies No Known Allergies Results Component Value Reference Range Notes UDT Reviewed date:12/28/2024 06:11:27 PM Interpretation: Performing Lab: Notes/Report: THC n 0 - 50 ng/ml Cocaine n 0 - 300 ng/ml Amphetamine n 0 - 1000 ng/ml Buprenorphine (BUP) n 0 - 10 ng/ml Secobarbital (Bar) n 0 - 300 ng/ml Oxazepam (BZO) p 0 - 300 ng/ml 3-sdvdfjkupc-0,1-tmwzidvi-0,3-diphenylpyrrolidine (MAHNAZ P) n 0 - 300 ng/ml Methamphetamine (MET) n 0 - 1000 ng/ml Methylenedioxymethamphetamine (MDMA) n 0 - 500 ng/ml Morphine (MOP 300/[id number]) n 0 - 300 ng/ml Methadone (MTD) n 0 - 300 ng/ml Phencyclidine (PCP) n 0 - 25 ng/ml Nortriptyline (TCA) n 0 - 1000 ng/ml Oxycodone n 0 - 300 ng/ml x n 0 - 300 ng/ml UDT Reviewed date:10/12/2024 08:40:37 AM Interpretation: Performing Lab: Notes/Report: THC N 0 - 50 ng/ml Cocaine N 0 - 300 ng/ml Amphetamine N 0 - 1000 ng/ml Buprenorphine (BUP) N 0 - 10 ng/ml Secobarbital (Bar) N 0 - 300 ng/ml Oxazepam (BZO) N 0 - 300 ng/ml 2-avowqkfbkq-1,4-hlqhynbp-1,3-diphenylpyrrolidine (MAHNAZ P) N 0 - 300 ng/ml Methamphetamine (MET) N 0 - 1000 ng/ml Methylenedioxymethamphetamine (MDMA) N 0 - 500 ng/ml Morphine (MOP 300/[id number]) N 0 - 300 ng/ml Methadone (MTD) N 0 - 300 ng/ml Phencyclidine (PCP) N 0 - 25 ng/ml Nortriptyline (TCA) N 0 - 1000 ng/ml Oxycodone N 0 - 300 ng/ml x N 0 - 300 ng/ml UDT Reviewed date:12/08/2024 12:50:33 PM Interpretation: Performing Lab: Notes/Report: THC n 0 - 50 ng/ml Cocaine n 0 - 300 ng/ml Amphetamine n 0 - 1000 ng/ml Buprenorphine (BUP) n 0 - 10 ng/ml Secobarbital (Bar) p 0 - 300 ng/ml Oxazepam (BZO) n 0 - 300 ng/ml 0-ukjttkronk-6,3-ovotuing-8,3-diphenylpyrrolidine (MAHNAZ P) n 0 - 300 ng/ml Methamphetamine (MET) n 0 - 1000 ng/ml Methylenedioxymethamphetamine (MDMA) n 0 - 500 ng/ml Morphine (MOP 300/[id number]) p 0 - 300 ng/ml Methadone (MTD) n 0 - 300 ng/ml Phencyclidine (PCP) n 0 - 25 ng/ml Nortriptyline (TCA) n 0 - 1000 ng/ml Oxycodone n 0 - 300 ng/ml x n 0 - 300 ng/ml UDT Reviewed date:11/11/2024 05:24:57 PM Interpretation: Performing Lab: Notes/Report: THC n 0 - 50 ng/ml Cocaine n 0 - 300 ng/ml Amphetamine n 0 - 1000 ng/ml Buprenorphine (BUP) n 0 - 10 ng/ml Secobarbital (Bar) n 0 - 300 ng/ml Oxazepam (BZO) p 0 - 300 ng/ml 0-qmsqidnujn-7,0-fypfbutc-2,3-diphenylpyrrolidine (MAHNAZ P) n 0 - 300 ng/ml Methamphetamine (MET) n 0 - 1000 ng/ml Methylenedioxymethamphetamine (MDMA) n 0 - 500 ng/ml Morphine (MOP 300/[id number]) n 0 - 300 ng/ml Methadone (MTD) n 0 - 300 ng/ml Phencyclidine (PCP) n 0 - 25 ng/ml Nortriptyline (TCA) n 0 - 1000 ng/ml Oxycodone n 0 - 300 ng/ml x n 0 - 300 ng/ml Reason For Referral No Information Medications Medication SIG (Take, Route, Frequency, Duration) Notes Start Date End Date Status Escitalopram Oxalate 5 MG/5ML 10 mL Orally daily; Duration: 30 days 10 mg total daily 10/09/2024 Active ALPRAZolam 0.5 MG 1 tablet at bedtime Oral nightly 12/07/2024 Active Aspirin 81 MG 1 tablet Orally Once a day Active traMADol HCl 50 MG Oral; Duration: 30 Days Active Bariatric Multivitamin/Iron - as directed Orally Ac tive Omeprazole 40 MG TAKE 1 CAPSULE BY MO UTH ONCE DAILY Oral; Duration: 90 Days Active Lansoprazole 30 MG 1 capsule 1/2 to 1 h our before morning meal Orally Once a day Active valACYclovir HCl 1 GM Oral; Duration: 1 Days Active Carbon 3 1200 MG 1 capsule Orally Onc e a day Active Calcium & Vit D3 Bone Health - as directed Orally Active Olmesartan Medoxomil 5 MG as directed Orally Active Creon [id number] UNIT as directed Orally Active buPROPion HCl 75 MG Oral; Duration: 30 Days Not-Taking Magnesium 400 MG as directed Orally Active Celecoxib 100 MG 1 capsule Orally Onc e a day Active Vitamin D3 1.25 MG (70012 UT) 1 capsule Orally Active Social History Tobacco Use: Social History Observation Description Date Details (start date - stop date) Never Smoker NA - NA Sex Assigned At : Social History Observation Description Sex Assigned At Female Household Question Answer Notes Marital status: single Number of adults in household: 2 Number of children in household: 0 Tobacco Control (Standard) Question Answer Notes Tobacco use: Nonsmoker AUDIT-C (Standard) Question Answer Notes Did you have a drink containing alcohol in the p ast year? No Interpretation Positive Section Notes: Lives with 76-year-old sister who has dementia Previously cared for multiple family members until their deaths (grandfather, grandmother, father, mother, brother, sister, and best friend) Lives with 76-year-old sister who has dementia Previously cared for multiple family members until their deaths (grandfather, grandmother, father, mother, brother, sister, and best friend) Lives with 76-year-old sister who has dementia Previously cared for multiple family members until their deaths (grandfather, grandmother, father, mother, brother, sister, and best friend) Problems Problem Type SNOMED Code ICD Code Onset Dates Problem Status W/U Status Risk Notes Problem Moderate recurrent major depression (63483916) Major depressive disorder, recurrent, moderate (F33.1) Active confirmed Problem Severe recurrent major depression without psychotic features (66112266) Major depressive disorder, recurrent severe without psychotic features (F33.2) Active confirmed Problem Generalized anxiety disorder (01177217) Generalized anxiety disorder (F41.1) Active confirmed Problem Obstructive sleep apnea syndrome (10146491) CASSIA (obstructive sleep apnea) (G47.33) Active confirmed Problem Severe recurrent major depression without psychotic features (28880853) MDD (major depressive disorder), recurrent severe, 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) Active confirmed Problem Insomnia disorder related to another mental disorder (46789278) 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) Active confirmed Problem Panic disorder (593108315) Panic attacks (F41.0) Active confirmed Problem History of bypass of stomach (598054261) H/O gastric bypass (Z98.84) 3 Active confirmed Vital Signs Heart Rate 60 /min 12/28/2024 Height-cm 167.64 cm 12/28/2024 Blood pressure diastolic 64 mm Hg 12/28/2024 Weight-kg 73.94 kg 12/28/2024 Height 66 in 12/28/2024 Blood pressure systolic 103 mm Hg 12/28/2024 Weight 163 lbs 12/28/2024 BMI 26.31 kg/m2 12/28/2024 Encounters Encounter Location Date Provider Diagnosis [facility] [address] [place] [address] 10/09/2024 Ann-Marie oMrales Major depressive disorder, recurrent severe without psychotic features F33.2 ; Generalized anxiety disorder F41.1 ; 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.05 ; Encounter for screening for depression Z13.31 and Encounter for screening for cardiovascular disorders Z13.6 [facility] [address] [place] [address] 11/06/2024 Ann-Marie Morales Major depressive disorder, recurrent, mild F33.0 ; 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.05 ; Panic attacks F41.0 ; Generalized anxiety disorder F41.1 ; Encounter for screening for depression Z13.31 and Encounter for screening for cardiovascular disorders Z13.6 [place] [address] [address] [facility] [address] [address] 12/07/2024 Ann-Marie Morales Encounter for screening for depression Z13.31 ; Major depressive disorder, recurrent, mild F33.0 ; Generalized anxiety disorder F41.1 ; Panic attacks F41.0 ; 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.05 ; CASSIA (obstructive sleep apnea) G47.33 and Encounter for screening for cardiovascular disorders Z13.[address] [address] 12/28/2024 Ann-Marie Morales Major depressive disorder, recurrent, moderate F33.1 ; Generalized anxiety disorder F41.1 ; 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.05 and Panic attacks F41.[address] [address] 11/06/2024 Ann-Marie Arboleda[address] [address] 12/11/2024 Ann-Marie Arboleda[address] [address] 09/09/2024 Ann-Marie Morales [place] [address] [address] 10/09/2024 AnnM-arie Morales Assessments Encounter Date Diagnosis (ICD Code) Assessment Notes Treatment Notes Treatment Clinical Notes Section Notes 10/09/2024 Major depressive disorder, recurrent severe without psychotic features (ICD-10 - F33.2) 11/06/2024 Major depressive disorder, recurrent, mild (ICD-10 - F33.0) 11/06/2024 Insomnia related to another mental disorder (ICD-10 - F51.05) 12/07/2024 Major depressive disorder, recurrent, mild (ICD-10 - F33.0) I'm considering augmenting therapy with a new medication or starting/switchin g to a new medication Medication considered [id number] Citalopram (Celexa), [id number] Sertraline (Zoloft), AXN5O10, CYP2D6 Amitriptyline (Elavil), CYP2D5 Aripiprazole (Abilify) and CYP2D6 Vortioxetine (Trintellix ) I'm considering a dosage adjustment to currently prescribed medication(s) Medication considered [id number] Escitalopram (Lexapro) Have you considered non-genetic factors to make a preliminary drug selection, including a personalized medication decision based on the patient's diagnosis, the patient's other medical conditions, other medications the patient is taking, professional judgment, clinical science and basic science pertinent to the drug (e.g. mechanism of action, side effects), the patient's past medical history, and when pertinent, family history and the patient's preferences and values? Note: Many insurance providers require clinicians to consider non-genetic factors when ordering this test. yes [facility] MTHFR ___XX___ Yes NO 12/07/2024 Encounter for screening for depression (ICD-10 - Z13.31) 12/28/2024 Major depressive disorder, recurrent, moderate (ICD-10 - F33.1) 12/28/2024 Generalized anxiety disorder (ICD-10 - F41.1) 12/07/2024 Generalized anxiety disorder (ICD-10 - F41.1) 11/06/2024 Panic attacks (ICD-10 - F41.0) 10/09/2024 Generalized anxiety disorder (ICD-10 - F41.1) 10/09/2024 Insomnia related to another mental disorder (ICD-10 - F51.05) 11/06/2024 Generalized anxiety disorder (ICD-10 - F41.1) 12/28/2024 Insomnia related to another mental disorder (ICD-10 - F51.05) 12/07/2024 Panic attacks (ICD-10 - F41.0) 11/06/2024 Encounter for screening for depression (ICD-10 - Z13.31) 12/07/2024 Insomnia related to another mental disorder (ICD-10 - F51.05) 12/28/2024 Panic attacks (ICD-10 - F41.0) 10/09/2024 Encounter for screening for depression (ICD-10 - Z13.31) 10/09/2024 Encounter for screening for cardiovascular disorders (ICD-10 - Z13.6) 11/06/2024 Encounter for screening for cardiovascular disorders (ICD-10 - Z13.6) 12/07/2024 CASSIA (obstructive sleep apnea) (ICD-10 - G47.33) 12/07/2024 Encounter for screening for cardiovascular disorders (ICD-10 - Z13.6) 10/09/2024 Other Learning About Depression Screening material was printed Hanna Melendez, a female patient with a history of depression, multiple surgeries, and chronic pain, presents with concerns about cognitive issues, sleep problems, and a desire to change her antidepressant medication. Major Depressive Disorder Assessment: Patient has a long-standing history of depression, currently managed with Paxil 60 mg daily and bupropion 150 mg daily. She experienced a severe depressive episode 15-17 years ago when attempting to discontinue Paxil, resulting in psychiatric hospitalization. Recent neurological evaluation ruled out dementia. Patient expresses desire to change antidepressant medication due to concerns about long-term use of Paxil and potential cognitive effects. Plan: - Discontinue Paxil 60 mg PO daily with gradual taper: - Week 1: Continue current dose - Week 2: Reduce to 45 mg daily - Week 3: Reduce to 30 mg daily - Week 4: Reduce to 15 mg daily - Week 5: Discontinue - Initiate Lexapro (escitalopram): - Start at 5 mg PO daily for 1 week - Increase to 10 mg PO daily and maintain for several weeks - May increase to 15 mg PO daily if needed - Maximum dose 20 mg PO daily - Discontinue bupropion XL 150 mg due to concerns about absorption issues related to gastrointestinal surgeries - Follow up in 4 weeks to assess response to medication changes Insomnia Assessment: Patient reports difficulty falling asleep, often staying awake until 2-4 AM and not getting out of bed until 1-2 PM. Sleep disturbances are exacerbated by chronic pain and anxiety. Patient has untreated obstructive sleep apnea due to anxiety about using CPAP machine following a traumatic experience. Plan: - Initiate Xanax (alprazolam) at bedtime for short-term management of sleep-related anxiety: - Low dose, to be taken approximately 1 hour before desired sleep time - Advised patient to follow up with Dr. Chairez regarding sleep apnea management Chronic Pain Assessment: Patient reports chronic pain related to multiple medical conditions, including the need for knee replacements and foot surgeries. Pain contributes to sleep disturbances and overall quality of life impairment. Plan: - Discussed risks and benefits of pain management options - Patient reports using tramadol occasionally (last use 6 weeks ago) with some relief History of Bariatric Surgery and Malabsorption Assessment: Patient has undergone multiple gastrointestinal surgeries, including removal of 90% of stomach, portions of small intestine, and a third of colon. This has resulted in malabsorption issues, affecting medication absorption and nutritional status. Patient reports variable ability to eat and keep food down, as well as taste alterations. Plan: - Consider liquid formulations of medications when possible to improve absorption - Continue current supplements and medications for nutritional support (e.g., Creon, thyroid medication) - Monitor for potential medication absorption issues with new antidepressant regimen Liver Function Concerns Assessment: Patient reports history of non-alcoholic steatohepatitis (GONZALEZ) and abnormal liver function tests. Recent CT scan showed liver abnormalities, with a specialized liver scan scheduled for January. Concerns about the impact of high-dose Paxil on liver function. Plan: - Taper and discontinue Paxil due to liver metabolism concerns - Initiate Lexapro as an alternative with potentially less impact on liver function - Await results of scheduled specialized liver scan in 11/06/2024 Other Hanna Melendez, female patient with history of gastrectomy and partial small intestine/colon removal, presenting with depression, anxiety, and medication adjustment difficulties. Major Depressive Disorder Assessment: Patient reports ongoing depressive symptoms including sadness, lack of motivation, and emotional lability. Recently discontinued Paxil and started liquid Lexapro (escitalopram) with initial improvement in sleep but persistent underlying sadness. Current medications include Wellbutrin (bupropion) and Xanax, with Lexapro recently increased to 15 mg. Patient's altered gastrointestinal anatomy may affect medication absorption, particularly for extended-release formulations. Wellbutrin appears to be causing increased irritability without significant benefit. Plan: - Increase Lexapro (escitalopram) to 20 mg PO qhs - Discontinue Wellbutrin (bupropion) - Continue Xanax at bedtime - Follow up in 4 weeks Anxiety Disorder Assessment: Patient reports anxiety symptoms, including a recent episode of acute distress during Paxil taper. Current treatment with Lexapro and Xanax has improved sleep quality. However, patient still experiences irritability and emotional lability, which may be partly due to medication absorption issues related to her gastrointestinal anatomy. Plan: - Continue Xanax at bedtime - Monitor response to increased Lexapro dose - Consider alternative non-extended release, liquid form medications if symptoms persist Altered Gastrointestinal Anatomy Assessment: Patient has undergone gastrectomy with removal of 2/3 of small intestine and half of colon. This altered anatomy affects medication absorption, particularly extended-release formulations. Current medications may not be metabolizing correctly, potentially leading to dumping of medication too quickly into the small intestine and causing adverse effects or reduced efficacy. Plan: - Adjust medication regimen to favor liquid formulations and non-extended release options - Monitor for signs of medication malabsorption or adverse effects 12/07/2024 Charissa Melendez, female with stage 2 liver failure and history of gastrectomy, presents with persistent depression, fatigue, and sleep disturbances despite current medication regimen. Major Depressive Disorder Assessment: Patient reports ongoing depressive symptoms including sadness and fatigue despite recent increase in escitalopram dosage to 20 mg. She experiences significant side effects including excessive tiredness, brain fog, and weight loss (12 pounds). Previous trial of bupropion, which was discontinued, may have been providing more benefit than initially recognized. Anxiety symptoms appear to be relatively well-controlled with current alprazolam use. Plan: - Decrease escitalopram to 10 mg PO daily - Consider transition to fluoxetine - Pending review of liver function tests - Informed patient of potential benefits (liquid formulation, generally safe for stomach) and risks (liver metabolism, potential build-up due to liver function) - Perform gene site testing to assess medication metabolism - Continue alprazolam - Follow-up appointment in 3 weeks Insomnia Assessment: Patient reports improved sleep with full dose of alprazolam, achieving 8 hours of sleep. When dose is halved, sleep duration decreases to 3 hours followed by restlessness. Plan: - Continue current alprazolam dosage at bedtime for sleep Liver Disease Assessment: Patient reports stage 2 liver failure with elevated liver enzymes. Recent fibroscan performed. Positive for autoimmune disorders A and B, but reportedly unrelated to liver condition. Upcoming blood work scheduled for tomorrow. Plan: - Await results of scheduled blood work - Consider medication adjustments based on liver function test results 12/28/2024 Charissa Melendez, female, with recently diagnosed rheumatoid arthritis and lupus, presents with concerns about medication management, sleep disturbances, and anxiety in the context of multiple medical conditions including GONZALEZ and pending liver test results. Anxiety and Depression Assessment: Patient reports improved sleep with Lexapro and Xanax combination, but experiences increased daytime anxiety after reducing Lexapro dose. Current subjective rating of mental health is 7/10, indicating room for improvement. Sleep pattern shows frequent wakening during the night, though able to fall back asleep. Patient expresses satisfaction with current sleep amount compared to previous patterns. Plan: - Continue Lexapro 10 mg daily - Continue Xanax - Consider potential medication adjustments after liver test results are available - Discuss options for longer-acting benzodiazepines (e.g., clonazepam) or alternative medications (e.g., nortriptyline, mirtazapine) for sleep and anxiety management in future visits - Follow up in 4 weeks (January 25) Autoimmune Disorders (Rheumatoid Arthritis and Lupus) Assessment: Patient reports recent positive tests for rheumatoid arthritis and lupus (organ-affecting type without rash). These diagnoses may explain some of the patient's other medical issues. Patient has an upcoming appointment with a night club manager on the of this month for further evaluation and management. Plan: - Await rheumatology consultation results - Continue current management until rheumatology recommendations are available Liver Disease (GONZALEZ) Assessment: Patient has a history of GONZALEZ and is awaiting liver test results. There is concern about potential progression to cirrhosis if liver enzymes are elevated. Patient has an appointment tomorrow to discuss test results and necessary interventions. Plan: - Await liver test results from upcoming appointment - Defer medication changes until liver function status is clarified Sleep Apnea Assessment: Patient has been prescribed CPAP therapy but is not currently using it. An appointment with Dr. Martinez is scheduled for next month (January) to address this issue. Plan: - Encourage patient to follow up with Dr. Martinez as scheduled in January regarding CPAP therapy Plan Of Treatment Pending Test Test Name Order Date Cytochrome P450 2D6 Genotyping 5 Cytochrome P450 2C9 Genotyping 5 Cytochrome P450 2C19 12/07/2024 Next Appt Details Provider Name:Ann-Marie lizarraga, 01/25/2025 02:00:00 PM, [address] [facility] [address], [place], [address], Insurance Providers Payer Name Payer Address Payer Phone Subscriber Number Group Number Insured Name Patient Relationship to Insured Coverage Start Date Coverage End Date [facility] [address] [place] [phone] [id number] Hanna Melendez Self - patient is the insured Medical (General) History Medical History History ICD Code Past Psychiatric History: Major Depressi ve Episode Non-alcoholic steatohepatitis (GONZALEZ) CASSIA (obstructive sleep apnea) G47.33 Chronic pain Malabsorption History of diabetes (now resolved, last A1c 4.2) Hypothyroidism E03.9 H/O gastric bypass Z98.84 Hypertriglyceridemia E78.1 Gastroesophageal reflux disease K21.9 Vitamin D deficiency E55.9 Pernicious anemia D51.0 Osteoarthritis M19.90 Surgical History Surgery Date(Month/Year) Gastric bypass surgery, with removal of 90% of stomach and portions of small intestine 06/2020 diaphragmatic hernia revisio n, removed remaining stomach, more small intestine, and 1/3 of colon 01/2021 skin removal surgeries Hospitalization History Reason Date(Month/Year) many medical/surgical
== END 2025-01-06 09:29 | disposition home or self-care (01) ==
PROVIDERS: PCP Nurse Practitioner Family; Visit Provider Internal Medicine
DX: R76.0 Raised antibody titer (principal); M53.3 Sacrococcygeal disorders, not elsewhere classified; M47.896 Other spondylosis, lumbar region
CPT/HCPCS: 72110; 72202; 73120

== ENCOUNTER 2025-01-07 00:47 | Day surgery (SDC) | payer MEDICARE, SELFPAY ==
[2024-12-31 14:41] VITALS: BMI 25.5
--- NOTE | 2024-12-31 14:52 | PC.NURSE ---
Report to the Outpatient Waiting Room, entrance under the green pavilion located off [facility], at time _0630_ on date _[id number]_. Planned Procedure Time: _0830_.? Time changes happen often and if your time is changed the preop area will call you the afternoon before. - You and your visitor will be asked to self-screen and do not enter if you have any COVID symptoms. Please call surgeon if you need to reschedule. - A mask is optional within the hospital at this time. Patients may have clear liquids (water, carbonated beverages, clear teas, apple juice) until 3 hours prior to surgery with a maximum of 20 ounces. - No food from midnight until time of surgery and no smoking, or chewing tobacco (or any form of nicotine). No chewing gum, candy or mints. Take only the following medications with a SIP of water on the morning of surgery: ___Levothyroxine____ DO NOT STOP ANY OF YOUR OTHER PRESCRIPTION MEDICATIONS PRIOR TO SURGERY EXCEPT THE FOLLOWING Hold all vitamins and supplements for 3 days per anesthesiologist. last dose 01-04-2025 Medications to discontinue per physician Continue aspirin, hold Celebrex starting tomorrow. Date to take last dose Please no make-up, nail persian, hairspray, perfume, deodorant, or body powder the day of surgery.? No jewelry (including any body piercings) or valuables the day of surgery, leave them at home.? Please take a shower or bath the night before, or the morning of, surgery with an antibacterial soap.? Wear comfortable, loose fitting clothing.? - Jewelry must be removed prior to entering the operating room.? Rings and piercings that are not removed may be cut off. - The hospital will not accept responsibility for valuables.? - Please leave all valuables, including medications, at home the day of surgery. If you are going home after surgery, a licensed cat driver must drive you home.? - NO public transportation without another adult if you receive anesthesia. - We recommend that an adult stay with you for 24 hours following discharge. - We also recommend that you do not drive, make important decision, drink alcoholic beverages, or take any drugs that were not prescribed by your health care provider for at least 24 hours after your discharge time. Follow any additional instructions given to you from your surgeon. Telephone instructions given to ___Amy__and asked if any additional questions and then verbalized understanding. Patient advised to call surgeon office or pre surgery nurse liaison [phone] if any additional questions.
[2025-01-07] VITALS (11 sets, daily range): BP systolic 100–117; BP diastolic 49–87; PULSE 66–87; RESP 12–18; TEMP 36.6–37.2; O2SAT 94–100; BMI 24.7
--- NOTE | ~2025-01-07 | XR_ITS ---
XR surgery orthopedic Indication: Left calcaneal and first metatarsal osteotomy TECHNIQUE: Fluoroscopy used during left calcaneal and first metatarsal osteotomy performed by [Brenda Womack MD] on 01/07/2025. 27 seconds of fluoroscopy with 6 fluoroscopic images captured. FINDINGS: Correlate with procedure note. IMPRESSION: Fluoroscopy used during left first calcaneal and first metatarsal osteotomy. Reviewed, dictated and finalized at location A. IMPRESSION: Fluoroscopy used during left first calcaneal and first metatarsal o steotomy.
--- OUTSIDE RECORDS SUMMARY | 2025-01-07 00:50 | XMS_ITS | Clinical Summary ---
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 30 Tab 0 2 Active Additional Information [...] by mouth daily. Active lipase-protease -amylase DR ([place]) 36,000-114,000- 180,000 unit capsule ADMINISTER 2 CAPSULES BY MOUTH WITH MEALS AND 1 CAPSULE WITH SNACKS Active magnesium HYDROXIDE (MILK OF MAGNESIA) 400 mg/5 mL suspension Take 2,400 mg by mouth daily. 3 Active olmesartan (BENICAR) 20 mg tablet Take 5 mg by mouth daily. Active traMADol (ULTRAM) 50 mg tablet Take 50 mg by mouth. 3 Active Fish Oil-Marinette-3 Fatty Acids 360-1,200 mg Capsule Take 1 [...] Encounters Date Type Department Care Team Description 01/06/2025 Orders Only [facility] - [place] [address] [place] [address] Malcolm Shay MD 01/05/2025 Orders Only [facility] [place] [address] [place] [address] Malcolm Shay MD 12/30/2024 External Device Data STL ABSTRACTION Provider, Abstract 12/30/2024 External Device Data ST[place] ABSTRACTION Provider, Abstract 12/30/2024 External Device Data [place] ABSTRACTION Provider, Abstract 12/29/2024 External Device Data [place] ABSTRACTION Provider, Abstract 12/02/2024 External Device Data [place] ABSTRACTION Provider, Abstract 12/01/2024 External Device Data [place] ABSTRACTION Provider, Abstract 11/17/2024 External Device Data [place] ABSTRACTION Provider, Abstract 11/05/2024 External Device Data [place] ABSTRACTION Provider, Abstract 11/05/2024 External Device Data [place] ABSTRACTION Provider, Abstract 10/20/2024 External Device Data ST[place] ABSTRACTION Provider, Abstract from Last 3 Months Immunizations Immunization Administration [...] on file 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 Gender Identity Not on file Sexual Orientation [...] P M CDT Height 167.6 cm (5' 6) 09/22/2024 3:01 PM CDT Body Mass Index 28.5 09/22/2024 3:01 PM CDT Plan of Treatment Upcoming Encounters Date Type Department Care Team (Late st Contact Info) Description 01/14/2025 2:45 PM CDT Office Visit [facility] - [place] [address] [place] [address] Malcolm Shay MD [address] [facility] [address] [place] [address] Health Maintenance Due Date Last Done Comments DIABETES ANNUAL FOOT EXAM 1982 DIABETES ANNUAL RETINAL EXAM 1982 DIABETES MICROALBUMIN ANNUAL SCREEN 1982 LDL CHOLESTEROL ANNUAL 1982 HPV/Cotest (21-29) 1985 CERVICAL CANCER SCREENING 1994 HPV/Cotest (30-65) 1994 PAP SMEAR 1994 BREAST CANCER SCREENING 2004 FIT-DNA Q 3 years 2009 FIT/FOBT Q 1 year 2009 Flex Sig/CT Colonography Q 5 years 2009 ZOSTER VACCINE (1 of 2) 2014 COVID-19 Vaccine ( season) 2024 03/24/2021, 08/06/2020, 07/16/2020 DIABETES HBA1C Q 6 MONTHS 09/25/2024 03/27/2024, INFLUENZA VACCINE (#1) 2025 , 03/08/2021, 04/11/2020, Additional history exists DTAP/TDAP/TD VACCINES (5 - Td or Tdap) 11/05/2032 11/05/2022, 01/27/2018, 01/22/2018, Additional history exists COLORECTAL SCREENING 04/08/2034 04/08/2024 Colorectal Cancer Screening 04/08/2034 RSV VACCINE (60+ or ) (1 - 1-dose 75+ series) 10/02/2039 HEPATITIS B VACCINES Aged Out 08/26/2006, 06/26/19 07 No longer eligible based on patient's age to complete this topic Procedures Procedure Name Priority Date/Time Associated Diagnosis Comments TRANSFERRIN RECEPTOR TFR SOLUBLE Routine 01/01/2025 4:51 PM CDT COMPREHENSIVE METABOLIC PANEL Routine 01/01/2025 2:22 PM CDT from Last 3 Months Results * TRANSFERRIN RECEPTOR TFR SOLUBLE (01/01/2025 4:51 PM CDT) Blood us Malcolm Shay MD CHEMISTRY ORDERABLES Final Resu lt * COMPREHENSIVE METABOLIC PANEL (01/01/2025 2:22 PM CDT) Blood us Malcolm Shay MD CHEMISTRY ORDERABLES Final Resu lt from Last 3 Months Insurance OPTIONS PPO [id number] Advance Directives For more information, please contact: [phone] * Full Code (Latest Code Status on File) Date Activated Date Inactivated Comments 09/17/2015 8:59 PM 09/22/2015 3:10 PM * Full Code Date Activated Date Inactivated Comments 08/02/2011 1:14 PM 08/08/2011 2:44 PM Care Teams Ditch Digger Relationship Specialty Start Date End Date Regina Ovalles MD [address] [address] PCP - General 06/03/15
--- OUTSIDE RECORDS SUMMARY | 2025-01-07 00:51 | XMS_ITS | Encounter Summary ---
Author Organization [facility] Address [address] [place] [address] Care Team Providers Care Key Entry Operator Name Role Phone Regina Ovalles MD Primary Care Provider +1- [phone] Encounter Details Date Type Department Care Team (Late Contact Info) Description 01/06/2025 Orders Only [facility] Oncology [facility] [address] [place] [address] Malcolm Shay MD [address] [place] [address] [employer] [address] [address] Social History Tobacco Use Types Packs/Day Years Used Date Smoking Tobacco: Never Smokeless Tobacco: Never Alcohol Use Standard Drinks/Week Comments No 0 (1 standard drink = 0.6 oz pur e alcohol) Comments No Sex and Gender Information Value Date Recorded Sex Assigned at Not on file 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 Gender Identity Not on file Sexual Orientation Not on file documented as of this encounter Plan of Treatment Upcoming Encounters Date Type Department Care Team (Late st Contact Info) Description 01/14/2025 2:45 PM CDT Office Visit [facility] H[facility] [address] [place] [address] Malcolm Shay MD [address] [place] [address] [employer] [address] [place] [address] documented as of this encounter Procedures Procedure Name Priority Date/Time Associated Diagnosis Comments TRANSFERRIN RECEPTOR TFR SOLUBLE Routine 01/01/2025 4:51 PM CDT documented in this encounter Results * TRANSFERRIN RECEPTOR TFR SOLUBLE (01/01/2025 4:51 PM CDT) Blood us Malcolm Shay MD CHEMISTRY ORDERABLES Final Resu lt documented in this encounter Visit Diagnoses Not on filedocumented in this encounter Care Teams Key Entry Operator Relationship Specialty Start Date End Date Regina Ovalles MD [address] [address] PCP - General 06/03/15 documented as of this encounter
--- OUTSIDE RECORDS SUMMARY | 2025-01-07 00:51 | XMS_ITS | Encounter Summary ---
Author Organization [facility] Address [address] [place] [address] Care Team Providers Care Suede Cleaner Name Role Phone Regina Ovalles MD Primary Care Provider +1- [phone] Encounter Details Date Type Department Care Team (Late Contact Info) Description 08/03/2002 Outpatient Historical [facility] Internal Medicine [address] 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 Gender Identity Not on file Sexual Orientation Not on file documented as of this encounter Plan of Treatment Upcoming Encounters Date Type Department Care Team (Late st Contact Info) Description 01/14/2025 2:45 PM CDT Office Visit [facility] Oncology and Hematology - [place] [address] [facility] [address] [place] [address] Malcolm Shay MD [address] [facility] [address] [place] [address] documented as of this encounter Visit Diagnoses Not on filedocumented in this encounter Care Teams Suede Cleaner Relationship Specialty Start Date End Date Regina Ovalles MD [address] [place] [address] PCP - General 06/03/15 documented as of this encounter
--- OUTSIDE RECORDS SUMMARY | 2025-01-07 00:51 | XMS_ITS | Encounter Summary ---
Author Organization [facility] Address [address] [place] [address] Care Team Providers Care Mysql Database Administrator Name Role Phone Regina Ovalles MD Primary Care Provider +1- [phone] Encounter Details Date Type Department Care Team (Late Contact Info) Description 08/03/2002 Outpatient Historical [facility] Internal Medicine [address] 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 Gender Identity Not on file Sexual Orientation Not on file documented as of this encounter Plan of Treatment Upcoming Encounters Date Type Department Care Team (Late st Contact Info) Description 01/14/2025 2:45 PM CDT Office Visit [facility] Oncology and Hematology - [place] [address] [facility] [address] [place] [address] Malcolm Shay MD [address] [facility] [address] [place] [address] documented as of this encounter Visit Diagnoses Not on filedocumented in this encounter Care Teams Mysql Database Administrator Relationship Specialty Start Date End Date Rgeina Ovalles MD [address] [place] [address] PCP - General 06/03/15 documented as of this encounter
--- OUTSIDE RECORDS SUMMARY | 2025-01-07 00:51 | XMS_ITS | Encounter Summary ---
Author Organization [facility] Address [address] [place] [address] Care Team Providers Care Contracting Analyst Name Role Phone Regina Ovalles MD Primary Care Provider +1- [phone] Encounter Details Date Type Department Care Team (Late Contact Info) Description 02/01/2003 Outpatient Historical [facility] Internal Medicine [address] 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 Gender Identity Not on file Sexual Orientation Not on file documented as of this encounter Plan of Treatment Upcoming Encounters Date Type Department Care Team (Late st Contact Info) Description 01/14/2025 2:45 PM CDT Office Visit [facility] Oncology and Hematology - [place] [address] [facility] [address] [place] [address] Malcolm Shay MD [address] [facility] [address] [place] [address] documented as of this encounter Visit Diagnoses Not on filedocumented in this encounter Care Teams Contracting Analyst Relationship Specialty Start Date End Date Regina Ovalles MD [address] [place] [address] PCP - General 06/03/15 documented as of this encounter
--- OUTSIDE RECORDS SUMMARY | 2025-01-07 00:51 | XMS_ITS | Encounter Summary ---
Author Organization [facility] Address [address] [place] [address] Care Team Providers Care Lead Custodian Name Role Phone Regina Ovalles MD Primary Care Provider +1- [phone] Encounter Details Date Type Department Care Team (Late Contact Info) Description 08/03/2002 Outpatient Historical [facility] Internal Medicine [address] 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 Gender Identity Not on file Sexual Orientation Not on file documented as of this encounter Plan of Treatment Upcoming Encounters Date Type Department Care Team (Late st Contact Info) Description 01/14/2025 2:45 PM CDT Office Visit [facility] Oncology and Hematology - [place] [address] [facility] [address] [place] [address] Malcolm Shay MD [address] [facility] [address] [place] [address] documented as of this encounter Visit Diagnoses Not on filedocumented in this encounter Care Teams Lead Custodian Relationship Specialty Start Date End Date Regina Ovalles MD [address] [place] [address] PCP - General 06/03/15 documented as of this encounter
--- OUTSIDE RECORDS SUMMARY | 2025-01-07 00:51 | XMS_ITS | Encounter Summary ---
Author Organization [facility] Address [address] [place] [address] Care Team Providers Care Marketing Analytics Analyst Name Role Phone Regina Ovalles MD Primary Care Provider +1- [phone] Encounter Details Date Type Department Care Team (Late Contact Info) Description 10/02/2002 Outpatient Historical [facility] Internal Medicine [address] [facility] [address] [place] [address] Grady Galvez MD [address] [facility] [address] [place] [address] Social History Tobacco Use Types Packs/Day Years Used Date Smoking Tobacco: Never Assessed Comments Unknown Sex and Gender Information Value Date Recorded Sex Assigned at Not on file 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 Gender Identity Not on file Sexual Orientation Not on file documented as of this encounter Plan of Treatment Upcoming Encounters Date Type Department Care Team (Late st Contact Info) Description 01/14/2025 2:45 PM CDT Office Visit [facility] Oncology and Hematology - [place] [address] [facility] [address] [place] [address] Malcolm Shay MD [address] [facility] [address] [place] [address] documented as of this encounter Visit Diagnoses Not on filedocumented in this encounter Care Teams Marketing Analytics Analyst Relationship Specialty Start Date End Date Regina Ovalles MD [address] [place] [address] PCP - General 06/03/15 documented as of this encounter
--- OUTSIDE RECORDS SUMMARY | 2025-01-07 00:51 | XMS_ITS | Encounter Summary ---
Author Organization [facility] Address [address] [place] [address] Care Team Providers Care Senior Java Ui Developer Name Role Phone Regina Ovalles MD Primary Care Provider +1- [phone] Encounter Details Date Type Department Care Team (Late Contact Info) Description 02/28/2004 Outpatient Historical [facility] Internal Medicine [address] 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 [address] [place] [address] documented as of this encounter Visit Diagnoses Not on filedocumented in this encounter Care Teams Senior Java Ui Developer Relationship Specialty Start Date End Date Regina Ovalles MD [address] [place] [address] PCP - General 06/03/15 documented as of this encounter
--- OUTSIDE RECORDS SUMMARY | 2025-01-07 00:51 | XMS_ITS | Encounter Summary ---
Author Organization [facility] Address 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 Gender Identity Not on file Sexual Orientation Not on file documented as of this encounter Plan of Treatment Upcoming Encounters Date Type Department Care Team (Late st Contact Info) Description 01/14/2025 2:45 PM CDT Office Visit [facility] Oncology and Hematology - [place] [address] [facility] [address] [place] [address] Malcolm Shay MD [address] [facility] [address] [place] [address] documented as of this encounter Visit Diagnoses Diagnosis Other and unspecified hyperlipidemia- Primary documented in this encounter Care Teams Central Sterile Technician Relationship Specialty Start Date End Date Regina Ovalles MD [address] [place] [address] PCP - General 06/03/15 documented as of this encounter
--- OUTSIDE RECORDS SUMMARY | 2025-01-07 00:51 | XMS_ITS | Encounter Summary ---
Author Organization [facility] Address [address] [place] [address] Care Team Providers Care Formula Maker Name Role Phone Regina Ovalles MD Primary Care Provider +1- [phone] Encounter Details Date Type Department Care Team (Late Contact Info) Description 02/01/2003 Outpatient Historical [facility] Internal Medicine [address] 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 [address] [place] [address] Malcolm Shay MD [address] [facility] [address] [place] [address] documented as of this encounter Visit Diagnoses Not on filedocumented in this encounter Care Teams Formula Maker Relationship Specialty Start Date End Date Regina Ovalles MD [address] [place] [address] PCP - General 06/03/15 documented as of this encounter
--- OUTSIDE RECORDS SUMMARY | 2025-01-07 00:51 | XMS_ITS | Encounter Summary ---
Author Organization [facility] Address [address] [place] [address] Care Team Providers Care School Fundraising Director Name Role Phone Regina Ovalles MD Primary Care Provider +1- [phone] Encounter Details Date Type Department Care Team (Late Contact Info) Description 06/24/2002 Outpatient Historical [facility] Internal Medicine [address] 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 Gender Identity Not on file Sexual Orientation Not on file documented as of this encounter Plan of Treatment Upcoming Encounters Date Type Department Care Team (Late st Contact Info) Description 01/14/2025 2:45 PM CDT Office Visit [facility] Oncology and Hematology - [place] [address] [facility] [address] [place] [address] Malcolm Shay MD [address] [facility] [address] [place] [address] documented as of this encounter Visit Diagnoses Not on filedocumented in this encounter Care Teams School Fundraising Director Relationship Specialty Start Date End Date Regina Ovalles MD [address] [place] [address] PCP - General 06/03/15 documented as of this encounter
--- OUTSIDE RECORDS SUMMARY | 2025-01-07 00:51 | XMS_ITS | Patient Health Record ---
Author Organization [facility] Address [address] [facility] [address] [place] [address] Care Team Providers Care Jewel Setter Name Role Phone Juanita Aguilera Primary Care Provider Ann-Marie Way Unavailable [phone] Allergies No Known Allergies Results Component Value Reference Range Notes UDT Reviewed date:12/28/2024 06:11:27 PM Interpretation: Performing Lab: Notes/Report: THC n 0 - 50 ng/ml Cocaine n 0 - 300 ng/ml Amphetamine n 0 - 1000 ng/ml Buprenorphine (BUP) n 0 - 10 ng/ml Secobarbital (Bar) n 0 - 300 ng/ml Oxazepam (BZO) p 0 - 300 ng/ml 2-bobwfujquh-8,3-psqtbvix-2,3-diphenylpyrrolidine (MAHNAZ P) n 0 - 300 ng/ml Methamphetamine (MET) n 0 - 1000 ng/ml Methylenedioxymethamphetamine (MDMA) n 0 - 500 ng/ml Morphine (MOP 300/IWP4312) n 0 - 300 ng/ml Methadone (MTD) [...] Oxazepam (BZO) p 0 - 300 ng/ml 2-aqjkdgqroe-1,0-ngdvtqhz-9,3-diphenylpyrrolidine (MAHNAZ P) n 0 - 300 ng/ml Methamphetamine (MET) n 0 - 1000 ng/ml Methylenedioxymethamphetamine (MDMA) n 0 - 500 ng/ml Morphine (MOP 300/[id number]) n 0 - 300 ng/ml Methadone (MTD) n 0 - 300 ng/ml Phencyclidine (PCP) n 0 - 25 ng/ml Nortriptyline (TCA) n 0 - 1000 ng/ml Oxycodone n 0 - 300 ng/ml x n 0 - 300 ng/ml UDT Reviewed date:12/08/2024 12:50:33 PM Interpretation: Performing Lab: Notes/Report: THC n 0 - 50 ng/ml Cocaine n 0 - 300 ng/ml Amphetamine n 0 - 1000 ng/ml Buprenorphine (BUP) n 0 - 10 ng/ml Secobarbital (Bar) p 0 - 300 ng/ml Oxazepam (BZO) n 0 - 300 ng/ml 3-dswdsrzgbo-6,0-pigpqeig-5,3-diphenylpyrrolidine (MAHNAZ P) n 0 - 300 ng/ml Methamphetamine (MET) n 0 - 1000 ng/ml Methylenedioxymethamphetamine (MDMA) n 0 - 500 ng/ml Morphine (MOP 300/[id number]) p 0 - 300 ng/ml Methadone (MTD) [...] Oxazepam (BZO) N 0 - 300 ng/ml 1-khustjzndh-8,9-jiwipfia-2,3-diphenylpyrrolidine (MAHNAZ P) N 0 - 300 ng/ml Methamphetamine (MET) N 0 - 1000 ng/ml Methylenedioxymethamphetamine (MDMA) N 0 - 500 ng/ml Morphine (MOP 300/[id number]) N 0 - 300 ng/ml Methadone (MTD) N 0 - 300 ng/ml Phencyclidine (PCP) N 0 - 25 ng/ml Nortriptyline (TCA) N 0 - 1000 ng/ml Oxycodone N 0 - 300 ng/ml x N 0 - 300 ng/ml Reason For Referral [...] 1 GM Oral; Duration: 1 Days Active Hoskins 3 1200 MG 1 capsule Orally Onc e a day Active Calcium & Vit D3 Bone Health - as directed Orally Active Olmesartan Medoxomil 5 MG as directed Orally Active Creon [id number] UNIT as directed Orally Active buPROPion HCl 75 MG Oral; Duration: 30 Days Not-Taking Magnesium 400 MG as directed Orally Active Celecoxib 100 MG 1 capsule Orally Onc e a day Active Vitamin D3 1.25 MG (37642 UT) 1 capsule Orally Active Social History [...] Risk Notes Problem Moderate recurrent major depression (57549995) Major depressive disorder, recurrent, moderate (F33.1) Active confirmed Problem Severe recurrent major depression without psychotic features (85141772) Major depressive disorder, recurrent severe without psychotic features (F33.2) Active confirmed Problem Generalized anxiety disorder (40730057) Generalized anxiety disorder (F41.1) Active confirmed Problem Obstructive sleep apnea syndrome (12972499) CASSIA (obstructive sleep apnea) (G47.33) Active confirmed Problem Severe recurrent major depression without psychotic features (60781504) MDD (major depressive disorder), recurrent severe, 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) Active confirmed Problem Insomnia disorder related to another mental disorder (11417433) 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) Active confirmed Problem Panic disorder (900593436) Panic attacks (F41.0) Active confirmed Problem History of bypass of stomach (779588729) H/O gastric bypass (Z98.84) 3 Active confirmed Vital Signs Heart Rate 60 /min 12/28/2024 Height-cm 167.64 cm 12/28/2024 Blood pressure diastolic 64 mm Hg 12/28/2024 Weight-kg 73.94 kg 12/28/2024 Height 66 in 12/28/2024 Blood pressure systolic 103 mm Hg 12/28/2024 Weight 163 lbs 12/28/2024 BMI 26.31 kg/m2 12/28/2024 Encounters Encounter Location Date Provider Diagnosis TeamBuy [address] [facility] [address] [place] [address] 10/09/2024 Ann-Marie Morales Major depressive disorder, recurrent severe without psychotic features F33.2 ; Generalized anxiety disorder F41.1 ; 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.05 ; Encounter for screening for depression Z13.31 and Encounter for screening for cardiovascular disorders Z13.6 [facility] [address] [place] [address] [place] [address] 11/06/2024 Ann-Marie Morales Major depressive disorder, recurrent, mild F33.0 ; 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.05 ; Panic attacks F41.0 ; Generalized anxiety disorder F41.1 ; Encounter for screening for depression Z13.31 and Encounter for screening for cardiovascular disorders Z13.6 [place] [address] [address] [facility] [address] [address] 12/07/2024 Ann-Marie Morales Encounter for screening for depression Z13.31 ; Major depressive disorder, recurrent, mild F33.0 ; Generalized anxiety disorder F41.1 ; Panic attacks F41.0 ; 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.05 ; CASSIA (obstructive sleep apnea) G47.33 and Encounter for screening for cardiovascular disorders Z13.[address] [address] 12/28/2024 Ann-Marie Morales Major depressive disorder, recurrent, moderate F33.1 ; Generalized anxiety disorder F41.1 ; 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.05 and Panic attacks F41.[address] [address] 11/06/2024 Ann-Marie Arboleda[address] [address] 12/11/2024 Ann-Marie Arboleda[address] [address] 09/09/2024 Ann-Marie Morales [place] [address] [address] 10/09/2024 Ann-Marie Morales Assessments Encounter Date Diagnosis (ICD Code) [...] g to a new medication Medication considered OXU3F29 Citalopram (Celexa), KSM5C07 Sertraline (Zoloft), CKK0R14, CYP2D6 Amitriptyline (Elavil), CYP2D5 Aripiprazole (Abilify) and CYP2D6 Vortioxetine (Trintellix ) I'm considering a dosage adjustment to currently prescribed medication(s) Medication considered TCM3T31 Escitalopram (Lexapro) Have you considered non-genetic factors [...] Patient has an upcoming appointment with a statistical developer on the of this month for further [...] Details Provider Name:Ann-Marie lizarraga, 01/25/2025 02:00:00 PM, [address], [facility] [address], [place], [address], Insurance Providers Payer Name Payer Address Payer Phone Subscriber Number Group Number Insured Name Patient Relationship to Insured Coverage Start Date Coverage End Date [facility] [address] [place] [address] [id number] Hanna Melendez Self - patient is the [...]
--- OUTSIDE RECORDS SUMMARY | 2025-01-07 00:51 | XMS_ITS | Encounter Summary ---
Author Organization [facility] Address [address] [place] [address] Care Team Providers Care Back Pad Inspector Name Role Phone Regina Ovalles MD Primary Care Provider +1- [phone] Encounter Details Date Type Department Care Team (Late Contact Info) Description 10/02/2002 Outpatient Historical [facility] Internal Medicine [address] [facility] [address] [place] [address] Grady Galvez MD [address] [facility] [address] [place] [address] Social History Tobacco Use Types Packs/Day Years Used Date Smoking Tobacco: Never Assessed Comments Unknown Sex and Gender Information Value Date Recorded Sex Assigned at Not on file 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 Gender Identity Not on file Sexual Orientation Not on file documented as of this encounter Plan of Treatment Upcoming Encounters Date Type Department Care Team (Late st Contact Info) Description 01/14/2025 2:45 PM CDT Office Visit [facility] Oncology and Hematology - [place] [address] [facility] [address] [place] [address] Malcolm Shay MD [address] [facility] [address] [place] [address] documented as of this encounter Visit Diagnoses Not on filedocumented in this encounter Care Teams Back Pad Inspector Relationship Specialty Start Date End Date Regina Ovalles MD [address] [place] [address] PCP - General 06/03/15 documented as of this encounter
--- OUTSIDE RECORDS SUMMARY | 2025-01-07 00:51 | XMS_ITS | Encounter Summary ---
Author Organization [facility] Address [address] [place] [address] Care Team Providers Care Provider Network Analyst Name Role Phone Regina Ovalles MD Primary Care Provider +1- [phone] Encounter Details Date Type Department Care Team (Late Contact Info) Description 10/02/2002 Outpatient Historical [facility] Internal Medicine [address] [facility] [address] [place] [address] Grady Galvez MD [address] [facility] [address] [place] [address] Social History Tobacco Use Types Packs/Day Years Used Date Smoking Tobacco: Never Assessed Comments Unknown Sex and Gender Information Value Date Recorded Sex Assigned at Not on file 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 Gender Identity Not on file Sexual Orientation Not on file documented as of this encounter Plan of Treatment Upcoming Encounters Date Type Department Care Team (Late st Contact Info) Description 01/14/2025 2:45 PM CDT Office Visit [facility] Oncology and Hematology - [place] [address] [facility] 200 [place] [address] Malcolm Shay MD [address] [facility] [address] [place] [address] documented as of this encounter Visit Diagnoses Not on filedocumented in this encounter Care Teams Provider Network Analyst Relationship Specialty Start Date End Date Regina Ovalles MD [address] [place] [address] PCP - General 06/03/15 documented as of this encounter
--- OUTSIDE RECORDS SUMMARY | 2025-01-07 00:51 | XMS_ITS | Encounter Summary ---
Author Organization [facility] Address [address] [place] [address] Care Team Providers Care Value Engineer Name Role Phone Regina Ovalles MD Primary Care Provider +1- [phone] Encounter Details Date Type Department Care Team (Late Contact Info) Description 05/31/2003 Outpatient Historical [facility] Internal Medicine [address] 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 Gender Identity Not on file Sexual Orientation Not on file documented as of this encounter Plan of Treatment Upcoming Encounters Date Type Department Care Team (Late Contact Info) Description 01/14/2025 2:45 PM CDT Office Visit [facility] Oncology and Hematology - [place] [address] [facility] [address] [place] [address] Malcolm Shay MD [address] [facility] [address] [place] [address] documented as of this encounter Visit Diagnoses Not on filedocumented in this encounter Care Teams Value Engineer Relationship Specialty Start Date End Date Regina Ovalles MD [address] [place] [address] PCP - General 06/03/15 documented as of this encounter
--- OUTSIDE RECORDS SUMMARY | 2025-01-07 00:51 | XMS_ITS | Encounter Summary ---
Author Organization [facility] Address [address] [place] [address] Care Team Providers Care Resistor Winder Name Role Phone Regina Ovalles MD Primary Care Provider [phone]- [phone] Encounter Details Date Type Department Care Team (Late Contact Info) Description 12/30/2002 Outpatient Historical [facility] Internal Medicine [address] 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 Gender Identity Not on file Sexual Orientation Not on file documented as of this encounter Plan of Treatment Upcoming Encounters Date Type Department Care Team (Late st Contact Info) Description 01/14/2025 2:45 PM CDT Office Visit [facility] Oncology and Hematology - [place] [address] [facility] [address] [place] [address] Malcolm Shay MD [address] [facility] [address] [place] [address] documented as of this encounter Visit Diagnoses Not on filedocumented in this encounter Care Teams Resistor Winder Relationship Specialty Start Date End Date Regina Ovalles MD [address] [place] [address] PCP - General 06/03/15 documented as of this encounter
--- OUTSIDE RECORDS SUMMARY | 2025-01-07 00:51 | XMS_ITS | Clinical Summary ---
Author Organization [facility] Care Team Providers Care Winch Stripper Name Role Phone Unavailable Primary Care Provider [...] - 19+ 3-dose series) 12/24/2006 08/26/2006, 06/26/2006 Cologuard 2009 Colonoscopy 2009 Colorectal Cancer Screening 2009 Immunochemical Fecal Occult Blood 2009 Pneumococcal Immunization (50+ years) (2 of 2 - PCV) 2014 06/17/2008 Zoster Immunization (1 of 2) 2014 SARS-COV-2 Immunization ( season) 2024 03/24/2021, 08/06/2020, 07/16/2020 Influenza Immunization (#1) 02/15/202501/2020, 03/31/2019, 03/22/2016, Additional history exists Respiratory Syncytial Virus (RSV) Immunization (Adult) (1 - 1-dose 75+ series) 10/02/2039 Pneumococcal Immunization Combined Discontinued 06/17/2008 DTaP/Tdap/Td Immunization Discontinued 2017, 01/22/2018, 08/14/2004 TdaP Immunization Completed 01/27/2018, 01/22/2018 Human Papillomavirus (HPV) Immunization Aged Out No longer eligible based on patient's age to complete this topic Meningococcal Immunization (ACWY) Aged Out No longer eligible based on patient's age to complete this topic Rotavirus Immunization Aged Out No lo nger eligible based on patient's age to complete this topic
--- OUTSIDE RECORDS SUMMARY | 2025-01-07 00:51 | XMS_ITS | Clinical Summary ---
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 Gender Identity Not on file Sexual [...] Screening with HPV 1994 Mammogram Screening 2004 Pneumococcal Vaccine: 50+ Years (2 of 2 - PCV) 2014 06/17/2008 Zoster Vaccines (1 of 2) 2014 COVID-19 Vaccine ( - season) 2024 03/24/2021, 08/06/2020, 07/16/2020 DTaP, Tdap and Td Vaccines (5 - Td or Tdap) 11/05/2032 11/05/2022, 01/27/2018, 01/22/2018, Additional history exists RSV Immunization or 60+ Years (1 - 1-dose 75+ series) 10/02/2039 Meningococcal B Vaccine Aged Out No l onger eligible based on patient's age to complete this topic Meningococcal Vaccine Aged Out No abraham hemant eligible based on patient's age to complete this topic RSV Immunizations Under 20 Months Aged Out No longer eligible based on patient's age to complete this topic Insurance [employer] Care Teams Train Operator Relationship Specialty Start Date End Date Juanita Lemons FNP [address] [place] [address] [address] [place] [address] PCP - General NURSE PRACTITIONER 01/22/24
--- OUTSIDE RECORDS SUMMARY | 2025-01-07 00:51 | XMS_ITS | Encounter Summary ---
Author Organization [facility] Address [address] [place] [address] Care Team Providers Care Store Receiving Specialist Name Role Phone Regina Ovalles MD Primary Care Provider [phone]- [phone] Encounter Details Date Type Department Care Team (Late Contact Info) Description 05/31/2003 Outpatient Historical [facility] Internal Medicine [address] 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 Gender Identity Not on file Sexual Orientation Not on file documented as of this encounter Plan of Treatment Upcoming Encounters Date Type Department Care Team (Late Contact Info) Description 01/14/2025 2:45 PM CDT Office Visit [facility] Oncology and Hematology - [place] [address] [facility] [address] [place] [address] Malcolm Shay MD [address] [facility] [address] [place] [address] documented as of this encounter Visit Diagnoses Not on filedocumented in this encounter Care Teams Store Receiving Specialist Relationship Specialty Start Date End Date Regina Ovalles MD [address] [place] [address] PCP - General 06/03/15 documented as of this encounter
--- OUTSIDE RECORDS SUMMARY | 2025-01-07 00:51 | XMS_ITS | Encounter Summary ---
Author Organization [facility] Address [address] [place] [address] Care Team Providers Care Tripe Cooker Name Role Phone Regina Ovalles MD Primary Care Provider [phone]- [phone] Encounter Details Date Type Department Care Team (Late Contact Info) Description 06/24/2002 Outpatient Historical [facility] Internal Medicine [address] 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 Gender Identity Not on file Sexual Orientation Not on file documented as of this encounter Plan of Treatment Upcoming Encounters Date Type Department Care Team (Late st Contact Info) Description 01/14/2025 2:45 PM CDT Office Visit [facility] Oncology and Hematology - [place] [address] [facility] [address] [place] [address] Malcolm Shay MD [address] [facility] [address] [place] [address] documented as of this encounter Visit Diagnoses Not on filedocumented in this encounter Care Teams Tripe Cooker Relationship Specialty Start Date End Date Regina Ovalles MD [address] [place] [address] PCP - General 06/03/15 documented as of this encounter
--- OUTSIDE RECORDS SUMMARY | 2025-01-07 00:51 | XMS_ITS | Encounter Summary ---
Author Organization [facility] [employer] [facility] Address [address] [place] [address] Care Team Providers Care Bearing Inspector Name Role Phone Regina Ovalles MD Primary Care Provider [phone]- [phone] Encounter Details Date Type Department Care Team (Late Contact Info) Description 01/05/2025 Orders Only [facility] Oncology and Hematology [facility] [address] [place] [address] Malcolm Shay MD [address] [place] [address] [employer] [address] [place] [address] Social History Tobacco Use Types Packs/Day Years Used Date Smoking Tobacco: Never Smokeless Tobacco: Never Alcohol Use Standard Drinks/Week Comments No 0 (1 standard drink = 0.6 oz pur e alcohol) Comments No Sex and Gender Information Value Date Recorded Sex Assigned at Not on file 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 Gender Identity Not on file Sexual Orientation Not on file documented as of this encounter Plan of Treatment Upcoming Encounters Date Type Department Care Team (Late st Contact Info) Description 01/14/2025 2:45 PM CDT Office Visit [facility] Oncology and Hematology [place] [address] [place] [address] Malcolm Shay MD [address] [place], [place] [address] [address] [place] [address] documented as of this encounter Procedures Procedure Name Priority Date/Time Associated Diagnosis Comments COMPREHENSIVE METABOLIC PANEL Routine 01/01/2025 2:22 PM CDT documented in this encounter Results * COMPREHENSIVE METABOLIC PANEL (01/01/2025 2:22 PM CDT) Blood us Malcolm Shay MD CHEMISTRY ORDERABLES Final Resu lt documented in this encounter Visit Diagnoses Not on filedocumented in this encounter Care Teams Bearing Inspector Relationship Specialty Start Date End Date Regina Ovalles MD [address] [address] PCP - General 06/03/15 documented as of this encounter
--- OUTSIDE RECORDS SUMMARY | 2025-01-07 00:51 | XMS_ITS | Encounter Summary ---
Author Organization [facility] Address [address] [place] [address] Care Team Providers Care Cylinder Dyer Name Role Phone Regina Ovalles MD Primary Care Provider +1- [phone] Encounter Details Date Type Department Care Team (Late Contact Info) Description 02/01/2003 Outpatient Historical [facility] Internal Medicine [address] [facility] [place] [address] Grady Galvez MD [address] 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 Gender Identity Not on file Sexual Orientation Not on file documented as of this encounter Plan of Treatment Upcoming Encounters Date Type Department Care Team (Late st Contact Info) Description 01/14/2025 2:45 PM CDT Office Visit [facility] Oncology and Hematology - [place] [address] [facility] [address] [place] [address] Malcolm Shay MD [address] [facility] [address] [place] [address] documented as of this encounter Visit Diagnoses Not on filedocumented in this encounter Care Teams Cylinder Dyer Relationship Specialty Start Date End Date Regina Ovalles MD [address] [place] [address] PCP - General 06/03/15 documented as of this encounter
--- OUTSIDE RECORDS SUMMARY | 2025-01-07 00:51 | XMS_ITS | Encounter Summary ---
Author Organization [facility] Address [address] [place] [address] Care Team Providers Care Cello Teacher Name Role Phone Regina Ovalles MD Primary Care Provider +1- [phone] Encounter Details Date Type Department Care Team (Late Contact Info) Description 01/29/2003 Outpatient Historical [facility] Internal Medicine [address] [address] 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 Gender Identity Not on file Sexual Orientation Not on file documented as of this encounter Plan of Treatment Upcoming Encounters Date Type Department Care Team (Late st Contact Info) Description 01/14/2025 2:45 PM CDT Office Visit [facility] [place] Oncology and Hematology - Graeme [address] [facility] [address] [place] [address] Malcolm Shay MD [address] [facility] [address] [place] [address] documented as of this encounter Visit Diagnoses Not on filedocumented in this encounter Care Teams Cello Teacher Relationship Specialty Start Date End Date Regina Ovalles MD [address] [place] [address] PCP - General 06/03/15 documented as of this encounter
--- OUTSIDE RECORDS SUMMARY | 2025-01-07 00:51 | XMS_ITS | Encounter Summary ---
Author Organization [facility] Address [address] [place] [address] Care Team Providers Care Glass Vial Filler Name Role Phone Regina Ovalles MD Primary Care Provider +1- [phone] Encounter Details Date Type Department Care Team (Late Contact Info) Description 02/01/2003 Outpatient Historical [facility] Internal Medicine [address] 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 Gender Identity Not on file Sexual Orientation Not on file documented as of this encounter Plan of Treatment Upcoming Encounters Date Type Department Care Team (Late st Contact Info) Description 01/14/2025 2:45 PM CDT Office Visit [facility] Oncology and Hematology - Graeme [address] [facility] [address] [place] [address] Malcolm Shay MD [address] [facility] [address] [place] [address] documented as of this encounter Visit Diagnoses Not on filedocumented in this encounter Care Teams Glass Vial Filler Relationship Specialty Start Date End Date Regina Ovalles MD [address] [place] [address] PCP - General 06/03/15 documented as of this encounter
[2025-01-07] MEDS: LACTATED RINGERS 1,000 ML 30 ML IV CONT (07:00)
[2025-01-07] MEDS: ACETAMINOPHEN 500 MG TABLET 1000 MG PO (07:04)
--- NOTE | 2025-01-07 08:34 | WPDHPUPDATE1 ---
History and Physical Update Update Date/Time: 01/07/25 08:34 History and Physical has been reviewed, including an updated exam of the patient. There are NO changes in the patient's condition. Risks, benefits, and alternatives have been discussed and questions answered. Patient agrees to proceed with procedure.
--- NOTE | 2025-01-07 08:42 | P.PNAN_ITS ---
Anes - Initial Pre Proc Eval Procedure: Operation Date: 01/07/25 08:30 Proposed Procedures p Left Calcaneal and First Metatarsal Osteotomy, - Ruel Womack MD s Plantar Fascia Release with Tendon Transfer - Ruel Womack MD Date/Time: 01/07/25 08:42 Surgeon: Ruel Womack MD Pre Op Diagnosis: left carvovarus foot deformity Patient Data Age: 59 Gender: F Height: 1.68 m Weight: 69.7 kg Last Vital Signs Temp 36.6 C 01/07/25 06:54 Pulse 66 01/07/25 06:54 BP 111/68 01/07/25 06:54 Pulse Ox 100 01/07/25 06:54 O2 Del Method Room Air 01/07/25 06:54 Allergies Allergy/AdvReac Type Severity Reaction Status Date / Time sertraline (From Zoloft) Allergy Mild Seizure Verified 01/07/25 06:52 vancomycin Allergy Mild Hives Verified 01/07/25 06:52 ketorolac AdvReac Severe SEVERE Verified 01/07/25 06:52 NAUSEA AND VOMITING cephalexin AdvReac Intermediate Itching Verified 01/07/25 06:52 canagliflozin (From Invokana) AdvReac Mild Dizziness Verified 01/07/25 06:52 cortisone AdvReac Mild Other Verified 01/07/25 06:52 diclofenac (From Voltaren) AdvReac Mild Nausea Verified 01/07/25 06:52 fosinopril (From Monopril) AdvReac Mild Cough Verified 01/07/25 06:52 levofloxacin (From Levaquin) AdvReac Mild Nausea Verified 01/07/25 06:52 montelukast (From Singulair) AdvReac Mild Muscle Pain Verified 01/07/25 06:52 turkey Allergy Severe Swelling Uncoded 01/01/25 12:09 of Lip/Tongue/Throat Home Medications ?Medication ?Instructions ?Recorded ?Confirmed ?Type aspirin 81 mg tablet,delayed 81 mg PO DAILY 01/31/23 01/04/25 History release (Adult Low Dose Aspirin) Bariatric vitamins 1 tablet PO DAILY 05/06/23 01/04/25 History celecoxib 200 mg capsule 200 mg PO DAILY 05/06/23 01/04/25 History cholecalciferol (vitamin D3) 125 125 mcg PO DAILY 05/06/23 01/04/25 History mcg (5,000 unit) tablet magnesium oxide 400 mg (241.3 mg 400 mg PO DAILY 05/06/23 01/04/25 History magnesium) tablet omega 9-ure-vpz-fish oil 1,200 mg 1 cap PO DAILY 05/06/23 01/04/25 History (144 mg-216 mg) capsule (Fish Oil) tramadol 50 mg tablet 50 mg PO Q6H PRN Pain 05/06/23 01/07/25 History olmesartan 5 mg tablet 2.5 mg PO DAILY 12/25/23 01/04/25 History lansoprazole 30 mg capsule,delayed 30 mg PO DAILY #90 caps 04/29/24 01/04/25 Rx release hwfxov-wzzinemh-nrbrusp 2 cap PO .AC and snacks 06/09/24 01/04/25 History 36,000-114,000-180,000 unit capsule,delay rel (Creon) alprazolam 0.5 mg tablet,extended 0.5 mg PO DAILY 12/14/24 01/04/25 History release 24 hr escitalopram oxalate 5 mg/5 mL 10 mg PO DAILY 12/14/24 01/04/25 History oral solution levothyroxine 150 mcg/mL oral 150 mcg PO .COMPLEX #90 mL 12/14/24 01/07/25 Rx solution (Tirosint-Mili) Patient hx anesthesia problems: post op nausea/vomiting Family hx anesthesia problems: none Results Review: All pre-operative results and documents have been reviewed as part of the pre- operative evaluation. [facility] Past Medical History Medical History Acquired cavovarus deformity of both feet GERD (gastroesophageal reflux disease) Nausea and vomiting Abdominal bloating Alternating constipation and diarrhea History of postoperative nausea and vomiting History of stress test (~2021) PONV (postoperative nausea and vomiting) Chronic pain tramadol CASSIA (obstructive sleep apnea) Hypothyroidism (acquired) Hyperlipidemia Hypertriglyceridemia Vitamin D deficiency Type 2 diabetes mellitus Thyroid disorder Hypertension Diabetes Depression Surgical History Surgical History S/P dilation and curettage 04.03.24 KATHY History of tooth extraction H/O gastric bypass 07/04/21 H/O esophagogastroduodenoscopy H/O colonoscopy 2007 Hx of cholecystectomy H/O left breast biopsy Family History Family History Father Alcoholism Diabetes mellitus Cancer Mother Alcoholism Hypertension Depression Thyroid disorder Cancer Sibling Alcoholism Asthma Cancer Diabetes mellitus Hypertension Depression Heart disease Thyroid disorder Grandparent Cancer Diabetes mellitus Grandparent Cerebrovascular accident Social History Social History Smoking status: Never smoker Second hand tobacco smoke exposure: Yes Alcohol intake: never Substance use: never Substance use type: does not use Do You Feel Safe in your Home?: Yes Lack of Transportation: No Lack of Food: Sometimes True Current Housing: I Have Housing Concerned About Future Housing: No Difficulty Paying Gas/Electric Bills: No Difficulty Paying for Meds: YES Currently Unemployed: No Education: Associate Degree Difficulty w/ Childcare or Family Care: No Living arrangements: with family 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 Informed Consent: The patient's anesthetic plan and its attendant risks and benefits were discussed with the patient/family/POA. Questions were solicited and answers provided to the satisfaction of the patient/family/POA.
[2025-01-07] MEDS: SCOPOLAMINE 1 MG PATCH 1 PATCH TRANSDERM (08:44)
[2025-01-07] MEDS: ceFAZolin 2 GM in SODIUM CHLORIDE 0.9% IV 50 ML 100 ML IVPB (08:45)
[2025-01-07] MEDS: BUPIVACAINE/EPINEPHRINE 0.5% 50 ML VIAL 30 ML INFILTRATE (09:19)
--- NOTE | 2025-01-07 11:27 | P.OP_ITS ---
Procedure Note - Detailed Date of Procedure 01/07/25 Pre-op Diagnosis left carvovarus foot deformity, peroneal tendon tear Post-op Diagnosis Same Procedure Performed Left calcaneal osteotomy, 1st metatarsal osteotomy, peroneal tendon transfer, plantar fascia release Surgeon Ruel Womack MD Trim Technician 1st field administrative assistant Anesthesia General Indications 59 yo woman with cavovarus foot deformity and peroneal tendon tear. Failed her conservative treatment with custom bracing, therapy and activity modification. Presents now for operative treatment. Description of Procedure Patient identified in the preoperative holding. Informed consent given. Operative extremity marked. Patient received intravenous antibiotics. Patient brought to the operating room where she underwent general anesthetic by anesthesia team. Positioned supine with a bump under the ipsilateral hip on operating room table. Head and neck secured. Time-out performed confirming the patient, site of the surgery and the plan. Left lower extremity prepped draped usual sterile surgical fashion using a ChloraPrep skin solution. Foot and ankle exsanguinated and a thigh tourniquet inflated to 250 mmHg. Curvilinear incision over the lateral ankle and distal fibula and lateral calcaneus. Incision made with 15 blade knife. Hemostasis controlled electrocautery. Dissection carried down to the fascia which was incised in line with skin incision. Careful dissec tion to isolate the nerve elements and protect these during the case. A lateral calcaneus was exposed 1st. Fluoroscopy assisted the osteotomy level. Sagittal saw used to make an osteotomy from lateral to medial followed by a wedge on the lateral aspect. The heel was then brought out of varus and impacted laterally and provisionally pinned. Alignment was checked fluoroscopy and fixation achiev ed with 6.7 mm screw x2. Is replaced percutaneously through the heel. The heel incisions were then closed with 4-0 interrupted suture. Fluoroscopy confirmed final alignment positioning hardware. Wound irrigated subcutaneous tissue repaired with 3-0 moderate interrupted suture and skin repaired with 4-0 nylon running suture. Incision made over the lateral peroneal tubercle distal to the fibula with 15 blade. Hemostasis controlled electrocautery. Peroneal retinacular isolated and incised in line with the skin incision. Peroneus brevis tendon noted to be torn atrophied. Peroneus longus was intact. The longus was then released distally and tendon transfer performed to the base of the 5th metatarsal and peroneus brevis insertion. 0 Ethibond interrupted suture used for the tendon transfer. Wound irrigated closed with 3-0 Monocryl subcuticular interrupted suture 4-0 nylon running suture for the skin. The plantar fascia was then addressed. Longitudinal incision made over the mi dportion of the plantar fascia with a 15 blade knife. Hemostasis controlled electrocautery. Plantar fascia was dissected out and retractors placed. Plantar fascia then divided transversely and 5 mm of fascia was removed to prevent recurrent scarring. Wound irrigated and closed with 3-0 Monocryl interrupted suture for subcutaneous tissue 4-0 nylon running suture for the skin. Finally, the 1st metatarsal was addressed. Dorsal longitudinal incision made with 15 blade knife. Hemostasis controlled electrocautery. Retractors were placed around the base of the 1st metatarsal and a dorsal based wedge osteotomy was performed with a sagittal saw osteotomy was reduced in closed and fixed 10 mm staple x2. Image intensification confirmed alignment and placement of the hardware. Wound irrigated and Subcutaneous tissue repaired with 3 0 Monocryl interrupted suture. Skin closed with 4-0 nylon running suture. Sterile dressing placed. Tourniquet released. Bulky dressing and splint applied. Patient awoken from anesthesia, extubated and taken to the recover room in stable condition. All sponge needle and instrument counts correct at the end of the case. Implants Arthrex 6.7 mm cannulated screw x2, 10 mm staple x2 Estimated Blood Loss 10 Tourniquet Time Total Tourniquet Time: 120 Drains No Packing No Pathology None sent Complications No immediate complications Condition Stable Disposition PACU [facility] Billing Surgery - Charge Forward: Surgery Billing ([id number], [id number], [id number], [id number])
[2025-01-07] MEDS: fentaNYL CITRATE INJ (*CRX) 100 MCG/2 ML VIAL 25 MCG IV PUSH ×4 (11:58→12:18)
[2025-01-07] MEDS: oxyCODONE HCL (*CRX) 5 MG TAB IR PO (13:12)
== END 2025-01-07 13:30 | disposition home or self-care (01) ==
PROVIDERS: PCP Nurse Practitioner Family; Visit Provider Orthopaedic Surgery
PROC: (CPT 28750; principal; 2025-01-07 08:30)
PROC: (CPT 28300; 2025-01-07 08:30)
DX: Q66.12 Congenital talipes calcaneovarus, left foot (principal); S86.312A Strain of muscle(s) and tendon(s) of peroneal muscle group at lower leg level, left leg, initial encounter; G89.29 Other chronic pain; X58.XXXA Exposure to other specified factors, initial encounter; E03.9 Hypothyroidism, unspecified; E78.5 Hyperlipidemia, unspecified; E11.9 Type 2 diabetes mellitus without complications; I10 Essential (primary) hypertension; K21.9 Gastro-esophageal reflux disease without esophagitis; G47.33 Obstructive sleep apnea (adult) (pediatric); E78.1 Pure hyperglyceridemia; E55.9 Vitamin D deficiency, unspecified; F32.A Depression, unspecified; Z79.82 Long term (current) use of aspirin; Z79.891 Long term (current) use of opiate analgesic; Z98.890 Other specified postprocedural states; Z98.84 Bariatric surgery status; Z90.49 Acquired absence of other specified parts of digestive tract; Z80.9 Family history of malignant neoplasm, unspecified; Z82.49 Family history of ischemic heart disease and other diseases of the circulatory system
CPT/HCPCS: 28300; 28306; 28250; 27691; 99199; J0690; A9270; C1713; C1769; J1100; J2250; J2270; J2405; J2704; J3010; J7120

== ENCOUNTER 2025-02-09 11:42 | Outpatient (CLI) | payer MEDICARE, SELFPAY ==
--- OUTSIDE RECORDS SUMMARY | 2025-02-09 12:01 | XMS_ITS | Encounter Summary ---
Author Organization [facility] Address [address] [place] [address] Care Team Providers Care Brand Development Manager Name Role Phone Regina Ovalles MD Primary Care Provider +1- [phone] Encounter Details Date Type Department Care Team (Late Contact Info) Description 05/31/2003 Outpatient Historical [facility] Internal Medicine 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 Gender Identity Not on file Sexual Orientation Not on file documented as of this encounter Plan of Treatment Upcoming Encounters Date Type Department Care Team (Late Contact Info) Description 04/16/2025 12:45 PM CDT Office Visit [facility] Oncology and Hematology - [place] [address] [facility] [address] [place] [address] Malcolm Shay MD [address] [facility] [address] [place] [address] documented as of this encounter Visit Diagnoses Not on filedocumented in this encounter Care Teams Brand Development Manager Relationship Specialty Start Date End Date Regina Ovalles MD [address] [place] [address] PCP - General 06/03/15 documented as of this encounter
--- OUTSIDE RECORDS SUMMARY | 2025-02-09 12:01 | XMS_ITS | Encounter Summary ---
Author Organization [facility] Address [address] [place] [address] Care Team Providers Care Platform Man Name Role Phone Regina Ovalles MD Primary Care Provider +1- [phone] Encounter Details Date Type Department Care Team (Late Contact Info) Description 05/31/2003 Outpatient Historical [facility] Internal Medicine [address] 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 Gender Identity Not on file Sexual Orientation Not on file documented as of this encounter Plan of Treatment Upcoming Encounters Date Type Department Care Team (Late Contact Info) Description 04/16/2025 12:45 PM CDT Office Visit [facility] Oncology and Hematology - Graeme [address] [facility] [address] [place] [address] Malcolm Shay MD [address] [facility] [address] [place] [address] documented as of this encounter Visit Diagnoses Not on filedocumented in this encounter Care Teams Platform Man Relationship Specialty Start Date End Date Regina Ovalles MD [address] [place] [address] PCP - General 06/03/15 documented as of this encounter
--- OUTSIDE RECORDS SUMMARY | 2025-02-09 12:01 | XMS_ITS | Clinical Summary ---
Author Organization [facility] Care Team Providers Care Buffing Machine Operator Semiautomatic Name Role Phone Unavailable Primary Care Provider [...]
--- OUTSIDE RECORDS SUMMARY | 2025-02-09 12:01 | XMS_ITS | Encounter Summary ---
Author Organization [facility] Address [address] [place] [address] Care Team Providers Care Lead Man Over All Dies In Pattern Shop Name Role Phone Regina Ovalles MD Primary Care Provider +1- [phone] Encounter Details Date Type Department Care Team (Late Contact Info) Description 10/02/2002 Outpatient Historical [facility] Internal Medicine 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 Gender Identity Not on file Sexual Orientation Not on file documented as of this encounter Plan of Treatment Upcoming Encounters Date Type Department Care Team (Late st Contact Info) Description 04/16/2025 12:45 PM CDT Office Visit [facility] Oncology and Hematology - [place]eme [address] [facility] [address] [place] [address] Malcolm Shay MD [address] [facility] [address] [place] [address] documented as of this encounter Visit Diagnoses Not on filedocumented in this encounter Care Teams Lead Man Over All Dies In Pattern Shop Relationship Specialty Start Date End Date Regina Ovalles MD [address] [place] [address] PCP - General 06/03/15 documented as of this encounter
--- OUTSIDE RECORDS SUMMARY | 2025-02-09 12:01 | XMS_ITS | Encounter Summary ---
Author Organization [facility] Address [address] [place] [address] Care Team Providers Care Tetryl Wringer Operator Name Role Phone Regina Ovalles MD Primary Care Provider +1- [phone] Encounter Details Date Type Department Care Team (Late Contact Info) Description 08/03/2002 Outpatient Historical [facility] Internal Medicine [address] 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 Gender Identity Not on file Sexual Orientation Not on file documented as of this encounter Plan of Treatment Upcoming Encounters Date Type Department Care Team (Late st Contact Info) Description 04/16/2025 12:45 PM CDT Office Visit [facility] Oncology and Hematology - Graeme [address] [facility] [address] [place] [address] Malcolm Shay MD [address] [facility] [address] [place] [address] documented as of this encounter Visit Diagnoses Not on filedocumented in this encounter Care Teams Tetryl Wringer Operator Relationship Specialty Start Date End Date Regina Ovalles MD [address] [place] [address] PCP - General 06/03/15 documented as of this encounter
--- OUTSIDE RECORDS SUMMARY | 2025-02-09 12:01 | XMS_ITS | Encounter Summary ---
Author Organization [facility] Address [address] [place] [address] Care Team Providers Care Fur Joiner Name Role Phone Regina Ovalles MD Primary Care Provider +1- [phone] Encounter Details Date Type Department Care Team (Late Contact Info) Description 02/01/2003 Outpatient Historical [facility] Internal Medicine [address] [facility] [address] 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 Gender Identity Not on file Sexual Orientation Not on file documented as of this encounter Plan of Treatment Upcoming Encounters Date Type Department Care Team (Late st Contact Info) Description 04/16/2025 12:45 PM CDT Office Visit [facility] Oncology and Hematology - Graeme [address] [facility] [address] [place] [address] Malcolm Shay MD [address] [facility] [address] [place] [address] documented as of this encounter Visit Diagnoses Not on filedocumented in this encounter Care Teams Fur Joiner Relationship Specialty Start Date End Date Regina Ovalles MD [address] [place] [address] PCP - General 06/03/15 documented as of this encounter
--- OUTSIDE RECORDS SUMMARY | 2025-02-09 12:01 | XMS_ITS | Clinical Summary ---
Author Organization [facility] Address [address] [place] [address] Phone Care Team Providers Care Winder Fixer Name Role Phone Regina Ovalles MD Primary Care Provider +1- [phone] Allergies Active Allergy Reactions Criticality Noted Date Comments Canagliflozin Dizziness Low 12/30/2020 Cephalexin Hives High 12/17/2023 Cortisone Other (See Comments) Low 12/30/2020 Food Extracts Anaphylaxis High 08/02/2011 Anaphylaxis when digests turkey Fosinopril Cough Low 12/30/2020 Ketorolac Tromethamine Nausea and Vomiting Medium 07/18 Levofloxacin Nausea and Vomiting Low 12/30/2020 Montelukast Nausea and Vomiting,Other (See Comments) Low 12/30/2020 Sertraline Seizure High 09/17/2015 [place]t Anaphylaxis,Shortnes s of Breath/Wheezing High 12/30/2020 Vancomycin Itching Medium 08/03/2011 Medications levothyroxine (SYNTHROID) 125 mcg Oral tablet Take 1 Tab by mouth daily brush polisher. 30 Tab 0 2 Active Additional Information [...] 50 mg by mouth. 3 Active Fish Oil-Clayton-3 Fatty Acids 360-1,200 mg Capsule Take 1 Capsule by mouth. Active ferrous sulfate 325 mg (65 mg iron) tablet Take 325 mg by mouth daily. Active clindamycin HCL (CLEOCIN) 300 mg Capsule Take 300 mg by mouth 4 times daily. Active aspirin (ECOTRIN EC) 81 mg Tablet, Delayed Release (E.C.) Take 81 mg by mouth 2 times daily. Active Active Problems Problem Noted Date Diagnosed Date Severe recurrent major depre ssion without psychotic features 09/18/2015 Leukocytosis 09/18/2015 Cellulitis 08/23/2011 DM (diabetes mellitus) HTN (hypertension) Hypothyroidism Obesity Depression Cellulitis Malignant neoplasm Encounters Date Type Department Care Team Description 01/14/2025 2:45 PM CDT Office Visit [facility] Oncology and Hematology - [place] [address] [place] [address] Malcolm Shay MD Chronic anemia (Primary Dx) 01/07/2025 Orders Only [facility] Oncology and Hematology - [place] [address] [place] [address] Malcolm Shay MD 01/06/2025 Orders Only [facility] Oncology and Hematology - [place] [address] [place] [address] Malcolm Shay MD 01/05/2025 Orders Only [facility] Oncology and Hematology - [place] [address] [place] [address] Malcolm Shay MD 12/30/2024 External Device Data [...] on file 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 Gender Identity Not on file Sexual Orientation Not on file Last Filed Vital Signs Vital Sign Reading Time Taken Comments Blood Pressure 110/69 01/14/2025 2:33 PM CDT Pulse 65 01/14/2025 2:33 PM CDT Temperature 36.4 C (97.5 F) 01/14/2025 2:33 PM CDT Respiratory Rate 15 01/14/2025 2:33 PM CDT Oxygen Saturation 96% 01/14/2025 2:33 PM CDT Inhaled Oxygen Concentration - - Weight 66.2 kg (146 lb) 01/14/2025 2:33 PM CDT Height 167.6 cm (5' 6) 09/22/2024 3:01 PM CDT Body Mass Index 23.57 09/22/2024 3:01 PM CDT Plan of Treatment Upcoming Encounters Date Type Department Care Team (Late st Contact Info) Description 04/16/2025 12:45 PM CDT Office Visit [facility] Oncology and Hematology - [place] [address] [facility] [address] [place] [address] Malcolm Shay MD [address] [facility] [address] [place] [address] Health Maintenance Due Date Last [...] VACCINE (1 of 2) 2014 COVID-19 Vaccine (2023- season) 2024 03/24/2021, 08/06/2020, 07/16/2020 DIABETES HBA1C Q 6 MONTHS 09/25/2024 03/27/2024, INFLUENZA VACCINE (#1) 2025 2, 03/08/2021, 04/11/2020, Additional history exists DTAP/TDAP/TD VACCINES [...] METABOLIC PANEL Routine 01/01/2025 2:22 PM CDT METHYLMALONIC ACID Routine 01/01/2025 8: 54 AM CDT from Last 3 Months Results * TRANSFERRIN RECEPTOR TFR SOLUBLE (01/01/2025 4:51 PM CDT) Blood us Malcolm Shay MD CHEMISTRY ORDERABLES Final Resu lt * COMPREHENSIVE METABOLIC PANEL (01/01/2025 2:22 PM CDT) Blood Malcolm Shay MD CHEMISTRY ORDERABLES Final Resu lt * METHYLMALONIC ACID (01/01/2025 8:54 AM CDT) Blood Malcolm Shay MD CHEMISTRY ORDERABLES Final Resu lt from Last 3 Months Insurance [facility] OPTIONS PPO [id number] Advance Directives For more information, please contact: [phone] * Full Code (Latest Code Status on File) Date Activated Date Inactivated Comments 09/17/2015 8:59 PM 09/22/2015 3:10 PM * Full Code Date Activated Date Inactivated Comments 08/02/2011 1:14 PM 08/08/2011 2:44 PM Care Teams Winder Fixer Relationship Specialty Start Date End Date Regina Ovalles MD [address] [phone] PCP - General 06/03/15
--- OUTSIDE RECORDS SUMMARY | 2025-02-09 12:01 | XMS_ITS | Clinical Summary ---
Author Organization [facility] Address [address] [place] [address] Care Team Providers Care Linux System Administrator Name Role Phone Denise Cope PRISCILA-BUMPER MACHINE OPERATOR Primary Care Provider + Source Comments [facility]non-owned Affiliates and Associated Physician Practices is amultiple site organization consisting of ambulatory clinics and hospital sitesin [place], [place], [place] and [place]. This disclosure is being madepursuant to the Care Everywhere program and may not contain all information available regarding this patient. Last updated 18.[facility] Allergies Active Allergy Reactions Criticality Noted Date Comments Canagliflozin Dizziness 12/30/2020 Cephalexin Urticaria Medium 12/17/2023 Cortisone Other 12/30/2020 Diclofenac Epolamine Nausea and/or Vomiting Fosinopril Cough 12/30/2020 Ketorolac Tromethamine Nausea and/or Vomiting Medium 0 08/02/2011 Levofloxacin Nausea and/or Vomiting 12/30/2020 Montelukast Other 12/30/2020 Sertraline Other,Seizures High 09/17/2015 Ketorolac Vomiting 12/30/2020 [facility] Anaphylaxis High 12/30/2020 Vancomycin Urticaria,Itching,Ra sh,Shortne ss of Breath,Swelling High 08/03/2011 Medications * Be aware that medications may not be up to date on this document. Alwaysverify current medications with the patient. valACYclovir (VALTREX) 1 GM tablet Take 1 [...] once daily Active ergocalciferol (DRISDOL) 1.25 MG (38983 UT) capsule Take 1 (one) capsule by mouth every 7 days On mondays Active ketoconazole (NIZORAL) 2 % shampoo Apply 1 Each to affected area Two times a week Active acetaminophen (TYLENOL) 160 MG/5ML solution Take 31.25 mL by mouth every 8 hours 07/04/19 Active senna-docusate (SENOKOT-S) 8.6-50 MG tablet Take 1 (one) tablet by mouth 2 times daily as needed for Constipation 07/04/19 Active Docusate Sodium (COLACE PO) Take by mouth as needed Active Bismuth Subgallate (DEVROM) 200 MG CAPS Take 1 capsule by mouth every 6 hours as needed 120 capsule 5 12/30/19 Active famotidine (PEPCID) 20 MG tablet Take 1 (one) tablet by mouth at bedtime 90 tablet 3 12/30/19 Active Additional Information Patient not taking.Reported on 08/24/2022 levothyroxine (Synthroid) 150 MCG tablet levothyroxine 150 mcg tablet TAKE 1 TABLET BY MOUTH ONCE DAILY FOR 30 DAYS Active Nystop 616091 UNIT/GM powder APPLY POWDER TOPICALLY TO AFFECTED AREA TWICE DAILY 09/07/19 Active fluconazole (Diflucan) 150 MG tablet TAKE 1 TABLET BY MOUTH ONCE A WEEK 12/07/19 Active OneTouch Ultra test strip USE 1 STRIP TO CHECK GLUCOSE THREE TIMES DAILY 08/10/19 22 Active Accu-Chek FastClix Lancets USE 1 TO CHECK GLUCOSE THREE TIMES DAILY 08/01/19 22 Active FIBER ADULT GUMMIES PO Active ondansetron, disintegrating, (Zofran ODT) 4 MG tablet Take 1 (one) tablet by mouth every 6 hours as needed for Nausea/Vomiting Allow tablet to dissolve on the tongue 20 tablet 01/25/20 Active Additional Information Patient not taking.Reported on 08/24/2022 senna-docusate (Senokot-S) 8.6-50 MG tablet Take 1 (one) tablet by mouth 2 times daily as needed for Constipation 01/25/20 22 Active cyclobenzaprine (Flexeril) 10 MG tablet Take 1 (one) tablet by mouth 3 times daily as needed for Muscle Spasms 30 tablet 01/27/20 22 Active Additional Information Patient not taking.Reported on 08/24/2022 acetaminophen (Tylenol) 160 MG/5ML solution Take 15.625 mL by mouth once daily as needed 01/27/20 22 Active pantoprazole EC (Protonix) 40 MG tablet Take 1 (one) tablet by mouth once daily 30 tablet 5 01/28/20 22 Active Additional Information Patient not taking.Reported on 08/24/2022 senna-docusate (Senokot-S) 8.6-50 MG tablet Take 1 (one) tablet by mouth 2 times daily as needed for Constipation 01/30/20 Active sucralfate (Carafate) 1 GM/10ML suspensionIndicati ons:Epigastric burning sensation,Nausea and vomiting, intractability of vomiting not specified, unspecified vomiting type Take 10 mL by mouth 4 times daily 1200 mL 1 02/08/20 22 Active Additional Information Patient not taking.Reported on 08/24/2022 traMADol (Ultram) 50 MG tablet Take 1 (one) tablet by mouth 4 times daily For pain. 08/13/19 23 Active levothyroxine (Synthroid) 100 MCG tablet Take 1 (one) tablet by mouth once daily 08/13/19 23 Active celecoxib (CeleBREX) 200 MG capsule 07/12/19 23 Active Magnesium Oxide 400 (240 Mg) MG Take 1 (one) tablet by mouth once daily 07/13/19 23 Active omeprazole (PriLOSEC) 20 MG capsule 2 (two) capsules Act emelina Simethicone (Phazyme) 125 MG chew tablet Take 1 (one) tablet by mouth 4 times daily after meals 360 tablet 3 08/25/19 23 Active Collagen-Vitamin C-Biotin (COLLAGEN 1500/C PO) Active EQ Gas Relief 125 MG capsule TAKE 1 SOFTGEL BY MOUTH 4 TIMES DAILY 11/14/19 23 Active levothyroxine (Tirosint) 112 MCG capsule Take 1 (one) capsule by mouth daily before breakfast Active Cholecalciferol (Vitamin D) 125 MCG (5000 UT) CAPS A ctive ondansetron, disintegrating, (Zofran ODT) 4 MG tablet Take 1 (one) tablet by mouth every 6 hours as needed for Nausea/Vomiting Allow tablet to dissolve on the tongue 30 tablet 2 12/17/19 24 Active omeprazole (PriLOSEC) 40 MG capsule Take 1 (one) capsule by mouth daily before breakfast 30 capsule 5 12/17/19 24 Active Semaglutide(0.25 or 0.5MG/DOS) 2 MG/3ML Solution Pen-injector (Ozempic (0.25 or 0.5 MG/DOSE)) Inject 0.5 mg subcutaneously Active dicyclomine (Bentyl) 10 MG capsule Take 1 capsule by mouth 4 times daily 120 capsule 3 01/14/20 24 Active Active Problems Problem Noted Date Diagnosed Date Nausea and vomiting, intract ability of vomiting not specified, unspecified vomiting type 01/27/2022 Overview (03/17/2022): IMO 2021 Update Morbid obesity due to excess calories 07/03/2021 Immunizations Immunization Administration Dates Next Due INFLUENZA VACCINE, TRIV. (AF LURIA, FLUZONE TRIVALENT; 6MO+) (IIV3) 03/22/2016,03/28/2015,03/19/2014,2011,04/17/2011 Covid [facility] primary monoval ent 12+ yr 0.3mL Purple [...] money to get more. Never true 01/29/2022 Comments No Sex and Gender Information Value Date Recorded Sex Assigned at Female 01/19/2021 8:46 AM CDT Legal Sex Female 6:20 AM TRUST ADMINISTRATIVE ASSISTANT Gender Identity Female 01/19/2021 8:46 AM CDT [...] 12:56 PM CDT Height 165.1 cm (5' 5) 08/24/2022 11:15 AM TRUST ADMINISTRATIVE ASSISTANT Body Mass Index 28.96 08/24/2022 11:15 AM TRUST ADMINISTRATIVE ASSISTANT Plan of Treatment Health Maintenance Due Date Last Done Comments COLON MONITORING 1964 COLONOSCOPY - COLON CA SCREENING 1964 CT COLONOGRAPHY - COLON CA SCREENING 1964 FIT - COLON CA SCREENING 1964 FLEX SIG - COLON CA SCREENING 1964 LIPID TESTING 1964 MAMMOGRAM 1964 HIV SCREENING 10/02/1979 HEPATITIS C SCREENING 09/27/1982 PAP SMEAR 1985 HEPATITIS B VACCINE (3 of 3 - 19+ 3-dose series) 12/24/2006 08/26/2006, 06/26/2006 ZOSTER VACCINE (1 of 2) 2014 PNEUMOCOCCAL VACCINE 50+ (3 of 3 - PCV20 or PCV21) 03/17/2015 03/17/2010, 06/17/2008 COVID-19 VACCINE (5 - 2023- season) 2024 11/06/2021, 03/24/2021, 08/06/2020, Additional history exists DEPRESSION SCREENING 06/17/2024 INFLUENZA VACCINE (#1) 2025 , 03/08/2021, 04/11/2020, Additional history exists COLOGUARD (AGES 45-75) - COLON CA SCREENING 11/19/2026 11/20/2023 Colorectal Cancer Screening 11/19/2026 DTAP/TDAP/TD VACCINES (5 - Td or Tdap) 01/28/2028 01/27/2018, 01/22/2018, 08/03/2011, Additional history exists Respiratory Syncytial Virus (RSV) Vaccine Pt: or over 60 yrs (1 - 1-dose 75+ series) 10/02/2039 HIB VACCINE Aged Out No longer eligi [...] patient's age to complete this topic [place] [address] [place] [address] [place] [address] SELF PAY NO INSURANCE Member Subscriber Plan / Payer (Ef fective for All Dates) Name:Hanna Garcia Member ID:Not on file Relation to Subscriber:Not on file Name:HANNA GARCIA Subscriber ID:Not on file (Home) Address: [address] [facility] [address] [place] [id number] Payer ID:Not on file Group ID:Not on file Type:Self Pay Address: [place], [place] Advance Directives * Full Code (Latest Code Status on File) Date Activated Date Inactivated Comments 01/24/2022 8:11 PM 01/26/2022 1:18 PM * Full Code Date Activated Date Inactivated Comments 07/03/2021 11:58 AM 07/04/2021 5:41 PM Care Teams Linux System Administrator Relationship Specialty Start Date End Date Denise Cope APRN-JUDAH [address] [place] [address] [address] [place] [address] PCP - General Nurse Practitioner 12/23/20
--- OUTSIDE RECORDS SUMMARY | 2025-02-09 12:01 | XMS_ITS | Encounter Summary ---
Author Organization [facility] Address [address] [place] [address] Care Team Providers Care Manager Disaster Recovery Name Role Phone Regina Ovalles MD Primary Care Provider +1- [phone] Encounter Details Date Type Department Care Team (Late Contact Info) Description 02/28/2004 Outpatient [facility] Internal Medicine [address] [facility] [place] [address] Grady Galvez MD [address] [facility] [address] [place] [address] Social [...] Description 04/16/2025 12:45 PM CDT Office Visit [facility] Oncology and Hematology - [place] [address] [facility] [address] [place] [address] Malcolm Shay MD [address] [facility] [address] [place] [address] documented as of this encounter Visit Diagnoses Not on filedocumented in this encounter Care Teams Manager Disaster Recovery Relationship Specialty Start Date End Date Regina Ovalles MD [address] [place] [address] PCP - General 06/03/15 documented as of this encounter
--- OUTSIDE RECORDS SUMMARY | 2025-02-09 12:01 | XMS_ITS | Encounter Summary ---
Author Organization [facility] Address [address] [place] [address] Care Team Providers Care Track Template Maker Name Role Phone Regina Ovalles MD Primary Care Provider +1- [phone] Encounter Details Date Type Department Care Team (Late Contact Info) Description 06/24/2002 Outpatient Historical [facility] Internal Medicine [address] [facility] [place] [address] Grady Galvez MD [address] [facility] [address] [place] [address] Social History Tobacco Use Types Packs/Day Years Used Date Smoking Tobacco: Never Assessed Comments Unknown Sex and Gender Information Value Date Recorded Sex Assigned at Not on file Legal Sex Female 3:39 AM STUDIO SET UP WORKER Gender Identity Not on file Sexual Orientation Not on file documented as of this encounter Plan of Treatment Upcoming Encounters Date Type Department Care Team (Late st Contact Info) Description 04/16/2025 12:45 PM CDT Office Visit [facility] Oncology and Hematology - [place] [address] [facility] [address] [place] [address] Malcolm Shay MD [address] [facility] [address] [place] [address] documented as of this encounter Visit Diagnoses Not on filedocumented in this encounter Care Teams Track Template Maker Relationship Specialty Start Date End Date Regina Ovalles MD [address] [place] [address] PCP - General 06/03/15 documented as of this encounter
--- OUTSIDE RECORDS SUMMARY | 2025-02-09 12:01 | XMS_ITS | Encounter Summary ---
Author Organization [facility] Address [address] [place] [address] Care Team Providers Care Sports Physical Therapist Name Role Phone Regina Ovalles MD Primary Care Provider +1- [phone] Encounter Details Date Type Department Care Team (Late Contact Info) Description 02/01/2003 Outpatient Historical [facility] Internal Medicine [address] [facility] [place] [address] Grady Galvez MD [address] [facility] [address] [place] [address] Social History Tobacco Use Types Packs/Day Years Used Date Smoking Tobacco: Never Assessed Comments Unknown Sex and Gender Information Value Date Recorded Sex Assigned at Not on file Legal Sex Female 3:39 AM MATH TUTOR Gender Identity Not on file Sexual Orientation Not on file documented as of this encounter Plan of Treatment Upcoming Encounters Date Type Department Care Team (Late st Contact Info) Description 04/16/2025 12:45 PM CDT Office Visit [facility] Oncology and Hematology - [place] [address] [facility] [address] [place] [address] Malcolm Shay MD [address] [facility] [address] [place] [address] documented as of this encounter Visit Diagnoses Not on filedocumented in this encounter Care Teams Sports Physical Therapist Relationship Specialty Start Date End Date Regina Ovalles MD [address] [place] [address] PCP - General 06/03/15 documented as of this encounter
--- OUTSIDE RECORDS SUMMARY | 2025-02-09 12:01 | XMS_ITS | Encounter Summary ---
Author Organization [facility] Address [address] [place] [address] Care Team Providers Care Manual Machinist Name Role Phone Regina Ovalles MD Primary Care Provider +1- [phone] Encounter Details Date Type Department Care Team (Late Contact Info) Description 12/30/2002 Outpatient Historical [facility] Internal Medicine [address] [facility] [place] [address] Grady Galvez MD [address] [facility] [address] [place] [address] Social History Tobacco Use Types Packs/Day Years Used Date Smoking Tobacco: Never Assessed Comments Unknown Sex and Gender Information Value Date Recorded Sex Assigned at Not on file Legal Sex Female 3:39 AM HAT PARTS CUTTER MACHINE Gender Identity Not on file Sexual Orientation Not on file documented as of this encounter Plan of Treatment Upcoming Encounters Date Type Department Care Team (Late st Contact Info) Description 04/16/2025 12:45 PM CDT Office Visit [facility] Oncology and Hematology - [place] [address] [facility] [address] [place] [address] Malcolm Shay MD [address] [facility] [address] [place] [address] documented as of this encounter Visit Diagnoses Not on filedocumented in this encounter Care Teams Manual Machinist Relationship Specialty Start Date End Date Regina Ovalles MD [address] [place] [address] PCP - General 06/03/15 documented as of this encounter
--- OUTSIDE RECORDS SUMMARY | 2025-02-09 12:01 | XMS_ITS | Encounter Summary ---
Author Organization [facility] Address [address] [place] [address] Care Team Providers Care Biofuels Plant Operations Engineer Name Role Phone Regina Ovalles MD Primary Care Provider +1- [phone] Encounter Details Date Type Department Care Team (Late Contact Info) Description 10/02/2002 Outpatient Historical [facility] Internal Medicine [address] [facility] [place] [address] Grady Galvez MD [address] [facility] [address] [place] [address] Social History Tobacco Use Types Packs/Day Years Used Date Smoking Tobacco: Never Assessed Comments Unknown Sex and Gender Information Value Date Recorded Sex Assigned at Not on file Legal Sex Female 3:39 AM TAPE WEAVER Gender Identity Not on file Sexual Orientation Not on file documented as of this encounter Plan of Treatment Upcoming Encounters Date Type Department Care Team (Late st Contact Info) Description 04/16/2025 12:45 PM CDT Office Visit [facility] Oncology and Hematology - [place] [address] [facility] [address] [place] [address] Malcolm Shay MD [address] [facility] [address] [place] [address] documented as of this encounter Visit Diagnoses Not on filedocumented in this encounter Care Teams Biofuels Plant Operations Engineer Relationship Specialty Start Date End Date Regina Ovalles MD [address] [place] [address] PCP - General 06/03/15 documented as of this encounter
--- OUTSIDE RECORDS SUMMARY | 2025-02-09 12:01 | XMS_ITS | Encounter Summary ---
Author Organization [facility] Address [address] [place] [address] Care Team Providers Care Graduate Fellow Name Role Phone Regina Ovalles MD Primary Care Provider +1- [phone] Encounter Details Date Type Department Care Team (Late Contact Info) Description 02/01/2003 Outpatient Historical [facility] Internal Medicine [address] [facility] [place] [address] Grady aGlvez MD [address] [facility] [address] [place] [address] Social History Tobacco Use Types Packs/Day Years Used Date Smoking Tobacco: Never Assessed Comments Unknown Sex and Gender Information Value Date Recorded Sex Assigned at Not on file Legal Sex Female 3:39 AM CONTRACTING OFFICER Gender Identity Not on file Sexual Orientation Not on file documented as of this encounter Plan of Treatment Upcoming Encounters Date Type Department Care Team (Late st Contact Info) Description 04/16/2025 12:45 PM CDT Office Visit [facility] Oncology and Hematology - [place] [address] [facility] [address] [place] [address] Malcolm Shay MD [address] [facility] [address] [place] [address] documented as of this encounter Visit Diagnoses Not on filedocumented in this encounter Care Teams Graduate Fellow Relationship Specialty Start Date End Date Regina Ovalles MD [address] [place] [address] PCP - General 06/03/15 documented as of this encounter
--- OUTSIDE RECORDS SUMMARY | 2025-02-09 12:01 | XMS_ITS | Encounter Summary ---
Author Organization [facility] Address [address] [place] [address] Care Team Providers Care Ingredient Scaler Helper Name Role Phone Regina Ovalles MD Primary Care Provider +1- [phone] Encounter Details Date Type Department Care Team (Late Contact Info) Description 01/29/2003 Outpatient Historical [facility] Internal Medicine [address] [facility] [place] [address] Grady Galvez MD [address] [facility] [address] [place] [address] Social History Tobacco Use Types Packs/Day Years Used Date Smoking Tobacco: Never Assessed Comments Unknown Sex and Gender Information Value Date Recorded Sex Assigned at Not on file Legal Sex Female 3:39 AM PHYSICIAN GYNECOLOGIST Gender Identity Not on file Sexual Orientation Not on file documented as of this encounter Plan of Treatment Upcoming Encounters Date Type Department Care Team (Late st Contact Info) Description 04/16/2025 12:45 PM CDT Office Visit [facility] Oncology and Hematology - [place] [address] [facility] [address] [place] [address] Malcolm Shay MD [address] [facility] [address] [place] [address] documented as of this encounter Visit Diagnoses Not on filedocumented in this encounter Care Teams Ingredient Scaler Helper Relationship Specialty Start Date End Date Regina Ovalles MD [address] [place] [address] PCP - General 06/03/15 documented as of this encounter
--- OUTSIDE RECORDS SUMMARY | 2025-02-09 12:01 | XMS_ITS | Encounter Summary ---
Author Organization [facility] Address [address] [place] [address] Care Team Providers Care Sweeper Cleaner Industrial Name Role Phone Regina Ovalles MD Primary Care Provider +1- [phone] Encounter Details Date Type Department Care Team (Late Contact Info) Description 06/24/2002 [facility] [address] [facility] [place] [address] Grady Galvez MD [address] [facility] [address] [place] [address] Social History Tobacco Use Types Packs/Day Years Used Date Smoking Tobacco: Never Assessed Comments Unknown Sex and Gender Information Value Date Recorded Sex Assigned at Not on file Legal Sex Female 3:39 AM COMMUNICATION AND OUTREACH MANAGER Gender Identity Not on file Sexual Orientation Not on file documented as of this encounter Plan of Treatment Upcoming Encounters Date Type Department Care Team (Late st Contact Info) Description 04/16/2025 12:45 PM CDT Office Visit [facility] Oncology and Hematology - Graeme [address] [facility] [address] [place] [address] Malcolm Shay MD [address] [facility] [address] [place] [address] documented as of this encounter Visit Diagnoses Not on filedocumented in this encounter Care Teams Sweeper Cleaner Industrial Relationship Specialty Start Date End Date Regina Ovalles MD [address] [place] [address] PCP - General 06/03/15 documented as of this encounter
--- OUTSIDE RECORDS SUMMARY | 2025-02-09 12:01 | XMS_ITS | Encounter Summary ---
Author Organization [facility] Address [address] [place] [address] Care Team Providers Care Electrician Helper Automotive Name Role Phone Regina Ovalles MD Primary Care Provider +1- [phone] Encounter Details Date Type Department Care Team (Latest Contact Info) Description 05/31/2003 Outpatient Historical [facility] Grady Mg MD [address] [facility] [address] [place] [address] HYPERLIPIDEMIA NEC/NOS (Primary Dx) Social History Tobacco Use Types Packs/Day Years Used Date Smoking Tobacco: Never Assessed Comments Unknown Sex and Gender Information Value Date Recorded Sex Assigned at Not on file Legal Sex Female 3:39 AM OUTSIDE PHYSICAL DAMAGE APPRAISER Gender Identity Not on file Sexual Orientation Not on file documented as of this encounter Plan of Treatment Upcoming Encounters Date Type Department Care Team (Late st Contact Info) Description 04/16/2025 12:45 PM CDT [facility] Oncology and Hematology - [place]eme [address] [facility] [address] [place] [address] Malcolm Shay MD [address] [facility] [address] [place] [address] documented as of this encounter Visit Diagnoses Diagnosis Other and unspecified hyperlipidemia- Primary documented in this encounter Care Teams Electrician Helper Automotive Relationship Specialty Start Date End Date Regina Ovalles MD [address] [place] [address] PCP - General 06/03/15 documented as of this encounter
--- OUTSIDE RECORDS SUMMARY | 2025-02-09 12:01 | XMS_ITS | Clinical Summary ---
Author Organization [facility] Address [address] [place] [address] Care Team Providers Care Manager Power Name Role Phone Juanita Lemons NP Primary Care Provider [phone] Allergies Active Allergy Reactions Criticality Noted Date [...] 12/30/2020 Sertraline Shortness of breath,Swelling,Seizures High 09/17/2015 Kersey Anaphylaxis High 12/30/2020 Kersey Other (See comments) 08/26/2024 Vancomycin Hives,Itching,Rash,S hortn [...] (650 mg total) by mouth nightly Active zjyvklwcobfr-ftw-n deysi-FA-vit K (Bariatric Multivitamins) 45 mg iron- 800 mcg-120 mcg capsuleIndications :Vitamin Deficiency Prevention Take 1 tablet by mouth every morning Active oxyCODONE (ROXICODONE) 5 mg immediate release tabletIndications: Pain Take 1 tablet (5 mg total) by mouth every 4 (four) hours as needed for pain 18 tablet 11/16/19 23 Active senna (SENOKOT) 8.6 mg tablet Take 1 tablet by mouth daily 30 tablet 11/16/19 23 Active oxyCODONE (ROXICODONE) 5 mg immediate release tabletIndications: Pain Take 1 tablet (5 mg total) by mouth every 4 (four) hours as needed for pain for up to 10 doses 10 tablet 11/22/19 23 Active magnesium hydroxide (MILK OF [...] or vomiting 20 tablet 12/12/19 23 Active cholecalciferol (VITAMIN D-3) 5,000 unit tablet Take by oral route. Active buPROPion XL (WELLBUTRIN XL) 150 mg 24 hr tablet 08/19/19 25 Active gabapentin (NEURONTIN) 100 mg capsule Take [...] 1 mg every week by subcutaneous route. 06/23/19 25 Active Active Problems Problem Noted Date Diagnosed [...] on file Legal Sex Female 1:08 AM LENS BLANK GAUGER Gender Identity Not on file Sexual Orientation [...] 1:39 PM CDT Height 167.6 cm (5' 6) 08/26/2024 1:39 PM CDT Body Mass Index [...] 11/13/2022, 01/25/2022 eGFR 11/14/2023 11/13/2022 Covid-19 Vaccine (6 - 2023-2 5 season) 2024 03/09/2022, 11/06/2021, 03/24/2021, Additional history exists Influenza Vaccine (#1) 2025 , 03/09/2022, 03/08/2021, Additional history exists DTaP/Tdap/Td [...] 90 - 130 mL/min/1. 73 m2 [facility] Comment: Interpretive Data Reference Interval Normal [...] ORDERABLES Judy l Result Performing Organization Address [facility] de Phone Number [facility] [place] [address] * POCT hemoglobin A1c (11/13/2022 11:16 AM CDT) Hgb A1C, POC 4.9 4.0 - 5.6 % [facility] Est Average Gluc POC 94 mg/dL [facility] Comment: The ADA recommends reporting an estimated Average Glucose (eAG) with all Hemoglobin A1c results using the equation derived from a study of 507 normal and diabetic adults. Minority populations were underrepresented and children were not included. (Diabetes Care 31:2587-0644, 2008). The eAG is not equivalent to a fasting glucose. Blood 11/13/2022 11:1 6 AM CDT 11/13/2022 11:16 AM CDT Ree Greene MD POINT OF CARE TEST OR DERABLES Final Result Performing Organization Address [facility] de Phone Number [facility] [place] [address] from Last 3 Months or Most Recently Relevant to Health Maintenance Insurance [facility] MEDICARE ADVANTAGE AET[employer] MEDICARE GOLD AETNA MEDICARE GOLD Advance Directives For more information, please contact: [phone] * Full Code (Latest Code Status on File) Date Activated Date Inactivated Comments 11/15/2022 6:20 PM 11/18/2022 6:51 PM Care Teams Manager Power Relationship Specialty Start Date End Date Juanita Lemons, ANTONIO [address] [place] [address] PCP - General Family Medicine 07/15/24
--- OUTSIDE RECORDS SUMMARY | 2025-02-09 12:01 | XMS_ITS | Encounter Summary ---
Author Organization [facility] Address [address] [place] [address] Care Team Providers Care Raw Cheese Worker Name Role Phone Regina Ovalles MD Primary Care Provider +1- [phone] Encounter Details Date Type Department Care Team (Late Contact Info) Description 08/03/2002 Outpatient Historical [facility] Internal Medicine [address] 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 Gender Identity Not on file Sexual Orientation Not on file documented as of this encounter Plan of Treatment Upcoming Encounters Date Type Department Care Team (Late st Contact Info) Description 04/16/2025 12:45 PM CDT Office Visit [facility] Oncology and Hematology - Graeme [address] [facility] [address] [place] [address] Malcolm Shay MD [address] [facility] [address] [place] [address] documented as of this encounter Visit Diagnoses Not on filedocumented in this encounter Care Teams Raw Cheese Worker Relationship Specialty Start Date End Date Regina Ovalles MD [address] [place] [address] PCP - General 06/03/15 documented as of this encounter
--- OUTSIDE RECORDS SUMMARY | 2025-02-09 12:01 | XMS_ITS | Encounter Summary ---
Author Organization [facility] Address [address] [place] [address] Care Team Providers Care Fiber Picker Name Role Phone Regina Ovalles MD Primary Care Provider +1- [phone] Encounter Details Date Type Department Care Team (Late Contact Info) Description 08/03/2002 Outpatient Historical [facility] Internal Medicine [address] 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 Gender Identity Not on file Sexual Orientation Not on file documented as of this encounter Plan of Treatment Upcoming Encounters Date Type Department Care Team (Late st Contact Info) Description 04/16/2025 12:45 PM CDT Office Visit [facility] Oncology and Hematology - Graeme [address] [facility] [address] [place] [address] Malcolm Shay MD [address] [facility] [address] [place] [address] documented as of this encounter Visit Diagnoses Not on filedocumented in this encounter Care Teams Fiber Picker Relationship Specialty Start Date End Date Regina Ovalles MD [address] [place] [address] PCP - General 06/03/15 documented as of this encounter
--- OUTSIDE RECORDS SUMMARY | 2025-02-09 12:01 | XMS_ITS | Encounter Summary ---
Author Organization [facility] Address [address] [place] [address] Care Team Providers Care Custodial Aide Name Role Phone Regina Ovalles MD Primary Care Provider +1- [phone] Encounter Details Date Type Department Care Team (Late Contact Info) Description 02/01/2003 Outpatient Historical [facility] Internal Medicine [address] 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 [address] [place] [address] Malcolm Shay MD [address] [facility] [address] [place] [address] documented as of this encounter Visit Diagnoses Not on filedocumented in this encounter Care Teams Custodial Aide Relationship Specialty Start Date End Date Regina Ovalles MD [address] [place] [address] PCP - General 06/03/15 documented as of this encounter
--- OUTSIDE RECORDS SUMMARY | 2025-02-09 12:01 | XMS_ITS | Encounter Summary ---
Author Organization [facility] Address [address] [place] [address] Care Team Providers Care Professional Poker Player Name Role Phone Regina Ovalles MD Primary Care Provider +1- [phone] Encounter Details Date Type Department Care Team (Late Contact Info) Description 10/02/2002 Outpatient Historical [facility] Internal Medicine [address] 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 Gender Identity Not on file Sexual Orientation Not on file documented as of this encounter Plan of Treatment Upcoming Encounters Date Type Department Care Team (Late st Contact Info) Description 04/16/2025 12:45 PM CDT Office Visit [facility] Oncology and Hematology - Graeme [address] [facility] [address] [place] [address] Malcolm Shay MD [address] [facility] [address] [place] [address] documented as of this encounter Visit Diagnoses Not on filedocumented in this encounter Care Teams Professional Poker Player Relationship Specialty Start Date End Date Regina Ovalles MD [address] [place] [address] PCP - General 06/03/15 documented as of this encounter
[2025-02-09 13:24] LABS: Free T4 Free Thyroxine 0.97 ng/dL (0.78-2.19)
[2025-02-09 13:34] LABS: Thyroid Stimulating Hormone 0.618 uIU/mL (0.465-4.680)
== END 2025-02-09 11:43 | disposition home or self-care (01) ==
PROVIDERS: PCP Nurse Practitioner Family; Referring Provider Internal Medicine Endocrinology, Diabetes & Metabolism; Visit Provider Internal Medicine
DX: R76.0 Raised antibody titer (principal); E03.9 Hypothyroidism, unspecified; F32.A Depression, unspecified
CPT/HCPCS: 36415; 84439; 84443; 86235

== ENCOUNTER 2025-02-15 15:37 | Emergency (ER) | payer MEDICARE, SELFPAY ==
[2025-02-15] VITALS (7 sets, daily range): BP systolic 104–135; BP diastolic 62–83; PULSE 58–73; RESP 15–18; TEMP 36.4–36.5; O2SAT 99–100
--- NOTE | ~2025-02-15 | XR_ITS ---
EXAMINATION: XR chest 2V DATE: 02/15/2025 16:13 INDICATION: Weakness TECHNIQUE: AP and lateral views of the chest were obtained. COMPARISON: Chest radiograph and CT dated 09/15/12 FINDINGS: The lungs remain clear with no focal airspace opacities, pulmonary edema, pleural effusion or pneumothorax. The cardiomediastinal silhouette is normal. Cholecystectomy clips in the right upper quadrant. Moderate thoracic spondylosis with chronic mild anterior wedging of a few mid and lower thoracic vertebral bodies. IMPRESSION: 1. No acute cardiopulmonary disease. Reviewed, dictated and finalized at location A.
--- NOTE | 2025-02-15 15:44 | ECG_ITS ---
Test Date: 2025-02-15 15:47:29 Measurements Intervals [place] Rate: 56 P: 45 SC: 216 QRS: -7 QRSD: 94 T: 30 QT: 436 QTc: 421 Interpretive Statements SINUS BRADYCARDIA WITH FIRST DEGREE AV BLOCK LOW QRS VOLTAGE IN PRECORDIAL LEADS Electronically Signed On 02-16-2025 06:38:28 CDT by Jake Wiggins D.O
[2025-02-15 15:53] LABS: Hematocrit 35.2 % (37.0-47.0); Hemoglobin 11.8 g/dL (12.0-15.0); Immature Granulocyte Percent A 0.2 % (0-0.5); Lymphocytes Absolute Auto 2.50 K/mm3 (0.9-3.2); Mean Corpuscular HGB Conc 33.5 g/dl (32-36); Mean Corpuscular Hemoglobin 29.9 pg (26-34); Mean Corpuscular Volume 89.1 fl (80-100); Nucleated Red Blood Cells Absolute Auto 0.000 K/mm3 (0.0-0.012); Nucleated Red Blood Cells Perc 0.0 % (0.0-0.2); Platelet Count Result 194 k/mm3 (150-375); Red Blood Count 3.95 M/mm3 (4.2-5.4); White Blood Count 6.0 K/mm3 (4.5-10.0)
[2025-02-15 16:03] LABS: Alanine Aminotransferase 51 U/L (6-35); Albumin Level 4.2 g/dL (3.5-5.1); Alkaline Phosphatase 107 U/L (38-126); Anion Gap 9 mmol/L (4-12); Aspartate Amino Transferase 54 U/L (14-36); Bilirubin,Total 0.4 mg/dL (0.2-1.3); Blood Urea Nitrogen 33 mg/dL (7-17); Calcium 9.5 mg/dL (8.4-10.2); Carbon Dioxide 22 mmol/L (22-30); Chloride 103 mmol/L (98-107); Estimated CRCL calculation 51 ml/min; Estimated Glomerular Filt Rate > 60; Glucose 100 mg/dL (65-110); Potassium 3.7 mmol/L (3.4-5.0); Sodium 134 mmol/L (137-145); Total Protein 7.2 g/dL (6.3-8.2)
[2025-02-15] MEDS: PROCHLORPERAZINE EDISYLATE 10 MG/2 ML VIAL IV PUSH (16:32)
--- NOTE | 2025-02-15 16:32 | ED.GENADULT ---
HPI - General Adult General Chief complaint: Weakness Stated complaint: RETANA, lightheaded, dry heaving History of Present Illness HPI narrative: 59-year-old female presented to the emergency department for evaluation for nausea vomiting headache Related Data Home Medications ?Medication ?Instructions ?Recorded ?Confirmed ?Last Taken ?Type aspirin 81 mg tablet,delayed 81 mg PO BID 01/31/23 02/17/25 05/05/24 History release (Adult Low Dose Aspirin) Bariatric vitamins 1 tablet PO DAILY 05/06/23 02/17/25 05/07/24 History celecoxib 200 mg capsule 200 mg PO DAILY 05/06/23 02/17/25 05/11/24 History cholecalciferol (vitamin D3) 125 125 mcg PO DAILY 05/06/23 02/17/25 05/07/24 History mcg (5,000 unit) tablet magnesium oxide 400 mg (241.3 mg 400 mg PO DAILY 05/06/23 02/17/25 05/07/24 History magnesium) tablet omega 0-agx-izh-fish oil 1,200 mg 1 cap PO DAILY 05/06/23 02/17/25 05/07/24 History (144 mg-216 mg) capsule (Fish Oil) olmesartan 5 mg tablet 2.5 mg PO DAILY 12/25/23 02/17/25 05/11/24 History tquxno-tmmkjepe-uinixbb 2 cap PO .AC and snacks 06/09/24 02/17/25 Unknown History 36,000-114,000-180,000 unit capsule,delay rel (Creon) alprazolam 0.5 mg tablet,extended 0.5 mg PO DAILY 12/14/24 02/17/25 Unknown History release 24 hr Allergies Allergy/AdvReac Type Severity Reaction Status Date / Time duloxetine Allergy Severe Nausea and Verified 02/17/25 10:34 Vomiting sertraline (From Zoloft) Allergy Mild Seizure Verified 02/17/25 10:34 vancomycin Allergy Mild Hives Verified 02/17/25 10:34 ketorolac AdvReac Severe SEVERE Verified 02/17/25 10:34 NAUSEA AND VOMITING cephalexin AdvReac Intermediate Itching Verified 02/17/25 10:34 canagliflozin (From Invokana) AdvReac Mild Dizziness Verified 02/17/25 10:34 cortisone AdvReac Mild Other Verified 02/17/25 10:34 diclofenac (From Voltaren) AdvReac Mild Nausea Verified 02/17/25 10:34 fosinopril (From Monopril) AdvReac Mild Cough Verified 02/17/25 10:34 levofloxacin (From Levaquin) AdvReac Mild Nausea Verified 02/17/25 10:34 montelukast (From Singulair) AdvReac Mild Muscle Pain Verified 02/17/25 10:34 turkey Allergy Severe Swelling Uncoded 02/17/25 10:34 of Lip/Tongue/Throat Review of Systems Review of Systems: All systems reviewed & are unremarkable except as noted in HPI and below PMFSH Past Medical History Medical History Obstructive sleep apnea 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 cavovarus deformity of both feet GERD (gastroesophageal reflux disease) Nausea and vomiting Abdominal bloating Alternating constipation and diarrhea History of postoperative nausea and vomiting History of stress test (~2021) PONV (postoperative nausea and vomiting) Chronic pain tramadol CASSIA (obstructive sleep apnea) Hypothyroidism (acquired) Hyperlipidemia Hypertriglyceridemia Vitamin D deficiency Type 2 diabetes mellitus Thyroid disorder Hypertension Diabetes Depression Surgical History Surgical History H/O foot surgery S/P dilation and curettage 04.03.24 KATHY History of tooth extraction H/O gastric bypass 07/04/21 H/O esophagogastroduodenoscopy H/O colonoscopy 2006 Hx of cholecystectomy H/O left breast biopsy Family History Family History Father Alcoholism Diabetes mellitus Cancer Mother Alcoholism Hypertension Depression Thyroid disorder Cancer Sibling Alcoholism Asthma Cancer Diabetes mellitus Hypertension Depression Heart disease Thyroid disorder Grandparent Cancer Diabetes mellitus Grandparent Cerebrovascular accident Social History Social History Smoking status: Never smoker Second hand tobacco smoke exposure: Yes Alcohol intake: never Substance use: never Substance use type: does not use Do You Feel Safe in your Home?: Yes Lack of Transportation: No Lack of Food: Sometimes True Current Housing: I Have Housing Concerned About Future Housing: No Difficulty Paying Gas/Electric Bills: No Difficulty Paying for Meds: YES Currently Unemployed: No Education: Associate Degree Difficulty w/ Childcare or Family Care: No Living arrangements: with family 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 EYES: PERRLA/EOMI, conjunctivae clear. NOSE: Normal no drainage EARS:TMS clear with good light reflex. THROAT: Pharynx clear, no exudate. NECK: Supple. No adenopathy, no masses. RESPIRATORY: Airway patent, respirations nonlabored. Clear to auscultation bilaterally, no rales, rhonchi, wheezing. CARDIOVASCULAR: Regular rate and rhythm without murmurs rubs or gallops. ABDOMINAL: Soft, nontender, nondistended, normal bowel sounds MUSCULOSKELETAL: Moves all extremities. Strength/ROM intact, No edema, No calf tenderness. NEURO: Alert. Cranial nerves II through XII intact. Grossly intact SKIN: Warm, dry. Normal Color Course Vital Signs Vital signs: Vital Signs Temperature 97.5 F L 02/15/25 15:24 Pulse Rate 64 02/15/25 15:24 Respiratory Rate 16 02/15/25 15:24 Blood Pressure 135/83 02/15/25 15:24 Pulse Oximetry 100 02/15/25 15:24 Oxygen Delivery Room Air 02/15/25 15:24 Temperature 97.7 F 02/15/25 18:16 Pulse Rate 66 02/15/25 18:16 Respiratory Rate 16 02/15/25 18:16 Blood Pressure 104/74 02/15/25 18:16 Pulse Oximetry 100 02/15/25 18:16 Oxygen Delivery Room Air 02/15/25 15:24 Medical Decision Making [facility] Narrative Medical decision making narrative: 59-year-old female present to the emergency department for evaluation for migraine and hypoglycemia. Patient's blood sugar has since improved. Patient was treated with Compazine Zofran IV fluids and on re-evaluation patient feels significantly improved and is requesting to be discharged home. Patient is afebrile with no leukocytosis and hemoglobin 11.8. No acute abnormalities on the patient's CMP, UA is negative for infection. Chest x-ray shows no acute cardiopulmonary abnormality. Patient family updated the results of the workup they are comfortable the plan for discharge home. Differential Diagnosis Differential Diagnosis: Migraine, dehydration, headache, hypoglycemia, UTI Vital Signs Vital Signs: Vital Signs Temperature 97.5 F L 02/15/25 15:24 Pulse Rate 64 02/15/25 15:24 Respiratory Rate 16 02/15/25 15:24 Blood Pressure 135/83 02/15/25 15:24 Pulse Oximetry 100 02/15/25 15:24 Oxygen Delivery Room Air 02/15/25 15:24 Temperature 97.7 F 02/15/25 18:16 Pulse Rate 66 02/15/25 18:16 Respiratory Rate 16 02/15/25 18:16 Blood Pressure 104/74 02/15/25 18:16 Pulse Oximetry 100 02/15/25 18:16 Oxygen Delivery Room Air 02/15/25 15:24 Lab Data Lab results reviewed: Yes I reviewed the patient's lab results. 02/15/25 15:42 02/15/25 15:42 Labs: Lab Results 02/15/25 02/15/25 02/15/25 Range/Units 15:42 15:44 16:17 WBC 6.0 (4.5-10.0) K/mm3 RBC 3.95 L (4.2-5.4) M/mm3 Hgb 11.8 L (12.0-15.0) g/dL Hct 35.2 L (37.0-47.0) % MCV 89.1 (80-100) fl MCH 29.9 (26-34) pg MCHC 33.5 (32-36) g/dl RDW 13.5 (11.5-14.5) % Plt Count 194 (150-375) k/mm3 MPV 9.7 (7.4-10.4) fl Immature Gran % (Auto) 0.2 (0-0.5) % Neut % (Auto) 46.4 (45.5-73.1) % Lymph % (Auto) 41.7 (18.3-44.2) % Lenoir % (Auto) 7.3 (2.6-8.5) % Eos % (Auto) 3.2 (0-4.4) % Baso % (Auto) 1.2 (0.2-1.2) % Lymph # (Auto) 2.50 (0.9-3.2) K/mm3 Lenoir # (Auto) 0.4 (0.1-0.6) K/mm3 Eos # (Auto) 0.2 (0-0.3) K/mm3 Baso # (Auto) 0.1 (0.0-0.1) K/mm3 Abs Immat Gran (auto) 0.01 (0.00-0.031) K/mm3 Absolute Neuts (auto) 2.8 (1.3-6.7) K/mm3 Absolute Nucleated RBC 0.000 (0.0-0.012) K/mm3 Nucleated RBC % 0.0 (0.0-0.2) % Sodium 134 L (137-145) mmol/L Potassium 3.7 (3.4-5.0) mmol/L Chloride 103 (98-107) mmol/L Carbon Dioxide 22 (22-30) mmol/L Anion Gap 9 (4-12) mmol/L BUN 33 H D (7-17) mg/dL Creatinine 0.92 (0.7-1.0) mg/dL Estim Creat Clear Calc 51 ml/min Estimated GFR > 60 (59 - ) Glucose 100 (65-110) mg/dL POC Capillary Glucose 89 (65-105) mg/dl Calcium 9.5 (8.4-10.2) mg/dL Total Bilirubin 0.4 (0.2-1.3) mg/dL AST 54 H (14-36) U/L ALT 51 H (6-35) U/L Alkaline Phosphatase 107 (38-126) U/L Total Protein 7.2 (6.3-8.2) g/dL Albumin 4.2 (3.5-5.1) g/dL Urine Color Yellow (Yellow) Urine Appearance Clear (Clear) Urine pH 6.5 (5.0-9.0) Ur Specific Alpine 1.021 (1.001-1.035) Urine Protein Negative (Negative) mg/dL Urine Glucose (UA) Negative (Negative) mg/dL Urine Ketones Trace H (Negative) mg/dL Ur Blood (Man) Negative (Negative) Urine Nitrate Negative (Negative) Urine Bilirubin Negative (Negative) Urine Urobilinogen 1.0 (<2.0) mg/dL Add Ur Microanalysis Reviewed Leukocyte Esterase Rfl 1+ H (Negative) CONCHIS/UL Urine RBC 0-2 (0-2) /hpf Urine WBC 0-5 (0-3) /hpf Ur Squamous Epith Cells None seen (Few) /hpf Calcium Oxalate Crystal Present (None) /hpf Urine Bacteria None seen /hpf Urine Casts 0-2 Imaging Data Radiologist's impression: Impressions Chest X-Ray 02/15/25 16:14 IMPRESSION: 1. No acute cardiopulmonary disease. Discharge Plan Discharge Clinical Impression: Migraine, Dehydration Patient Disposition: Home Condition: Stable Instructions: Antibiotic Form, General Patient Instructions Additional Instructions: Have close follow-up with your primary care physician. Patient Language: Greenlandic Prescriptions: No Action aspirin [Adult Low Dose Aspirin] 81 mg tablet,delayed release (DR/EC) 81 mg PO BID Patient Comments: ... olmesartan 5 mg tablet 2.5 mg PO DAILY celecoxib 200 mg capsule 200 mg PO DAILY magnesium oxide 400 mg (241.3 mg magnesium) tablet 400 mg PO DAILY Bariatric vitamins 1 tablet PO DAILY Patient Comments: . cholecalciferol (vitamin D3) 125 mcg (5,000 unit) tablet 125 mcg PO DAILY omega 6-wrq-tqv-fish oil [Fish Oil] 1,200 (144-216) mg capsule 1 cap PO DAILY Creon 36,000-114,000- 180,000 unit capsule,delayed release(DR/EC) 2 cap PO .AC and snacks Rx Instructions: administer with meals and/or snacks. max dose 8 pill per day lansoprazole 30 mg capsule,delayed release(DR/EC) 30 mg PO DAILY Qty: 90 3RF alprazolam 0.5 mg tablet extended release 24 hr 0.5 mg PO DAILY Patient Comments: . tramadol 50 mg tablet 50 mg PO Q4-6H PRN (Reason: Pain) Qty: 30 0RF levothyroxine [Levoxyl] 150 mcg tablet 150 mcg PO .COMPLEX Qty: 90 2RF Rx Instructions: 150 mcg 6 days a week from Saturday to Saturdays, skip Sundays Follow-up/Referrals: Judy,Juanita Shah NP [Primary Care Provider, Unknown]
[2025-02-15 16:33] LABS: Add Urine Microscopic? YES; Appearance Urine Clear (Clear); Glucose Urine UA Negative (Negative); Leukocyte Esterase Ur 1+ LEU/UL (Negative); Need Manual Microscopic Reviewed; Nitrate Urine Negative (Negative); Non Pathogenic Casts 0-2; Specific Grav Ur 1.021 (1.001-1.035)
[2025-02-15] MEDS: LACTATED RINGERS 1,000 ML 999 ML IV CONT (16:41)
== END 2025-02-15 18:23 | disposition home or self-care (01) ==
PROVIDERS: Emergency Provider Emergency Medicine; PCP Nurse Practitioner Family
DX: G43.909 Migraine, unspecified, not intractable, without status migrainosus (principal); E86.0 Dehydration; I10 Essential (primary) hypertension; E06.3 Autoimmune thyroiditis; E11.9 Type 2 diabetes mellitus without complications; E78.5 Hyperlipidemia, unspecified; E78.1 Pure hyperglyceridemia; E55.9 Vitamin D deficiency, unspecified; M06.9 Rheumatoid arthritis, unspecified; G47.33 Obstructive sleep apnea (adult) (pediatric); K21.9 Gastro-esophageal reflux disease without esophagitis; Z98.84 Bariatric surgery status; Z90.49 Acquired absence of other specified parts of digestive tract; Z77.22 Contact with and (suspected) exposure to environmental tobacco smoke (acute) (chronic); Z79.899 Other long term (current) drug therapy
CPT/HCPCS: 36415; 71046; 80053; 81001; 82948; 85025; 87086; 93005; 96361; 96374; 96375; 99284; J0780; J1200; J7120

== ENCOUNTER 2025-03-04 09:36 | Outpatient (CLI) | payer MEDICARE, SELFPAY ==
--- OUTSIDE RECORDS SUMMARY | 2003-01-26 10:45 | XMS_ITS | Continuity of Care Document ---
Author Organization [facility] Address [address] [place] [address] [place] [address] Phone Care Team Providers Care Systems Administrator Name Role Phone Harshad Davies DO Unavailable Unavailable Advance Directives Directive Yes / No Effective Date File Name No Information Encounters Encounter Description Practice Location Reason(s) For Visit Diagnoses Date Provider Providers Copied on Encounter [facility], [address], [place], [place], [id number], [place] tel:[phone] [facility] No Information Samson Roach. [address] [facility], [place], [address], [place]. tel:[phone] Family History Family Member Type Diagnosis Age At Onset No Information Payers Payer name Insurance type Covered green party ID Authoriza tion(s) No Information Social History Type Description Quantity Date Captured Comments Sex Female Smoking Status No Information Chief Complaint And Reason For Visit No Information Reason For Referral Reason For Referral No Information History Of Present Illness Encounter Date Complaint History Of Prese nt Illness No Information Functional Status Date Functional Assessmen t No Information Instructions Date Instruction Additional Infor mation No Information Assessments Type Assessment Date No Information Patient Care Teams Name Effective Dates (start - stop) Status Members No Information
--- OUTSIDE RECORDS SUMMARY | 2018-03-10 06:20 | XMS_ITS | Continuity of Care Document ---
Author Organization [facility] Address [address] [place] [address] Phone Care Team Providers Care Body Bumper Name Role Phone Roosevelt Dumont MD Unavailable Unavailable Allergies, Adverse Reactions, Alerts Substance Reaction Status Criticality MONTELUKAST SODIUM Active No Inform ation vancomycin Active No Information KETOROLAC TROMETHAMINE Active No In formation Medications Medication Instructions Dosage Effective Dates (start - stop) Status Comments PAXIL (unknown strength) Not Available - Active MOBIC (unknown strength) Not Available - Active METFORMIN HCL (unknown strength) Not Available - Active LEVOTHYROXINE SODIUM (unknown strength) Not Available - Active BENICAR (unknown strength) Not Available - Active ABILIFY (unknown strength) Not Available - Active LASIX (unknown strength) Not Available - Active Procedures Procedure Date OFFICE/OUTPATIENT VISIT EST OFFICE/OUTPATIENT VISIT EST OFFICE/OUTPATIENT VISIT EST POSTOP FOLLOW-UP VISIT POSTOP FOLLOW-UP VISIT OFFICE/OUTPATIENT VISIT EST OFFICE/OUTPATIENT VISIT EST OFFICE/OUTPATIENT VISIT EST OFFICE/OUTPATIENT VISIT EST OFFICE/OUTPATIENT VISIT EST OFFICE/OUTPATIENT VISIT EST OFFICE/OUTPATIENT VISIT EST Advance Directives Directive Yes / No Effective Date File Name No Information Encounters Encounter Description Practice Location Reason(s) For Visit Diagnoses Date Provider Providers Copied on Encounter OFFICE/OUTPA TIENT VISIT EST [facility], [address], [place], [address], [place] tel:[phone] [facility] Arthritis of left foot Sep- 8 Tim Albert. [address], [place], [place], [id number] . tel: [phone] OFFICE/OUTPA TIENT VISIT EST [facility], [address], [address], [place] [phone] [facility] Essential (primary) hypertensionBod y mass index (BMI) 60.0-69.9, adultArthritis of left foot Sep- 8 Tim Albert. [address], [place], [place], [address] . tel: [phone] OFFICE/OUTPA TIENT VISIT [facility], [address] [place] [address], [place], [address], [place] tel:[phone] [facility] Primary osteoarthritis of first carpometacarpal joint of left hand 6 Malik Gutierrez. [address] [facility], [place], [place], [address] . tel: [phone] [facility], [address] [place] [address], [address], [place] tel:[phone] [facility] Primary osteoarthritis of right kneePrimary osteoarthritis of left knee 6 Aubuchon Alfred. [address], [place], [place], [id number] . tel: [phone] [facility], [address] [place] [address], [address], [place] tel:[phone] [facility] Primary osteoarthritis of left kneePrimary osteoarthritis of right knee 6 Aubuchon Alfred. [address], [place], [place], [address] . tel: [phone] OFFICE/OUTPA TIENT VISIT EST [facility], [address], [address], [place] [phone] [facility] Primary osteoarthritis of right kneePrimary osteoarthritis of left knee 0 9- 6 Aubuchon Alfred. [address], [place], [place], [address] . tel: [phone] [facility], [address], [place], [address], [place] tel:[phone] [facility] Primary osteoarthritis of right knee 0 2- 6 Aubuchon Alfred. [address], [place], [place], [id number] . tel: [phone] OFFICE/OUTPA TIENT VISIT [facility], [address] [facility] [address], [place], [address], [place] [phone] [facility] Primary osteoarthritis of right knee 6 Aubuchon Alfred. [address], [place], [place], [id number] . tel: [phone] OFFICE/OUTPA TIENT VISIT [facility], [address], [place], [address], [place] tel:[phone] [facility] Pain in joint, lower leg 5 Indiana Summers. [address], [place], [place], [address] . tel: [phone] OFFICE/OUTPA TIENT VISIT [facility], [address] [facility] [address], [place], [address], [place] [phone] [facility] Follow Up of lbp (chief complaint) LumbagoPain in limb 4 Mitesh Andrews. [address], [place], [place], [address] . tel: [phone] OFFICE/OUTPA TIENT VISIT [facility], [address] [facility] [address], [place], [address], [place] tel:[phone] [facility] Follow Up of lbp (chief complaint) LumbagoPain in limb 4 Mitesh Andrews. [address] [place], [place], [address] . tel: [phone] OFFICE/OUTPA TIENT VISIT EST [facility], [address], [address], tel:[phone] [facility] R 5TH TOE INJURY (chief complaint) Nail avulsion 4 Amy Simon. [address], [place], [place], [address] . tel: [phone] OFFICE/OUTPA TIENT VISIT EST [facility], [address], [address], [phone] [facility] Primary localized osteoarthrosis, ankle and footMetatarsalg ia 4 Auashleyangel Alfred. [address], [place], [place], [address] . tel: [phone] Family History Family Member Type Diagnosis Age At Onset Sister Problem (finding) Alive and well Payers Payer name Insurance type Covered democrat ID Mahendra milton(s) UMR E2 [id number] Social History Type Description Quantity Date Captured Comments Alcohol Use Details Unknown Caffeine Use Details Unknown Tobacco Use Status No Information Smoking Status Never smoker Sex Female Chief Complaint And Reason For Visit No Information Reason For Referral Reason For Referral No Information Plan Of Treatment Date Type Action Status Referral Ordered: RADEX ANKLE 2 VIEWS LT ordered Referral Ordered: RADEX FOOT COMPL MINIMUM 3 VIEWS LT ordered Referral Ordered: RADEX FNGR MINIMUM 2 VIEWS LT ordered Referral Ordered: INJECTION Appointment date/timeframe: 01/24/2016 ordered Referral Ordered: MRI ANY JT LXTR C-MATRL RT knee Appointment date/timeframe: 01/18/2016 ordered Referral Ordered: RADEX KNE 3 VIEWS RT ordered Referral Ordered: RADEX KNE COMPL 4/MORE VIEWS LT ordered Referral Ordered: RADEX FOOT COMPL MINIMUM 3 VIEWS Bilateral ordered History Of Present Illness Encounter Date Complaint History Of Prese nt Illness Follow Up of lbp Chose not to fi ll meds. Pain persists. Getting psych support. Would like to start yani 600 2 tabs HS. Follow Up of lbp Increasing back and leg pain. Using gabapentin to help with the legs- her sister's supply. Numerous stressors in her life- sister dying of CA. Pain is 8/10 at worst, 4/10 at best. Sleeping is fair. Weight stable. R 5TH TOE INJURY Functional Status Date Functional Assessmen t No Information Instructions Date Instruction Additional Infor mation Activity as tolerated. Related t o Arthritis of left foot Apply ice as instructed. Related to Arthritis of left foot Giving encouragement to exercise Related to Body mass index (BMI) 60.0-69.9, adult Hypertension education Related t o Essential (primary) hypertension Activity as tolerated. Related t o Arthritis of left foot Apply ice as instructed. Related to Arthritis of left foot Ice as directed. Related to Prim amelia osteoarthritis of first carpometacarpal joint of left hand Splint as directed. Related to P rimary osteoarthritis of first carpometacarpal joint of left hand Assessments Type Assessment Date assessment Arthritis of left foot 18 Patient Care Teams Name Effective Dates (start - stop) Status Members No Information
--- OUTSIDE RECORDS SUMMARY | 2025-02-22 09:00 | XMS_ITS ---
Author Organization [facility] [employer] [facility] Address [address] [place] [address] [address] [address] Care Team Providers Care Database Technician Name Role Phone Juanita Aguilera Primary Care Provider Ann-Marie Way Unavailable [phone] REASON FOR VISIT PT is sick today Social History Sex Assigned At : Social History Observation Description Sex Assigned At Female Encounters Encounter Location Date Provider Diagnosis [facility] [employer] [address] [address] 02/22/2025 Ann-Marie Morales Plan Of Treatment Next Appt Details Provider Name:Ann-Marie lizarraga, 03/23/2025 01:15:00 PM, [facility], [facility] [address], [place], [address], Progress Notes * Hanna GARCIA LDOB:1965 (59 yo F)Acc No.[id number]:02/22/2025 Patient: Heaven Hanna lynne Provider: Sofia Morales :1965 A ge:59 Y S ex:Female Date:02/22/2025 Phone: [facility] [facility] [place], [place] Pcp:Juanita GOYAL Subjective: * Chief Complaints: * P T is sick today Billing Information: * Procedure Codes: * Electronic signature of Fidencio Morales on 03/04/2025 at 10:07 AM CDT Sign off status: Pending * Provider: Sofia Morales Date: 0 02/22/2025 Generated for David landa/Get/Yolanda on: 0 03/04/2025 10:07 AM CDT
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
--- OUTSIDE RECORDS SUMMARY | 2025-03-04 10:07 | XMS_ITS | Encounter Summary ---
Author Organization [facility] Address [address] [place] [address] Care Team Providers Care Assistant Community Director Name Role Phone Regina Ovalles MD Primary Care Provider +1- [phone] Encounter Details Date Type Department Care Team (Late Contact Info) Description 01/29/2003 Outpatient Historical [facility] Internal Medicine 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 Gender Identity Not on file Sexual Orientation Not on file documented as of this encounter Plan of Treatment Upcoming Encounters Date Type Department Care Team (Late st Contact Info) Description 04/16/2025 12:45 PM CDT Office Visit [facility] Oncology and Hematology - [place] [address] [facility] [address] [place] [address] Malcolm Shay MD [address] [facility] [address] [place] [address] documented as of this encounter Visit Diagnoses Not on filedocumented in this encounter Care Teams Assistant Community Director Relationship Specialty Start Date End Date Regina Ovalles MD [address] [place] [address] PCP - General 06/03/15 documented as of this encounter
--- OUTSIDE RECORDS SUMMARY | 2025-03-04 10:07 | XMS_ITS | Clinical Summary ---
Author Organization [facility] Address [address] [place] [address] Phone Care Team Providers Care Housing Management Officer Name Role Phone Regina Ovalles MD Primary Care Provider +1- [phone] Allergies Active Allergy Reactions Criticality Noted Date Comments Canagliflozin Dizziness Low 12/30/2020 Cephalexin Hives High 12/17/2023 Cortisone Other (See Comments) Low 12/30/2020 Food Extracts Anaphylaxis High 08/02/2011 Anaphylaxis when digests turkey Fosinopril Cough Low 12/30/2020 Ketorolac Tromethamine Nausea and Vomiting Medium 07/18 Levofloxacin Nausea and Vomiting Low 12/30/2020 Montelukast Nausea and Vomiting,Other (See Comments) Low 12/30/2020 Sertraline Seizure High 09/17/2015 [place] Anaphylaxis,Shortnes s of Breath/Wheezing High 12/30/2020 Vancomycin Itching Medium 08/03/2011 Medications levothyroxine (SYNTHROID) 125 mcg Oral tablet Take 1 Tab by mouth daily drain layer. 30 Tab 0 2 Active Additional Information [...] 50 mg by mouth. 3 Active Fish Oil-[place]-3 Fatty Acids 360-1,200 mg Capsule Take 1 [...] Encounters Date Type Department Care Team Description 03/02/2025 External Device Data ST[facility] ABSTRACTION Provider, Abstract 02/16/2025 External Device Data [facility] ABSTRACTION Provider, Abstract 01/14/2025 2:45 PM CDT Office Visit [facility] Oncology and Hematology - [place] [address] [place] [address] Malcolm Shay MD Chronic anemia (Primary Dx) 01/07/2025 Orders Only [facility] Oncology and Hematology - [place] [address] [place] [address] Malcolm Shay MD 01/06/2025 Orders Only [facility] Oncology and Hematology - [place] [address] [place] [address] Malcolm Shay MD 01/05/2025 Orders Only [facility] Oncology and Hematology - [place] [address] [place] [address] Malcolm Shay MD 12/30/2024 External Device Data [...] on file Legal 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 Gender Identity Not on file Sexual [...] Description 04/16/2025 12:45 PM CDT Office Visit [facility] Oncology and Hematology - [place] [address] [place] [address] Malcolm Shay MD [address] [facility] [address] [place] [address] Health Maintenance Due Date Last [...] 2) 2014 DIABETES HBA1C Q 6 MONTHS 09/25/2024 03/27/2024, INFLUENZA VACCINE (#1) 2025 2, 03/08/2021, 04/11/2020, Additional history exists COVID-19 Vaccine ( - 2024- season) 2025 03/24/2021, 08/06/2020, 07/16/2020 DTAP/TDAP/TD VACCINES (5 - Td or Tdap) [...] Resu lt from Last [address] [facility] OPTIONS PPO [id number] Advance Directives For more information, please contact: [phone] * Full Code (Latest Code Status on File) Date Activated Date Inactivated Comments 09/17/2015 8:59 PM 09/22/2015 3:10 PM * Full Code Date Activated Date Inactivated Comments 08/02/2011 1:14 PM 08/08/2011 2:44 PM Care Teams Housing Management Officer Relationship Specialty Start Date End Date Regina Ovalles MD [address] [phone] PCP - General 06/03/15
--- OUTSIDE RECORDS SUMMARY | 2025-03-04 10:07 | XMS_ITS | Encounter Summary ---
Author Organization [facility] Address [address] [place] [address] Care Team Providers Care Sheet Rock Taper Helper Name Role Phone Regina Ovalles MD Primary Care Provider +1- [phone] Encounter Details Date Type Department Care Team (Late Contact Info) Description 08/03/[address] [facility] Internal Medicine [address] [facility] [place] [address] Grady Galvez MD [address] [facility] [address] [place] [address] Social History Tobacco Use Types Packs/Day Years Used Date Smoking Tobacco: Never Assessed Comments Unknown Sex and Gender Information Value Date Recorded Sex Assigned at Not on file Legal Sex Female 3:39 AM RN GYN Gender Identity Not on file Sexual Orientation Not on file documented as of this encounter Plan of Treatment Upcoming Encounters Date Type Department Care Team (Late st Contact Info) Description 04/16/2025 12:45 PM CDT Office Visit [facility] Oncology and Hematology - [place] [address] [facility] [address] [place] [address] Malcolm Shay MD [address] [facility] [address] [place] [address] documented as of this encounter Visit Diagnoses Not on filedocumented in this encounter Care Teams Sheet Rock Taper Helper Relationship Specialty Start Date End Date Regina Ovalles MD [address] [place] [address] PCP - General 06/03/15 documented as of this encounter
--- OUTSIDE RECORDS SUMMARY | 2025-03-04 10:07 | XMS_ITS | Encounter Summary ---
Author Organization [facility] Address [address] [place] [address] Care Team Providers Care Wet Wheeler Name Role Phone Regina Ovalles MD Primary Care Provider +1- [phone] Encounter Details Date Type Department Care Team (Late Contact Info) Description 08/03/2002 Outpatient Historical [facility] Internal Medicine [address] 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 [address] [place] [address] documented as of this encounter Visit Diagnoses Not on filedocumented in this encounter Care Teams Wet Wheeler Relationship Specialty Start Date End Date Regina Ovalles MD [address] [place] [address] PCP - General 06/03/15 documented as of this encounter
--- OUTSIDE RECORDS SUMMARY | 2025-03-04 10:07 | XMS_ITS | Encounter Summary ---
Author Organization [facility] Address [address] [place] [address] Care Team Providers Care Extension Service Specialist In Charge Name Role Phone Regina Ovalles MD Primary Care Provider +1- [phone] Encounter Details Date Type Department Care Team (Late Contact Info) Description 02/01/2003 Outpatient Historical [facility] Internal Medicine [address] 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 Gender Identity Not on file Sexual Orientation Not on file documented as of this encounter Plan of Treatment Upcoming Encounters Date Type Department Care Team (Late st Contact Info) Description 04/16/2025 12:45 PM CDT Office Visit [facility] Oncology and Hematology - [place] [address] [facility] [address] [place] [address] Malcolm Shay MD [address] [facility] [address] [place] [address] documented as of this encounter Visit Diagnoses Not on filedocumented in this encounter Care Teams Extension Service Specialist In Charge Relationship Specialty Start Date End Date Regina Ovalles MD [address] [place] [address] PCP - General 06/03/15 documented as of this encounter
--- OUTSIDE RECORDS SUMMARY | 2025-03-04 10:07 | XMS_ITS | Encounter Summary ---
Author Organization [facility] Address [address] [place] [address] Care Team Providers Care Emt Dispatcher Name Role Phone Regina Ovalles MD Primary Care Provider +1- [phone] Encounter Details Date Type Department Care Team (Late Contact Info) Description 05/31/2003 Outpatient Historical [facility] Internal Medicine [address] 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 [address] [place] [address] Malcolm Shay MD [address] [facility] [address] [place] [address] documented as of this encounter Visit Diagnoses Not on filedocumented in this encounter Care Teams Emt Dispatcher Relationship Specialty Start Date End Date Regina Ovalles MD [address] [place] [address] PCP - General 06/03/15 documented as of this encounter
--- OUTSIDE RECORDS SUMMARY | 2025-03-04 10:07 | XMS_ITS | Encounter Summary ---
Author Organization [facility] Address [address] [place] [address] Care Team Providers Care Model And Mold Maker Name Role Phone Regina Ovalles MD Primary Care Provider +1- [phone] Encounter Details Date Type Department Care Team (Late Contact Info) Description 06/24/2002 Outpatient Historical [facility] Internal Medicine [address] 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 ROOM NURSE Gender Identity Not on file Sexual Orientation Not on file documented as of this encounter Plan of Treatment Upcoming Encounters Date Type Department Care Team (Late st Contact Info) Description 04/16/2025 12:45 PM CDT Office Visit [facility] Oncology and Hematology - [place] [address] [facility] [address] [place] [address] Malcolm Shay MD [address] [facility] [address] [place] [address] documented as of this encounter Visit Diagnoses Not on filedocumented in this encounter Care Teams Model And Mold Maker Relationship Specialty Start Date End Date Regina Ovalles MD [address] [place] [address] PCP - General 06/03/15 documented as of this encounter
--- OUTSIDE RECORDS SUMMARY | 2025-03-04 10:07 | XMS_ITS | Encounter Summary ---
Author Organization [facility] Address [address] [place] [address] Care Team Providers Care Papier Mache Molder Name Role Phone Regina Ovalles MD Primary Care Provider +1- [phone] Encounter Details Date Type Department Care Team (Late Contact Info) Description 12/30/2002 Outpatient Historical [facility] Internal Medicine [address] [facility] [place] [address] Grady Galvez MD [address] [facility] [address] [place] [address] Social History Tobacco Use Types Packs/Day Years Used Date Smoking Tobacco: Never Assessed Comments Unknown Sex and Gender Information Value Date Recorded Sex Assigned at Not on file Legal Sex Female 3:39 AM SHERIFF SERGEANT Gender Identity Not on file Sexual Orientation Not on file documented as of this encounter Plan of Treatment Upcoming Encounters Date Type Department Care Team (Late st Contact Info) Description 04/16/2025 12:45 PM CDT Office Visit [facility] Oncology and Hematology - [place] [address] [facility] [address] [place] [address] Malcolm Shay MD [address] [facility] [address] [place] [address] documented as of this encounter Visit Diagnoses Not on filedocumented in this encounter Care Teams Papier Mache Molder Relationship Specialty Start Date End Date Regina Ovalles MD [address] [place] [address] PCP - General 06/03/15 documented as of this encounter
--- OUTSIDE RECORDS SUMMARY | 2025-03-04 10:07 | XMS_ITS | Encounter Summary ---
Author Organization [facility] Address [address] [place] [address] Care Team Providers Care Design Engineering Manager Name Role Phone Regnia Ovalles MD Primary Care Provider +1- [phone] Encounter Details Date Type Department Care Team (Late Contact Info) Description 02/01/2003 Outpatient Historical [facility] Internal Medicine [address] 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 Gender Identity Not on file Sexual Orientation Not on file documented as of this encounter Plan of Treatment Upcoming Encounters Date Type Department Care Team (Late st Contact Info) Description 04/16/2025 12:45 PM CDT Office Visit [facility] Oncology and Hematology - [place] [address] [facility] [address] [place] [address] Malcolm Shay MD [address] [facility] [address] [place] [address] documented as of this encounter Visit Diagnoses Not on filedocumented in this encounter Care Teams Design Engineering Manager Relationship Specialty Start Date End Date Regina Ovalles MD [address] [place] [address] PCP - General 06/03/15 documented as of this encounter
--- OUTSIDE RECORDS SUMMARY | 2025-03-04 10:07 | XMS_ITS | Encounter Summary ---
Author Organization [facility] Address [address] [place] [address] Care Team Providers Care Distillery Worker Name Role Phone Regina Ovalles MD Primary Care Provider +1- [phone] Encounter Details Date Type Department Care Team (Late st Contact Info) Description 03/02/2025 External Device Data STL ABSTRACTION Provider, Abstract NO ADDRESS ON FILE Social History Tobacco Use Types Packs/Day Years Used Date Smoking Tobacco: Never Smokeless Tobacco: Never Alcohol Use Standard Drinks/Week Comments No 0 (1 standard drink = 0.6 oz pur e alcohol) Comments No Sex and Gender Information Value Date Recorded Sex Assigned at Not on file Legal Sex Female 3:39 AM RF DESIGN ENGINEER Gender Identity Not on file Sexual Orientation Not on file documented as of this encounter Plan of Treatment Upcoming Encounters Date Type Department Care Team (Late st Contact Info) Description 04/16/2025 12:45 PM CDT Office Visit [facility] Oncology and Hematology - [place] [address] [facility] [address] [place] [address] Malcolm Shay MD [address] [facility] [address] [place] [address] documented as of this encounter Visit Diagnoses Not on filedocumented in this encounter Care Teams Distillery Worker Relationship Specialty Start Date End Date Regina Ovalles MD [address] [place] [address] PCP - General 06/03/15 documented as of this encounter
--- OUTSIDE RECORDS SUMMARY | 2025-03-04 10:07 | XMS_ITS | Encounter Summary ---
Author Organization [facility] Address [address] [place] [address] Care Team Providers Care Release Of Information Specialist Name Role Phone Regina Ovalles MD Primary Care Provider +1- [phone] Encounter Details Date Type Department Care Team (Late Contact Info) Description 02/28/2004 Outpatient Historical [facility] Internal Medicine [address] [facility] [place] [address] Grady Galvez MD [address] [facility] [address] [place] [address] Social History Tobacco Use Types Packs/Day Years Used Date Smoking Tobacco: Never Assessed Comments Unknown Sex and Gender Information Value Date Recorded Sex Assigned at Not on file Legal Sex Female 3:39 AM FORM SETTER METAL [address] FORMS Gender Identity Not on file Sexual Orientation Not on file documented as of this encounter Plan of Treatment Upcoming Encounters Date Type Department Care Team (Late st Contact Info) Description 04/16/2025 12:45 PM CDT Office Visit [facility] Oncology and Hematology - [place] [address] [facility] [address] [place] [address] Malcolm Shay MD [address] [facility] [address] [place] [address] documented as of this encounter Visit Diagnoses Not on filedocumented in this encounter Care Teams Release Of Information Specialist Relationship Specialty Start Date End Date Regina Ovalles MD [address] [place] [address] PCP - General 06/03/15 documented as of this encounter
--- OUTSIDE RECORDS SUMMARY | 2025-03-04 10:07 | XMS_ITS | Encounter Summary ---
Author Organization [facility] Address [address] [place] [address] Care Team Providers Care Can Doffer Name Role Phone Regina Ovalles MD Primary Care Provider +1- [phone] Encounter Details Date Type Department Care Team (Late Contact Info) Description 10/02/2002 Outpatient Historical [facility] Internal Medicine [address] 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 Oncology and Hematology - [place] [address] [facility] [address] [place] [address] Malcolm Shay MD [address] [facility] [address] [place] [address] documented as of this encounter Visit Diagnoses Not on filedocumented in this encounter Care Teams Can Doffer Relationship Specialty Start Date End Date Regina Ovalles MD [address] [place] [address] PCP - General 06/03/15 documented as of this encounter
--- OUTSIDE RECORDS SUMMARY | 2025-03-04 10:07 | XMS_ITS | Encounter Summary ---
Author Organization [facility] Address [address] [place] [address] Care Team Providers Care Advertising Inserter Name Role Phone Regina Ovalles MD Primary Care Provider +1- [phone] Encounter Details Date Type Department Care Team (Late Contact Info) Description 06/24/2002 Outpatient Historical [facility] Internal Medicine [address] [facility] [place] [address] Grady Galvez MD [address] [facility] [address] [place] [address] Social History Tobacco Use Types Packs/Day Years Used Date Smoking Tobacco: Never Assessed Comments Unknown Sex and Gender Information Value Date Recorded Sex Assigned at Not on file Legal Sex Female 3:39 AM SALES SUPERVISOR Gender Identity Not on file Sexual Orientation Not on file documented as of this encounter Plan of Treatment Upcoming Encounters Date Type Department Care Team (Late st Contact Info) Description 04/16/2025 12:45 PM CDT Office Visit [facility] Oncology and Hematology - [place] [address] [facility] [address] [place] [address] Malcolm Shay MD [address] [facility] [address] [place] [address] documented as of this encounter Visit Diagnoses Not on filedocumented in this encounter Care Teams Advertising Inserter Relationship Specialty Start Date End Date Regina Ovalles MD [address] [place] [address] PCP - General 06/03/15 documented as of this encounter
--- OUTSIDE RECORDS SUMMARY | 2025-03-04 10:07 | XMS_ITS | Encounter Summary ---
Author Organization [facility] Address [address] [place] [address] Care Team Providers Care Machining Engineer Name Role Phone Regina Ovalles MD Primary Care Provider +1- [phone] Encounter Details Date Type Department Care Team (Late Contact Info) Description 10/02/2002 Outpatient Historical [facility] Internal Medicine [address] [facility] [place] [address] Grady Galvez MD [address] 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 Gender Identity Not on file Sexual Orientation Not on file documented as of this encounter Plan of Treatment Upcoming Encounters Date Type Department Care Team (Late st Contact Info) Description 04/16/2025 12:45 PM CDT Office Visit [facility] Oncology and Hematology - [place] [address] [facility] [address] [place] [address] Malcolm Shay MD [address] [facility] [address] [place] [address] documented as of this encounter Visit Diagnoses Not on filedocumented in this encounter Care Teams Machining Engineer Relationship Specialty Start Date End Date Regina Ovalles MD [address] [place] [address] PCP - General 06/03/15 documented as of this encounter
--- OUTSIDE RECORDS SUMMARY | 2025-03-04 10:07 | XMS_ITS | Patient Health Record ---
Author Organization [facility] [employer] [facility] Address [address] [place] [address] Care Team Providers Care Rebar Bender Name Role Phone Juanita Aguilera Primary Care Provider Ann-Marie Way Unavailable [phone] Allergies Allergen (clinical drug ingredient) Drug/Non Drug [...] sertraline Sertraline seizure Drug Allergy Activ e Results Component Value Reference Range Notes UDT Reviewed date:12/28/2024 06:11:27 PM Interpretation: Performing Lab: Notes/Report: THC n 0 - 50 ng/ml Cocaine n 0 - 300 ng/ml Amphetamine n 0 - 1000 ng/ml Buprenorphine (BUP) n 0 - 10 ng/ml Secobarbital (Bar) n 0 - 300 ng/ml Oxazepam (BZO) p 0 - 300 ng/ml 0-cvmpbiibgy-3,4-ljnsisfm-6,3-diphenylpyrrolidine (MAHNAZ P) n 0 - 300 ng/ml Methamphetamine (MET) n 0 - 1000 ng/ml Methylenedioxymethamphetamine (MDMA) n 0 - 500 ng/ml Morphine (MOP 300/PHY1407) n 0 - 300 ng/ml Methadone (MTD) [...] Oxazepam (BZO) N 0 - 300 ng/ml 4-gxciqkgvkb-5,8-qbmlnmmt-6,3-diphenylpyrrolidine (MAHNAZ P) N 0 - 300 ng/ml Methamphetamine (MET) N 0 - 1000 ng/ml Methylenedioxymethamphetamine (MDMA) N 0 - 500 ng/ml Morphine (MOP 300/KWG2545) N 0 - 300 ng/ml Methadone (MTD) [...] Oxazepam (BZO) n 0 - 300 ng/ml 3-ovgyasudje-4,6-irnnrepp-2,3-diphenylpyrrolidine (MAHNAZ P) n 0 - 300 ng/ml Methamphetamine (MET) n 0 - 1000 ng/ml Methylenedioxymethamphetamine (MDMA) n 0 - 500 ng/ml Morphine (MOP 300/AXB9433) p 0 - 300 ng/ml Methadone (MTD) [...] Oxazepam (BZO) p 0 - 300 ng/ml 9-lnjcfbhjyj-1,0-qxqssndv-9,3-diphenylpyrrolidine (MAHNAZ P) n 0 - 300 ng/ml Methamphetamine (MET) n 0 - 1000 ng/ml Methylenedioxymethamphetamine (MDMA) n 0 - 500 ng/ml Morphine (MOP 300/YUB9525) n 0 - 300 ng/ml Methadone (MTD) [...] Health - Liquid as directed Orally Active Olmesartan Medoxomil 5 MG Tablet as directed Orally Active [place] 3 1200 MG Capsule 1 capsule Orally Once a day Active Creon 65854-347642 UNIT Capsule Delayed Release Particles as directed Orally Active buPROPion HCl 75 MG Tablet Oral; Duration: 30 Days Not-Taking Magnesium 400 MG Capsule as directed Orally Active Celecoxib 100 MG Capsule 1 capsule Orally Once a day Active Vitamin D3 1.25 MG (74999 UT) Capsule 1 capsule Orally Activ e Aspirin 81 MG Tablet Delayed Release 1 tablet Orally Once a day Active traMADol HCl 50 MG Tablet Oral; Duration: 30 Days Active Bariatric Multivitamin/Iron - Tablet Chewable as directed Orally Active Omeprazole 40 MG Capsule Delayed Release TAKE 1 CAPSULE BY MOUTH ONCE DAILY Oral; Duration: 90 Days Active Lansoprazole 30 MG Capsule Delayed Release 1 capsule 1/2 to 1 hour before morning meal Orally Once a day Active LORazepam 1 MG Tablet 0.5 to 1 whole tablet at bedtime Orally daily; Duration: 30 days stopping alprazolam 02/23/2025 Active valACYclovir HCl 1 GM Tablet Oral; Duration: 1 Days Active Social History Tobacco Use: Social History Observation Description Date Details (start date - stop date) Never Smoker NA - NA Sex Assigned At : Social History Observation Description Sex Assigned At Female Social History Miscellaneous: Social Info Question Answer Notes Safety issues: Are there any firearms in the house? No Social History Social Info Question Answer Notes Household: Marital Status: Single Number of Adults in household: 2 Number of Children in Household: 0 Level of Education: Finished College Household: Social Info Question Answer Notes Household Marital status: single Number of adults in household: 2 Number of children in household: 0 Drug/Alcohol: Social Info Question Answer Notes Drugs [...] Risk Notes Problem Moderate recurrent major depression (66667522) Major depressive disorder, recurrent, moderate (F33.1) Active confirmed Problem Severe recurrent major depression without psychotic features (75465406) Major depressive disorder, recurrent severe without psychotic features (F33.2) Active confirmed Problem Generalized anxiety disorder (78781589) Generalized anxiety disorder (F41.1) Active confirmed Problem Obstructive sleep apnea syndrome (32949780) CASSIA (obstructive sleep apnea) (G47.33) Active confirmed Problem Severe recurrent major depression without psychotic features (72982176) MDD (major depressive disorder), recurrent severe, 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) Active confirmed Problem Insomnia disorder related to another mental disorder (31363111) 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) Active confirmed Problem Panic disorder (301979487) Panic attacks (F41.0) Active confirmed Problem History of bypass of stomach (480145278) H/O gastric bypass (Z98.84) 3 Active confirmed Vital Signs Heart Rate 73 /min 02/23/2025 Height-cm 167.64 cm 02/23/2025 Blood pressure diastolic 70 mm Hg 02/23/2025 Weight-kg 73.94 kg 12/28/2024 Height 66 in 02/23/2025 Blood pressure systolic 101 mm Hg 02/23/2025 Weight 163 lbs 12/28/2024 BMI 26.31 kg/m2 12/28/2024 Encounters Encounter Location Date Provider Diagnosis [facility] [place] [address] [address] 02/23/2025 Ann-Marie Morales Major depressive disorder, recurrent, moderate F33.1 ; Generalized anxiety disorder F41.1 ; 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.05 and Panic attacks F41.0 [facility] [place] [address] [address] 10/09/2024 Ann-Marie Morales Major depressive disorder, recurrent severe without psychotic features F33.2 ; Generalized anxiety disorder F41.1 ; 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.05 ; Encounter for screening for depression Z13.31 and Encounter for screening for cardiovascular disorders Z13.6 [facility] [place] [address] [address] 11/06/2024 Ann-Marie Morales Major depressive disorder, recurrent, mild F33.0 ; 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.05 ; Panic attacks F41.0 ; Generalized anxiety disorder F41.1 ; Encounter for screening for depression Z13.31 and Encounter for screening for cardiovascular disorders Z13.6 [facility] [place] [address] [address] 12/07/2024 Ann-Marie Morales Encounter for screening for depression Z13.31 ; Major depressive disorder, recurrent, mild F33.0 ; Generalized anxiety disorder F41.1 ; Panic attacks F41.0 ; 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.05 ; CASSIA (obstructive sleep apnea) G47.33 and Encounter for screening for cardiovascular disorders Z13.6 [place] [address] [facility] [address] [place] [address] 12/28/2024 Ann-Marie Morales Major depressive disorder, recurrent, moderate F33.1 ; Generalized anxiety disorder F41.1 ; 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.05 and Panic attacks F41.0 [place] [address] [facility] [address] [place] [address] 01/25/2025 Ann-Marie Morales Major depressive disorder, recurrent, moderate F33.1 ; Generalized anxiety disorder F41.1 ; 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.05 and Panic attacks F41.0 [place] [address] [address] 03/01/2025 Ann-Marie Morales [facility], [place] [address] [address] 11/06/2024 [facility] [place] [address] [address] 12/11/2024 Ann-Marie Morales [facility], [place] [address] [address] 02/05/2025 Ann-Marie [facility], [place] [address] [address] 02/22/2025 [facility] [place] [address] [address] 09/09/2024 Ann-Marie [facility], [place] [address] [facility] [address] [place] [address] 10/09/2024 Ann-Marie Morales [facility], [place] [address] [address] 02/05/2025 Ann-Marie [facility], [place] [address] [address] 02/09/2025 Ann-Marie Morales Assessments Encounter Date Diagnosis (ICD [...] g to a new medication Medication considered [id number] Citalopram (Celexa), CEK2P14 Sertraline (Zoloft), OHR0H61, CYP2D6 Amitriptyline (Elavil), CYP2D5 Aripiprazole (Abilify) and CYP2D6 Vortioxetine (Trintellix ) I'm considering a dosage adjustment to currently prescribed medication(s) Medication considered [id number] Escitalopram (Lexapro) Have you considered non-genetic factors [...] depressive disorder, recurrent, moderate (ICD-10 - F33.1) 01/25/2025 Major depressive disorder, recurrent, moderate (ICD-10 - F33.1) 02/23/2025 Major depressive disorder, recurrent, moderate (ICD-10 - F33.1) 02/23/2025 Generalized anxiety disorder (ICD-10 - F41.1) 01/25/2025 Generalized anxiety disorder (ICD-10 - F41.1) 12/28/2024 Generalized anxiety disorder (ICD-10 - F41.1) 12/07/2024 Generalized anxiety disorder (ICD-10 - F41.1) 11/06/2024 Panic attacks (ICD-10 - F41.0) 10/09/2024 Generalized anxiety disorder (ICD-10 - F41.1) 10/09/2024 Insomnia related to another mental disorder (ICD-10 - F51.05) 11/06/2024 Generalized anxiety disorder (ICD-10 - F41.1) 12/28/2024 Insomnia related to another mental disorder (ICD-10 - F51.05) 01/25/2025 Insomnia related to another mental disorder (ICD-10 - F51.05) 02/23/2025 Insomnia related to another mental disorder (ICD-10 - F51.05) 12/07/2024 Panic attacks (ICD-10 - F41.0) 11/06/2024 Encounter for screening for depression (ICD-10 - Z13.31) 12/07/2024 Insomnia related to another mental disorder (ICD-10 - F51.05) 02/23/2025 Panic attacks (ICD-10 - F41.0) 01/25/2025 Panic attacks (ICD-10 - F41.0) 12/28/2024 Panic attacks (ICD-10 - F41.0) 10/09/2024 [...] specialized liver scan in 11/06/2024 Other Hanna Nora, female patient with history of gastrectomy and [...] Patient has an upcoming appointment with a tool clerk on the of this month for further [...] as scheduled in January regarding CPAP therapy 01/25/2025 Other Hanna Melendez, female, presents post-foot surgery with ongoing pain management, medication adjustments, and multiple medical concerns including potential Yael's disease and sleep apnea. Post-operative pain management Assessment: Patient underwent foot surgery on January 07, with 38 stitches and 5 incisions. Currently managing post-operative pain with tramadol and ibuprofen. Patient reports discontinuing tramadol use as of 5 days ago. Experiencing vivid dreams and a recent night terror, possibly related to Xanax use for sleep. 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 [employer]ite testing revealed Lexapro as a medication with reduced efficacy. Current dose of 10 mg does not provide complete relief for concerns, and did not toelrate 20 mg before. Considering transition to duloxetine (Cymbalta) based on tool clerk's suggestion and potential benefits for pain management. Patient has a history of seizures with sertraline (Zoloft), but risk is assessed as minimal with duloxetine or continued Lexapro use. Genetic testing indicates duloxetine is favorable, while Lexapro shows moderate interaction with reduced efficacy. 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 Lupus has been ruled out. Recent liver function tests show mild abnormalities, which have improved since discontinuation of Paxil. Plan: - Follow up with tool clerk on February 04 - Monitor liver function tests Suspected sleep apnea Assessment: Patient reports previous inconclusive sleep study due to anxiety and discomfort. Awaiting pulmonology consultation after a 9-month wait for reevaluation of sleep apnea. Plan: - Attend scheduled pulmonology appointment at the end of the month - Discuss repeat overnight sleep study Medical Decision Making Hanna Melendez is a female patient with a history of gastrectomy, colon resection, and recent foot surgery, presenting with post-surgical pain management and medication adjustment concerns. The patient's recent foot surgery and ongoing pain management with tramadol and Xanax are being addressed. The clinician is considering a medication switch from Lexapro to duloxetine (Cymbalta) based on the patient's complex medical history and symptoms. Duloxetine is being considered due to its efficacy in treating depression, anxiety, and various pain conditions, including neuropathic pain and fibromyalgia. The clinician notes that despite a previous seizure reaction to sertraline (Zoloft), the risk would be minimal with duloxetine as it belongs to a different class (SNRI vs SSRI). The patient's recent liver function tests showing mild impairment support the use of duloxetine, as it is considered safe in mild liver dysfunction. The clinician also takes into account the patient's history of gastrointestinal surgeries, which may affect medication absorption. Genetic testing results indicate that duloxetine is favorable for the patient's gene site, while Lexapro shows a moderate interaction with reduced efficacy. The decision-making process includes consideration of potential sleep disturbances and the need for careful tapering of current medications during the transition. Plan Of Treatment Pending Test Test Name Order Date Cytochrome P450 2D6 Genotyping 5 Cytochrome P450 2C9 Genotyping 5 Cytochrome P450 2C19 12/07/2024 Next Appt Details Provider Name:Ann-Marie lizarraga, 03/23/2025 01:15:00 PM, [address], [facility] [address], [place], [address], Insurance Providers Payer Name Payer Address Payer Phone Subscriber Number Group Number Insured Name Patient Relationship to Insured Coverage Start Date Coverage End Date [facility] [address] [place] [address] [id number] Hanna Melendez Self - patient is the [...]
--- OUTSIDE RECORDS SUMMARY | 2025-03-04 10:07 | XMS_ITS | Encounter Summary ---
Author Organization [facility] Address [address] [place] [address] Care Team Providers Care Security Assurance Analyst Name Role Phone Regina Ovalles MD Primary Care Provider [phone]- [phone] Encounter Details Date Type Department Care Team (Latest Contact Info) Description 05/31/2003 Outpatient Historical HIS [facility] Grady Mg MD [address] 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 Gender Identity Not on file Sexual Orientation Not on file documented as of this encounter Plan of Treatment Upcoming Encounters Date Type Department Care Team (Late st Contact Info) Description 04/16/2025 12:45 PM CDT Office Visit [facility] Oncology and Hematology - [place] [address] [facility] [address] [place] [address] Malcolm Shay MD [address] [facility] [address] [place] [address] documented as of this encounter Visit Diagnoses Diagnosis Other and unspecified hyperlipidemia- Primary documented in this encounter Care Teams Security Assurance Analyst Relationship Specialty Start Date End Date Regina Ovalles MD [address] [place] [address] PCP - General 06/03/15 documented as of this encounter
--- OUTSIDE RECORDS SUMMARY | 2025-03-04 10:07 | XMS_ITS | Clinical Summary ---
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 [address] [facility] Comment: Interpretive Data Reference Interval Normal [...] ORDERABLES Judy l Result Performing Organization Address [facility] de Phone Number [facility] [employer] [place] [place] [address] * POCT hemoglobin A1c (11/13/2022 11:16 AM CDT) Hgb A1C, POC 4.9 4.0 - 5.6 % [facility] Est Average Gluc POC 94 mg/dL [facility] Comment: The ADA recommends reporting an estimated Average Glucose (eAG) with all Hemoglobin A1c results using the equation derived from a study of 507 normal and diabetic adults. Minority populations were underrepresented and children were not included. (Diabetes Care 31:1059-0216, 2008). The eAG is not equivalent to a fasting glucose. Blood 11/13/2022 11:1 6 AM CDT 11/13/2022 11:16 AM CDT Ree Greene MD POINT OF CARE TEST OR DERABLES Final Result Performing Organization Address [facility] de Phone Number [facility] [employer] [place] [address] from Last 3 Months or Most Recently Relevant to Health Maintenance Insurance [facility] MEDICARE ADVANTAGE [facility] MEDICARE Address: [address] [address] [place] [address] [employer] MEDICARE GOLD AET[employer] MEDICARE GOLD Advance Directives For more information, please contact: [phone] * Full Code (Latest Code Status on File) Date Activated Date Inactivated Comments 11/15/2022 6:20 PM 11/18/2022 6:51 PM Care Teams Assorter Laundry Relationship Specialty Start Date End Date Juanita Lemons, ANTONIO [address] [place] [address] PCP - General Family Medicine 07/15/24
--- OUTSIDE RECORDS SUMMARY | 2025-03-04 10:07 | XMS_ITS | Encounter Summary ---
Author Organization [facility] Address [address] [place] [address] Care Team Providers Care Scanner Operator Name Role Phone Regina Ovalles MD Primary Care Provider [phone]- [phone] Encounter Details Date Type Department Care Team (Late Contact Info) Description 05/31/2003 Outpatient Historical [facility] Internal Medicine [address] 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 Gender Identity Not on file Sexual Orientation Not on file documented as of this encounter Plan of Treatment Upcoming Encounters Date Type Department Care Team (Late Contact Info) Description 04/16/2025 12:45 PM CDT Office Visit [facility] Oncology and Hematology - [place] [address] [facility] [address] [place] [address] Malcolm Shay MD [address] [facility] [address] [place] [address] documented as of this encounter Visit Diagnoses Not on filedocumented in this encounter Care Teams Scanner Operator Relationship Specialty Start Date End Date Regina Ovalles MD [address] [place] [address] PCP - General 06/03/15 documented as of this encounter
--- OUTSIDE RECORDS SUMMARY | 2025-03-04 10:07 | XMS_ITS | Encounter Summary ---
Author Organization [facility] Address [address] [place] [address] Care Team Providers Care Porter Sample Case Name Role Phone Regina Ovalles MD Primary Care Provider [phone]- [phone] Encounter Details Date Type Department Care Team (Late Contact Info) Description 08/03/2002 Outpatient Historical [facility] Internal Medicine [address] 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 Gender Identity Not on file Sexual Orientation Not on file documented as of this encounter Plan of Treatment Upcoming Encounters Date Type Department Care Team (Late st Contact Info) Description 04/16/2025 12:45 PM CDT Office Visit [facility] Oncology and Hematology - [place] [address] [facility] [address] [place] [address] Malcolm Shay MD [address] [facility] [address] [place] [address] documented as of this encounter Visit Diagnoses Not on filedocumented in this encounter Care Teams Porter Sample Case Relationship Specialty Start Date End Date Regina Ovalles MD [address] [place] [address] PCP - General 06/03/15 documented as of this encounter
--- OUTSIDE RECORDS SUMMARY | 2025-03-04 10:07 | XMS_ITS | Encounter Summary ---
Author Organization [facility] Address [address] [place] [address] Care Team Providers Care Mortgage Loan Assistant Name Role Phone Regina Ovalles MD Primary Care Provider [phone]- [phone] Encounter Details Date Type Department Care Team (Late Contact Info) Description 02/01/2003 Outpatient Historical [facility] Internal Medicine [address] [facility] 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 Oncology and Hematology - [place] [address] [facility] [address] [place] [address] Malcolm Shay MD [address] [facility] [address] [place] [address] documented as of this encounter Visit Diagnoses Not on filedocumented in this encounter Care Teams Mortgage Loan Assistant Relationship Specialty Start Date End Date Regina Ovalles MD [address] [place] [address] PCP - General 06/03/15 documented as of this encounter
--- OUTSIDE RECORDS SUMMARY | 2025-03-04 10:07 | XMS_ITS | Encounter Summary ---
Author Organization [facility] Address [address] [place] [address] Care Team Providers Care Rectangular Tank Cooper Name Role Phone Regina Ovalles MD Primary Care Provider [phone]- [phone] Encounter Details Date Type Department Care Team (Late Contact Info) Description 02/01/2003 Outpatient Historical [facility] Internal Medicine 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 Gender Identity Not on file Sexual Orientation Not on file documented as of this encounter Plan of Treatment Upcoming Encounters Date Type Department Care Team (Late st Contact Info) Description 04/16/2025 12:45 PM CDT Office Visit [facility] Oncology and Hematology - [place] [address] [place] [address] Malcolm Shay MD [address] [place] [address] documented as of this encounter Visit Diagnoses Not on filedocumented in this encounter Care Teams Rectangular Tank Cooper Relationship Specialty Start Date End Date Regina Ovalles MD [address] [place] [address] PCP - General 06/03/15 documented as of this encounter
--- OUTSIDE RECORDS SUMMARY | 2025-03-04 10:07 | XMS_ITS | Clinical Summary ---
Author Organization [facility] Care Team Providers Care Fretted Instrument Inspector Name Role Phone Unavailable Primary Care Provider [...]
--- OUTSIDE RECORDS SUMMARY | 2025-03-04 10:07 | XMS_ITS | Encounter Summary ---
Author Organization [facility] Address [address] [place] [address] Care Team Providers Care Transmission And Coordination Engineer Name Role Phone Regina Ovalles MD Primary Care Provider [phone]- [phone] Encounter Details Date Type Department Care Team (Late Contact Info) Description 10/02/2002 Outpatient Historical [facility] Internal Medicine 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 Gender Identity Not on file Sexual Orientation Not on file documented as of this encounter Plan of Treatment Upcoming Encounters Date Type Department Care Team (Late st Contact Info) Description 04/16/2025 12:45 PM CDT Office Visit [facility] Oncology and Hematology - [place] [address] [place] [address] Malcolm Shay MD [address] [place] [address] documented as of this encounter Visit Diagnoses Not on filedocumented in this encounter Care Teams Transmission And Coordination Engineer Relationship Specialty Start Date End Date Regina Ovalles MD [address] [place] [address] PCP - General 06/03/15 documented as of this encounter
--- OUTSIDE RECORDS SUMMARY | 2025-03-04 10:08 | XMS_ITS | Clinical Summary ---
Author Organization [facility] Address [address] [place] [address] Care Team Providers Care Jewelry Department Supervisor Name Role Phone Denise Cope PRISCILA-RETAIL STORE CLERK Primary Care Provider + Source Comments [facility],non-owned Affiliates and Associated Physician Practices is amultiple site organization consisting of ambulatory clinics and hospital sitesin [place], [place], [place] and [place]. This disclosure is being madepursuant to the Care Everywhere program and may not contain all information available regarding this patient. Last updated 18.[facility] Allergies Active Allergy Reactions Criticality Noted Date Comments Canagliflozin Dizziness 12/30/2020 Cephalexin Urticaria Medium 12/17/2023 Cortisone Other 12/30/2020 Diclofenac Epolamine Nausea and/or Vomiting Fosinopril Cough 12/30/2020 Ketorolac Tromethamine Nausea and/or Vomiting Medium 0 08/02/2011 Levofloxacin Nausea and/or Vomiting 12/30/2020 Montelukast Other 12/30/2020 Sertraline Other,Seizures High 09/17/2015 Ketorolac Vomiting 12/30/2020 Belk Anaphylaxis High 12/30/2020 Vancomycin Urticaria,Itching,Ra sh,Shortne ss [...] once daily Active ergocalciferol (DRISDOL) 1.25 MG (71655 UT) capsule Take 1 (one) capsule by [...] ONCE DAILY FOR 30 DAYS Active Nystop 028204 UNIT/GM powder APPLY POWDER TOPICALLY TO AFFECTED [...] LURIA, FLUZONE TRIVALENT; 6MO+) (IIV3) 03/22/2016,03/28/2015,03/19/2014,2011,04/17/2011 Covid [email or web address] primary monoval ent 12+ yr 0.3mL Purple [...] AM CDT Legal Sex Female 6:20 AM 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 AND 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 DIRECTOR Gender Identity Female 01/19/2021 8:46 AM CDT [...] 165.1 cm (5' 5) 08/24/2022 11:15 AM LEARNING AND DEVELOPMENT DIRECTOR Body Mass Index 28.96 08/24/2022 11:15 AM LEARNING AND DEVELOPMENT DIRECTOR Plan of Treatment Health Maintenance Due Date [...] - PCV20 or PCV21) 03/17/2015 03/17/2010, 06/17/2008 DEPRESSION SCREENING 06/17/2024 COVID-19 VACCINE ( season) 2025 11/06/2021, 03/24/2021, 08/06/2020, Additional history exists INFLUENZA VACCINE (#1) 2025 , 03/08/2021, 04/11/2020, [...] to complete this topic Insurance [address] [place] [address] COMMERCIAL GENERIC SELF PAY NO INSURANCE Member Subscriber Plan / Payer (Ef fective for All Dates) Name:Hanna Garcia Member ID:Not on file Relation to Subscriber:Not on file Name:HANNA GARCIA Subscriber ID:Not on file (Home) Address: [address] [place] [id number] Payer ID:Not on file Group ID:Not on file Type:Self Pay Address: [place], [place] Advance Directives * Full Code (Latest Code Status on File) Date Activated Date Inactivated Comments 01/24/2022 8:11 PM 01/26/2022 1:18 PM * Full Code Date Activated Date Inactivated Comments 07/03/2021 11:58 AM 07/04/2021 5:41 PM Care Teams Jewelry Department Supervisor Relationship Specialty Start Date End Date Denise Cope APRN-JUDAH [address] [place] [address] [address] [place] [address] PCP - General Nurse Practitioner 12/23/20
--- NOTE | 2025-03-23 15:45 | WPDHOMESLEEP ---
Sleep Study - Home Unattended Date of Study: 03/04/25 Ordering Provider: Evelia Chairez MD Interpreting Provider: Radha Padilla, DO Home Sleep Study Type: Watch PAT Height: 1.68 m Weight: 64.41 kg Body Mass Index: 22.8 Neck Circumference (inches): 13 [place]: 2 Reason for Sleep Study Difficulty sleeping Sleep History The patient is a 59-year-old female that had a sleep study ordered by her link machine operator for evaluation of insomnia. The patient denies awakening from sleep short of breath. She denies awakening at night with heartburn, belching or cough. She occasionally snores but is rarely loud enough that others complain. she denies having trouble sleeping when she has a cold. She denies waking up gasping for air throughout the night. She rarely has breathing problems at night observed by herself or others. She occasionally sweats excessively at night. She denies having heart palpitations or irregular heartbeats during the night. She denies falling asleep during the day and while driving. She denies sleep paralysis and cataplexy. She denies having trouble at school or work due to sleepiness. She rarely experiences vivid dreamlike scenes upon awakening or falling asleep. She frequently feels afraid of going to sleep. She rarely has nightmares. She occasionally remembers her dreams. She frequently has thoughts racing through her mind. She rarely feels sad or depressed. She frequently has anxiety. She constantly has muscular tension. She rarely notices parts of her body jerk. She denies kicking during the night. She denies having crawling and aching feelings in her legs. She constantly has leg pain during the night. She denies grinding her teeth during sleep and denies awakening with morning jaw pain. She is constantly bothered by pain during the day and constantly awakened by pain during the night. She occasionally wakes up feeling stiff in the morning. She rarely wakes up with sore or achy muscles. She rarely wakes up with pain in the neck, spine and other joints. She goes to bed at 10:00 p.m. every night. It takes her 30 minutes to fall asleep. She wakes up twice throughout the night to urinate is able to fall back asleep within 15 minutes. She wakes up between 7-8 a.m. every morning. She has gotten 7-8 hours of sleep per night within the past 4 months. She will stay in bed for 2 hours after waking up in the morning. She currently lives with her sister. She does consume caffeinated beverages within 2 hours of bedtime. She denies engaging in physical exercise before bedtime. She will watch television before falling asleep. She denies taking naps in afternoon or the evening. He consumes 4 caffeinated beverages per day. She denies tobacco, alcohol and recreational drug use. [facility] Past Medical History Medical History Tear of peroneal tendon of right foot Acquired cavovarus deformity of right foot Obstructive sleep apnea 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 cavovarus deformity of both feet GERD (gastroesophageal reflux disease) Nausea and vomiting Abdominal bloating Alternating constipation and diarrhea History of postoperative nausea and vomiting History of stress test (~2021) PONV (postoperative nausea and vomiting) Chronic pain tramadol CASSIA (obstructive sleep apnea) Hypothyroidism (acquired) Hyperlipidemia Hypertriglyceridemia Vitamin D deficiency Type 2 diabetes mellitus Thyroid disorder Hypertension Diabetes Depression Surgical History Surgical History H/O foot surgery S/P dilation and curettage 04.03.24 KATHY History of tooth extraction H/O gastric bypass 07/04/21 H/O esophagogastroduodenoscopy H/O colonoscopy 2006 Hx of cholecystectomy H/O left breast biopsy Family History Family History Father Alcoholism Diabetes mellitus Cancer Mother Alcoholism Hypertension Depression Thyroid disorder Cancer Sibling Alcoholism Asthma Cancer Diabetes mellitus Hypertension Depression Heart disease Thyroid disorder Grandparent Cancer Diabetes mellitus Grandparent Cerebrovascular accident Social History Social History Smoking status: Never smoker Second hand tobacco smoke exposure: Yes Alcohol intake: never Substance use: never Substance use type: does not use Do You Feel Safe in your Home?: Yes Lack of Transportation: No Lack of Food: Sometimes True Current Housing: I Have Housing Concerned About Future Housing: No Difficulty Paying Gas/Electric Bills: No Difficulty Paying for Meds: YES Currently Unemployed: No Education: Associate Degree Difficulty w/ Childcare or Family Care: No Living arrangements: with family 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 Gender identity (if verbalized by the patient): Female Spiritual care concerns: No Medications Home Medications ?Medication ?Instructions ?Recorded ?Confirmed ?Type aspirin 81 mg tablet,delayed 81 mg PO BID 01/31/23 03/17/25 History release (Adult Low Dose Aspirin) Bariatric vitamins 1 tablet PO DAILY 05/06/23 03/17/25 History celecoxib 200 mg capsule 200 mg PO DAILY 05/06/23 03/17/25 History cholecalciferol (vitamin D3) 125 125 mcg PO DAILY 05/06/23 03/17/25 History mcg (5,000 unit) tablet magnesium oxide 400 mg (241.3 mg 400 mg PO DAILY 05/06/23 03/17/25 History magnesium) tablet omega 8-sxw-myu-fish oil 1,200 mg 1 cap PO DAILY 05/06/23 03/17/25 History (144 mg-216 mg) capsule (Fish Oil) olmesartan 5 mg tablet 2.5 mg PO DAILY 12/25/23 03/17/25 History lansoprazole 30 mg capsule,delayed 30 mg PO DAILY #90 caps 04/29/24 03/17/25 Rx release ergokc-qegwtvsm-jokpslq 2 cap PO .AC and snacks 06/09/24 03/17/25 History (pork)36,000-114,000-180k unit capsule,del rel (Creon) alprazolam 0.5 mg tablet,extended 0.5 mg PO DAILY 12/14/24 03/17/25 History release 24 hr tramadol 50 mg tablet 50 mg PO Q4-6H PRN Pain #30 tabs 01/07/25 03/17/25 Rx Tirosint-Mili 150 mcg/mL oral 150 mcg PO .COMPLEX #90 mL 03/22/25 Rx solution (levothyroxine) Sleep Procedure The sleep study was completed using SxbbmPAT a technically adequate device with seven channels: peripheral arterial tone, actigraphy, body position, snore, respiratory movement, pulse oximetry, sleep staging, and heart rate. Prior to using the device, the patient received verbal and written instructions for its application and was provided with the help desk phone number for additional telephonic instruction with 24-hour availability of qualified personnel to answer questions. The study was scored using [facility] guidelines. Sleep Architecture The total recording time is 10 hrs, 15 min. The total sleep time is 8 hrs, 3 min. Sleep latency is 19 minutes. REM latency is 61 minutes. The patient had 11 episodes of waking. Sleep architecture shows 11.2% deep sleep, 71.6% light sleep, and (as % Total Sleep Time) showed NREM (Light 71.6%; Deep 11.2%), and a 17.3% stage REM. The patient spent 74.8% of total sleep time in the supine position. Sleep efficiency was 78.54. Respiratory Analysis The overall AHI (pAHI 4%:) is 3.0. The overall AHI (pAHI 3%:) is 5.6. The central AHI is 0.4. The AHI was 5.1 in NREM and 8.1 in REM sleep. The AHI was 7.0 in Supine and 1.5 in Non-supine sleep. Percent of Xavier Davis respirations is 0.0. Oximetry Data The oxygen desaturation index (HIEN 4%:) is 1.3. The mean saturation is 95%, and the lowest saturation is 91%. Time spent with saturation < 88% is 0.0 minutes. Snoring Profile Snoring average intensity is 41 dB. The patient snored above 45 decibels for 13.3 minutes, 2.7% of sleep time. Cardiac Profile The average pulse rate is 57 beats per minutes. The lowest pulse rate is 49 bpm. The highest pulse rate reported is 84 bpm. Atrial fibrillation was not detected. Premature beats occur <0.1 per minute. Assessment and Plan Assessment and Plan (1) Sleep disturbances: Code(s): G47.9 - Sleep disorder, unspecified Status: Acute Assessment and Plan: The patient had an overall AHI of 3.0 with desaturation down to 91%, This is not consistent with sleep-disordered breathing. If there is further concern for a sleep disorder, I recommend that the patient have a split study with the use of a hypnotic to ensure we obtain enough sleep data. Data The data obtained during this sleep study is adequate for interpretation. Certification This sleep study has been reviewed by a board certified sleep medicine physician.
[2025-03-24 12:51] VITALS: BMI 22.8
== END 2025-03-05 13:30 | disposition home or self-care (01) ==
PROVIDERS: PCP Nurse Practitioner Family; Visit Provider Internal Medicine Critical Care Medicine
DX: G47.33 Obstructive sleep apnea (adult) (pediatric) (principal); G47.9 Sleep disorder, unspecified
CPT/HCPCS: 95800

== ENCOUNTER 2025-04-01 00:58 | Day surgery (SDC) | payer MEDICARE, SELFPAY ==
--- OUTSIDE RECORDS SUMMARY | 2025-02-22 09:00 | XMS_ITS ---
Author Organization [facility] [employer] [facility] Address [address] [place] [address] [address] Care Team Providers Care Clinical Case Manager Name Role Phone Juanita Aguilera Primary Care Provider Ann-Marie Way Unavailable [phone] REASON FOR VISIT PT is sick today Social History Sex Assigned At : Social History Observation Description Sex Assigned At Female Encounters Encounter Location Date Provider Diagnosis [facility] [email or web address] [address] [address] 02/22/2025 Ann-Marie Morales Plan Of Treatment Next Appt Details Provider Name:Ann-Marie lizarraga, 06/23/2025 11:00:00 AM, [facility], [facility] [address], [place], [address], Progress Notes * Hanna GARCIA LDOB:1965 (59 yo F)Acc No.[id number]:02/22/2025 Patient: Heaven Hanna lynne Provider: Sofia Morales :1965 A ge:59 Y S ex:Female Date:02/22/2025 Phone: [facility] [facility] [address] [place] Pcp:Juanita GOYAL Subjective: * Chief Complaints: * P T is sick today Billing Information: * Procedure Codes: * Electronic signature of Fidencio Morales on 04/01/2025 at 01:02 AM CDT Sign off status: Pending * Provider: Sofia Morales Date: 0 02/22/2025 Generated for David landa/Get/Yolanda on: 1 01:02 AM CDT
--- OUTSIDE RECORDS SUMMARY | 2025-03-24 12:30 | XMS_ITS ---
Author Organization [facility] [employer] [place] ([address]) Address [address] [facility] [address] [place] [address] Care Team Providers Care Cardiovascular Specialist Name Role Phone Erika Jones Unavailable [phone] REASON FOR VISIT Chronic upper airway symptoms concerning for uncontrolled atopic disease, Chronic lower airways symptoms concerning for possible asthma Social History Sex Assigned At : Social History Observation Description Sex Assigned At Female Problems Problem Type SNOMED Code ICD Code Onset Dates Problem Status W/U Status Risk Notes Problem Allergic rhinitis caused by pollen (disorder) (58435641) Allergic rhinitis due to pollen (J30.1) Active confirmed Problem Allergic rhinitis caused by animal hair and dander (841643979217002) Allergic rhinitis due to animal (cat) (dog) hair and dander (J30.81) Active confirmed Problem Allergic rhinitis (75098079) Other allergic rhinitis (J30.89) Active confirmed Problem Chronic allergic conjunctivitis (37041566) Other chronic allergic conjunctivitis (H10.45) Active confirmed Problem Chronic rhinitis (30887409) Chronic rhinitis (J31.0) Active confirmed Problem Uncomplicated moderate persistent asthma (404900512) Moderate persistent asthma, uncomplicated (J45.40) Active confirmed Problem Uncomplicated mild persistent asthma (002831989) Mild persistent asthma, uncomplicated (J45.30) Active confirmed Problem Uncomplicated severe persistent asthma (115306066) Severe persistent asthma, uncomplicated (J45.50) Active confirmed Encounters Encounter Location Date Provider Diagnosis [facility] [address] [facility] [address] [place] [address] 03/24/2025 Erika Jones Allergic rhinitis du e to pollen J30.1 ; Allergic rhinitis due to animal (cat) (dog) hair and dander J30.81 ; Other allergic rhinitis J30.89 ; Other chronic allergic conjunctivitis H10.45 ; Hypertrophy of nasal turbinates J34.3 ; Chronic rhinitis J31.0 ; Moderate persistent asthma, uncomplicated J45.40 ; Mild persistent asthma, uncomplicated J45.30 and Severe persistent asthma, uncomplicated J45.50 Assessments Encounter Date Diagnosis (ICD Code) Assessment Notes Treatment Notes Treatment Clinical Notes Section Notes 03/24/2025 Allergic rhinitis due to pollen (ICD-10 - J30.1) Given the history and symptoms, skin testing was performed to common aeroallergens to determine atopic status. clearly suffers from atopic disease based upon our skin testing and clinical history. Accordingly, we have introduced a new, aggressive medication regimen, discussed nasal washes and allergy-specific avoidance measures. We also discussed adjunctive therapies including subcutaneous, specific allergen immunotherapy as relates to the treatment and prevention of atopic disease. They are currently considering the risks, benefits and alternatives to this care. Risks: bleeding, infection, allergic reaction, anaphylaxis; Benefits: reduced need for medications, improved symptoms, disease modification. Alternatives: watch/wait, change medication regimen, improve allergy avoidance measures. Follow-up in 1 month for interval evaluation and management 03/24/2025 Allergic rhinitis due to animal (cat) (dog) hair and dander (ICD-10 - J30.81) Follow allergen avoidance, meds and consider SCIT as an adjunctive treatment to current regimen 03/24/2025 Other allergic rhinitis (ICD-10 - J30.89) Follow allergen avoidance, meds and consider SCIT as an adjunctive treatment to current regimen 03/24/2025 Other chronic allergic conjunctivitis (ICD-10 - H10.45) Given ocular signs and symptoms I encouraged allergy avoidance measures and meds as above. If symptoms persist, consider adding additional medications including intraocular antihistamine/mas t cell stabilizer, PRN and consider SCIT as an adjunctive measure 03/24/2025 Hypertrophy of nasal turbinates (ICD-10 - J34.3) 03/24/2025 Chronic rhinitis (ICD-10 - J31.0) 03/24/2025 Moderate persistent asthma, uncomplicated (ICD-10 - J45.40) 03/24/2025 Mild persistent asthma, uncomplicated (ICD-10 - J45.30) 03/24/2025 Severe persistent asthma, uncomplicated (ICD-10 - J45.50) Plan Of Treatment Treatment Notes Assessment Notes Allergic rhinitis due to pollen Given th e history and symptoms, skin testing was performed to common aeroallergens to determine atopic status. clearly suffers from atopic disease based upon our skin testing and clinical history. Accordingly, we have introduced a new, aggressive medication regimen, discussed nasal washes and allergy-specific avoidance measures. We also discussed adjunctive therapies including subcutaneous, specific allergen immunotherapy as relates to the treatment and prevention of atopic disease. They are currently considering the risks, benefits and alternatives to this care. Risks: bleeding, infection, allergic reaction, anaphylaxis; Benefits: reduced need for medications, improved symptoms, disease modification. Alternatives: watch/wait, change medication regimen, improve allergy avoidance measures. Follow-up in 1 month for interval evaluation and management Allergic rhinitis due to ani mal (cat) (dog) hair and dander Follow allergen avoidance, meds and consider SCIT as an adjunctive treatment to current regimen Other allergic rhinitis Follow allergen avoidance, meds and consider SCIT as an adjunctive treatment to current regimen Other chronic allergic conjunctivitis Gi julius ocular signs and symptoms I encouraged allergy avoidance measures and meds as above. If symptoms persist, consider adding additional medications including intraocular antihistamine/mast cell stabilizer, PRN and consider SCIT as an adjunctive measure Next Appt Details Follow Up: 4 Weeks, Reason: Evaluation and Management Progress Notes * RADHA HannaDOB:1965 (5 0 yo F)Acc No.[id number]:03/24/2025 Progress Notes Patient: Hanna MCKEON Provider: Donald Jones MD :1965 A ge:59 Y S ex:Female Date:03/24/2025 Address:[address] [place] [address]. [place] [id number] Subjective: * Chief Complaints: * 1 . Chronic upper airway symptoms concerning for uncontrolled atopic disease. 2. Chronic lower airways symptoms concerning for possible asthma. * HPI: * Introduction: HPI: x . * ROS: A LLERGY: Positive p er the HPI and history, otherwise unremarkable.? S PECIAL SENSES: Positve for n one. C ONSTITUTIONAL: Positive for n one. E NT: Positive p er the HPI and history, otherwise unremarkable.? R ESPIRATORY: Positive p er the HPI and history, otherwise unremakable.? O PHTHALMOLOGY: Positive for p er the HPI and history, otherwise unremarkable. E NDOCRINOLOGY: Positive for n one. C ARDIOLOGY: Positive for n one. G ASTROENTEROLOGY: Positive for n one. U ROLOGY: Positive for n one. D ERMATOLOGY: Positive for p er the HPI and history, otherwise unremakable. N EUROLOGY: Positive for n one. H EMATOLOGY/LYMPH: Positive for n one. M USCULOSKELETAL: Positive for n one. P SYCHOLOGY: Positive for n one. A ll other review of systems per the HPI and history, otherwise unremarkable. * Medical History: Objective: * Vitals: * Examination: G eneral examination: General appearance: p leasant, well-developed, well-nourished. HEENT: p upils equal, round, and reactive to light and accommodation, conjunctiva are injected bilaterally, no tenderness to palpation of the sinuses, TM's without evidence of acute infection, turbinates 2+ swollen and pale inferiorly bilaterally, clear rhinorrhea is present, no polyps noted, no septal perforation, posterior oropharynx is erythematous and cobblestoning is present, erythema on pharyngeal wall, no exudates, no tongue swelling, and uvula is midline. Oral cavity: n ormal, no lesions. Neck, thyroid : s upple, non-tender, no anterior cervical lymphadenopathy. Breasts : n ot performed. Heart: R RR, S1-S2, no murmurs, no rubs, no gallops. Lungs: c lear to auscultation and percussion in all lung mann, no wheezes or crackles. Abdomen: s oft, NT/ND, normal active bowel sounds. Neurologic exam: u nremarkable. Skin: n ormal, no rash, dermatographism, urticaria, angioedema. Peripheral pulses: n ormal (2+) bilaterally. Back: n ormal. Extremities: n ormal ROM, no clubbing, no cyanosis, no edema. Genitalia: n ot performed. Assessment: * Assessment: 1. A llergic rhinitis due to pollen - J30.1 (Primary) 2 . A llergic rhinitis due to animal (cat) (dog) hair and dander - J30.81 3 . O ther allergic rhinitis - J30.89 4 . O ther chronic allergic conjunctivitis - H10.45 5 . H ypertrophy of nasal turbinates - J34.3 6 . C hronic rhinitis - J31.0? 7. M oderate persistent asthma, uncomplicated - J45.40 8 . M ild persistent asthma, uncomplicated - J45.30 9 . S evere persistent asthma, uncomplicated - J45.50 Plan: * Treatment: 2. A llergic rhinitis due to animal (cat) (dog) hair and dander Notes: Follow allergen avoidance, meds and consider SCIT as an adjunctive treatment to current regimen 3. O ther allergic rhinitis Notes: Follow allergen avoidance, meds and consider SCIT as an adjunctive treatment to current regimen 4. O ther chronic allergic conjunctivitis Notes: Given ocular signs and symptoms I encouraged allergy avoidance measures and meds as above. If symptoms persist, consider adding additional medications including intraocular antihistamine/mast cell stabilizer, PRN and consider SCIT as an adjunctive measure * Procedure Codes: 9 5004 PRICK TESTS, Units: 72.00 , 46591 INTRADERMAL TESTS, 62459 MEASURE BLOOD OXYGEN LEVEL, 57667 SELF-MGMT EDUC & TRAIN, 1 PT, S9441 ASTHMA ED NON-MD PROV PER SESSION, 77931 PT-FOCUSED HLTH RISK ASSMT, G8427 DOC MEDS VERIFIED W/[place], [address] NEB/MDI DEMO, Modifiers: 59 * Preventive Medicine: Counseling: M edication instruction: W atch for side effects of prescribed medications, Nasal steroid/antihistamine instruction: avoid septum. E ducation: G ENERAL EDUCATION: Our staff spent an additional 30 minutes in direct contact with the patient educating them on their current diagnoses and proper treatment and prevention of symptoms and the proper use of medications. E ducation 2: A RC EDUCATION: Our staff discussed the appropriate allergen avoidance measures and medication utilization including upper airway hygiene with daily nasal washes given the patient's clinical status and diagnoses. SCIT EDUCATION: Discussed allergy immunotherapy including the relative risks, benefits and alternatives to this treatment as an adjunctive measure to current therapy, Allergy Immunotherapy: Risks: bleeding, infection, allergic reaction, anaphylaxis = severe allergic reaction that can cause ; Benefits: reduced need for medications, improved symptoms, disease modification. Alternatives: watch/wait, change medication regimen, improve allergy avoidance measures, Our staff discussed the warning signs of anaphylaxis and the indications to use self-injectable epinephrine and seek urgent or emergent care. P atient education material sent to portal? Y es * Follow Up: 4 Weeks (Reason: Evaluation and Management) * Billing Information: * Visit Code: * Procedure Codes: 95508 PRICK TESTS. Units: 72.00. 87293 INTRADERMAL TESTS. 65806 MEASURE BLOOD OXYGEN LEVEL. 64879 SELF-MGMT EDUC & TRAIN, 1 PT. S9441 ASTHMA ED NON-MD PROV PER SESSION. 62148 PT-FOCUSED HLTH RISK ASSMT. G8427 DOC MEDS VERIFIED W/[place]. [address] EBEN/RIZWANA DEMO. Modifiers: 59 * Electronic signature of Danica Jones MD on 04/01/2025 at 01:02 AM CDT Sign off status: Pending * Provider: Donald Jones MD Date: Generated for David landa/Get/eTransmitting on: 01:02 AM CDT History and Physical Notes * HPI (History of Present Illness) Category Sub-Category Detail Notes Category Not es *Introduction HPI: x Examination Category Sub-Category Detail Notes Category Not es General examination HEENT: pupils equal , round, and reactive to light and accommodation, conjunctiva are injected bilaterally, no tenderness to palpation of the sinuses, TM's without evidence of acute infection, turbinates 2+ swollen and pale inferiorly bilaterally, clear rhinorrhea is present, no polyps noted, no septal perforation, posterior oropharynx is erythematous and cobblestoning is present, erythema on pharyngeal wall, no exudates, no tongue swelling, and uvula is midline Neck, thyroid : supple, non-tender, no anterior cervical lymphadenopathy Heart: RRR, S1-S2, no murmu rs, no rubs, no gallops Lungs: clear to auscultatio n and percussion in all lung mann, no wheezes or crackles Abdomen: soft, NT/ND, normal active bowel sounds Extremities: normal ROM, no clubb ing, no cyanosis, no edema General appearance: pleasant, well-devel oped, well-nourished Skin: normal, no rash, sherri matographism, urticaria, angioedema Neurologic exam: unremarkable Oral cavity: normal, no lesions Breasts : not performed Peripheral pulses: normal (2+) bilatera lly Back: normal Genitalia: not performed
[2025-03-24 15:27] VITALS: BMI 23.6
--- NOTE | 2025-03-24 15:59 | PC.NURSE ---
[facility] has started construction of its new state of the art ER which will open Spring 2026. With this, we anticipate parking may be a challenge for some our surgical patients and families. Parking spaces are limited but are available for all Surgical, obstetrics, and ER patients sharing this lot. If you arrive and find you are having a hard time finding a parking space, please note that we understand the challenges, please drive around the hospital and park near Hospital Entrance 1. When you enter this entrance, you can ask a volunteer to direct or take you back to the surgical waiting area to check in. We appreciate everyone?s understanding of these expected challenges while we build for your future. Report to the Outpatient Waiting Room, entrance under the green pavilion located off [address], at time 06:00AM__ on date _04/01/25 . Planned Procedure Time: _07:30AM___.? Time changes happen often and if your time is changed the preop area will call you the afternoon before. - You and your visitor will be asked to self-screen and do not enter if you have any COVID symptoms. Please call surgeon if you need to reschedule. - A mask is optional within the hospital at this time. Patients may have clear liquids (water, carbonated beverages, clear teas, apple juice) until 3 hours prior to surgery with a maximum of 20 ounces. - No food from midnight until time of surgery and no smoking, or chewing tobacco (or any form of nicotine). No chewing gum, candy or mints. Take only the following medications with a SIP of water on the morning of surgery: ___TIROSINT __THE MORNING OF SURGERY DO NOT STOP ANY OF YOUR OTHER PRESCRIPTION MEDICATIONS PRIOR TO SURGERY EXCEPT THE FOLLOWING Hold all vitamins and supplements for 3 days per anesthesiologist. Medications to discontinue per physician __CONTINUE ASPIRIN AND CELEBREX_PER DR. YEUNG'S DIRECTION Date to take last dose Please no make-up, nail divehi, hairspray, perfume, deodorant, or body powder the day of surgery.? No jewelry (including any body piercings) or valuables the day of surgery, leave them at home.? Please take a shower or bath the night before, or the morning of, surgery with an antibacterial soap.? Wear comfortable, loose fitting clothing.? - Jewelry must be removed prior to entering the operating room.? Rings and piercings that are not removed may be cut off. - The hospital will not accept responsibility for valuables.? - Please leave all valuables, including medications, at home the day of surgery. If you are going home after surgery, a licensed vending route driver must drive you home.? - NO public transportation without another adult if you receive anesthesia. - We recommend that an adult stay with you for 24 hours following discharge. - We also recommend that you do not drive, make important decision, drink alcoholic beverages, or take any drugs that were not prescribed by your health care provider for at least 24 hours after your discharge time. Follow any additional instructions given to you from your surgeon. Telephone instructions given to __AMY____and asked if any additional questions and then verbalized understanding. Patient advised to call surgeon office or pre surgery nurse liaison [phone] if any additional questions.
[2025-04-01] VITALS (13 sets, daily range): BP systolic 114–139; BP diastolic 55–70; PULSE 56–94; RESP 16–24; TEMP 36.5–36.7; O2SAT 98–100; BMI 25.4
--- NOTE | ~2025-04-01 | XR_ITS ---
XR surgery orthopedic INDICATION: Fluoroscopic guidance for calcaneal fracture fixation COMPARISON: None Cumulative air kerma: 1.513 mGy Fluoroscopy time:41.6 seconds FINDINGS: Fluoroscopy provided for screw fixation of calcaneus fracture and fracture at the base of the great toe.. IMPRESSION: Screw fixation of the calcaneal fracture and fixation of fracture of the base of the first metacarpal Please see operative report for further details. Reviewed, dictated and finalized at location S. IMPRESSION: Screw fixation of the calcaneal fracture and fixation of fracture o f the base of the first metacarpal Please see operative report for further details.
--- OUTSIDE RECORDS SUMMARY | 2025-04-01 01:01 | XMS_ITS | Encounter Summary ---
Author Organization [facility] Address [address] [place] [address] Care Team Providers Care Internet Marketer Name Role Phone Regina Ovalles MD Primary Care Provider [phone]- [phone] Encounter Details Date Type Department Care Team (Late Contact Info) Description 06/24/2002 Outpatient Historical [facility] Internal Medicine [address] 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 Gender Identity Not on file Sexual Orientation Not on file documented as of this encounter Plan of Treatment Upcoming Encounters Date Type Department Care Team (Late st Contact Info) Description 04/16/2025 12:45 PM CDT Office Visit [facility] Oncology and Hematology - [place] [address] [facility] [address] [place] [address] Malcolm Shay MD [address] [facility] [address] [place] [address] documented as of this encounter Visit Diagnoses Not on filedocumented in this encounter Care Teams Internet Marketer Relationship Specialty Start Date End Date Regina Ovalles MD [address] [place] [address] PCP - General 06/03/15 documented as of this encounter
--- OUTSIDE RECORDS SUMMARY | 2025-04-01 01:01 | XMS_ITS | Patient Health Record ---
Author Organization [facility] [place] ([address]) Address [address] [place] [address] Care Team Providers Care Security Orderly Name Role Phone Erika Jones Unavailable [phone] Reason For Referral No Information Social History Sex Assigned At : Social History Observation Description Sex Assigned At Female Problems Problem Type SNOMED Code ICD Code Onset Dates Problem Status W/U Status Risk Notes Problem Chronic allergic conjunctivitis (34516296) Other chronic allergic conjunctivitis (H10.45) Active confirmed Problem Allergic rhinitis caused by pollen (disorder) (79611696) Allergic rhinitis due to pollen (J30.1) Active confirmed Problem Allergic rhinitis (42941004) Other allergic rhinitis (J30.89) Active confirmed Problem Chronic rhinitis (24908501) Chronic rhinitis (J31.0) Active confirmed Problem Uncomplicated mild persistent asthma (961874222) Mild persistent asthma, uncomplicated (J45.30) Active confirmed Problem Uncomplicated moderate persistent asthma (221929318) Moderate persistent asthma, uncomplicated (J45.40) Active confirmed Problem Uncomplicated severe persistent asthma (048980563) Severe persistent asthma, uncomplicated (J45.50) Active confirmed Problem Allergic rhinitis caused by animal hair and dander (487261602793323) Allergic rhinitis due to animal (cat) (dog) hair and dander (J30.81) Active confirmed Plan Of Treatment No Information Insurance Providers Payer Name Payer Address Payer Phone Subscriber Number Group Number Insured Name Patient Relationship to Insured Coverage Start Date Coverage End Date [employer] Medicare [address] [address] [place] [address] [phone] [id number] Hanna Melendez Self - patient is the insured 5
--- OUTSIDE RECORDS SUMMARY | 2025-04-01 01:01 | XMS_ITS | Encounter Summary ---
Author Organization [facility] Address [address] [place] [address] Care Team Providers Care Nut Chopper Name Role Phone Regina Ovalles MD Primary Care Provider [phone]- [phone] Encounter Details Date Type Department Care Team (Late Contact Info) Description 08/03/2002 Outpatient Historical [facility] Internal Medicine [address] 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 Gender Identity Not on file Sexual Orientation Not on file documented as of this encounter Plan of Treatment Upcoming Encounters Date Type Department Care Team (Late st Contact Info) Description 04/16/2025 12:45 PM CDT Office Visit [facility] Oncology and Hematology - [place] [address] [facility] [place] [address] Malcolm Shay MD [address] [facility] [address] [place] [address] documented as of this encounter Visit Diagnoses Not on filedocumented in this encounter Care Teams Nut Chopper Relationship Specialty Start Date End Date Regina Ovalles MD [address] [place] [address] PCP - General 06/03/15 documented as of this encounter
--- OUTSIDE RECORDS SUMMARY | 2025-04-01 01:01 | XMS_ITS | Encounter Summary ---
Author Organization [facility] Address [address] [place] [address] Care Team Providers Care Portable Router Operator Name Role Phone Regina Ovalles MD Primary Care Provider [phone]- [phone] Encounter Details Date Type Department Care Team (Late Contact Info) Description 08/03/2002 Outpatient Historical [facility] Internal Medicine [address] 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 Gender Identity Not on file Sexual Orientation Not on file documented as of this encounter Plan of Treatment Upcoming Encounters Date Type Department Care Team (Late st Contact Info) Description 04/16/2025 12:45 PM CDT Office Visit [facility] Oncology and Hematology - [place] [address] [facility] [address] [place] [address] Malcolm Shay MD [address] [facility] [address] [place] [address] documented as of this encounter Visit Diagnoses Not on filedocumented in this encounter Care Teams Portable Router Operator Relationship Specialty Start Date End Date Regina Ovalles MD [address] [place] [address] PCP - General 06/03/15 documented as of this encounter
--- OUTSIDE RECORDS SUMMARY | 2025-04-01 01:01 | XMS_ITS | Encounter Summary ---
Author Organization [facility] Address [address] [place] [address] Care Team Providers Care Oil Dipper Name Role Phone Regina Ovalles MD Primary Care Provider +1- [phone] Encounter Details Date Type Department Care Team (Late Contact Info) Description 12/30/2002 Outpatient Historical [facility] Internal Medicine [address] [place] [address] Grady Galvez MD [address] 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 Gender Identity Not on file Sexual Orientation Not on file documented as of this encounter Plan of Treatment Upcoming Encounters Date Type Department Care Team (Late st Contact Info) Description 04/16/2025 12:45 PM CDT Office Visit [facility] Oncology and Hematology - [place] [address] [facility] [address] [place] [address] Malcolm Shay MD [address] [facility] [address] [place] [address] documented as of this encounter Visit Diagnoses Not on filedocumented in this encounter Care Teams Oil Dipper Relationship Specialty Start Date End Date Regina Ovalles MD [address] [place] [address] PCP - General 06/03/15 documented as of this encounter
--- OUTSIDE RECORDS SUMMARY | 2025-04-01 01:01 | XMS_ITS | Encounter Summary ---
Author Organization [facility] Address [address] [place] [address] Care Team Providers Care Show Horse Driver Name Role Phone Regina Ovalles MD Primary Care Provider +1- [phone] Encounter Details Date Type Department Care Team (Late Contact Info) Description 02/01/[address] [facility] Internal Medicine 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 Gender Identity Not on file Sexual Orientation Not on file documented as of this encounter Plan of Treatment Upcoming Encounters Date Type Department Care Team (Late st Contact Info) Description 04/16/2025 12:45 PM CDT Office Visit [facility] Oncology and Hematology - [place] [address] [facility] [address] [place] [address] Malcolm Shay MD [address] [facility] [address] [place] [address] documented as of this encounter Visit Diagnoses Not on filedocumented in this encounter Care Teams Show Horse Driver Relationship Specialty Start Date End Date Regina Ovalles MD [address] [place] [address] PCP - General 06/03/15 documented as of this encounter
--- OUTSIDE RECORDS SUMMARY | 2025-04-01 01:01 | XMS_ITS | Encounter Summary ---
Author Organization [facility] Address [address] [place] [address] Care Team Providers Care Project Development Director Name Role Phone Regina Ovalles MD Primary Care Provider +1- [phone] Encounter Details Date Type Department Care Team (Late Contact Info) Description 05/31/2003 Outpatient Historical [facility] Internal Medicine 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 Gender Identity Not on file Sexual Orientation Not on file documented as of this encounter Plan of Treatment Upcoming Encounters Date Type Department Care Team (Late Contact Info) Description 04/16/2025 12:45 PM CDT Office Visit [facility] Oncology and Hematology - [place] [address] [facility] [address] [place] [address] Malcolm Shay MD [address] [facility] [address] [place] [address] documented as of this encounter Visit Diagnoses Not on filedocumented in this encounter Care Teams Project Development Director Relationship Specialty Start Date End Date Regina Ovalles MD [address] [place] [address] PCP - General 06/03/15 documented as of this encounter
--- OUTSIDE RECORDS SUMMARY | 2025-04-01 01:01 | XMS_ITS | Encounter Summary ---
Author Organization [facility] Address [address] [place] [address] Care Team Providers Care Ratoprinter Name Role Phone Regina Ovalles MD Primary Care Provider +1- [phone] Encounter Details Date Type Department Care Team (Late Contact Info) Description 06/24/2002 Outpatient Historical [facility] Internal Medicine [address] [place] [address] Grady Galvez MD [address] 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 Gender Identity Not on file Sexual Orientation Not on file documented as of this encounter Plan of Treatment Upcoming Encounters Date Type Department Care Team (Late st Contact Info) Description 04/16/2025 12:45 PM CDT Office Visit [facility] Oncology and Hematology - [place] [address] [facility] [address] [place] [address] Malcolm Shay MD [address] [facility] [address] [place] [address] documented as of this encounter Visit Diagnoses Not on filedocumented in this encounter Care Teams Ratoprinter Relationship Specialty Start Date End Date Regina Ovalles MD [address] [place] [address] PCP - General 06/03/15 documented as of this encounter
--- OUTSIDE RECORDS SUMMARY | 2025-04-01 01:01 | XMS_ITS | Encounter Summary ---
Author Organization [facility] Address [address] [place] [address] Care Team Providers Care Cook At School Name Role Phone Regina Ovalles MD Primary Care Provider +1- [phone] Encounter Details Date Type Department Care Team (Late Contact Info) Description 10/02/2002 Outpatient Historical [facility] Internal Medicine [address] 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 Gender Identity Not on file Sexual Orientation Not on file documented as of this encounter Plan of Treatment Upcoming Encounters Date Type Department Care Team (Late st Contact Info) Description 04/16/2025 12:45 PM CDT Office Visit [facility] Oncology and Hematology - [place] [address] [facility] [address] [place] [address] Malcolm Shay MD [address] [facility] [address] [place] [address] documented as of this encounter Visit Diagnoses Not on filedocumented in this encounter Care Teams Cook At School Relationship Specialty Start Date End Date Regina Ovalles MD [address] [place] [address] PCP - General 06/03/15 documented as of this encounter
--- OUTSIDE RECORDS SUMMARY | 2025-04-01 01:01 | XMS_ITS | Clinical Summary ---
Author Organization [facility] Address [address] [place] [address] Care Team Providers Care Civil Transportation Engineer Name Role Phone Juanita Lemons NP Primary Care Provider [phone] Allergies Active Allergy Reactions Criticality Noted Date [...] 12/30/2020 Sertraline Shortness of breath,Swelling,Seizures High 09/17/2015 [place] Anaphylaxis High 12/30/2020 [place] Other (See comments) 08/26/2024 Vancomycin Hives,Itching,Rash,S hortn [...] (650 mg total) by mouth nightly Active blmvpoldhtqp-flm-e deysi-FA-vit K (Bariatric Multivitamins) 45 mg iron- [...] on file Legal Sex Female 1:08 AM 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 73 m2 [facility] Comment: Interpretive Data Reference Interval Normal [...] ORDERABLES Judy l Result Performing Organization Address [facility] de Phone Number [facility] [employer] [place] [address] * POCT hemoglobin A1c (11/13/2022 11:16 AM CDT) Hgb A1C, POC 4.9 4.0 - 5.6 % [facility] Est Average Gluc POC 94 mg/dL [facility] Comment: The ADA recommends reporting an estimated Average Glucose (eAG) with all Hemoglobin A1c results using the equation derived from a study of 507 normal and diabetic adults. Minority populations were underrepresented and children were not included. (Diabetes Care 31:8012-3076, 2008). The eAG is not equivalent to a fasting glucose. Blood 11/13/2022 11:1 6 AM CDT 11/13/2022 11:16 AM CDT Ree Greene MD POINT OF CARE TEST OR DERABLES Final Result Performing Organization Address [facility] de Phone Number [facility] [employer] [place] [address] from Last 3 Months or Most Recently Relevant to Health Maintenance Insurance [facility] MEDICARE ADVANTAGE AET[employer] MEDICARE GOLD AETNA MEDICARE GOLD Advance Directives For more information, please contact: [phone] * Full Code (Latest Code Status on File) Date Activated Date Inactivated Comments 11/15/2022 6:20 PM 11/18/2022 6:51 PM Care Teams Civil Transportation Engineer Relationship Specialty Start Date End Date Juanita Lemons, ANTONIO [address] [place] [address] PCP - General Family Medicine 07/15/24
--- OUTSIDE RECORDS SUMMARY | 2025-04-01 01:01 | XMS_ITS | Clinical Summary ---
Author Organization [facility] Care Team Providers Care Engineering Psychologist Name Role Phone Unavailable Primary Care Provider [...] (1 of 2) 2014 Influenza Immunization (#1) 2025 10/0 01/2020, 03/31/2019, 03/22/2016, Additional history exists SARS-COV-2 Immunization (2024- season) 2025 03/24/2021, 08/06/2020, 07/16/2020 Respiratory Syncytial Virus (RSV) [...]
--- OUTSIDE RECORDS SUMMARY | 2025-04-01 01:01 | XMS_ITS | Encounter Summary ---
Author Organization [facility] Address [address] [place] [address] Care Team Providers Care Engineering Manager Name Role Phone Regina Ovalles MD Primary Care Provider +1- [phone] Encounter Details Date Type Department Care Team (Late Contact Info) Description 02/01/2003 Outpatient Historical [facility] Internal Medicine [address] 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 Gender Identity Not on file Sexual Orientation Not on file documented as of this encounter Plan of Treatment Upcoming Encounters Date Type Department Care Team (Late st Contact Info) Description 04/16/2025 12:45 PM CDT Office Visit [facility] Oncology and Hematology - [place] [address] [facility] [address] [place] [address] Malcolm Shay MD [address] [facility] [address] [place] [address] documented as of this encounter Visit Diagnoses Not on filedocumented in this encounter Care Teams Engineering Manager Relationship Specialty Start Date End Date Regina Ovalles MD [address] [place] [address] PCP - General 06/03/15 documented as of this encounter
--- OUTSIDE RECORDS SUMMARY | 2025-04-01 01:01 | XMS_ITS | Encounter Summary ---
Author Organization [facility] Address [address] [place] [address] Care Team Providers Care Cattle Knocker Name Role Phone Regina Ovalles MD Primary Care Provider +1- [phone] Encounter Details Date Type Department Care Team (Late Contact Info) Description 02/01/2003 Outpatient Historical [facility] Internal Medicine [address] 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 Gender Identity Not on file Sexual Orientation Not on file documented as of this encounter Plan of Treatment Upcoming Encounters Date Type Department Care Team (Late st Contact Info) Description 04/16/2025 12:45 PM CDT Office Visit [facility] Oncology and Hematology - [place] [address] [facility] [address] [place] [address] Malcolm Shay MD [address] [facility] [address] [place] [address] documented as of this encounter Visit Diagnoses Not on filedocumented in this encounter Care Teams Cattle Knocker Relationship Specialty Start Date End Date Regina Ovalles MD [address] [place] [address] PCP - General 06/03/15 documented as of this encounter
--- OUTSIDE RECORDS SUMMARY | 2025-04-01 01:01 | XMS_ITS | Encounter Summary ---
Author Organization [facility] Address [address] [place] [address] Care Team Providers Care Manager Quantitative Name Role Phone Regina Ovalles MD Primary Care Provider +1- [phone] Encounter Details Date Type Department Care Team (Late Contact Info) Description 01/29/2003 Outpatient Historical [facility] Internal Medicine [address] [facility] [facility] 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 Gender Identity Not on file Sexual Orientation Not on file documented as of this encounter Plan of Treatment Upcoming Encounters Date Type Department Care Team (Late st Contact Info) Description 04/16/2025 12:45 PM CDT Office Visit [facility] Oncology and Hematology - [place] [address] [facility] [address] [place] [address] Malcolm Shay MD [address] [facility] [address] [place] [address] documented as of this encounter Visit Diagnoses Not on filedocumented in this encounter Care Teams Manager Quantitative Relationship Specialty Start Date End Date Regina Ovalles MD [address] [place] [address] PCP - General 06/03/15 documented as of this encounter
--- OUTSIDE RECORDS SUMMARY | 2025-04-01 01:01 | XMS_ITS | Patient Health Record ---
Author Organization [facility] [employer] Address [address] [place] [address] Care Team Providers Care Corporate Development Analyst Name Role Phone Juanita Aguilera Primary Care Provider Ann-Marie Way Unavailable [phone] Allergies Allergen (clinical drug ingredient) Drug/Non Drug [...] Component Value Reference Range Notes UDT Reviewed date:11/11/2024 05:24:57 PM Interpretation: Performing Lab: Notes/Report: THC n 0 - 50 ng/ml Cocaine n 0 - 300 ng/ml Amphetamine n 0 - 1000 ng/ml Buprenorphine (BUP) n 0 - 10 ng/ml Secobarbital (Bar) n 0 - 300 ng/ml Oxazepam (BZO) p 0 - 300 ng/ml 1-jgjmrqgpos-0,5-zrhirywj-7,3-diphenylpyrrolidine (MAHNAZ P) n 0 - 300 ng/ml Methamphetamine (MET) n 0 - 1000 ng/ml Methylenedioxymethamphetamine (MDMA) n 0 - 500 ng/ml Morphine (MOP 300/NCR8620) n 0 - 300 ng/ml Methadone (MTD) [...] Oxazepam (BZO) n 0 - 300 ng/ml 2-ywgrzcerhp-9,2-mjxfxlxz-0,3-diphenylpyrrolidine (MAHNAZ P) n 0 - 300 ng/ml Methamphetamine (MET) n 0 - 1000 ng/ml Methylenedioxymethamphetamine (MDMA) n 0 - 500 ng/ml Morphine (MOP 300/[id number]) p 0 - 300 ng/ml Methadone (MTD) n 0 - 300 ng/ml Phencyclidine (PCP) n 0 - 25 ng/ml Nortriptyline (TCA) n 0 - 1000 ng/ml Oxycodone n 0 - 300 ng/ml x n 0 - 300 ng/ml UDT Reviewed date:03/23/2025 10:01:58 PM Interpretation: Performing Lab: Notes/Report: THC n 0 - 50 ng/ml Cocaine n 0 - 300 ng/ml Amphetamine n 0 - 1000 ng/ml Buprenorphine (BUP) n 0 - 10 ng/ml Secobarbital (Bar) n 0 - 300 ng/ml Oxazepam (BZO) p 0 - 300 ng/ml 5-svtpcxoaju-3,6-jgzjabod-6,3-diphenylpyrrolidine (MAHNAZ P) n 0 - 300 ng/ml Methamphetamine (MET) n 0 - 1000 ng/ml Methylenedioxymethamphetamine (MDMA) n 0 - 500 ng/ml Morphine (MOP 300/HUD0654) n 0 - 300 ng/ml Methadone (MTD) n 0 - 300 ng/ml Phencyclidine (PCP) n 0 - 25 ng/ml Nortriptyline (TCA) n 0 - 1000 ng/ml Oxycodone n 0 - 300 ng/ml x n 0 - 300 ng/ml UDT Reviewed date:12/28/2024 06:11:27 PM Interpretation: Performing Lab: Notes/Report: THC n 0 - 50 ng/ml Cocaine n 0 - 300 ng/ml Amphetamine n 0 - 1000 ng/ml Buprenorphine (BUP) n 0 - 10 ng/ml Secobarbital (Bar) n 0 - 300 ng/ml Oxazepam (BZO) p 0 - 300 ng/ml 2-fymnlrvlyt-6,7-zgtxgijh-3,3-diphenylpyrrolidine (MAHNAZ P) n 0 - 300 ng/ml Methamphetamine (MET) n 0 - 1000 ng/ml Methylenedioxymethamphetamine (MDMA) n 0 - 500 ng/ml Morphine (MOP 300/VWX0523) n 0 - 300 ng/ml Methadone (MTD) [...] Oxazepam (BZO) N 0 - 300 ng/ml 4-nfutegrlaj-6,8-hcpdkgta-2,3-diphenylpyrrolidine (MAHNAZ P) N 0 - 300 ng/ml Methamphetamine (MET) N 0 - 1000 ng/ml Methylenedioxymethamphetamine (MDMA) N 0 - 500 ng/ml Morphine (MOP 300/HBD1395) N 0 - 300 ng/ml Methadone (MTD) N 0 - 300 ng/ml Phencyclidine (PCP) N 0 - 25 ng/ml Nortriptyline (TCA) N 0 - 1000 ng/ml Oxycodone N 0 - 300 ng/ml x N 0 - 300 ng/ml Reason For Referral No Information Medications Medication SIG (Take, Route, Frequency, Duration) Notes Start Date End Date Status Lansoprazole 30 MG Capsule Delayed Release 1 capsule 1/2 to 1 hour before morning meal Orally Once a day Active valACYclovir HCl 1 GM Tablet Oral; Duration: 1 Days Activ e Aspirin 81 MG Tablet Delayed Release 1 tablet Orally Once a day Active traMADol HCl 50 MG Tablet Oral; Duration: 30 Days Active Bariatric Multivitamin/Iron - Tablet Chewable as directed Orally Active Omeprazole 40 MG Capsule Delayed Release TAKE 1 CAPSULE BY MOUTH ONCE DAILY Oral; Duration: 90 Days Active Magnesium 400 MG Capsule as directed Orally Active ALPRAZolam 0.5 MG Tablet 1 tablet at bedtime Oral daily; Duration: 30 days As needed 03/23/2025 Active Olmesartan Medoxomil 5 MG Tablet as directed Orally Active Dupuyer 3 1200 MG Capsule 1 capsule Orally Once a day Active Calcium & Vit D3 Bone Health - Liquid as directed Orally Active Celecoxib 100 MG Capsule 1 capsule Orall y Once a day Active Vitamin D3 1.25 MG (50761 UT) Capsule 1 capsule Orally Active buPROPion HCl 75 MG Tablet Oral; Duration: 30 Days Not- Taking Creon [id number] UNIT Capsule Delayed Release Particles as directed Orally Active Social History Tobacco Use: Social [...] Problem Status W/U Status Risk Notes Problem Mild recurrent major depression (05516730) Major depressive disorder, recurrent, mild (F33.0) Active confirmed Problem Moderate recurrent major depression (81105587) Major depressive disorder, recurrent, moderate (F33.1) Active confirmed Problem Severe recurrent major depression without psychotic features (32023586) Major depressive disorder, recurrent severe without psychotic features (F33.2) Active confirmed Problem Generalized anxiety disorder (61406846) Generalized anxiety disorder (F41.1) Active confirmed Problem Obstructive sleep apnea syndrome (49531848) CASSIA (obstructive sleep apnea) (G47.33) Active confirmed Problem Severe recurrent major depression without psychotic features (20606745) MDD (major depressive disorder), recurrent severe, 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) Active confirmed Problem Insomnia disorder related to another mental disorder (33768365) 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) Active confirmed Problem Panic disorder (568175705) Panic attacks (F41.0) Active confirmed Problem Caregiver role strain (063689896) Caregiver stress (Z63.6) Active confirmed Problem History of bypass of stomach (165699367) H/O gastric bypass (Z98.84) 3 Active confirmed Vital Signs Heart Rate 80 /min 03/23/2025 Height-cm 167.64 cm 03/23/2025 Blood pressure diastolic 76 mm Hg 03/23/2025 Weight-kg 70.67 kg 03/23/2025 Height 66 in 03/23/2025 Blood pressure systolic 117 mm Hg 03/23/2025 Weight 155.8 lbs 03/23/2025 BMI 25.14 kg/m2 03/23/2025 Encounters Encounter Location Date Provider Diagnosis [facility] [employer] [address] [address] 10/09/2024 Ann-Marienia Morales Major depressive disorder, recurrent severe without psychotic features F33.2 ; Generalized anxiety disorder F41.1 ; 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.05 ; Encounter for screening for depression Z13.31 and Encounter for screening for cardiovascular disorders Z13.[address] [address] 11/06/2024 Ann-Marienia Morales Major depressive disorder, recurrent, mild F33.0 ; 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.05 ; Panic attacks F41.0 ; Generalized anxiety disorder F41.1 ; Encounter for screening for depression Z13.31 and Encounter for screening for cardiovascular disorders Z13.[address] [address] 12/07/2024 Ann-Marie Roblessabrina Encounter for screening for depression Z13.31 ; Major depressive disorder, recurrent, mild F33.0 ; Generalized anxiety disorder F41.1 ; Panic attacks F41.0 ; 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.05 ; CASSIA (obstructive sleep apnea) G47.33 and [facility]counter for screening for [facility] disorders [facility]13.6 [facility] [address] [address] 12/28/2024 Ann-Marienia Morales Major depressive disorder, recurrent, moderate F33.1 ; Generalized anxiety disorder F41.1 ; 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.05 and Panic attacks F41.0 [facility] [employer] [address] 01/25/2025 Ann-Marienia Morales Major depressive disorder, recurrent, moderate F33.1 ; Generalized anxiety disorder F41.1 ; 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.05 and Panic attacks F41.0 [facility] [employer] [address] [address] 02/23/2025 Ann-Marienia Morales Major depressive disorder, recurrent, moderate F33.1 ; Generalized anxiety disorder F41.1 ; 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.05 and Panic attacks F41.0 [facility] [employer] [address] [address] 03/23/2025 Ann-Marie Morales Generalized anxiety disorder F41.1 ; Major depressive disorder, recurrent, mild F33.0 ; 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.05 and Caregiver stress Z63.6 [facility], [facility] [address] [place] [address] 11/06/2024 Ann-Marie Morales [facility], [facility] [address] [place] [address] 12/11/2024 An-nMarie Mroales [facility], [facility] [address] [place] [address] 02/05/2025 Ann-Marie Morales [facility], [facility] [address] [place] [address] 02/22/2025 Ann-Marie Morales [facility], [facility] [address] [place] [address] 03/01/2025 Ann-Marie Morales [facility], [place] [address] [place] [address] 09/09/2024 [facility] [place] [address] [place] [address] 10/09/2024 Ann-Marie [facility], [facility] [address] [place] [address] 02/05/2025 Ann-Marie [facility], [place] [address] [place] [address] 02/09/2025 Ann-Mraie Morales [facility], [place] [address] [place] [address] 03/07/2025 Ann-Marie Morales Generalized anxiety disorder F41.1 [facility], [place] [address] [place] [address] 03/09/2025 Ann-Marie Morales Assessments Encounter Date Diagnosis (ICD Code) Assessment Notes Treatment Notes Treatment Clinical Notes Section Notes 03/07/2025 Generalized anxiety disorder (ICD-10 - F41.1) 03/23/2025 Major depressive disorder, recurrent, mild (ICD-10 - F33.0) 03/23/2025 Generalized anxiety disorder (ICD-10 - F41.1) 01/25/2025 Major depressive disorder, recurrent, moderate (ICD-10 - F33.1) 02/23/2025 Major depressive disorder, recurrent, moderate (ICD-10 - F33.1) 10/09/2024 Major depressive disorder, recurrent severe without psychotic features (ICD-10 - F33.2) 11/06/2024 Major depressive disorder, recurrent, mild (ICD-10 - F33.0) 11/06/2024 Insomnia related to another mental disorder (ICD-10 - F51.05) 12/07/2024 Major depressive disorder, recurrent, mild (ICD-10 - F33.0) I'm considering augmenting therapy with a new medication or starting/switchin g to a new medication Medication considered [id number] Citalopram (Celexa), [id number] Sertraline (Zoloft), KDE5L19, CYP2D6 Amitriptyline (Elavil), CYP2D5 Aripiprazole (Abilify) and CYP2D6 Vortioxetine (Trintellix ) I'm considering a dosage adjustment to currently prescribed medication(s) Medication considered [id number] Escitalopram (Lexapro) Have you considered non-genetic factors [...] 10/09/2024 Generalized anxiety disorder (ICD-10 - F41.1) 02/23/2025 Generalized anxiety disorder (ICD-10 - F41.1) 01/25/2025 Generalized anxiety disorder (ICD-10 - F41.1) 03/23/2025 Insomnia related to another mental disorder (ICD-10 - F51.05) 03/23/2025 Caregiver stress (ICD-10 - Z63.6) 12/07/2024 Panic attacks (ICD-10 - F41.0) 01/25/2025 Insomnia related to another mental disorder (ICD-10 - F51.05) 02/23/2025 Insomnia related to another mental disorder (ICD-10 - F51.05) 10/09/2024 Insomnia related to another mental disorder (ICD-10 - F51.05) 11/06/2024 Generalized anxiety disorder (ICD-10 - F41.1) 12/28/2024 Insomnia related to another mental disorder (ICD-10 - F51.05) 12/28/2024 Panic attacks (ICD-10 - F41.0) 10/09/2024 Encounter for screening for depression (ICD-10 - Z13.31) 02/23/2025 Panic attacks (ICD-10 - F41.0) 01/25/2025 Panic attacks (ICD-10 - F41.0) 11/06/2024 Encounter for screening for depression (ICD-10 - Z13.31) 12/07/2024 Insomnia related to another mental disorder (ICD-10 - F51.05) 10/09/2024 Encounter for screening for cardiovascular disorders [...] Patient has an upcoming appointment with a nanotechnology engineering technologist on the of this month for further [...] - Xanax - Patient informed of potential SCHEDULING AGENT depression when combined with opioids - Continue [...] Considering transition to duloxetine (Cymbalta) based on nanotechnology engineering technologist's suggestion and potential benefits for pain management. 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 Lupus has been ruled out. Recent liver function tests show mild abnormalities, which have improved since discontinuation of Paxil. Plan: - Follow up with nanotechnology engineering technologist on February 04 - Monitor liver function [...] tapering of current medications during the transition. 02/23/2025 Other Hanna Melendez, a patient with a history of depression and anxiety, presents for follow-up after discontinuing duloxetine due to side effects, reporting improved mood and sleep with Xanax use. Major Depressive DisorderAssessment : Patient reports significant improvement in depressive symptoms after discontinuing antidepressants. Depression score has decreased from 15 (moderately severe) in September to 3 (minimal) currently. Patient expresses desire to continue without antidepressant medication for now, while acknowledging potential future need. Family history of depression noted.Plan:- Discontinue antidepressant medication as per patient's request and current clinical improvement- Monitor for recurrence of depressive symptoms- Follow up in 4 weeks Generalized Anxiety DisorderAssessment : Anxiety symptoms have improved significantly, with current anxiety score of 4 (minimal) compared to moderate range previously. Patient reports benefit from Xanax for sleep initiation. Consider transitioning from alprazolam to lorazepam for longer-acting anxiolytic effect and potentially reduced risk profile.Plan:- Transition from alprazolam to lorazepam- Lorazepam - Start with 0.5 mg PO at bedtime - May increase to 1 mg if needed - Patient instructed to use pill cutter if needed- Discontinue alprazolam- Monitor for efficacy and side effects- Follow up in 4 weeks InsomniaAssessment : Long-standing sleep difficulties reported. Recent improvement noted with use of alprazolam. Patient expresses strong desire to continue medication that aids sleep. Transitioning to lorazepam may provide longer-lasting effect for sleep maintenance.Plan:- Transition to lorazepam as noted above for anxiety management and sleep improvement- Monitor sleep quality with medication change- Consider future transition to clonazepam if indicated, due to its more favorable profile for long-term use at bedtime Sleep ApneaAssessment: Patient reports previous CPAP use complicated by aspiration. Recent pulmonology consult suggests low likelihood of sleep apnea based on neck measurements, but home sleep study recommended for further evaluation.Plan:- Patient to follow up with pulmonology office regarding home sleep study- Await results of sleep study for further management Supportive Therapy - Reinforced patient's strengths and normalized challenges. - Reinforced establishing healthy boundaries with sister and others. - Encouraged to continue to prioritize self and support ongoing self-care needs. - Encouraged self-affirming practices to increase self-trust. - Encouraged consistent use of coping skills. Medical Decision MakingHanna Melendez is a patient with a history of depression and anxiety, presenting for follow-up after discontinuing duloxetine due to side effects. The patient reports significant improvement in depressive symptoms without antidepressant medication for 22 days, with depression scores decreasing from 15 (moderately severe) to 3 (minimal) and anxiety scores from moderate to 4 (minimal). Clinical reasoning supports a trial without antidepressants given the patient's improved mood and functioning. The decision to transition from alprazolam to lorazepam for sleep and anxiety management is based on the longer-acting properties of lorazepam and its potentially lower risk profile. Consideration was given to the relative potencies of different benzodiazepines, with lorazepam being less potent than alprazolam but having a longer duration of action. The clinician acknowledges the potential for needing to adjust the lorazepam dosage based on the patient's response, allowing for flexibility in finding the optimal dose for sleep without causing morning grogginess. 03/23/2025 Charissa Melendez, female, presents with difficulty concentrating, restlessness, racing thoughts, and irritability following significant weight loss of 505 pounds. She reports upcoming foot surgery and recent discontinuation of Paxil. Depression Assessment: Patient denies depression but acknowledges racing thoughts and struggles to keep up with her thoughts. Patient reports significant difficulty concentrating and focusing, describing herself as fragmented and not settled. She attributes this partly to boredom following substantial weight loss, as she finds it challenging to remain sedentary. Plan: - Defer initiation of new medications at this time - Reassess in 3 months, which will sampson 90 days without previous medications - Provide referral options for counseling and therapy to address coping skills and stress tolerance - Supportive therapy provided to help patient develop coping mechanisms and validate emotional experiences Anxiety and irritability Assessment: Patient reports ongoing struggles with anxiety and irritability. Current management includes as-needed Xanax, which has been helpful for sleep. Patient sleeps from approximately 10:30 PM to 8:00 AM, reporting feeling a little groggy but generally good upon waking. Plan: - Continue Xanax as needed for anxiety and sleep - Continued supportive therapy to manage anxiety symptoms Caregiver Morton Assessment: Patient experiences significant stress related to caring for her sister, which contributes to her overall emotional and psychological strain. The additional responsibilities and emotional demands of caregiving appear to exacerbate her existing anxiety and concentration difficulties. Plan: - Provide resources for caregiver support groups - Discuss stress management techniques specific to caregiver roles - Consider additional counseling to address caregiver-related emotional challenges Upcoming foot surgery Assessment: Patient has scheduled right foot surgery for next . This will result in limited mobility for approximately 12 weeks post-operation. Plan: - Follow up in 3 months, coinciding with post-surgical recovery period - Supportive therapy to help patient cope with potential mobility restrictions Fatigue and possible nutritional deficiencies Assessment: Patient reports fatigue and suspects possible thyroid dysfunction and iron deficiency based on previous experiences. She mentions upcoming blood work and scheduled B12 injection. Plan: - Patient to proceed with scheduled blood work on - Review blood work results at follow-up appointment Medical Decision Making Hanna Melendez is a female patient with a history of significant weight loss (505 pounds) presenting with difficulty concentrating, restlessness, racing thoughts, and irritability. The patient's symptoms do not appear to be consistent with depression, as she denies feeling like laying in bed and crying. Anxiety is considered as a possible diagnosis, given her reported restlessness and racing thoughts. The clinician considers clonidine as a potential medication option for anxiety and ADHD-like symptoms, particularly addressing restlessness and impulsivity. However, given the patient's recent discontinuation of Paxil and upcoming foot surgery, the decision is made to defer medication changes and reassess after a 90-day medication-free period. The patient's fatigue and difficulty concentrating are potentially attributed to anemia or vitamin B12 deficiency, with upcoming blood work to evaluate thyroid and iron levels. The clinician acknowledges that the patient's current living situation may be contributing to her symptoms, suggesting that therapy or counseling for stress tolerance and coping skills may be more beneficial than medication at this time. Supportive therapy was provided to help patient process emotional challenges and develop adaptive coping strategies. Plan Of Treatment Pending Test Test Name Order Date Cytochrome P450 2D6 Genotyping 5 Cytochrome P450 2C9 Genotyping 5 Cytochrome P450 2C19 12/07/2024 Next Appt Details Provider Name:Ann-Marie lizarraga, 06/23/2025 11:00:00 AM, [address] [facility] [address] [facility], [facility] [address], [place], [address], Insurance Providers Payer Name Payer Address Payer Phone Subscriber Number Group Number Insured Name Patient Relationship to Insured Coverage Start Date Coverage End Date [facility] [address] [place] [phone] [id number] Hanna Melendez Self - patient is the insured Medical (General) History Medical History History ICD Code Past Psychiatric History: Major Depressi ve Episode Non-alcoholic steatohepatitis (GOZNALEZ) CASSIA (obstructive sleep apnea) G47.33 Chronic pain [...]
--- OUTSIDE RECORDS SUMMARY | 2025-04-01 01:01 | XMS_ITS | Encounter Summary ---
Author Organization [facility] Address [address] [place] [address] Care Team Providers Care Cashier Assistant Name Role Phone Regina Ovalles MD Primary Care Provider [phone] Encounter Details Date Type Department Care Team (Late Contact Info) Description 05/31/2003 Outpatient Historical [facility] 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 Gender Identity Not on file Sexual Orientation Not on file documented as of this encounter Plan of Treatment Upcoming Encounters Date Type Department Care Team (Late Contact Info) Description 04/16/2025 12:45 PM CDT Office Visit [facility]ology - [place] [address] [address] [place] [address] Malcolm Shay MD [address] [facility] [address] [place] [address] documented as of this encounter Visit Diagnoses Not on filedocumented in this encounter Care Teams Cashier Assistant Relationship Specialty Start Date End Date Regina Ovalles MD [address] [place] [address] PCP - General 06/03/15 documented as of this encounter
--- OUTSIDE RECORDS SUMMARY | 2025-04-01 01:01 | XMS_ITS | Encounter Summary ---
Author Organization [facility] Address [address] [place] [address] Care Team Providers Care Cocoa Press Operator Name Role Phone Regina Ovalles MD Primary Care Provider [phone] Encounter Details Date Type Department Care Team (Late Contact Info) Description 02/28/2004 Outpatient Historical [facility] Internal Medicine 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 Gender Identity Not on file Sexual Orientation Not on file documented as of this encounter Plan of Treatment Upcoming Encounters Date Type Department Care Team (Late st Contact Info) Description 04/16/2025 12:45 PM CDT Office Visit [facility] Oncology and Hematology - [place] [address] [place] [address] Malcolm Shay MD [address] [place] [address] documented as of this encounter Visit Diagnoses Not on filedocumented in this encounter Care Teams Cocoa Press Operator Relationship Specialty Start Date End Date Regina Ovalles MD [address] [place] [address] PCP - General 06/03/15 documented as of this encounter
--- OUTSIDE RECORDS SUMMARY | 2025-04-01 01:01 | XMS_ITS | Clinical Summary ---
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 Gender Identity Not on file Sexual Orientation [...] of 2) 2014 COVID-19 Vaccine ( - 2024- season) 2025 03/24/2021, 08/06/2020, 07/16/2020 Influenza Adult (#1) 2025 03/28/2022, 03/08/2021, 04/11/2020, Additional history exists DTaP, Tdap and Td Vaccines (5 - Td or Tdap) 11/05/2032 11/05/2022, 01/27/2018, 01/22/2018, Additional history exists RSV Immunization or 60+ Years (1 - 1-dose 75+ series) 10/02/2039 Hepatitis A Vaccines Aged Out No long er eligible based on patient's age to complete this topic Meningococcal B Vaccine Aged Out No l onger eligible based on patient's age to complete this topic Meningococcal Vaccine Aged Out No abraham hemant eligible based on patient's age to complete this topic RSV Immunizations Under 20 Months Aged Out No longer eligible based on patient's age to complete this topic Insurance [employer] MEDICARE Care Teams Quality Process Auditor Relationship Specialty Start Date End Date Juanita Lemons FNP [address] [place] [id number] PCP - General NURSE PRACTITIONER 01/22/24
--- OUTSIDE RECORDS SUMMARY | 2025-04-01 01:01 | XMS_ITS | Data Portability ---
Author Organization [place] [facility], Main Office Address [address] [place] [address] Assessment No assessment recorded. Plan of Treatment Reminders Order Date Submit Date Provider Last Modified By Organization Details Last Modified Time Details Appointments Follow Up 15 2025 02:00P Ramana Lemons NP Not available Not available Not available Lab HbA1c (hemoglob in A1c), blood 2023 [employer] [facility], [address], [place], [address], 03/28/2024 03:16:29 CMP, serum or plasma 2023 [employer] [facility], [address], [place], [address], 03/28/2024 03:16:25 hepatic function panel, serum 2023 [employer] [facility], [address], [place], [address], 03/28/2024 03:16:26 CBC w/ auto diff 2023 [employer] [facility], [address], [place], [address], 03/28/2024 03:16:27 lipid panel, serum 2023 [employer] [facility], [address], [place], [address], 03/28/2024 03:16:22 TSH, serum or plasma 2023 JOHAN ditlo [facility], [address], [place], [address], 03/28/2024 03:16:28 Referral associate business analyst & immunolog ist referral - Please call patient to schedule an appointme nt. Thank you. 2024 025 ATHSANDRINE Cordero MD, [address], [place], [address], 02/19/2025 12:55:22 rheumatol ogist referral - Please call patient to schedule an appointme nt. Thank you. 2024 025 [email or web address] Chaparro Skaggs MD, [address] [facility], [address], [place], [address], 03/22/2025 09:54:[address] referral - Please call patient to schedule an appointme nt. Thank you. 2024 025 [email or web address] [facility], [address] [facility], [address], [address], 07/22/2024 08:50:05 hematolog ist referral - Please call patient to schedule an appointme nt. Thank you. 2024 025 [email or web address] Malcolm Shay MD, [address], [place], [address], 07/22/2024 08:49:33 Procedures None recorded. Surgeries None recorded. Imaging None recorded. Medication Orders tramadol 50 mg tablet 2024 025 [facility], [address], [place], [address], 02/18/2025 15:47:47 magnesium oxide 400 mg (241.3 mg magnesium ) tablet 2024 025 [facility], [address], [place], [address], 02/18/2025 15:47:41 valacyclo vir 1 gram tablet [address] [facility] 2425, [address] , [place], [address], 02/18/2025 15:41:56 celecoxib 200 mg capsule [address] [facility] 2425, [address] [facility], [place], [address], 02/18/2025 15:47:43 olmesarta n 5 mg tablet [address] [facility] 2425, [address] [facility], [place], [address], 02/18/2025 15:47:41 omeprazol e 40 mg capsule,d elayed release [address] [facility] 2425, [address] [facility], [place], [address], 02/18/2025 15:47:42 Ozempic 1 mg/dose (4 mg/3 mL) subcutane ous pen injector 2024 025 [facility] [address] [place], [address], 08/18/2024 15:35:22 bupropion HCl XL 150 mg 24 hr tablet, extended release [email or web address] [place] [address] 2425, [address] [facility], [place], [address], 12/10/2024 08:39:00 tramadol 50 mg tablet [address] [facility] 2425, [address] [facility], [place], [address], 06/23/2024 14:41:42 Ozempic 1 mg/dose (4 mg/3 mL) subcutane ous pen injector 2024 025 [facility], [address] [facility], [place], [address], 06/23/2024 14:45:24 bupropion HCl 75 mg tablet 2024 025 [email or web address] [facility], [address], [address], [id number], 12/10/2024 08:38:57 tramadol 50 mg tablet 2023 024 JOHAN [facility] 2425, [address] [facility], [place], [address], 03/20/2024 13:01:32 Flonase Allergy Relief 50 mcg/actua tion nasal spray,lilly pension 2023 024 llalor [facility] 2425, [address] [facility], [place], [address], 02/18/2025 15:21:42 magnesium oxide 400 mg (241.3 mg magnesium ) tablet [address] [facility] 2425, [address] [facility], [place], [address], 03/20/2024 13:01:25 paroxetin e 30 mg tablet 2023 024 [email or web address] [facility] 2425, [address] [facility], [place], [address], 12/10/2024 08:41:31 olmesarta n 5 mg tablet 2023 024 [email or web address] [facility] 2425, [address] [facility], [place], [address], 03/20/2024 13:05:30 celecoxib 200 mg capsule 2023 024 [email or web address] [facility] 2425, [address] [facility], [place], [address], 12/10/2024 08:39:54 Patient TargetsNo targets recorded. Patient Instructions Encounter Date Encounter Id Patient Instructions Last Modified By Organization Details Last Modified Time 03/19/2024 [id number] dementia rating scale-2* [email or web address] Not available 03/20/2024 13:01:16 multi-dimensiona l health assessment questionnaire* [email or web address] Not available 03/20/2024 13:01:16 care plan* [email or web address] Not available 09/2023 13:01:16 advance directiv es: care instructions Not available 03/20/2024 13:01:16 advance care planning: care instructions Not available 03/20/2024 13:01:16 [place] Advance Directives [email or web address] Not available 03/20/2024 13:01:16 Personalized a lt Plan and Screening Recommendations Advance Directives - Do you have one? Advance Directives - Do we have your advance directive on file in your health record? Primary Prevention/Interven tion (prevents or decreases the chance of common diseases from occurring) Smoking Risk: Alcohol Misuse Screening: Weight: Physical activity: Nutrition: Fall Risk (screened today): Vaccines Pneumococcal: Influenza: Chronic Disease Risks Stroke: Active diagnosis, Continue current treatment plan Heart Attack: Active diagnosis, Continue current treatment plan Clogging of the Arteries: Active diagnosis, Continue current treatment plan Diabetes: Active diagnosis, Continue current treatment plan Secondary Prevention/Interven tion (detects treatable diseases before they may cause symptoms, disability, or ) Breast Cancer Screening with mammogram: Cervical/Uterine/Ov jarrod Cancer Screening: Osteoporosis Screening: Date Screening Last Performed: Colon Cancer Screening: Date Screening Last Performed: Eye Disease Screening: Your next exam in: Dementia Risk: Depression Screening: Active diagnosis, Continue current treatment plan [email or web address] Not available 03/19/2024 14:33:37 Reason for Referral Please call patient to sched ule an appointment. Thank you. Referring Physician: Juanita [facility], Encounter Date: 06/23/2024 Neurologist Referral for Mem ory impairment Please call patient to schedule an appointment. Thank you. Ref[facility] Phys[facility] Date: 06/23/2024 [place] Referral for Anti-nuclear factor detected Please call patient to schedule an appointment. Thank you. Referring Physician: Juanita Lemons [facility], Encounter Date: 12/10/2024 Senior Sourcing Manager & Lens Inspector Ref erral for Allergy to food Please call patient to schedule an appointment. Thank you. Referring Physician: Juanita Lemons [facility], Encounter Date: 02/18/2025 Results Created Date Observation Date Name Description Value Unit Range Abnormal Flag Note LastModifiedBy Organization Detail LastModifiedTime 03/27/2003/28/2024 LIPID PANEL , STAND NIYAH cholesterol, total 160 mg/dL <200 normal Not Available [address], [address], 03/28/2024 03:16:22 03/27/2003/28/2024 LIPID PANEL , STAND NIYAH HDL cholesterol 61 mg/dL > or = 50 normal Not Available [address] [address] [place], [address], 03/28/2024 03:16:22 03/27/2003/28/2024 LIPID PANEL , STAND NIYAH triglyceride s 81 mg/dL <150 normal Not Available [address], [address], 03/28/2024 03:16:22 03/27/2003/28/2024 LIPID PANEL , STAND NIYAH LDL-choleste rol 83 mg/dL _(zahida c) normal Refer ence range : <100 Maricarmen able range <100 mg/dL for prima ry preve ntion ; <70 mg/dL for patie nts with CHD or diabe tic patie nts with > or = 2 CHD risk facto rs. LDL-C is now calcu lated using the Kasandra n-Hop kins calcu latvianca n, which is a valid ated novel metho d provi desire vivien r accur acy than the Fried caterina equat ion in the estim ation of LDL-C . Kasandra ortiz SS et al. LAYLA. 2013; 310(1 9): 2061- 2068 (http ://ed ucati on.Rj washingtonPlaycez. com/f aq/FA Q164) Not Available [address], [address], 03/28/2024 03:16:22 03/27/20 24 03/28/2024 LIPID PANEL , STAND NIYAH chol/HDLC ratio 2.6 (calc ) <5.0 normal Not Available [address], [address], 03/28/2024 03:16:22 03/27/2003/28/2024 LIPID PANEL , STAND NIYAH non HDL cholesterol 99 mg/dL _(zahida c) <130 normal For patie nts with diabe faye plus 1 major ASCVD risk facto r, treat ing to a non-H DL-C goal of <100 mg/dL (LDL- C of <70 mg/dL ) is consi dered a thera silverio c kandiceo n. Not Available [address], [address], 03/28/2024 03:16:22 03/27/20 24 03/28/2024 COMPR EHENS RONALD METAB OLIC PANEL glucose 83 mg/dL 65-99 normal Fasti ng refer ence inter nirali Not Available [address], [address], 03/28/2024 03:16:25 03/27/20 24 03/28/2024 COMPR EHENS RONALD METAB OLIC PANEL urea nitrogen (BUN) 21 mg/dL 7-25 normal Not Available [address], [address], 03/28/2024 03:16:25 03/27/20 24 03/28/2024 COMPR EHENS RONALD METAB OLIC PANEL creatinine 0.84 mg/dL 0.50-1 .03 normal Not Available [address], [place], [address], 03/28/2024 03:16:25 03/27/20 24 03/28/2024 COMPR EHENS RONALD METAB OLIC PANEL eGFR 80 mL/mi n/1.7 3m2 > or = 60 normal Not Available [address], [address], 03/28/2024 03:16:25 03/27/20 24 03/28/2024 COMPR EHENS RONALD METAB OLIC PANEL BUN/creatini ne ratio SEE NOTE: (calc ) 6-22 Not Repor jemma: BUN and Creat inine are withi n refer ence range . Not Available [address], [address], 03/28/2024 03:16:25 03/27/20 24 03/28/2024 COMPR EHENS RONALD METAB OLIC PANEL sodium 139 mmol/ L 135-14 6 normal Not Available [address] [address] [place], [address], 03/28/2024 03:16:25 03/27/20 24 03/28/2024 COMPR EHENS RONALD METAB OLIC PANEL potassium 4.5 mmol/ L 3.5-5. 3 normal Not Available [address], [address], 03/28/2024 03:16:25 03/27/20 24 03/28/2024 COMPR EHENS RONALD METAB OLIC PANEL chloride 105 mmol/ L 98-110 normal Not Available [address] [address] [place], [address], 03/28/2024 03:16:25 03/27/20 24 03/28/2024 COMPR EHENS RONALD METAB OLIC PANEL carbon dioxide 28 mmol/ L 20-32 normal Not Available [address], [address], 03/28/2024 03:16:25 03/27/20 24 03/28/2024 COMPR EHENS RONALD METAB OLIC PANEL calcium 9.6 mg/dL 8.6-10 .4 normal Not Available [address], [address], 03/28/2024 03:16:25 03/27/20 24 03/28/2024 COMPR EHENS RONALD METAB OLIC PANEL protein, total 6.5 g/dL 6.1-8. 1 normal Not Available [address], [address], 03/28/2024 03:16:25 03/27/2003/28/2024 COMPR EHENS RONALD METAB OLIC PANEL albumin 3.9 g/dL 3.6-5. 1 normal Not Available [address], [address], 03/28/2024 03:16:25 03/27/20 24 03/28/2024 COMPR EHENS RONALD METAB OLIC PANEL globulin 2.6 g/dL_ (calc ) 1.9-3. 7 normal Not Available [address], [address], 03/28/2024 03:16:25 03/27/20 24 03/28/2024 COMPR EHENS RONALD METAB OLIC PANEL albumin/glob ulin ratio 1.5 (calc ) 1.0-2. 5 normal Not Available [address], [address], 03/28/2024 03:16:25 03/27/20 24 03/28/2024 COMPR EHENS RONALD METAB OLIC PANEL bilirubin, total 0.4 mg/dL 0.2-1. 2 normal Not Available [address], [address], 03/28/2024 03:16:25 03/27/20 24 03/28/2024 COMPR EHENS RONALD METAB OLIC PANEL alkaline phosphatase 149 U/L 37-153 normal Not Available [address] [address] [place], [address], 03/28/2024 03:16:25 03/27/20 24 03/28/2024 COMPR EHENS RONALD METAB OLIC PANEL AST 127 U/L 10-35 high Not Available [address], [address], 03/28/2024 03:16:25 03/27/20 24 03/28/2024 COMPR EHENS RONALD METAB OLIC PANEL ALT 126 U/L 6-29 high Not Available [address], [address], 03/28/2024 03:16:25 03/27/20 24 03/28/2024 HEPAT IC FUNCT ION PANEL protein, total 6.5 g/dL 6.1-8. 1 normal Not Available [address], [address], 03/28/2024 03:16:26 03/27/20 24 03/28/2024 HEPAT IC FUNCT ION PANEL albumin 3.9 g/dL 3.6-5. 1 normal Not Available [address], [address], 03/28/2024 03:16:26 03/27/20 24 03/28/2024 HEPAT IC FUNCT ION PANEL globulin 2.6 g/dL_ (calc ) 1.9-3. 7 normal Not Available [address], [address], 03/28/2024 03:16:26 03/27/20 24 03/28/2024 HEPAT IC FUNCT ION PANEL albumin/glob ulin ratio 1.5 (calc ) 1.0-2. 5 normal Not Available [address], [address], 03/28/2024 03:16:26 03/27/20 24 03/28/2024 HEPAT IC FUNCT ION PANEL bilirubin, total 0.4 mg/dL 0.2-1. 2 normal Not Available [address], [address], 03/28/2024 03:16:26 03/27/20 24 03/28/2024 HEPAT IC FUNCT ION PANEL bilirubin, direct 0.1 mg/dL < or = 0.2 normal Not Available [address], [address], 03/28/2024 03:16:26 03/27/2003/28/2024 HEPAT IC FUNCT ION PANEL bilirubin, indirect 0.3 mg/dL _(zahida c) 0.2-1. 2 normal Not Available [address], [address], 03/28/2024 03:16:26 03/27/20 24 03/28/2024 HEPAT IC FUNCT ION PANEL alkaline phosphatase 149 U/L 37-153 normal Not Available [facility] [address], [address], 03/28/2024 03:16:26 03/27/20 24 03/28/2024 HEPAT IC FUNCT ION PANEL AST 127 U/L 10-35 high Not Available [address], [address], 03/28/2024 03:16:26 03/27/20 24 03/28/2024 HEPAT IC FUNCT ION PANEL ALT 126 U/L 6-29 high Not Available [address], [address], 03/28/2024 03:16:26 03/27/20 24 03/28/2024 CBC (INCL UDES DIFF/ PLT) white blood cell count 4.9 thous and/u L 3.8-10 .8 normal Not Available [address], [address], 03/28/2024 03:16:27 03/27/20 24 03/28/2024 CBC (INCL UDES DIFF/ PLT) red blood cell count 3.99 shahida on/uL 3.80-5 .10 normal Not Available [address], [address], 03/28/2024 03:16:27 03/27/20 24 03/28/2024 CBC (INCL UDES DIFF/ PLT) hemoglobin 10.8 g/dL 11.7-1 5.5 low Not Available [address], [address], 03/28/2024 03:16:27 03/27/20 24 03/28/2024 CBC (INCL UDES DIFF/ PLT) hematocrit 35.5 % 35.0-4 5.0 normal Not Available [address], [address], 03/28/2024 03:16:27 03/27/2003/28/2024 CBC (INCL UDES DIFF/ PLT) MCV 89.0 fL 80.0-1 00.0 normal Not Available [address], [address], 03/28/2024 03:16:27 03/27/20 24 03/28/2024 CBC (INCL UDES DIFF/ PLT) MCH 27.1 pg 27.0-3 3.0 normal Not Available [address], [address], 03/28/2024 03:16:27 03/27/20 24 03/28/2024 CBC (INCL UDES DIFF/ PLT) MCHC 30.4 g/dL 32.0-3 6.0 low For adult s, a sligh t decre ase in the calcu lated MCHC value (in the range of 30 to 32 g/dL) is most likel y not clini navdeep signi nancyan t; dilan er, it shoul d be inter prete d with cauti on in corre lat n with other red cell sumanth eters and the patie nt's clini zahida condi tion. Not Available [address], [address], 03/28/2024 03:16:27 03/27/2003/28/2024 CBC (INCL UDES DIFF/ PLT) RDW 13.2 % 11.0-1 5.0 normal Not Available [facility] [address], [address], 03/28/2024 03:16:27 03/27/2003/28/2024 CBC (INCL UDES DIFF/ PLT) platelet count 306 thous and/u L 140-40 0 normal Not Available [address], [address], 03/28/2024 03:16:27 03/27/20 24 03/28/2024 CBC (INCL UDES DIFF/ PLT) MPV 10.1 fL 7.5-12 .5 normal Not Available [address], [address], 03/28/2024 03:16:27 03/27/2003/28/2024 CBC (INCL UDES DIFF/ PLT) absolute neutrophils 2288 cells /uL 1500-7 800 normal Not Available [address], [address], 03/28/2024 03:16:27 03/27/2003/28/2024 CBC (INCL UDES DIFF/ PLT) absolute lymphocytes 2038 cells /uL 850-39 00 normal Not Available [address], [address], 03/28/2024 03:16:27 03/27/2003/28/2024 CBC (INCL UDES DIFF/ PLT) absolute monocytes 343 cells /uL 200-95 0 normal Not Available [address], [address], 03/28/2024 03:16:27 03/27/2003/28/2024 CBC (INCL UDES DIFF/ PLT) absolute eosinophils 172 cells /uL 15-500 normal Not Available [address], [address], 03/28/2024 03:16:27 03/27/2003/28/2024 CBC (INCL UDES DIFF/ PLT) absolute basophils 59 cells /uL 0-200 normal Not Available [address], [address], 03/28/2024 03:16:27 03/27/2003/28/2024 CBC (INCL UDES DIFF/ PLT) neutrophils 46.7 % normal Not Available [facility] [address], [address], 03/28/2024 03:16:27 03/27/2003/28/2024 CBC (INCL UDES DIFF/ PLT) lymphocytes 41.6 % normal Not Available [address], [address], 03/28/2024 03:16:27 03/27/2003/28/2024 CBC (INCL UDES DIFF/ PLT) monocytes 7.0 % normal Not Available [address], [address], 03/28/2024 03:16:27 03/27/2003/28/2024 CBC (INCL UDES DIFF/ PLT) eosinophils 3.5 % normal Not Available [address], [address], 03/28/2024 03:16:27 03/27/2003/28/2024 CBC (INCL UDES DIFF/ PLT) basophils 1.2 % normal Not Available [facility] [address] [place], [address], 03/28/2024 03:16:27 03/27/2003/28/2024 TSH TSH 2.78 mIU/L 0.40-4 .50 normal Not Available [facility] [address] [place], [address], 03/28/2024 03:16:28 03/27/2003/28/2024 HEMOG LOBIN A1C hemoglobin A1C 5.3 %_of_ [...] Diabe faye(A DA). Not Available [facility] [address] [place], [address], 03/28/2024 03:16:29 03/10/2003/10/2024 XR, upper gastr ointe deni l serie s No observ ation record ed. [address], [place], [address], 03/10/2024 17:14:04 04/30/20 24 04/29/2024 yesi leslie dalton am No observ ation record ed. [address] (Pulmonary) [address] [place] [address] [address] [facility], [place], [address], 05/06/2024 22:13:08 12/16/19 25 12/08/2024 XR, foot, 3 or more view No observ ation record ed. [address], [address], 12/15/2024 15:13:19 01/07/20 25 01/06/2025 XR, hand, 2 view No observ ation record ed. [address] Radiology [address] [place] [address] Route [facility], [place], [address], 01/07/2025 09:43:17 01/08/20 25 01/06/2025 XR, lumba r spine No observ ation record ed. [address] [facility], [place], [address], 01/07/2025 14:39:25 01/20/20 25 01/13/2025 imagi ng/di agnos tic resul t No observ ation record ed. [email or web address] Not Available 10/2024 10:04:16 02/05/20 25 01/27/2025 XR, foot, 2 view No observ ation record ed. [address], [address], 02/04/2025 16:28:24 02/17/20 25 02/15/2025 XR, chest , 2 view No observ ation record ed. [address], [address], 02/16/2025 11:09:24 03/02/20 25 02/17/2025 fluor oscop y (PROC ) No observ ation record ed. [address], [address], 03/02/2025 11:26:36 03/02/20 25 02/17/2025 fluor oscop y (PROC ) No observ ation record ed. llalor [facility] [address] [place], [address], 03/02/2025 11:27:01 03/26/20 25 03/17/2025 XR, foot, 3 or more view No observ ation record ed. [facility] [address] [facility], [place], [address], 03/29/2025 09:03:23 Result Notes None recorded. Problems Name Problem SNOMED Code Status Onset Date Resolution Date Notes Provider Name and Address Organization Details Recorded Time Injury of knee 843120511 Completed Not Available [facility] 3 08:48:35 Acute sinusiti s 15024617 Completed Not Available [facility] 3 08:48:35 Anxiety state 182594228 Active Not Available [facility] 3 08:48:35 Abdomina l pain 52804146 Completed Not Available [facility] 3 08:48:35 Gastroes ophageal reflux disease 673598810 Active Not Available [facility] 3 08:48:36 Gastroen teritis 30200071 Completed Not Available [facility] 3 08:48:36 Edema 790649827 Completed Not Available [facility] 3 08:48:36 Anemia 091205056 Completed Obdulio Garcia MD [address] [place] [address], [address] , [facility] 5 16:38:44 Malaise and fatigue 774649219 Completed Not Available [facility] 3 08:48:36 Hypertri glycerid emia 224774243 Active Not Available [facility] 3 08:48:36 Vitamin D deficien cy 36466978 Active Not Available [facility] 3 08:48:37 Depressi ve disorder 44548771 Active Not Available [facility] 3 08:48:37 Sinusiti s 74167834 Completed Not Available [facility] 3 08:48:37 Hypothyr oidism 13981592 Active Not Available [facility] 3 08:48:37 Type 2 diabetes mellitus 36781046 Completed Emily Herrera MD [address] [address], [place], [address] , [facility] [employer] [facility] 4 13:47:57 Upper respirat ory infectio n 74077297 Completed Not Available [facility] 3 08:48:38 Wheezing 81174389 Completed Not Available [facility] 3 08:48:39 Essentia l hyperten juanito 57162742 Active Not Available [facility] 3 08:48:39 Influenz a 0602101 Completed Not Available [facility] 3 08:48:39 Diabetes mellitus 49135876 Completed Not Available [facility] 3 08:48:39 Body mass index 40+ - severely obese 491509872 Active 2020 Not Available [facility] 3 08:48:37 Obstruct ronald sleep apnea syndrome 59873416 Active 2020 No longer needs cpap due to weight loss Not Available [facility] 3 08:48:40 History of bariatri c surgical procedur e 553302752 Active 2021 Not Available [facility] 3 08:48:39 Metaboli c dysfunct ion-asso ciated steatohe patitis 502161186 Active 2021 Not Available [facility] 3 08:48:38 Migraine with aura 8373616 Active 2021 Not Available [facility] 3 08:48:38 Bilatera l osteoart hritis of knees 13847551221 9107 Active 2022 SHAY Colin [address] [facility], [facility] [address], [place], [address] , [facility] [employer] [facility] 3 13:24:34 Compress ion fracture of thoracic vertebra 72710374017 04 Active 2022 Emily Herrera MD [address] [facility] [address], [place], [address] , [employer] 3 18:31:05 Type 2 diabetes mellitus 15376943 Active 2023 Emily Herrera MD [address], [address], [place], [address] , [employer] 4 13:47:57 Uterine fibroid polyp 032735936 Active 2023 JYOTSNA Jacobs [address], [address], [place], [address] , [facility] 4 10:31:59 Allergic rhinitis 76636164 Active 2023 JYOTSNA Jacobs [address], [address], [place], [address] , [employer] 4 10:49:33 Iron deficien cy anemia 95235428 Active 2023 JYOTSNA Jacobs [address], [place], [address] , [employer] 4 13:47:01 Mixed anxiety and depressi ve disorder 048077056 Active 2024 JYOTSNA Jacobs [address], [address] [facility], [place], [address] , [employer] 5 09:22:34 Herpes labialis 5423485 Active 2024 JYOTSNA Jacobs [address], [place], [address] , [employer] 5 10:27:29 Aphthous ulcer of mouth 051123217 Active 2024 JYOTSNA Jacobs [address], [address], [place], [address] , [employer] 5 10:27:48 Anti-nuc lear factor detected 055994669 Active 2024 JYOTSNA Jacobs [address], [place], [address] , [employer] 09:00:49 Recurren t acute sinusiti s 878627588 Active 2024 JYOTSNA Jacobs [address], [place], [address] , [employer] 16:03:56 Notes:Medical History: Delay ed sleep phase syndrome [...] Time 04/08/20 colonoscopy completed Jody Yoo RN [facility] 04/27/2024 14:22:51 03/19/20 Medicare Wellness CPT Code, subsequent completed Jody Yoo RN [facility] [facility] 03/19/2024 14:33:38 01/25/20 Medicare Wellness CPT Code, subsequent completed Emily Herrera MD [address], [address], [place], [address], [employer] [facility] [employer] 01/24/2023 15:32:45 07/04/19 Gastric Bypass completed Not Available [facility] 08/15/2022 08:43:42 other completed Not Available [facility] 08/15/2022 08:43:42 other completed Not Available [facility] 08/15/2022 08:43:42 Colonoscopy completed Not Available [facility] 08/15/2022 08:43:42 EGD completed Not Available [facility] 08/15/2022 08:43:42 Cholecystectomy completed Not Available [facility] 08/15/2022 08:43:42 Breast Biopsy completed Not Available [facility] 08/15/2022 08:43:42 Imaging Results None recorded. Procedure Notes None recorded. Medical Equipment None Reported. Allergies Allergen ID Allergen Name Allergen Category Reaction Reaction Severity Criticality Documentation Date Start Date Code Code System Note Provider Name and Address Organization Details Recorded Time 70709 Zoloft medicatio n other Not available Not available 08/15/2022 79524 RxNorm SEIZU RE [facility] 08:52:40 45577 Voltaren medicatio n nausea Not available Not available 08/15/2022 31385 6 RxNorm Not Available [facility] 08:52:40 84264 vancomyci n medicatio n hives Not available Not available 08/15/2022 73930 RxNorm Not Available [facility] 08:52:40 88733 Toradol medicatio n vomiting Not available Not available 08/15/2022 47342 RxNorm Not Available [facility] 08:52:40 42646 Singulair medicatio n myalgias (muscle pain) Not available Not available 08/15/2022 57778 9 RxNorm muscl e weakn ess Not Available [facility] 08:52:40 77381 Monopril medicatio n cough Not available Not available 08/15/2022 58610 0 RxNorm Not Available [facility] 08:52:40 30817 Levaquin medicatio n nausea Not available Not available 08/15/2022 35076 2 RxNorm Not Available [facility] 08:52:40 14245 Invokana medicatio n dizziness Not available Not available 08/15/2022 10285 64 RxNorm Not Available [facility] 08:52:40 77861 cortisone medicatio n other Not available Not available 08/15/2022 2878 RxNorm SUNBU RN Not Available [facility] 08:52:41 16785 turkey allergeni c extract food Not available Not available Not available 10/18/2022 14317 9 RxNorm JASMEET Yun, [place] [employer] [facility] 3 11:13:30 30532 duloxetin e medicatio n Not available Not available Not available 02/18/2025 17666 RxNorm Nichole Claros RN null, [place] [employer] [facility] 5 15:21:13 Medications Name Sig Start Date Stop Date Status Note LastModified by Organization Details LastModified Time eq gas relief cap TAKE 1 SOFTGEL BY MOUTH 4 TIMES DAILY 03/26 completed Not Available Not Available Not Available celecoxib 200 mg capsule Take 1 capsule every day by oral route for 90 days. 2024 active Not Available Not Available Not Avai lable cyclobenz aprine 10 mg tablet TAKE 1 [...] Not Available azithromy yahaira 250 mg tablet TAKE 2 TABLETS BY MOUTH ON DAY 1, AND THEN TAKE 1 TABLET BY MOUTH ONCE A DAY ON DAY 2 THROUGH DAY 5 02/18 completed Not Available Not Available Not Available [...] FOR 1 DAY AT ONSET OF OUTBREAK active Not Available Not Available No t Available hydrocodo ne 5 mg-acetam inophen 325 [...] No t Available tramadol 50 mg tablet TAKE 1 TABLET BY MOUTH 4 TIMES DAILY NEEDED FOR PAIN active Not Available Not [...] MOUTH EVERY 6 HOURS NEEDED FOR PAIN 12/10 completed Not Available Not Available Not Available alprazola m 0.5 mg tablet TAKE 1 TABLET BY MOUTH ONCE DAILY AT BEDTIME active Not Available Not Available No t [...] 400 mg (241.3 mg magnesium ) tablet TAKE 1 TABLET BY MOUTH ONCE DAILY active Not Available Not Available No t Available metoclopr amide 5 mg tablet Take 1 [...] by injectio n route. 03/26 completed [facility]: [phone] 4-20 Not Available Not Available Not Available levothyro xine 50 mcg tablet Take 1 tablet every day by oral route for 90 days. 11/26 completed Not Available Not Available Not Available cephalexi n 500 mg capsule TAKE 1 CAPSULE BY MOUTH EVERY 12 HOURS 07/05 completed Not Available Not Available Not Available paroxetin e 30 mg tablet TAKE TWO TABLETS BY MOUTH ONCE DAILY 12/10 completed Not Available Not Available Not Available paroxetin e 20 mg tablet 09/30 [...] TAKE 1 CAPSULE BY MOUTH ONCE DAILY 02/18 completed Not Available Not Available Not Available levothyro xine 150 mcg tablet TAKE 1 TABLET BY MOUTH ONCE DAILY 6 DAYS A WEEK SATURDAY TO SATURDAY , SKIP SUNDAYS active Not Available Not Available No t Available bupropion HCl 75 mg tablet Take 1 tablet twice a day by oral route. 12/10 completed Not Available Not Available Not Available Gas Relief Extra Strength 125 mg [...] TAKE 1 CAPSULE BY MOUTH TWICE DAILY 12/10 completed Not Available Not Available Not Available ergocalci ferol (vitamin D2) 1,250 mcg (50,000 unit) capsule TAKE 1 CAPSULE BY MOUTH ONCE A WEEK 07/29 completed Not Available Not Available Not Available lorazepam 1 mg tablet TAKE 1/2 (ONE-MIGUELANGEL F) TO 1 TABLET BY MOUTH ONCE DAILY AT BEDTIME STOP ALPRAZOL AM active Not Available Not Available No t Available levofloxa yahaira 500 mg tablet active [...] n 5 mg tablet Take 1 tablet every day by oral route. 2024 active Not Available Not Available Not Avai lable olmesarta n 20 mg tablet TAKE 1 TABLET BY MOUTH ONCE DAILY DIRECTED 12/31 completed Not Available Not Available Not Available enoxapari n 40 mg/0.4 mL subcutane ous syringe INJECT 40 MG (0.4 ML) SUBCUTAN EOUSLY ONCE DAILY 12/10 completed Not Available Not Available Not Available Lexapro 10 mg tablet Take 1 [...] completed Not Available Not Available Not Available escitalop low 5 mg/5 mL oral solution TAKE 10 ML BY MOUTH ONCE DAILY 02/18 completed Not Available Not Available Not Available cyclobenz aprine 5 mg tablet 07/29 completed Not Available Not Available Not Available Abilify 5 mg tablet Take 1 tablet every day by oral route at bedtime. active Not Available Not Available No t Available bupropion HCl XL 150 mg 24 hr tablet, extended release Take 1 tablet every day by oral route in the morning. 12/10 completed Not Available Not Available Not Available topiramat e 50 mg tablet active [...] completed Not Available Not Available Not Available duloxetin e 30 mg capsule,d elayed release TAKE 1 CAPSULE BY MOUTH ONCE DAILY 02/18 completed Not Available Not Available Not Available [...] Not Available Not Available Not Available Prescott MyLorry 1.5 billion cell capsule Take 1 capsule every day by oral route in the morning for 30 days. 12/06 completed Not Available Not Available Not Available ropivacai ne (PF) 5 mg/mL (0.5 %) injection solution Take 20 mg by injectio n route. 03/26 completed [facility] 87297-20 09-15 Not Available Not Available Not Available [...] sprays every day by intranas al route. 02/18 completed Not Available Not Available Not Available naloxone 4 mg/actuat ion nasal spray 12/10 completed Not Available Not Available Not Available Accu-Chek Fastclix Lancet Drum USE 1 TO CHECK GLUCOSE THREE TIMES DAILY 10/18 completed Not Available Not Available Not Available Tirosint- Mili 112 mcg/mL oral solution TAKE 1 ML BY MOUTH DAILY 02/18 completed Not Available Not Available Not Available Tirosint- Mili 150 mcg/mL oral solution Take 1 mL every day by oral route. active Not Available [...] in Arterial blood by Pulse oximetry Systolic And Diastolic Provider Name and Address Organization Details Last Updated DateTime 5 167.64 cm 30.3 kg/m2 06248.3 7 g 97.5 [degF] 61 /min 98 % 98 % 134/70 mm[Hg] EN [place] - [place] [employer] 5 14:03:52 Date Recorded Body height Body mass index (BMI) Body weight Body temperature Heart rate Oxygen saturation Oxygen saturation in Arterial blood by Pulse oximetry Systolic And Diastolic Provider Name and Address Organization Details Last Updated DateTime 5 167.64 cm 28.7 kg/m2 35924.4 4 g 97.5 [degF] 57 /min 99 % 99 % 126/80 mm[Hg] Jody Yoo RN [facility] [employer] [facility] 5 14:56:14 Date Recorded Body height Body mass index (BMI) Body weight Body temperature Heart rate Oxygen saturation Oxygen saturation in Arterial blood by Pulse oximetry Systolic And Diastolic Provider Name and Address Organization Details Last Updated DateTime 5 167.64 cm 26.5 kg/m2 58224.1 5 g 98.3 [degF] 55 /min 96 % 96 % 116/70 mm[Hg] JASMEET Shepherd [facility] [employer] [facility] 5 08:44:44 Date Recorded Body height Body mass index (BMI) Body weight Body temperature Heart rate Oxygen saturation Oxygen saturation in Arterial blood by Pulse oximetry Systolic And Diastolic Provider Name and Address Organization Details Last Updated DateTime 5 167.64 cm 22.9 kg/m2 07260.1 2 g 98 [degF] 69 /min 98 % 98 % 112/72 mm[Hg] Nichole Claros RN [facility] [employer] [facility] 5 15:18:59 Date Recorded Body height Body mass index (BMI) Body weight Body temperature Heart rate Oxygen saturation Oxygen saturation in Arterial blood by Pulse oximetry Systolic And Diastolic Provider Name and Address Organization Details Last Updated DateTime 4 167.64 cm 28.4 kg/m2 63555.2 6 g 98 [degF] 74 /min 98 % 98 % 126/74 mm[Hg] Jody Yoo RN [facility] [employer] [facility] 4 14:37:23 Social History Question Answer Notes LastModified by Organizat ion Details LastModified Time Tobacco Smoking Status Never Smoker CAYLA Arriaga, [facility] [employer] [facility] 07/18/2023 15:43:53 What Is Your Level Of Caffeine Consumption? Occasional [id number] Information not available 08/15/2022 In The 14 Days Before Symptom Onset, Have You Had Close Contact With A Laboratory-confir med COVID-19 While That Case Was Ill? No Information not available 07/18/2023 In The 14 Days Before Symptom Onset, Have You Had Close Contact With A Person Who Is Under Investigation For COVID-19 While That Person Was Ill? No Information not available 07/18/2023 What Type Of Diet Are You Following? REGULAR Information not available 07/29/2023 Which Illicit Or Recreational Drugs Have You Used? None [email or web address] Information not available 07/18/2023 Do You Have An Electrostatic Air Filter? No Information not available 07/18/2023 Do You Have A Humidifier? No Has But Doeos Not Use Information not available 07/29/2023 Do You Have Moisture Problems In Your Home? No Information not available 07/18/2023 What Was The Date Of Your Most Recent Tobacco Screening? 06/27/2022 [email or web address] Information not available 07/18/2023 Do You Have Any Pets? Yes Dog Lives Inside The Home Information not available 07/18/2023 Do You Use Your Seat Belt Or Car Seat Routinely? Yes Information not available 07/18/2023 Do You Have Smoke And Carbon Monoxide Detectors In Your Home? Yes Information not available 07/18/2023 Are You Passively Exposed To Smoke? No Information no t available 07/18/2023 Do You Use Sunscreen Routinely? Yes Information not available 07/18/2023 Has Tobacco Cessation Counseling Been Provided? No [email or web address] Information not available 07/18/2023 Have You Recently Traveled Abroad? Yes Information not available 07/18/2023 Do You Have Any Dietary Restrictions? No Information not available 07/29/2023 Sex: Unknown Functional Status Question Answer Note LastModified by Organizat ion Details LastModified Time Do you use any illicit or recreational drugs? No Information not available 07/18/2023 Do you or have you ever used any other forms of tobacco or nicotine? No [email or web address] Information not available 07/18/2023 What is your level of alcohol consumption? None [id number] Information not available 08/15/2022 Are you currently employed? No Information not available 07/29/2023 Have you been exposed to chemicals or toxins? Not that aware of Information not available 07/18/2023 What is your exercise level? None [id number] Information not available 08/15/2022 Mental Status Question Answer Note LastModified by Organization D etails LastModified Time Do you feel stressed (tense, restless, nervous, or anxious, or unable to sleep at night)? [id number] Information not available 07/18/2023 Family History Relationship Description Onset Age of this Age Resolved Age Notes LastModified by Organization Details LastModified Time Mother Hypertensive disorder [id number] Not available 08/15/2022 08:43:44 Maternal Grandmother Diabetes mellitus [id number] Not available 08/15/2022 08:43:44 Paternal Grandfather Cerebrovascu lar accident [email or web address] Not available 12/10/2024 08:33:02 Father Angiosarcoma [email or web address] Not a vailable 12/10/2024 08:33:02 Father Leiomyosarco ma frivastorres Not available 08:33:02 Mother Complication of anesthesia [email or web address] Not available 08:33:02 Sister Heart disease [email or web address] Not available 2023 16:22:28 Sister Malignant neoplasm of lung frivastorres Not available 08:33:02 Brother Obstructive sleep apnea syndrome [email or web address] Not available 08:33:02 Brother Primary squamous cell carcinoma of tonsillar fossa frivastorres Not available 08:33:02 Brother Malignant neoplasm of liver frivastorres Not available 08:33:02 Medical History Condition Response FEMALE PROBLEMS / INFECTIONS Y DEPRESSION (INCLUDING POST ) Y BACK / NECK PROBLEMS Y THYROID DISEASE Y ULCERS Y ARTHRITIS Y DIABETES, TYPE Y HEARTBURN / REFLUX Y HEPATITIS / LIVER DISEASE Y SLEEP DISORDER Y SEIZURES/EPILEPSY Y HEADACHES/MIGRAINES Y HYPERTENSION Y CANCER: SPECIFY Y ANEMIA/BLOOD DISORDER Y PNEUMONIA Y BRONCHITIS Y Gynecological HistoryNo gynecological history recorded. Obstetrics History GPAL:G 0 P 0 0 0 0 Immunizations Vaccine Type Date Status Note Provider Nam e and Address Organization Details Recorded Time Influenza, recombinant, quadrivalent, PF 9 completed Not Available [facility] 02/18/2025 14:51:29 Influenza, split virus, quadrivalent, PF 0 completed Not Available [facility] 02/18/2025 14:51:29 COVID-19, mRNA, LNP-S, PF, 30 mcg/0.3 mL dose 1 completed Not Available [facility] 02/18/2025 14:51:29 COVID-19, mRNA, LNP-S, PF, 30 mcg/0.3 mL dose, corey-sucrose 2 completed Not Available [facility] 02/18/2025 14:51:29 COVID-19, mRNA, LNP-S, bivalent, PF, 30 mcg/0.3 mL dose 2 completed Not Available [facility] 02/18/2025 14:51:29 Influenza, MDCK, quadrivalent, PF 2 completed Not Available [facility] 02/18/2025 14:51:29 Pneumococcal conjugate PCV20, polysaccharide SIC399 conjugate, adjuvant, PF 2 completed Not Available [facility] 02/18/2025 14:51:29 COVID-19, mRNA, LNP-S, PF, corey-sucrose, 30 mcg/0.3 mL 3 completed Not Available [facility] 02/18/2025 14:51:29 Influenza, MDCK, quadrivalent, PF 3 completed Not Available [facility] 02/18/2025 14:51:29 Influenza, MDCK, trivalent, PF 4 completed Not Available [facility] 02/18/2025 14:51:29 COVID-19, mRNA, LNP-S, PF, corey-sucrose, 30 mcg/0.3 mL 4 completed Not Available [facility] 02/18/2025 14:51:29 Tdap 3 completed Jody Yoo RN null, [place] [employer] 11/05/2022 14:33:46 Influenza, split virus, trivalent, PF 3 completed Not Available [facility] 08/15/2022 08:52:34 COVID-19, mRNA, LNP-S, PF, 30 mcg/0.3 mL dose 1 completed Not Available [facility] 08/15/2022 08:52:34 Influenza, split virus, quadrivalent, preservative 2 completed Not Available [facility] 08/15/2022 08:52:34 COVID-19, mRNA, LNP-S, PF, 30 mcg/0.3 mL dose 1 completed Not Available [facility] 08/15/2022 08:52:35 Influenza, split virus, quadrivalent, preservative 0 completed Not Available [facility] 08/15/2022 08:52:35 Tdap 8 completed Not Available [facility] 08/15/2022 08:52:35 Influenza, split virus, trivalent, preservative 6 completed Not Available [facility] 08/15/2022 08:52:35 Influenza, split virus, trivalent, preservative 5 completed Not Available [facility] 08/15/2022 08:52:35 Influenza, split virus, trivalent, preservative 4 completed Not Available [facility] 08/15/2022 08:52:35 Influenza, split virus, trivalent, preservative 2 completed Not Available [facility] 08/15/2022 08:52:35 pneumococcal polysaccharide PPV23 9 completed Not Available [facility] 08/15/2022 08:52:35 Hep B, adult 7 completed Not Available [facility] 08/15/2022 08:52:35 Hep B, adult 7 completed Not Available [facility] 08/15/2022 08:52:35 Td (adult) 5 completed Not Available [facility] 08/15/2022 08:52:36 Tdap 8 completed Not Available [facility] 08/15/2022 08:52:36 Influenza, split virus, quadrivalent, PF 1 completed Not Available [facility] 08/15/2022 08:52:36 Past Encounters Encounter ID Performer Location Encounter Start Date Encounter Closed Date Diagnosis/Indication Diagnosis SNOMED-CT Code Diagnosis ICD10 Code Diagnosis IMO Codes Diagnosis Note [id number] [facility] [facility] [address] [place] [address] 10/31/2020 00:00:00 10/31/2020 15:49:24 [id number] John Riggs MD [facility] [place] [address] , [place] [address] 11/30/2020 00:00:00 11/30/2020 16:52:16 [id number] John Riggs MD [facility] [place] [address] , [place] [address] 02/01/2021 00:00:00 02/01/2021 10:55:45 [id number] John Riggs MD [facility] [place] [facility] [place] [address] 03/08/2021 00:00:00 03/08/2021 13:56:33 [id number] [facility] [place] [address] [place] [address] 04/17/2021 00:00:00 04/17/2021 16:13:06 [id number] [facility] [place] [address] [place] [address] 07/26/2021 00:00:00 07/26/2021 16:33:13 [id number] [facility] [place] [address] , [place] [address] 08/30/2021 00:00:00 08/30/2021 09:57:16 [id number] [facility] [place] [address] [place] [address] 09/25/2021 00:00:00 09/28/2021 09:29:04 [id number] [facility] [place] [address] [place] [address] 09/27/2021 00:00:00 09/27/2021 15:46:57 [id number] John Riggs MD [facility] [place] [address] , [place] [address] 10/05/2021 00:00:00 10/05/2021 11:08:56 [id number] John Riggs MD [facility] [place] [address] , [place] [address] 12/06/2021 00:00:00 12/06/2021 13:49:13 [id number] Dayan Rosenbaum, [facility] [place] [address] [place] [address] 12/06/2021 00:00:00 12/06/2021 16:22:33 [id number] [facility] [place] [address] , [place] [address] 02/15/2022 00:00:00 02/15/2022 17:15:11 [id number] John Riggs MD [facility] [place] [address] , [place] [address] 04/23/2022 00:00:00 04/23/2022 11:23:32 [id number] Emily Herrera MD [facility] [place] [address] [place] [address] 06/27/2022 00:00:00 07/11/2022 12:22:51 [id number] Emily Herrera MD [facility] [place] [address] [place] [address] 08/09/2022 00:00:00 08/12/2022 15:36:05 [id number] Emily Herrera MD [facility] [place] [address] [place] [address] 08/13/2022 00:00:00 08/13/2022 16:10:10 [id number] Emily Herrera MD [address] [place] [address] 09/20/2022 16:50:08 09/20/2022 17:28:53 [id number] SHAY Krause [facility] [address] [place] [address] 2022 10:17:16 2022 10:59:03 Hypothyroidism 14795099 E03.9 TSH <0.015 (09/20/22). Levothyrox ine reduced to 50mcg.Repe at 4 weeks. History of bariatric surgical procedure 332883039 Z98.84 She is seeing plastic surgeon (Dr. Ree ortiz ([facility]) Fax: /Phone: ) for excess skin removal, has tentative date for surgery scheduled for 12/11/22. She states she has been very uncomforta ble due to the excess skin. States it is also causing paresthesi a. Paresthesi a of bilateral hands 257885124 R20.2 Ring and pinky fingers bilaterall y.Will evaluate further after plastic surgery if symptoms still not improved with NCS. [id number] Dav Bedolla MD [facility] [place] [address] [place] [address] 10/18/2022 11:02:17 10/18/2022 12:18:22 Pain of right knee joint 8153778467 83134 M25.561 Pain of le ft knee joint 1987346945 47480 M25.562 Bilateral osteoarthritis of knees 9973451610 32988 M17.0 [id number] Emily Herrera MD [address] [place] [address] 11/05/2022 14:01:18 11/05/2022 14:31:08 Active or passive immunization 747090055 Z23 [id number] Dav Bedolla MD [facility] [place] [address] [place] [address] 12/20/2022 14:33:53 12/20/2022 15:05:38 Bilateral osteoarthritis of knees 8703228375 64369 M17.0 Pain in right knee 66969 77297 94952 M25.561 Pain of le ft knee joint 0584872883 45185 M25.562 [id number] [facility] [place] [address] [facility] [address] [place] [address] 12/31/2022 15:18:12 12/31/2022 16:08:53 Hypothyroidism 48915069 E03.9 currently on levothyrox ine 75 mcg dailyreche ck labs at next apptadd cytomel 5 mcg daily (she felt good on this in the past) Candidal intertrigo 2661 60144 B37.2 needs further skin removal surgery Cellulitis 276501736 L03 .90 has healing wound from surgery on buttocks Essential hypertension 45540146 I10 has been decreased since her surgery Screening mammography 24 689791 Z12.31 [id number] [facility] [place] [address] [facility] [address] [place] [address] 01/21/2023 12:54:12 01/22/2023 08:49:58 [id number] [facility] [place] [address] [facility] [address] [place] [address] 01/24/2023 15:04:23 01/24/2023 15:55:43 Adult health examination 234214351 Z00.00 Mammogram normal 3DEXA orderedHas completed shingrix vaccine seriesHas received prevnar 20Pneumova x 23 at age 64Flu vaccine yearlyCovi d booster this fallCologu niyah normal 10/2020 repeat 2023 Excessive skin and subcutaneous tissue 573694172 L98.7 Postmenopausal state 764 02610 Z78.0 [id number] [facility] [place] [address] [facility] [address] [place] [address] 03/04/2023 11:06:46 03/15/2023 04:07:17 [id number] [facility] [place] [address] [place] [address] 03/18/2023 14:10:28 03/18/2023 14:27:58 [id number] Dayan Rosenbaum, LOGISTICS PROGRAM MANAGER-BC [facility] [place] [address] [place] [address] 04/29/2023 13:59:58 04/29/2023 15:08:00 Obstructive sleep apnea syndrome [id number] G47.33 Home study 01/02/21 with AHI 19.In lab titration in January with no PLMS and best pressure 11 cm [id number] set up 03/03/21Re peat home study 03/2023 [...] at least 4 hours prior to bedtime. [id number] Emily Herrera [facility] [facility] [place] [address] [place] [address] 07/03/2023 12:39:51 07/03/2023 17:51:03 [id number] Obdulio Garcia MD [address] [address] 07/18/2023 15:41:13 07/19/2023 15:37:21 Obstructive sleep apnea syndrome 44391023 G47.33 [id number] Obdulio Garcia MD [address] [address] 07/29/2023 09:07:27 07/30/2023 08:51:35 Obstructive sleep apnea syndrome 37442302 G47.33 [id number] Emily Herrera MD [address] [place] [address] 07/29/2023 14:15:29 07/29/2023 15:02:58 Hypothyroidism 19206261 E03.9 currently on levothyrox ine 75 mcg dailyreche ck labs at next apptadd cytomel 5 mcg daily (she felt good on this in the past) update 07/29/23: repeat labs Renewal of prescription 393029215 Z76.0 Essential hypertension 33295040 I10 History of bariatric surgical procedure 594926533 Z98.84 Vitamin D deficiency 347 48925 E55.9 Screening for malignant neoplasm of colon 914736814 Z12.11 Hyperglycemia 45005076 R 73.9 Hyperlipid emia screening 598360284 Z13.640 [id number] Emily Herrera MD [facility] Primary Care [facility] [address] [facility] 140 [place] [address] 09/19/2023 14:06:26 09/19/2023 14:57:40 Pain of bilateral knee joints 2281134157 53313 M25.561 M25.562 Abdominal bloating 09917 9008 R14.0 Needs refill, stable Osteoarthritis 123406432 M19.90 stablerefi ll givenf/u in 6 months Gastroesop hageal reflux disease without esophagitis 976955702 K21.9 stable refill given [id number] YOLIS Jacobs-Mazin [facility] Primary [facility] [address] [facility] [address] [place] [address] 01/02/2024 10:16:03 01/02/2024 11:19:10 Uterine fibroid polyp 958959767 D25.9 Compressio n fracture of thoracic vertebra 9571942939 104 M48.54XA Type 2 angelo betes mellitus 50042682 E11.9 Allergic rhinitis 822412 04 J30.[id number] [facility] Primary Care [facility] [address] [facility] [address] [place] [address] 03/19/2024 14:27:51 03/19/2024 15:25:22 Adult health examination 847784694 Z00.00 Discussed medication compliance and routine follow up.Discuss ed healthy diet and routine exercise.Blanche rayawed vaccine records and made recommenda tions as needed.Enc ouraged annual eye and dental exams, as well as twice yearly dental cleanings. Will check screening labs as listed below. Screening for disorder 759181702 Z13.9 Essential hypertension 37317665 I10 Gastroesop hageal reflux disease 399161779 K21.9 Hypothyroidism 44160659 E03.9 Type 2 angelo betes mellitus 07115930 E11.9 Osteoarthritis 374816177 M19.[address] refill 01/29/24UDS will be collected at next appt. Pain of mu ltiple joints 09523931 M25.50 Allergic rhinitis 276868 04 J30.9 Hypomagnesemia 075239512 E83.42 Mixed anxi ety and depressive disorder 174084345 F41.[id number] [facility] Primary Care [facility] [address] [facility] [address] [place] [address] 06/23/2024 13:55:36 06/23/2024 14:48:19 Osteoarthritis 969650253 M19.90 Anemia 111308294 D64.9 Mixed anxi ety and depressive disorder 762365285 F41.8 Type 2 angelo betes mellitus 17632675 E11.9 Memory impairment 640622 006 R41.[id number] [facility] Primary Care [facility] [address] [facility] [address] [place] [address] 08/18/2024 14:51:09 08/18/2024 15:18:57 Mixed anxiety and depressive disorder 612216181 F41.8 Type 2 angelo betes mellitus 59871557 E11.9 [id number] JacobsP-C [facility] Primary Care [place] [facility] [address] [place] [address] 12/10/2024 08:31:59 12/10/2024 09:18:55 Anti-nuclear factor detected 390335115 R76.8 [id number] Will refer to rheumatolo gy for further evaluation . [id number] JYOTSNA Jacobs [facility] Primary [facility] [place] [address] [facility] [address] [place] [address] 02/18/2025 14:50:40 02/18/2025 15:49:23 Aphthous ulcer of mouth 334947302 K12.0 Allergy to food 55719576 1 Z91.018 96153 Osteoarthritis 549918823 M19.90 Gastroesop hageal reflux disease without esophagitis 843518245 K21.9 Essential hypertension 23850284 I10 Hypomagnesemia 146433369 E83.42 Pain of mu ltiple joints 88558593 M25.50 Health Concerns Section Related Observation LastModified by Organization Detai ls LastModified Time None Recorded Concern Status LastModified by Organization Details LastModified Time None Recorded Advance Directives Directive None Recorded Payers Insurance Date Sequence Insurance Name Policy Number Policy Oneal Covered Member ID Oneal Member ID Guarantor Name 12/10/2024 1 [employer] (MEDICARE REPLACEMENT/A DVANTAGE - HMO) [id number] Hanna Melendez [id number] Hanna Melendez 03/10/2023 PAYMENT PLAN Hanna Melendez 02/26/2025 1 [facility] (MEDICARE REPLACEMENT/A DVANTAGE - HMO) [id number] Hanna Melendez [id number] Hanna Melendez Notes Date Note Type Note Provider Name and Address Organization Details Recorded Time 03/19/2024 text/html ROS as noted in the HPI Patient is a 58 year old female [...] medical necessity to continue having procedures at [facility]. Letter needs to be faxed to Dr. Calero's office. Patient reports due to medical history, the anesthesiologist does not think it is safe for her to have surgeries there however her Diabetes, hypothyroidism and hypertension have been well managed since her weight loss. Patient wants to continue with [facility] rather than the hospital because it is $150 cheaper for each surgery and she is financially struggling with everything. labs-orderedmammogram- UTDcolonoscopy-schedul ed in AfhJNS-BAUBkl-FXBMgopc -GSPTgkm-RFEYcnimkrq-q jagdish Lemons, LOGISTICS PROGRAM MANAGER-C [address] [facility], [facility] [address], [place], [address], [facility] [employer] 03/20/2024 13:08:05 06/23/2024 text/html ROS as noted in the HPI Patient is a 58 year old female that presents to the office for follow-up. Patient reports she followed up with gluer machine setup operator and thyroid levels are still low.Patient is chronically anemic despite taking two bariatric vitamins with 45mg of iron plus liquid iron daily...patient requesting referral to follow up rep. Patient requesting referral to [facility] [place] due to noticing mild short term memory [...] problem after problem and I tired of it. Patient reports GI specialist stopped her Ozempic [...] of Paroxetine. Denies SI/HI. JYOTSNA Jacobs [address], [place], [address], [place] 06/23/2024 22:37:23 08/18/2024 text/html ROS as noted in the HPI Patient is a 58 year old female that presents to the office for follow up. Patient reports her thyroid levels are very low again so her gluer machine setup operator is increasing her Tirosint Solution. She [...] of the 75mg tablets in the morning. JYOTSNA Jacobs [address], [employer], [place], [address], [place] 08/18/2024 15:37:00 12/10/2024 text/html ROS as noted in the HPI Patient is a 59 year female that presents to the office for follow up after the GI specialist earlier this week. Patient reports she had labs completed and was instructed to follow up with her PCP due to labs showing autoimmune disorder. Patient denies any new concerns at this time including chest pain and shortness of breath. JYOTSNA Jacobs [address], [employer], [place], [address], [place] 12/10/2024 09:55:35 02/18/2025 text/html ROS as noted in the HPI Patient is a 59 year old female that presents to the office for follow up. JYOTSNA Jacobs [address], [place], [address], [place] 02/24/2025 23:00:04 OBGyn Episode No OBEpisode recorded.
--- OUTSIDE RECORDS SUMMARY | 2025-04-01 01:01 | XMS_ITS | Encounter Summary ---
Author Organization [facility] Address [address] [place] [address] Care Team Providers Care Branch Service Specialist Name Role Phone Regina Ovalles MD Primary Care Provider +1- [phone] Encounter Details Date Type Department Care Team (Late Contact Info) Description 10/02/2002 Outpatient Historical [facility] Internal Medicine 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 Gender Identity Not on file Sexual Orientation Not on file documented as of this encounter Plan of Treatment Upcoming Encounters Date Type Department Care Team (Late st Contact Info) Description 04/16/2025 12:45 PM CDT Office Visit [facility] Oncology and Hematology - [place] [address] [facility] [address] [place] [address] Malcolm Shay MD [address] [facility] [address] [place] [address] documented as of this encounter Visit Diagnoses Not on filedocumented in this encounter Care Teams Branch Service Specialist Relationship Specialty Start Date End Date Regina Ovalles MD [address] [place] [address] PCP - General 06/03/15 documented as of this encounter
--- OUTSIDE RECORDS SUMMARY | 2025-04-01 01:01 | XMS_ITS | Encounter Summary ---
Author Organization [facility] Address [address] [place] [address] Care Team Providers Care Social Service Assistant Name Role Phone Regina Ovalles MD Primary Care Provider +1- [phone] Encounter Details Date Type Department Care Team (Late Contact Info) Description 10/02/2002 Outpatient Historical [facility] Internal Medicine [address] 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 Gender Identity Not on file Sexual Orientation Not on file documented as of this encounter Plan of Treatment Upcoming Encounters Date Type Department Care Team (Late st Contact Info) Description 04/16/2025 12:45 PM CDT Office Visit [facility] Oncology and Hematology - [place] [address] [facility] [address] [place] [address] Malcolm Shay MD [address] [facility] [address] [place] [address] documented as of this encounter Visit Diagnoses Not on filedocumented in this encounter Care Teams Social Service Assistant Relationship Specialty Start Date End Date Regina Ovalles MD [address] [place] [address] PCP - General 06/03/15 documented as of this encounter
--- OUTSIDE RECORDS SUMMARY | 2025-04-01 01:01 | XMS_ITS | Encounter Summary ---
Author Organization [facility] Address [address] [place] [address] Care Team Providers Care Rocket Propellant Plant Supervisor Name Role Phone Regina Ovalles MD Primary Care Provider +1- [phone] Encounter Details Date Type Department Care Team (Late Contact Info) Description 08/03/2002 Outpatient Historical [facility] Internal Medicine [address] 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 Gender Identity Not on file Sexual Orientation Not on file documented as of this encounter Plan of Treatment Upcoming Encounters Date Type Department Care Team (Late st Contact Info) Description 04/16/2025 12:45 PM CDT Office Visit [facility] Oncology and Hematology - [place] [address] [facility] [address] [place] [address] Malcolm Shay MD [address] [facility] [address] [place] [address] documented as of this encounter Visit Diagnoses Not on filedocumented in this encounter Care Teams Rocket Propellant Plant Supervisor Relationship Specialty Start Date End Date Regina Ovalles MD [address] [place] [address] PCP - General 06/03/15 documented as of this encounter
--- OUTSIDE RECORDS SUMMARY | 2025-04-01 01:01 | XMS_ITS | Encounter Summary ---
Author Organization [facility] Address 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 Gender Identity Not on file Sexual Orientation Not on file documented as of this encounter Plan of Treatment Upcoming Encounters Date Type Department Care Team (Late st Contact Info) Description 04/16/2025 12:45 PM CDT Office Visit [facility] Oncology and Hematology - [place] [address] [facility] [address] [place] [address] Malcolm Shay MD [address] [facility] [address] [place] [address] documented as of this encounter Visit Diagnoses Diagnosis Other and unspecified hyperlipidemia- Primary documented in this encounter Care Teams Dye Weigher Relationship Specialty Start Date End Date Regina Ovalles MD [address] [place] [address] PCP - General 06/03/15 documented as of this encounter
--- OUTSIDE RECORDS SUMMARY | 2025-04-01 01:02 | XMS_ITS | Encounter Summary ---
Author Organization [facility] Address [address] [place] [address] Care Team Providers Care Compressor Station Operator Name Role Phone Regina Ovalles MD Primary Care Provider +1- [phone] Encounter Details Date Type Department Care Team (Late Contact Info) Description 02/01/[address] [facility] Internal Medicine [address] 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 Gender Identity Not on file Sexual Orientation Not on file documented as of this encounter Plan of Treatment Upcoming Encounters Date Type Department Care Team (Late st Contact Info) Description 04/16/2025 12:45 PM CDT Office Visit [facility] Oncology and Hematology - [place] [address] [facility] [address] [place] [address] Malcolm Shay MD [address] [facility] [address] [place] [address] documented as of this encounter Visit Diagnoses Not on filedocumented in this encounter Care Teams Compressor Station Operator Relationship Specialty Start Date End Date Regina Ovalles MD [address] [place] [address] PCP - General 06/03/15 documented as of this encounter
--- OUTSIDE RECORDS SUMMARY | 2025-04-01 01:02 | XMS_ITS | Clinical Summary ---
Author Organization [facility] Address [address] [place] [address] Phone Care Team Providers Care Clothes Ironer Name Role Phone Regina Ovalles MD Primary Care Provider +1- [phone] Allergies Active Allergy Reactions Criticality Noted Date Comments Canagliflozin Dizziness Low 12/30/2020 Cephalexin Hives High 12/17/2023 Cortisone Other (See Comments) Low 12/30/2020 Food Extracts Anaphylaxis High 08/02/2011 Anaphylaxis when digests turkey Fosinopril Cough Low 12/30/2020 Ketorolac Tromethamine Nausea and Vomiting Medium 07/18 Levofloxacin Nausea and Vomiting Low 12/30/2020 Montelukast Nausea and Vomiting,Other (See Comments) Low 12/30/2020 Sertraline Seizure High 09/17/2015 [place] Anaphylaxis,Shortnes s of Breath/Wheezing High 12/30/2020 Vancomycin Itching Medium 08/03/2011 Medications levothyroxine (SYNTHROID) 125 mcg Oral tablet Take 1 Tab by mouth daily senior technical editor. 30 Tab 0 2 Active Additional Information [...] 50 mg by mouth. 3 Active Fish Oil-[place]-3 Fatty Acids 360-1,200 mg Capsule Take 1 [...] Abstract 01/14/2025 2:45 PM CDT Office Visit [facility] Oncology and Hematology - [place] [address] [place] [address] Malcolm Shay MD Chronic anemia (Primary Dx) 01/07/2025 Orders Only [facility] Oncology and Hematology - [place] [address] [place] [address] Malcolm Shay MD 01/06/2025 Orders Only [facility] Oncology and Hematology - [place] [address] [place] [address] Malcolm Shay MD 01/05/2025 Orders Only [facility] Oncology and Hematology - [place] [address] [place] [address] Malcolm Shay MD 12/30/2024 External Device Data [...] on file Legal 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 Gender Identity Not on file Sexual Orientation [...] [facility] Oncology and Hematology - [place] [address] [place] [address] Malcolm Shay MD [address] [facility] [email or web address] [place] [address] Health Maintenance Due Date Last [...] 03/08/2021, 04/11/2020, Additional history exists COVID-19 Vaccine (2024- season) 2025 03/24/2021, 08/06/2020, 07/16/2020 DTAP/TDAP/TD VACCINES [...] TFR SOLUBLE (01/01/2025 4:51 PM CDT) Blood Malcolm Shay MD CHEMISTRY ORDERABLES Final Resu lt * COMPREHENSIVE METABOLIC PANEL (01/01/2025 2:22 PM CDT) Blood Malcolm Shay MD CHEMISTRY ORDERABLES Final Resu lt * METHYLMALONIC ACID (01/01/2025 8:54 AM CDT) Blood Malcolm Shay MD CHEMISTRY ORDERABLES Final Resu lt from Last 3 Months Insurance OPTIONS PPO [id number] [facility] Address: [address] [address] [place] [address] [facility] Address: [address] [address] [place] [address] [facility] OPTIONS PPO [id number] [place] [id number] Advance Directives For more information, please contact: [phone] * Full Code (Latest Code Status on File) Date Activated Date Inactivated Comments 09/17/2015 8:59 PM 09/22/2015 3:10 PM * Full Code Date Activated Date Inactivated Comments 08/02/2011 1:14 PM 08/08/2011 2:44 PM Care Teams Clothes Ironer Relationship Specialty Start Date End Date Regina Ovalles MD [address] [address] PCP - General 06/03/15
--- OUTSIDE RECORDS SUMMARY | 2025-04-01 01:02 | XMS_ITS | Clinical Summary ---
Author Organization [facility] Address [address] [place] [address] Care Team Providers Care Electrophysiology Technologist Name Role Phone Denise Cope PRISCILA-FIRE CONTROL TECHNICIAN Primary Care Provider + Source Comments [facility],non-owned Affiliates and Associated Physician Practices is amultiple site organization consisting of ambulatory clinics and hospital sitesin [place], [place], [place] and [place]. This disclosure is being madepursuant to the Care Everywhere program and may not contain all information available regarding this patient. Last updated 18.[facility] Allergies Active Allergy Reactions Criticality Noted Date Comments Canagliflozin Dizziness 12/30/2020 Cephalexin Urticaria Medium 12/17/2023 Cortisone Other 12/30/2020 Diclofenac Epolamine Nausea and/or Vomiting Fosinopril Cough 12/30/2020 Ketorolac Tromethamine Nausea and/or Vomiting Medium 0 08/02/2011 Levofloxacin Nausea and/or Vomiting 12/30/2020 Montelukast Other 12/30/2020 Sertraline Other,Seizures High 09/17/2015 Ketorolac Vomiting 12/30/2020 [place] Anaphylaxis High 12/30/2020 Vancomycin Urticaria,Itching,Ra sh,Shortne ss [...] once daily Active ergocalciferol (DRISDOL) 1.25 MG (79314 UT) capsule Take 1 (one) capsule by [...] ONCE DAILY FOR 30 DAYS Active Nystop 289031 UNIT/GM powder APPLY POWDER TOPICALLY TO AFFECTED [...] LURIA, FLUZONE TRIVALENT; 6MO+) (IIV3) 03/22/2016,03/28/2015,03/19/2014,2011,04/17/2011 Covid Kincast primary monoval ent 12+ yr 0.3mL Purple [...] AM CDT Legal Sex Female 6:20 AM CIRCUIT DESIGN ENGINEER Gender Identity Female 01/19/2021 8:46 AM CDT [...] 165.1 cm (5' 5) 08/24/2022 11:15 AM CIRCUIT DESIGN ENGINEER Body Mass Index 28.96 08/24/2022 11:15 AM CIRCUIT DESIGN ENGINEER Plan of Treatment Health Maintenance Due Date [...] to complete this topic Insurance [address] [place] [address] COMMERCIAL GENERIC SELF PAY NO INSURANCE Member Subscriber Plan / Payer (Ef fective for All Dates) Name:Hanna Garcia Member ID:Not on file Relation to Subscriber:Not on file Name:HANNA GARCIA Subscriber ID:Not on file (Home) Address: [address] [place] [id number] Payer ID:Not on file Group ID:Not on file Type:Self Pay Address: [place], [place] Advance Directives * Full Code (Latest Code Status on File) Date Activated Date Inactivated Comments 01/24/2022 8:11 PM 01/26/2022 1:18 PM * Full Code Date Activated Date Inactivated Comments 07/03/2021 11:58 AM 07/04/2021 5:41 PM Care Teams Electrophysiology Technologist Relationship Specialty Start Date End Date Denise Cope APRN-JUDAH [address] [place] [address] [address] [place] [address] PCP - General Nurse Practitioner 12/23/20
[2025-04-01] MEDS: ACETAMINOPHEN 500 MG TABLET 1000 MG PO (06:50)
[2025-04-01] MEDS: LACTATED RINGERS 1,000 ML 30 ML IV CONT ×3 (06:50→13:29)
--- NOTE | 2025-04-01 06:55 | WPDHPUPDATE1 ---
History and Physical Update Update Date/Time: 04/01/25 06:55 History and Physical has been reviewed, including an updated exam of the patient. There are NO changes in the patient's condition. Risks, benefits, and alternatives have been discussed and questions answered. Patient agrees to proceed with procedure.
--- NOTE | 2025-04-01 07:00 | WPDANESEPPF ---
Anes - Initial Pre Proc Eval Procedure: Operation Date: 04/01/25 07:30 Proposed Procedures p Right Calcaneal and First Metatarsal Osteotomy, Plantar Fascia Release, - Ruel Womack MD s Tendon Transfer, Proceed as Indicated - Ruel Womack MD Date/Time: 04/01/25 07:00 Surgeon: Ruel Womack MD Pre Op Diagnosis: right cavovarous foot deformity Patient Data Age: 59 Gender: F Height: 1.65 m Weight: 69.5 kg Last Vital Signs Temp 36.5 C 04/01/25 06:46 Pulse 74 04/01/25 06:46 BP 125/60 04/01/25 06:46 Pulse Ox 100 04/01/25 06:46 O2 Del Method Room Air 04/01/25 06:46 Allergies Allergy/AdvReac Type Severity Reaction Status Date / Time duloxetine Allergy Severe Nausea and Verified 04/01/25 06:45 Vomiting sertraline (From Zoloft) Allergy Mild Seizure Verified 04/01/25 06:45 vancomycin Allergy Mild Hives Verified 04/01/25 06:45 ketorolac AdvReac Severe SEVERE Verified 04/01/25 06:45 NAUSEA AND VOMITING cephalexin AdvReac Intermediate Itching Verified 04/01/25 06:45 canagliflozin (From Invokana) AdvReac Mild Dizziness Verified 04/01/25 06:45 cortisone AdvReac Mild Other Verified 04/01/25 06:45 diclofenac (From Voltaren) AdvReac Mild Nausea Verified 04/01/25 06:45 fosinopril (From Monopril) AdvReac Mild Cough Verified 04/01/25 06:45 levofloxacin (From Levaquin) AdvReac Mild Nausea Verified 04/01/25 06:45 montelukast (From Singulair) AdvReac Mild Muscle Pain Verified 04/01/25 06:45 turkey Allergy Severe Swelling Uncoded 03/25/25 08:28 of Lip/Tongue/Throat Home Medications ?Medication ?Instructions ?Recorded ?Confirmed ?Type aspirin 81 mg tablet,delayed 162 mg PO BID 01/31/23 03/25/25 History release (Adult Low Dose Aspirin) Bariatric vitamins 1 tablet PO DAILY 05/06/23 03/25/25 History celecoxib 200 mg capsule 200 mg PO DAILY 05/06/23 03/25/25 History cholecalciferol (vitamin D3) 125 125 mcg PO DAILY 05/06/23 03/25/25 History mcg (5,000 unit) tablet magnesium oxide 400 mg (241.3 mg 400 mg PO DAILY 05/06/23 03/25/25 History magnesium) tablet omega 6-rmk-caj-fish oil 1,200 mg 1 cap PO DAILY 05/06/23 03/25/25 History (144 mg-216 mg) capsule (Fish Oil) olmesartan 5 mg tablet 2.5 mg PO DAILY 12/25/23 03/25/25 History lansoprazole 30 mg capsule,delayed 30 mg PO DAILY #90 caps 04/29/24 03/25/25 Rx release pxiwpu-lenexktl-vzysnbt 2 cap PO .AC and snacks 06/09/24 03/25/25 History (pork)36,000-114,000-180k unit capsule,del rel (Creon) alprazolam 0.5 mg tablet,extended 0.5 mg PO DAILY 12/14/24 03/25/25 History release 24 hr Tirosint-Mili 150 mcg/mL oral 150 mcg PO .COMPLEX #90 mL 03/22/25 04/01/25 Rx solution (levothyroxine) amitriptyline 25 mg tablet 25 mg PO QHS 1 month #30 tabs 03/25/25 04/01/25 Rx tramadol 50 mg tablet 50 mg PO Q4-6H PRN Pain #30 tabs 04/01/25 Rx Patient hx anesthesia problems: none Family hx anesthesia problems: none Results Review: All pre-operative results and documents have been reviewed as part of the pre-operative evaluation. [facility] Past Medical History Medical History (Updated 03/25/25 @ 09:03 by NUBIA HuffN-C) Constipation Belching Lower abdominal pain Tear of peroneal tendon of right foot Acquired cavovarus deformity of right foot Obstructive sleep apnea 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 cavovarus deformity of both feet GERD (gastroesophageal reflux disease) Nausea and vomiting Abdominal bloating Alternating constipation and diarrhea History of postoperative nausea and vomiting History of stress test (~2021) PONV (postoperative nausea and vomiting) Chronic pain tramadol CASSIA (obstructive sleep apnea) Hypothyroidism (acquired) Hyperlipidemia Hypertriglyceridemia Vitamin D deficiency Type 2 diabetes mellitus Thyroid disorder Hypertension Diabetes Depression Surgical History Surgical History H/O foot surgery S/P dilation and curettage 04.03.24 KATHY History of tooth extraction H/O gastric bypass 07/04/21 H/O esophagogastroduodenoscopy H/O colonoscopy 2006 Hx of cholecystectomy H/O left breast biopsy Family History Family History Father Alcoholism Diabetes mellitus Cancer Mother Alcoholism Hypertension Depression Thyroid disorder Cancer Sibling Alcoholism Asthma Cancer Diabetes mellitus Hypertension Depression Heart disease Thyroid disorder Grandparent Cancer Diabetes mellitus Grandparent Cerebrovascular accident Social History Social History Smoking status: Never smoker Second hand tobacco smoke exposure: Yes Alcohol intake: never Substance use: never Substance use type: does not use Do You Feel Safe in your Home?: Yes Lack of Transportation: No Lack of Food: Sometimes True Current Housing: I Have Housing Concerned About Future Housing: No Difficulty Paying Gas/Electric Bills: No Difficulty Paying for Meds: YES Currently Unemployed: No Education: Associate Degree Difficulty w/ Childcare or Family Care: No Living arrangements: with family 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 Informed Consent: The patient's anesthetic plan and its attendant risks and benefits were discussed with the patient/family/POA. Questions were solicited and answers provided to the satisfaction of the patient/family/POA.
[2025-04-01] MEDS: SCOPOLAMINE 1 MG PATCH 1 PATCH TRANSDERM (07:15)
[2025-04-01] MEDS: ceFAZolin 2 GM in SODIUM CHLORIDE 0.9% IV 50 ML 100 ML IVPB (07:33)
--- NOTE | 2025-04-01 12:23 | W.PM.PROC2 ---
Procedure Note - Detailed Date of Procedure 04/01/25 Pre-op Diagnosis right cavovarous foot deformity, peroneal tendon tear, Achilles contracture, equinus Post-op Diagnosis Same Procedure Performed Right calcaneal osteotomy, 1st metatarsal osteotomy, posterior tibial tendon transfer to the midfoot, peroneal tendon longus transfer to the base of the 5th metatarsal, plantar fascia release, Achilles tendon release. Surgeon Ruel Womack MD Outsole Tacker 1st anesthetic assistant Anesthesia General Indications 59-year-old woman with severe right cavovarus foot deformity, equinus lateral weakness with peroneal brevis tendon rupture. Presents for operative treatment. Description of Procedure Patient identified in the preoperative holding. Informed consent given. Operative extremity marked. Patient received intravenous antibiotics. Patient brought to the operating room where she underwent general anesthetic by anesthesia team. Positioned supine with a bump under the ipsilateral hip on operating room table. Head and neck secured. Time-out performed confirming the patient, site of the surgery and the plan. Left lower extremity prepped draped usual sterile surgical fashion using a ChloraPrep skin solution. Foot and ankle exsanguinated and a thigh tourniquet inflated to 250 mmHg. Curvilinear incision over the lateral ankle and distal fibula and lateral calcaneus. Incision made with 15 blade knife. Hemostasis controlled electrocautery. Dissection carried down to the fascia which was incised in line with skin incision. Careful dissection to isolate the nerve elements and protect these during the case. lateral calcaneus was exposed 1st. Fluoroscopy assisted the osteotomy level. Sagittal saw used to make an z-shaped osteotomy from lateral to medial followed by a wedge on the transverse aspect. The heel was then brought out of varus and impacted laterally and provisionally pinned. Alignment was checked fluoroscopy and fixation achieved with 4.5 mm screw x2. Screws placed percutaneously through the heel. The heel incisions were then closed with 4-0 interrupted suture. Fluoroscopy confirmed final alignment positioning hardware. Wound irrigated subcutaneous tissue repaired with 3-0 moderate interrupted suture and skin repaired with 4-0 nylon running suture. Incision made over the lateral peroneal tubercle distal to the fibula with 15 blade. Hemostasis controlled electrocautery. Peroneal retinacular isolated and incised in line with the skin incision. Peroneus brevis tendon noted to be completely torn and atrophied. Peroneus longus was intact. The longus was then released distally and tendon transfer performed to the base of the 5th metatarsal and peroneus brevis insertion. # 2. FiberWire interrupted suture used for the tendon transfer. Wound irrigated closed with 3-0 Monocryl subcuticular interrupted suture 4-0 nylon running suture for the skin. The plantar fascia was then addressed. Longitudinal incision made over the midportion of the plantar fascia with a 15 blade knife. Hemostasis controlled electrocautery. Plantar fascia was dissected out and retractors placed. Plantar fascia then divided transversely and 5 mm of fascia was removed to prevent recurrent scarring. Wound irrigated and closed with 3-0 Monocryl interrupted suture for subcutaneous tissue 4-0 nylon running suture for the skin. Posterior tibial tendon transfer to the dorsum of the midfoot then performed. The tendon released distally off of the medial navicular after longitudinal incision with a 15 blade knife. 15 blade knife used to make a longitudinal incision on the medial distal tibia. Peroneal tendon identified and brought out through the more proximal wound. Anterior longitudinal incision over the ankle joint made with a 15 blade knife and the neurovascular bundle was identified and retracted. We bluntly incised through interosseous membrane between the tibia and fibula and passed a clamp around the posterior tibia to the medial incision. Posterior tibial tendon was brought out through the anterior incision. The medial wounds were thoroughly irrigated and closed with 3-0 Monocryl interrupted suture for subcutaneous tissue and 4-0 nylon for skin. Subcutaneous tunneling was then done to the dorsum of the midfoot and they posterior tibial tendon was brought out. The lateral cuneiform was identified with fluoroscopy and a 6 mm drill hole was placed from dorsal to plantar. The tendon was then brought out on the about bottom side and secured with a suture button plantar word and a 7 mm by tenodesis screw from the dorsum. Ankle was placed in maximum dorsiflexion for the tendon transfer. Wounds were irrigated subcutaneous tissue closed with 3-0 Monocryl interrupted suture and skin repaired with 4-0 nylon running suture. Ankle equinus noted and a fresh 15 blade knife was used to perform percutaneous him I section of the distal Achilles tendon with 2 incisions. Finally, the 1st metatarsal was addressed. Dorsal longitudinal incision made with 15 blade knife. Hemostasis controlled electrocautery. Retractors were placed around the base of the 1st metatarsal and a dorsal based wedge osteotomy was performed with a sagittal saw osteotomy was reduced in closed and fixed 10 mm staple x2. Image intensification confirmed alignment and placement of the hardware. Wound irrigated and Subcutaneous tissue repaired with 3 0 Monocryl interrupted suture. Skin closed with 4-0 nylon running suture. Sterile dressing placed. Tourniquet released. Bulky dressing and splint applied. Patient awoken from anesthesia, extubated and taken to the recover room in stable condition. All sponge needle and instrument counts correct at the end of the case. Implants Arthrex 4.5 mm cannulated screw x2, 10 mm staple x2, 7 mm bio tenodesis screw, 10 mm suture button Estimated Blood Loss 20 Tourniquet Time Total Tourniquet Time: 205 Drains Yes Packing Yes Pathology Yes Complications None Condition Stable Disposition PACU [facility] Billing Surgery - Charge Forward: Surgery Billing ([id number], [id number], [id number] X2, [id number])
[2025-04-01] MEDS: fentaNYL CITRATE INJ (*CRX) 100 MCG/2 ML VIAL 25 MCG IV PUSH ×8 (12:30→13:26)
[2025-04-01] MEDS: ONDANSETRON INJ 4 MG/2 ML VIAL IV PUSH (13:26)
[2025-04-01] MEDS: oxyCODONE HCL (*CRX) 5 MG TAB IR PO (13:44)
[2025-04-01] MEDS: HYDROmorphone HCL INJ (*CRX) 1 MG/ML SYR 0.5 MG IV PUSH ×2 (14:17→14:30)
[2025-04-01] MEDS: IBUPROFEN IV 800 MG/200 ML 800 MG/200 ML BAG 400 MG IVPB (14:50)
== END 2025-04-01 15:27 | disposition home or self-care (01) ==
PROVIDERS: PCP Nurse Practitioner Family; Visit Provider Orthopaedic Surgery
PROC: (CPT 28750; principal; 2025-04-01 07:30)
PROC: (CPT 28300; 2025-04-01 07:30)
DX: M21.6X1 Other acquired deformities of right foot (principal); M21.6X2 Other acquired deformities of left foot; S86.311A Strain of muscle(s) and tendon(s) of peroneal muscle group at lower leg level, right leg, initial encounter; M67.01 Short Achilles tendon (acquired), right ankle; K21.9 Gastro-esophageal reflux disease without esophagitis; E78.1 Pure hyperglyceridemia; E55.9 Vitamin D deficiency, unspecified; E11.9 Type 2 diabetes mellitus without complications; I10 Essential (primary) hypertension; G47.33 Obstructive sleep apnea (adult) (pediatric); E06.3 Autoimmune thyroiditis; F32.A Depression, unspecified; M06.9 Rheumatoid arthritis, unspecified; G89.29 Other chronic pain; X58.XXXA Exposure to other specified factors, initial encounter; Z79.891 Long term (current) use of opiate analgesic; Z79.82 Long term (current) use of aspirin; Z79.1 Long term (current) use of non-steroidal anti-inflammatories (NSAID); Z98.890 Other specified postprocedural states; Z98.84 Bariatric surgery status; Z90.49 Acquired absence of other specified parts of digestive tract; Z80.9 Family history of malignant neoplasm, unspecified; Z82.49 Family history of ischemic heart disease and other diseases of the circulatory system
CPT/HCPCS: 28300; 28306; 27691; 27692; 28250; 82948; 99199; J0690; A9270; C1713; C1769; J1100; J1171; J1741; J2003; J2250; J2405; J2704; J3010; J7120